=== PATIENT | male | born 1945 | race Caucasian/White ===

== ENCOUNTER 2018-07-23 20:31 | Inpatient (IN) | payer MEDICARE, MEDICAID ==
[~2018-07-23] VITALS: Ht 165.1 cm; Wt 54.4 kg
[2018-07-23 21:10] VITALS: BP 180/89
[2018-07-23 21:30] LABS: ANION GAP 4 mmol/L (5-15); BLOOD UREA NITROGEN 52 mg/dL (7-18); CARBON DIOXIDE 31 MMOL/L (21-32); CHLORIDE 106 MMOL/L (98-107); CREATININE 1.5 MG/DL (0.55-1.30); POTASSIUM 4.6 MMOL/L (3.5-5.1); SODIUM 141 MMOL/L (136-145)
[2018-07-23 21:31] LABS: BASOPHILS % (AUTO) 0.6 % (0.0-2.0); EOSINOPHILS % (AUTO) 1.9 % (0.0-3.0); HEMATOCRIT 41.5 % (42.0-52.0); HEMOGLOBIN 13.5 G/DL (14.2-18.0); LYMPHOCYTES % (AUTO) 9.9 % (20.0-45.0); MEAN CORPUSCULAR VOLUME 92 FL (80-99); MONOCYTES % (AUTO) 9.2 % (1.0-10.0); NEUTROPHILS % (AUTO) 78.4 % (45.0-75.0); PLATELET COUNT 227 K/UL (150-450); RED BLOOD COUNT 4.52 M/UL (4.70-6.10); RED CELL DISTRIBUTION WIDTH 13.1 % (11.6-14.8); WHITE BLOOD COUNT 7.1 K/UL (4.8-10.8)
[2018-07-23 21:45] LABS: ALANINE AMINOTRANSFERASE 25 U/L (12-78); ALBUMIN 3.6 G/DL (3.4-5.0); ALBUMIN/GLOBULIN RATIO 1.2 (1.0-2.7); ALKALINE PHOSPHATASE 91 U/L (46-116); ASPARTATE AMINO TRANSFERASE 34 U/L (15-37); BILIRUBIN,TOTAL 0.4 MG/DL (0.2-1.0); CKMB 3.5 NG/ML (0.0-3.6); CREATINE KINASE 116 U/L (26-308)
[2018-07-23] MEDS ORDERED: ABILIFY15 MG ORAL (22:08)
[2018-07-23] MEDS ORDERED: ASPIRIN81 M3 PO (22:09)
[2018-07-23] MEDS ORDERED: CHLORTHALIDONE25 MG ORAL (22:10)
[2018-07-23] MEDS ORDERED: LEVOFLOXACIN500 MG ORAL (22:11)
[2018-07-23] MEDS ORDERED: LISINOPRIL5 MG ORAL (22:11)
[2018-07-23] MEDS ORDERED: IPRATROPIU0.2 MG/1 M HHN (22:12)
[2018-07-23] MEDS ORDERED: MAPAP325 MG/10. PO (22:14)
[2018-07-23] MEDS ORDERED: ACETAMINOPHEN325 M1 ORAL (22:15)
[2018-07-23] MEDS ORDERED: Isovue-370 150ml vial INJ PRN ×2 (22:15)
--- NOTE | 2018-07-23 22:33 | Emergency Room Report ---
History of Present Illness General Chief Complaint: Generalized Weakness Source: Patient Present Illness HPI Patient presents emergency department today complaining acute onset altered mental status and left upper and lower extremity weakness. Patient stays at a snf. Apparently at approximately 3:00 was last time is known well. Between 3:00 and 7:00 patient was noted to be more confused uncertain exactly when he got worse and then he's was unable to speak. Patient apparently was not moving his left upper and left lower extremity. Patient was brought here further evaluation by the caregiver. No other complaints are noted. Symptoms noted to be highly severe. No other modifying factors. No other associated signs and symptoms. No other complaints were noted. Allergies: Coded Allergies: No Known Allergies (Unverified , 07/23/18) Patient History Past Medical History: HTN, CAD, COPD Past Surgical History: other - Left AV fistula Social History: Denies: smoking, alcohol use, drug use Reviewed Nursing Documentation: PMH: Agreed; PSxH: Agreed Nursing Documentation-PMH Hx Cardiac Problems: Yes Hx Hypertension: Yes Hx COPD: Yes Hx Dialysis: No Review of Systems All Other Systems: negative except mentioned in HPI Physical Exam Vital Signs Date Time Temp Pulse Resp B/P (MAP) Pulse Ox O2 Delivery O2 Flow Rate FiO2 07/23/18 20:44 98.6 92 17 179/91 98 Room Air 07/23/18 21:10 98 Sp02 EP Interpretation: reviewed, normal General Appearance: alert, moderate distress, lethargic Head: normocephalic, atraumatic Eyes: bilateral eye normal inspection ENT: normal ENT inspection, moist mucus membranes Neck: normal inspection, full range of motion, supple, no bony tend Respiratory: normal inspection, lungs clear, normal breath sounds, no respiratory distress, no retraction, no wheezing Cardiovascular #1: regular rate, rhythm, no edema Gastrointestinal: normal inspection, normal bowel sounds, non tender, soft, no guarding, no hernia Genitourinary: no CVA tenderness Musculoskeletal: other - Left upper extremity contractures, AV fistula in place Neurologic: alert, aphasia, other - Confused, left upper and lower extre weakness Psychiatric: other - Unable to fully assess Skin: normal inspection, normal color, no rash Medical Decision Making Diagnostic Impression: Primary Impression: CVA (cerebral vascular accident) Additional Impression: Altered mental state ER Course Patient presents emergency department today with acute altered mental status possible CVA. Differential considerations include CVA, electrolyte abnormality , seizure activity just name a few.Given the severity of the patient's presentation I felt this is a highly complex patient. This patient required extensive workup. TPA criteria: Patient's time of onset was outside TPA window. Therefore patient did not meet TPA criteria. Head CT was noted to be negative. Because of patient's presentation I discussed this case with [facility] stroke line. There is concern perhaps that she transfer patient higher-level care. However patient began to improve significantly starts talking move his extremities. Therefore I felt that it was unlikely the patient had large vessel occlusion. CTA of the head and neck was canceled because patient had significant renal disease in the past and given that there was no evidence of large vessel occlusion I felt that the study was not indicated this time. Case was discussed with [facility] stroke line. This felt the patient was stable for admission to telemetry here at [facility]. Case was discussed with Dr. Bill. Patient will be admitted to telemetry for further treatment. Labs Test 07/23/18 21:05 White Blood Count 7.1 K/UL (4.8-10.8) Red Blood Count 4.52 M/UL (4.70-6.10) Hemoglobin 13.5 G/DL (14.2-18.0) Hematocrit 41.5 % (42.0-52.0) Mean Corpuscular Volume 92 FL (80-99) Mean Corpuscular Hemoglobin 29.9 PG (27.0-31.0) Mean Corpuscular Hemoglobin Concent 32.5 G/DL (32.0-36.0) Red Cell Distribution Width 13.1 % (11.6-14.8) Platelet Count 227 K/UL (150-450) Mean Platelet Volume 6.7 FL (6.5-10.1) Neutrophils (%) (Auto) 78.4 % (45.0-75.0) Lymphocytes (%) (Auto) 9.9 % (20.0-45.0) Monocytes (%) (Auto) 9.2 % (1.0-10.0) Eosinophils (%) (Auto) 1.9 % (0.0-3.0) Basophils (%) (Auto) 0.6 % (0.0-2.0) Prothrombin Time 10.5 SEC (9.30-11.50) Prothromb Time International Ratio 1.0 (0.9-1.1) Activated Partial Thromboplast Time 25 SEC (23-33) Sodium Level 141 MMOL/L (136-145) Potassium Level 4.6 MMOL/L (3.5-5.1) Chloride Level 106 MMOL/L (98-107) Carbon Dioxide Level 31 MMOL/L (21-32) Anion Gap 4 mmol/L (5-15) Blood Urea Nitrogen 52 mg/dL (7-18) Creatinine 1.5 MG/DL (0.55-1.30) Estimat Glomerular Filtration Rate mL/min (>60) Glucose Level 87 MG/DL (74-106) Calcium Level 9.0 MG/DL (8.5-10.1) Total Bilirubin 0.4 MG/DL (0.2-1.0) Aspartate Amino Transf (AST/SGOT) 34 U/L (15-37) Alanine Aminotransferase (ALT/SGPT) 25 U/L (12-78) Alkaline Phosphatase 91 U/L (46-116) Total Creatine Kinase 116 U/L (26-308) Creatine Kinase MB 3.5 NG/ML (0.0-3.6) Creatine Kinase MB Relative Index 3.0 Troponin I 0.278 ng/mL (0.000-0.056) Pro-B-Type Natriuretic Peptide 1695 pg/mL (0-125) Total Protein 6.5 G/DL (6.4-8.2) Albumin 3.6 G/DL (3.4-5.0) Globulin 2.9 g/dL Albumin/Globulin Ratio 1.2 (1.0-2.7) Lipase 141 U/L (73-393) EKG Diagnostic Results Rate: normal Rhythm: NSR ST Segments: no acute changes Rhythm Strip Diag. Results EP Interpretation: yes Rate: 77 Rhythm: NSR, no PVC's, no ectopy Chest X-Ray Diagnostic Results Chest X-Ray Diagnostic Results : Chest X-Ray Ordered: Yes # of Views/Limited/Complete: 1 View Indication: Chest Pain EP Interpretation: Yes Interpretation: no consolidation, no pneumothorax - ,, other - Interstitial markings Impression: Other - Pulmonary congestion Electronically Signed by: Electronically signed by Cuba Toure MD CT/MRI/US Diagnostic Results CT/MRI/US Diagnostic Results : Imaging Test Ordered: Head CT: Negative Last Vital Signs Date Time Temp Pulse Resp B/P (MAP) Pulse Ox O2 Delivery O2 Flow Rate FiO2 07/23/18 21:10 98.6 85 17 180/89 98 Room Air 07/23/18 21:10 98 Status: improved Disposition: ADMITTED INPATIENT Condition: Serious Referrals: NON PHYSICIAN (PCP) Cuba Toure MD Jul 23, 2018 22:33
[2018-07-24] VITALS: BP 164/107
[2018-07-24] MEDS: Ipratropium 0.02% Inh Soln 2.5ml UD HHN SCH ×4 (01:24→20:35)
[2018-07-24 04:00] VITALS: BP 147/81
[2018-07-24 07:18] LABS: BASOPHILS % (AUTO) 0.3 % (0.0-2.0); EOSINOPHILS % (AUTO) 1.2 % (0.0-3.0); HEMATOCRIT 40.3 % (42.0-52.0); LYMPHOCYTES % (AUTO) 13.9 % (20.0-45.0); MEAN CORPUSCULAR VOLUME 92 FL (80-99); MONOCYTES % (AUTO) 12.3 % (1.0-10.0); NEUTROPHILS % (AUTO) 72.3 % (45.0-75.0); PLATELET COUNT 231 K/UL (150-450); RED BLOOD COUNT 4.39 M/UL (4.70-6.10); RED CELL DISTRIBUTION WIDTH 13.1 % (11.6-14.8); WHITE BLOOD COUNT 7.7 K/UL (4.8-10.8)
[2018-07-24 07:21] LABS: ANION GAP 8 mmol/L (5-15); BLOOD UREA NITROGEN 45 mg/dL (7-18); CARBON DIOXIDE 29 MMOL/L (21-32); CHLORIDE 106 MMOL/L (98-107); CREATININE 1.4 MG/DL (0.55-1.30); SODIUM 143 MMOL/L (136-145)
[2018-07-24 08:00] VITALS: BP 140/75
[2018-07-24] MEDS ORDERED: Levofloxacin 500mg tab ORAL ONE (09:00)
[2018-07-24] MEDS ORDERED: Lisinopril 10mg tab ORAL SCH (09:00)
[2018-07-24] MEDS: Aspirin Baby 81mg ORAL SCH (09:02)
[2018-07-24] MEDS: Heparin 5000 units/ml inj SUBQ SCH ×2 (09:04→21:44)
--- NOTE | 2018-07-24 11:00 | History and Physical Report ---
DATE OF ADMISSION: 07/23/2018 REASON FOR ADMISSION: Possible CVA. HISTORY OF PRESENT ILLNESS: The patient is a 73-year-old male with acute altered mental status and upper and lower extremity weakness. The patient has home care and the patient events fairly acute. The patient noted to be more confused overall, unable to speak and was brought in for further evaluation. The patient symptoms as mentioned were acute and persistent. The patient has no prior history of CVA. The patient does have underlying renal insufficiency. The patient also is fairly debilitated. Care discussed and reviewed. The ER notes were reviewed. PAST MEDICAL HISTORY: Hypertension, CAD, COPD, and left AV fistula. MEDICATIONS: Reviewed. ALLERGIES: Reviewed. SOCIAL HISTORY: Nonsmoker and nondrinker at present. REVIEW OF SYSTEMS: Difficult to obtain. PHYSICAL EXAMINATION: GENERAL: A well-developed male, in no significant distress. VITAL SIGNS: Blood pressure 147/81, pulse 66, respirations 20, saturations 96% on room air, and temperature is 98.1. HEENT: Negative. Extraocular movements are grossly intact. NECK: Supple. LUNGS: Fairly clear and symmetric. No rhonchi or wheezes. CARDIAC: Normal S1, S2. Regular rate and rhythm without murmurs, rubs, or gallops. ABDOMEN: Soft, nontender, nondistended. EXTREMITIES: No cyanosis or clubbing. Left upper extremity with contractures, AV fistula in place. NEUROLOGIC: The patient is fairly aphasic, confused, left-sided weakness noted. LABORATORY AND DIAGNOSTIC DATA: The patient's laboratory data. Electrolytes, BUN 45 and creatinine 1.4. Troponin 0.278, repeat 0.332. White count 7.7, hematocrit 40, platelets of 231. The head CT was noted to be negative. IMPRESSION: Transient focal weakness, acute encephalopathy, elevated troponin, possible non-STEMI PA, mild pulmonary congestion, COPD per history, evidence of anemia, evidence of acute on chronic renal failure. RECOMMENDATIONS: Supportive care. OT, PT, and speech. MRI of the brain. Resume medication. Monitor blood pressure. Obtain Cardiology evaluation. Obtain carotid ultrasound. Obtain echocardiogram. DVT prophylaxis. Aspirin daily. Monitor clinically for change and assess for home discharge versus short-term rehabilitation. Camilo Bill M.D. DR: FACUNDO JOB#: [id number] CC:
[2018-07-24 12:00] VITALS: BP 142/74
[2018-07-24 16:00] VITALS: BP 143/72
[2018-07-24 20:00] VITALS: BP 153/82
[2018-07-25] VITALS: BP 157/84
[2018-07-25] MEDS: Ipratropium 0.02% Inh Soln 2.5ml UD HHN SCH ×4 (01:26→19:19)
--- NOTE | 2018-07-25 04:30 | Consultation ---
DATE OF CONSULTATION: 07/24/2018 CARDIOLOGY CONSULT CONSULTING PHYSICIAN: Anselmo Porras M.D. REQUESTING PHYSICIAN: Camilo Bill M.D. REASON FOR CONSULTATION: Probable acute cerebrovascular accident in the setting of hypertensive cardiomyopathy. HISTORY OF PRESENT ILLNESS: This 73-year-old male, who resides in an assisted living facility and was noted last evening to become increasingly withdrawn, confused and altered in mentation with weakness in his left upper and lower extremities. He was brought to the emergency room and was unable to speak. He seemed, however, following presentation, there was notable improvement. The patient had a CAT scan of the brain with no acute process. Speech and movement of the extremities improved during his emergency room stay. PAST MEDICAL HISTORY: 1. Hypertension. 2. Coronary artery disease. 3. COPD. 4. Left upper extremity AV fistula. 5. History of renal failure. ALLERGIES: None known. MEDICATIONS: Prior to admission, reviewed and reconciled. SOCIAL HISTORY: No record of smoking, alcohol, or substance abuse. REVIEW OF SYSTEMS: Not presently obtainable. PHYSICAL EXAMINATION: GENERAL: Well developed and well nourished, in no distress. VITAL SIGNS: Blood pressure 147/81, pulse 66, respirations 20, room air oxygen saturation is 96%, and he is afebrile. HEENT: Conjunctivae are pink. Nonicteric. Oropharynx is clear. Mucous membranes are moist. NECK: Supple. No facial asymmetry. No drooling. Jugular venous pressure normal. No carotid bruits. Normal carotid upstrokes are noted. LUNGS: With clear breath sounds. CARDIAC: Regular rhythm and rate. Normal S1 and S2 with a fourth heart sound. ABDOMEN: Soft and nontender. EXTREMITIES: No edema. Left upper extremity with a palpable AV fistula site. The patient has some weakness in the left side and he is partially aphasic. LABORATORY AND IMAGING DATA: The white count 7.1 and hemoglobin 13.5. BUN 52, creatinine 1.5, and potassium 4.6. Troponin 0.278, repeated 0.332. Pro-natriuretic peptide 1695. EKG was reviewed notable for sinus rhythm at 77, nonspecific ST-T changes. Chest x-ray, mild pulmonary venous congestion and an echocardiogram revealed apical hypokinesis, ejection fraction 50%, mild aortic stenosis with aortic valve area of 1.5 cm2 and no pulmonary hypertension. IMPRESSION: 1. Possible acute cerebrovascular accident with aphasia and left-sided weakness. 2. Possible acute myocardial infarction. 3. Hypertensive heart disease with labile blood pressure/hypertensive urgency. 4. Chronic kidney disease with history of arteriovenous venous fistula. 5. Acute diastolic congestive heart failure. RECOMMENDATIONS: 1. Cardiac monitoring. 2. Neuro check. 3. Carotid duplex scan. 4. MRI of the brain. 5. Serial troponin levels. 6. Anti-platelet therapy. 7. Antianginal therapy. 8. Further recommendations to follow. Anselmo Porras M.D. DR: CONNIE JOB#: [id number] CC:
[2018-07-25 08:00] VITALS: BP 183/92
[2018-07-25 08:05] VITALS: BP 139/86
[2018-07-25] MEDS: Aspirin Baby 81mg ORAL SCH (08:19)
[2018-07-25] MEDS: Metoprolol 25mg tab ORAL SCH ×2 (08:19→20:55)
[2018-07-25] MEDS: Heparin 5000 units/ml inj SUBQ SCH ×2 (08:20→20:57)
[2018-07-25] MEDS ORDERED: Lisinopril 20mg tab ORAL SCH (09:00)
--- NOTE | 2018-07-25 10:03 | General Progress Note ---
Assessment/Plan Assessment/Plan IMPRESSION: possible CVA, acute encephalopathy, elevated troponin, possible non-STEMI MS, mild pulmonary congestion, COPD per history, evidence of anemia, evidence of acute on chronic renal failure. PLAN care as is await imaging card noted pt and ot speech fall risk message left for family impression, plan, and exam edited and reviewed in detail care discussed with RN Subjective Allergies: Coded Allergies: No Known Allergies (Unverified , 07/23/18) Subjective care noted no distress still appears confused Objective Last 24 Hour Vital Signs Date Time Temp Pulse Resp B/P (MAP) Pulse Ox O2 Delivery O2 Flow Rate FiO2 07/25/18 08:19 76 139/86 07/25/18 08:19 139/86 07/25/18 08:09 84 20 96 Room Air 21 07/25/18 07:59 86 20 93 Room Air 21 07/25/18 04:00 64 07/25/18 01:35 66 18 98 Room Air 21 07/25/18 01:26 64 18 94 Room Air 21 07/25/18 00:00 67 07/25/18 00:00 99.2 70 20 157/84 (108) 94 07/24/18 21:00 Room Air 07/24/18 20:45 79 18 98 Room Air 21 07/24/18 20:35 72 18 95 Room Air 21 07/24/18 20:00 99.1 71 18 153/82 (105) 94 07/24/18 20:00 73 07/24/18 16:00 63 07/24/18 16:00 97.8 63 20 143/72 (95) 95 07/24/18 13:57 65 20 96 Room Air 21 07/24/18 13:52 69 20 95 Room Air 21 07/24/18 12:00 98.1 85 20 142/74 (96) 95 07/24/18 12:00 65 Intake and Output 07/24/18 07/25/18 19:00 07:00 Intake Total 810 ml Output Total 400 ml Balance 810 ml -400 ml Intake Oral 810 ml Output Urine Total 400 ml # Voids 4 2 # Bowel Movements 1 Labs Test 07/23/18 21:05 07/24/18 05:58 White Blood Count 7.1 K/UL (4.8-10.8) 7.7 K/UL (4.8-10.8) Red Blood Count 4.52 M/UL (4.70-6.10) 4.39 M/UL (4.70-6.10) Hemoglobin 13.5 G/DL (14.2-18.0) 13.0 G/DL (14.2-18.0) Hematocrit 41.5 % (42.0-52.0) 40.3 % (42.0-52.0) Mean Corpuscular Volume 92 FL (80-99) 92 FL (80-99) Mean Corpuscular Hemoglobin 29.9 PG (27.0-31.0) 29.7 PG (27.0-31.0) Mean Corpuscular Hemoglobin Concent 32.5 G/DL (32.0-36.0) 32.3 G/DL (32.0-36.0) Red Cell Distribution Width 13.1 % (11.6-14.8) 13.1 % (11.6-14.8) Platelet Count 227 K/UL (150-450) 231 K/UL (150-450) Mean Platelet Volume 6.7 FL (6.5-10.1) 6.7 FL (6.5-10.1) Neutrophils (%) (Auto) 78.4 % (45.0-75.0) 72.3 % (45.0-75.0) Lymphocytes (%) (Auto) 9.9 % (20.0-45.0) 13.9 % (20.0-45.0) Monocytes (%) (Auto) 9.2 % (1.0-10.0) 12.3 % (1.0-10.0) Eosinophils (%) (Auto) 1.9 % (0.0-3.0) 1.2 % (0.0-3.0) Basophils (%) (Auto) 0.6 % (0.0-2.0) 0.3 % (0.0-2.0) Prothrombin Time 10.5 SEC (9.30-11.50) Prothromb Time International Ratio 1.0 (0.9-1.1) Activated Partial Thromboplast Time 25 SEC (23-33) Sodium Level 141 MMOL/L (136-145) 143 MMOL/L (136-145) Potassium Level 4.6 MMOL/L (3.5-5.1) 4.0 MMOL/L (3.5-5.1) Chloride Level 106 MMOL/L (98-107) 106 MMOL/L (98-107) Carbon Dioxide Level 31 MMOL/L (21-32) 29 MMOL/L (21-32) Anion Gap 4 mmol/L (5-15) 8 mmol/L (5-15) Blood Urea Nitrogen 52 mg/dL (7-18) 45 mg/dL (7-18) Creatinine 1.5 MG/DL (0.55-1.30) 1.4 MG/DL (0.55-1.30) Estimat Glomerular Filtration Rate mL/min (>60) mL/min (>60) Glucose Level 87 MG/DL (74-106) 75 MG/DL (74-106) Calcium Level 9.0 MG/DL (8.5-10.1) 9.0 MG/DL (8.5-10.1) Total Bilirubin 0.4 MG/DL (0.2-1.0) Aspartate Amino Transf (AST/SGOT) 34 U/L (15-37) Alanine Aminotransferase (ALT/SGPT) 25 U/L (12-78) Alkaline Phosphatase 91 U/L (46-116) Total Creatine Kinase 116 U/L (26-308) Creatine Kinase MB 3.5 NG/ML (0.0-3.6) Creatine Kinase MB Relative Index 3.0 Troponin I 0.278 ng/mL (0.000-0.056) 0.332 ng/mL (0.000-0.056) Pro-B-Type Natriuretic Peptide 1695 pg/mL (0-125) Total Protein 6.5 G/DL (6.4-8.2) Albumin 3.6 G/DL (3.4-5.0) Globulin 2.9 g/dL Albumin/Globulin Ratio 1.2 (1.0-2.7) Lipase 141 U/L (73-393) Height (Feet): 5 Height (Inches): 5.00 Weight (Pounds): 110 Objective GENERAL: A well-developed male, in no significant distress. HEENT: Negative. Extraocular movements are grossly intact. NECK: Supple. LUNGS: Fairly clear and symmetric. No rhonchi or wheezes. CARDIAC: Normal S1, S2. Regular rate and rhythm without murmurs, rubs, or gallops. ABDOMEN: Soft, nontender, nondistended. EXTREMITIES: No cyanosis or clubbing. Left upper extremity with contractures, AV fistula in place. NEUROLOGIC: The patient is fairly dysarthric, confused, left-sided weakness noted. bruising noted Camilo Bill MD Jul 25, 2018 10:03
[2018-07-25 12:00] VITALS: BP 135/75
[2018-07-25] MEDS ORDERED: LORazepam Inj 2mg/ml 1ml IV PRN (13:45)
[2018-07-25 16:00] VITALS: BP 173/113
--- NOTE | 2018-07-25 18:49 | Consultation ---
History of Present Illness General Chief Complaint: Generalized Weakness Present Illness HPI 73-year-old male with altered mental status and upper and lower extremity weakness. the pt has been agitated and pulling out the IV access the pt is unable to provide hx the pt has waxing and waning of consciousness Allergies: Coded Allergies: No Known Allergies (Unverified , 07/23/18) Medication History Scheduled Acetaminophen* (Acetaminophen 325MG Tablet*), 325 MG ORAL Q6H, (Reported) Aripiprazole* (Abilify*), 15 MG ORAL DAILY, (Reported) Chlorthalidone* (Chlorthalidone*), 25 MG ORAL DAILY, (Reported) Levofloxacin (Levofloxacin*), 500 MG ORAL DAILY, (Reported) Lisinopril (Lisinopril*), 10 MG ORAL DAILY, (Reported) Scheduled PRN Ipratropium [place] 0.5MG/2.5ML (Ipratropium [place] 0.5MG/2.5ML), 0.5 MG HHN Q6H PRN for Shortness of Breath, (Reported) Miscellaneous Medications Acetaminophen (Mapap), 325 MG PO, (Reported) Aspirin (Aspirin), 81 MG PO, (Reported) Patient History Limited by: medical condition History Provided By: Patient, Medical Record, PMD Healthcare decision maker Daniela Traylor Resuscitation status Full Code Advanced Directive on File Past Medical/Surgical History Past Medical/Surgical History: (1) Altered mental state (2) CVA (cerebral vascular accident) Review of Systems Psychiatric: Reports: anxiety, emotional problems, hallucinations Physical Exam General Appearance: alert, confused, severe distress, agitated Last 24 Hour Vital Signs Date Time Temp Pulse Resp B/P (MAP) Pulse Ox O2 Delivery O2 Flow Rate FiO2 07/25/18 16:02 177/113 07/25/18 16:00 97.8 77 20 173/113 (133) 93 07/25/18 13:35 73 23 96 Nasal Cannula 2.0 28 07/25/18 13:24 70 24 97 Nasal Cannula 2.0 28 07/25/18 12:00 97.2 62 20 135/75 (95) 94 07/25/18 12:00 56 07/25/18 09:00 Room Air 07/25/18 08:19 76 139/86 07/25/18 08:19 139/86 07/25/18 08:09 84 20 96 Room Air 21 07/25/18 08:05 76 20 139/86 (103) 93 07/25/18 08:00 97.6 70 20 183/92 (122) 93 07/25/18 07:59 86 20 93 Room Air 21 07/25/18 07:11 67 07/25/18 04:00 64 07/25/18 01:35 66 18 98 Room Air 21 07/25/18 01:26 64 18 94 Room Air 21 07/25/18 00:00 67 07/25/18 00:00 99.2 70 20 157/84 (108) 94 07/24/18 21:00 Room Air 07/24/18 20:45 79 18 98 Room Air 21 07/24/18 20:35 72 18 95 Room Air 21 07/24/18 20:00 99.1 71 18 153/82 (105) 94 07/24/18 20:00 73 Intake and Output 07/24/18 07/25/18 19:00 07:00 Intake Total 810 ml Output Total 400 ml Balance 810 ml -400 ml Intake Oral 810 ml Output Urine Total 400 ml # Voids 4 2 # Bowel Movements 1 Height (Feet): 5 Height (Inches): 5.00 Weight (Pounds): 110 Medications Current Medications Medications (Trade) Dose Ordered Sig/Clementine Route PRN Reason Start Time Stop Time Status Last Admin Dose Admin Acetaminophen (Tylenol) 650 mg Q4H PRN ORAL Mild Pain/Temp > 100.5 07/24/18 01:00 08/23/18 00:59 Aripiprazole (Abilify) 15 mg DAILY ORAL 07/24/18 09:00 08/23/18 08:59 07/25/18 08:18 Aspirin (ASA) 81 mg DAILY ORAL 07/24/18 09:00 08/23/18 08:59 07/25/18 08:19 Chlorthalidone (Chlorthalidone) 25 mg DAILY ORAL 07/24/18 09:00 08/23/18 08:59 07/25/18 08:19 Clonidine HCl (Catapres Tab) 0.1 mg Q4H PRN ORAL SBP >160 07/24/18 01:00 08/23/18 00:59 07/25/18 16:02 Heparin Sodium (Porcine) (Heparin 5000 units/ml) 5,000 units EVERY 12 HOURS SUBQ 07/24/18 09:00 08/23/18 08:59 07/25/18 08:20 Ipratropium [place] (Atrovent) 500 mcg Q6HRT HHN 07/24/18 01:00 07/29/18 00:59 07/25/18 13:24 Levofloxacin (Levaquin) 250 mg QOD ORAL 07/25/18 09:00 08/01/18 08:59 07/25/18 08:18 Lisinopril (Prinivil) 20 mg DAILY ORAL 07/25/18 09:00 08/24/18 08:59 07/25/18 08:19 Lorazepam (Ativan 2mg/ml 1ml) 1 mg Q3HR PRN IV For mild Anxiety 07/25/18 13:45 08/01/18 13:44 07/25/18 13:47 Metoprolol Tartrate (Lopressor) 25 mg Q12HR ORAL 07/25/18 09:00 08/24/18 08:59 07/25/18 08:19 Ondansetron HCl (Zofran) 4 mg Q6H PRN IVP Nausea & Vomiting 07/24/18 01:00 08/23/18 00:59 Sodium Chloride 1,000 ml @ 100 mls/hr Q10H IV 07/24/18 01:00 08/23/18 00:59 07/25/18 17:00 Assessment/Plan Problem List: (1) Acute metabolic encephalopathy ICD Codes: G93.41 - Metabolic encephalopathy SNOMED: 95095533, [id number] Assessment/Plan the pt lacks capacity to make decisions zyprexa standing dustyyprexa prn Anneliese Dc MD Jul 25, 2018 18:49
[2018-07-25] MEDS ORDERED: OLANZapine 2.5mg tab ORAL PRN (19:00)
[2018-07-25 20:00] VITALS: BP 150/99
[2018-07-25] MEDS: OLANZapine 2.5mg tab ORAL SCH (20:56)
[2018-07-26] VITALS: BP 171/96
--- NOTE | 2018-07-26 | Progress Note ---
DATE: 07/25/2018 CARDIOLOGY PROGRESS NOTE SUBJECTIVE: The patient remains confused in no acute distress. No apparent chest pain. OBJECTIVE: VITAL SIGNS: Blood pressure 139/86, pulse 76, respiratory rate 20, afebrile, T-max 99.2. Monitored rhythm is sinus. No significant ectopy seen. LUNGS: Exam coarse breath sounds. HEART: Regular rhythm and rate. Normal S1, S2. ABDOMEN: Soft. No edema. EXTREMITIES: Left weakness. Palpable bruit over the left upper extremity AV fistula. LABS: No new laboratories today. IMPRESSION: 1. Acute myocardial ischemia and possible [id number] myocardial infarction. 2. Degenerative aortic valve disease with mild stenosis. 3. Hypertensive heart disease. 4. Peripheral vascular disease with possible acute cerebrovascular accident. 5. Acute on chronic diastolic congestive heart failure. PLAN: 1. Continue anti-platelet therapy, beta-anurag, and current antihypertensive. Titrate based on clinical parameters. 2. Maintain anti-platelet therapy. 3. Await lipid panel and address statin drug. 4. Optimize anti-failure regimen. Anselmo Porras M.D. DR: MANOLO JOB#: [id number] CC:
[2018-07-26] MEDS: Ipratropium 0.02% Inh Soln 2.5ml UD HHN SCH ×5 (01:15→20:08)
[2018-07-26] MEDS: Haloperidol 5mg/ml Inj IM PRN (02:54)
[2018-07-26 04:00] VITALS: BP 130/85
[2018-07-26 08:00] VITALS: BP 163/93
[2018-07-26 08:01] LABS: ALANINE AMINOTRANSFERASE 28 U/L (12-78); ALBUMIN 3.1 G/DL (3.4-5.0); ALBUMIN/GLOBULIN RATIO 0.9 (1.0-2.7); ALKALINE PHOSPHATASE 86 U/L (46-116); ANION GAP 6 mmol/L (5-15); ASPARTATE AMINO TRANSFERASE 35 U/L (15-37); BILIRUBIN,TOTAL 0.6 MG/DL (0.2-1.0); BLOOD UREA NITROGEN 37 mg/dL (7-18); CALCIUM 8.5 MG/DL (8.5-10.1); CARBON DIOXIDE 30 MMOL/L (21-32); CHLORIDE 109 MMOL/L (98-107); CHOLESTEROL 156 MG/DL (< 200); CREATININE 1.4 MG/DL (0.55-1.30); HDL CHOLESTEROL 71 MG/DL (40-60); POTASSIUM 3.8 MMOL/L (3.5-5.1); SODIUM 145 MMOL/L (136-145); TRIGLYCERIDES 58 MG/DL (30-150)
--- NOTE | 2018-07-26 08:17 | General Progress Note ---
Assessment/Plan Assessment/Plan IMPRESSION: possible CVA, toxic metabolic encephalopathy, elevated troponin, possible non-STEMI [place], mild pulmonary congestion, COPD per history, evidence of anemia, evidence of acute on chronic renal failure. PLAN care as is MRI psych follow up card noted pt and ot speech fall risk message left for family - will call again for disposition impression, plan, and exam edited and reviewed in detail care discussed with RN Subjective Allergies: Coded Allergies: No Known Allergies (Unverified , 07/23/18) Subjective care noted no distress psych appreciated MRI pending Objective Last 24 Hour Vital Signs Date Time Temp Pulse Resp B/P (MAP) Pulse Ox O2 Delivery O2 Flow Rate FiO2 07/26/18 08:00 97.0 64 20 163/93 (116) 98 07/26/18 07:17 Nasal Cannula 2.0 28 07/26/18 07:17 Nasal Cannula 2.0 28 07/26/18 04:00 97.3 62 18 130/85 (100) 98 07/26/18 04:00 64 07/26/18 01:26 78 18 98 Nasal Cannula 2.0 28 07/26/18 01:15 75 18 96 Nasal Cannula 2.0 28 07/26/18 00:00 65 07/26/18 00:00 97.8 68 18 171/96 (121) 98 07/25/18 21:00 Room Air 07/25/18 20:55 76 150/99 07/25/18 20:00 99.2 76 18 150/99 (116) 95 07/25/18 20:00 75 07/25/18 19:29 76 22 97 Nasal Cannula 2.0 28 07/25/18 19:19 71 18 95 Nasal Cannula 2.0 28 07/25/18 16:02 177/113 07/25/18 16:00 97.8 77 20 173/113 (133) 93 07/25/18 13:35 73 23 96 Nasal Cannula 2.0 28 07/25/18 13:24 70 24 97 Nasal Cannula 2.0 28 07/25/18 12:00 97.2 62 20 135/75 (95) 94 07/25/18 12:00 56 07/25/18 09:00 Room Air 07/25/18 08:19 76 139/86 07/25/18 08:19 139/86 Intake and Output 07/25/18 07/26/18 19:00 07:00 Intake Total 480 ml 1298.3 ml Output Total 300 ml Balance 180 ml 1298.3 ml Intake Oral 480 ml IV Total 1298.3 ml Output Urine Total 300 ml # Voids 4 2 # Bowel Movements 2 Laboratory Tests 07/26/18 06:20: Sodium Level 145, Potassium Level 3.8, Chloride Level 109H, Carbon Dioxide Level 30, Anion Gap 6, Blood Urea Nitrogen 37H, Creatinine 1.4H, Estimat Glomerular Filtration Rate , Glucose Level 71L, Calcium Level 8.5, Magnesium Level 2.0, Total Bilirubin 0.6, Aspartate Amino Transf (AST/SGOT) 35, Alanine Aminotransferase (ALT/SGPT) 28, Alkaline Phosphatase 86, Troponin I [Pending], Pro-B-Type Natriuretic Peptide 6104H, Total Protein 6.4, Albumin 3.1L, Globulin 3.3, Albumin/Globulin Ratio 0.9L, Triglycerides Level 58, Cholesterol Level 156 , LDL Cholesterol 76, HDL Cholesterol 71H, Cholesterol/HDL Ratio 2.2L, Thyroid Stimulating Hormone (TSH) 1.101 Height (Feet): 5 Height (Inches): 5.00 Weight (Pounds): 110 Objective GENERAL: A well-developed male, in no significant distress. HEENT: Negative. Extraocular movements are grossly intact. NECK: Supple. LUNGS: Fairly clear and symmetric. No rhonchi or wheezes. CARDIAC: Normal S1, S2. Regular rate and rhythm without murmurs, rubs, or gallops. ABDOMEN: Soft, nontender, nondistended. EXTREMITIES: No cyanosis or clubbing. Left upper extremity with contractures, AV fistula in place. NEUROLOGIC: The patient is fairly dysarthric, confused, left-sided weakness noted. bruising noted Camilo Bill MD Jul 26, 2018 08:17
[2018-07-26] MEDS: Metoprolol 25mg tab ORAL SCH ×2 (09:20→21:28)
[2018-07-26] MEDS: OLANZapine 2.5mg tab ORAL SCH ×2 (09:20→18:59)
[2018-07-26] MEDS: Lisinopril 20mg tab ORAL SCH (09:20)
[2018-07-26] MEDS: Aspirin Baby 81mg ORAL SCH (09:21)
[2018-07-26] MEDS: Heparin 5000 units/ml inj SUBQ SCH ×2 (09:22→21:29)
[2018-07-26 12:00] VITALS: BP 159/84
[2018-07-26] MEDS ORDERED: LORazepam 1mg tab ORAL SCH (12:45)
[2018-07-26 16:00] VITALS: BP 152/94
[2018-07-26 20:00] VITALS: BP 158/89
--- NOTE | 2018-07-26 23:07 | General Progress Note ---
Assessment/Plan Problem List: (1) Acute metabolic encephalopathy ICD Codes: G93.41 - Metabolic encephalopathy SNOMED: 45836140, [id number] Assessment/Plan the pt lacks capacity to make decisions zyprexa standing zyprexa prn ativan 2mg x 1time prior to the procedure Subjective Neurologic/Psychiatric: Reports: anxiety, depressed, emotional problems Allergies: Coded Allergies: No Known Allergies (Unverified , 07/23/18) Objective Last 24 Hour Vital Signs Date Time Temp Pulse Resp B/P (MAP) Pulse Ox O2 Delivery O2 Flow Rate FiO2 07/26/18 21:28 76 160/89 07/26/18 20:13 72 20 99 Nasal Cannula 2.0 28 07/26/18 20:05 99 Nasal Cannula 2.0 28 07/26/18 20:04 Nasal Cannula 2.0 28 07/26/18 20:02 74 20 99 Nasal Cannula 2.0 28 07/26/18 16:00 83 07/26/18 16:00 98.4 66 20 152/94 (113) 96 07/26/18 13:31 88 16 99 Nasal Cannula 2.0 28 07/26/18 13:25 78 20 94 Nasal Cannula 2.0 28 07/26/18 12:00 62 07/26/18 12:00 97.2 62 18 159/84 (109) 97 07/26/18 09:20 163/93 07/26/18 09:20 64 163/93 07/26/18 09:00 Room Air 07/26/18 08:00 67 07/26/18 08:00 97.0 64 20 163/93 (116) 98 07/26/18 07:17 Nasal Cannula 2.0 28 07/26/18 07:17 Nasal Cannula 2.0 28 07/26/18 04:00 97.3 62 18 130/85 (100) 98 07/26/18 04:00 64 07/26/18 01:26 78 18 98 Nasal Cannula 2.0 28 07/26/18 01:15 75 18 96 Nasal Cannula 2.0 28 07/26/18 00:00 65 07/26/18 00:00 97.8 68 18 171/96 (121) 98 Intake and Output 07/25/18 07/26/18 19:00 07:00 Intake Total 480 ml 1298.3 ml Output Total 300 ml Balance 180 ml 1298.3 ml Intake Oral 480 ml IV Total 1298.3 ml Output Urine Total 300 ml # Voids 4 2 # Bowel Movements 2 Laboratory Tests 07/26/18 06:20: Sodium Level 145, Potassium Level 3.8, Chloride Level 109H, Carbon Dioxide Level 30, Anion Gap 6, Blood Urea Nitrogen 37H, Creatinine 1.4H, Estimat Glomerular Filtration Rate , Glucose Level 71L, Calcium Level 8.5, Magnesium Level 2.0, Total Bilirubin 0.6, Aspartate Amino Transf (AST/SGOT) 35, Alanine Aminotransferase (ALT/SGPT) 28, Alkaline Phosphatase 86, Troponin I 0.099H, Pro- B-Type Natriuretic Peptide 6104H, Total Protein 6.4, Albumin 3.1L, Globulin 3.3 , Albumin/Globulin Ratio 0.9L, Triglycerides Level 58, Cholesterol Level 156, LDL Cholesterol 76, HDL Cholesterol 71H, Cholesterol/HDL Ratio 2.2L, Thyroid Stimulating Hormone (TSH) 1.101 Height (Feet): 5 Height (Inches): 5.00 Weight (Pounds): 110 General Appearance: alert, confused, agitated Anneliese Dc MD Jul 26, 2018 23:07
[2018-07-27] VITALS: BP 143/74
[2018-07-27] MEDS: Ipratropium 0.02% Inh Soln 2.5ml UD HHN SCH ×4 (01:06→20:08)
[2018-07-27 04:00] VITALS: BP 159/77
[2018-07-27 08:00] VITALS: BP 129/92
--- NOTE | 2018-07-27 08:55 | General Progress Note ---
Assessment/Plan Assessment/Plan IMPRESSION: possible CVA, toxic metabolic encephalopathy, elevated troponin, possible non-STEMI [place], mild pulmonary congestion, COPD per history, evidence of anemia, evidence of acute on chronic renal failure. carotid stenosis PLAN care as is MRI pending psych follow up card noted pt and ot speech fall risk d/w family; would like snf impression, plan, and exam edited and reviewed in detail care discussed with RN Subjective ROS Limited/Unobtainable: Yes Allergies: Coded Allergies: No Known Allergies (Unverified , 07/23/18) Subjective care noted no distress psych appreciated MRI pending confused Objective Last 24 Hour Vital Signs Date Time Temp Pulse Resp B/P (MAP) Pulse Ox O2 Delivery O2 Flow Rate FiO2 07/27/18 07:25 Nasal Cannula 2.0 28 07/27/18 07:24 Nasal Cannula 2.0 28 07/27/18 07:24 Nasal Cannula 2.0 28 07/27/18 04:00 67 07/27/18 04:00 98.5 66 20 159/77 (104) 97 07/27/18 01:14 69 20 99 Nasal Cannula 2.0 28 07/27/18 01:04 64 20 99 Nasal Cannula 2.0 28 07/27/18 00:00 97.9 64 20 143/74 (97) 99 07/26/18 21:28 76 160/89 07/26/18 21:00 Room Air 07/26/18 20:13 72 20 99 Nasal Cannula 2.0 28 07/26/18 20:05 99 Nasal Cannula 2.0 28 07/26/18 20:04 Nasal Cannula 2.0 28 07/26/18 20:02 74 20 99 Nasal Cannula 2.0 28 07/26/18 20:00 98.5 76 19 158/89 (112) 100 07/26/18 20:00 74 07/26/18 16:00 83 07/26/18 16:00 98.4 66 20 152/94 (113) 96 07/26/18 13:31 88 16 99 Nasal Cannula 2.0 28 07/26/18 13:25 78 20 94 Nasal Cannula 2.0 28 07/26/18 12:00 62 07/26/18 12:00 97.2 62 18 159/84 (109) 97 07/26/18 09:20 163/93 3/18/19 09:20 64 163/93 07/26/18 09:00 Room Air Intake and Output 07/26/18 07/27/18 18:59 06:59 Intake Total 240 ml Balance 240 ml Intake Oral 240 ml # Voids 3 Height (Feet): 5 Height (Inches): 5.00 Weight (Pounds): 110 Objective GENERAL: A well-developed male, in no significant distress. HEENT: Negative. Extraocular movements are grossly intact. NECK: Supple. LUNGS: Fairly clear and symmetric. No rhonchi or wheezes. CARDIAC: Normal S1, S2. Regular rate and rhythm without murmurs, rubs, or gallops. ABDOMEN: Soft, nontender, nondistended. EXTREMITIES: No cyanosis or clubbing. Left upper extremity with contractures, AV fistula in place. NEUROLOGIC: The patient is fairly dysarthric, confused, left-sided weakness noted. bruising noted Camilo Bill MD Jul 27, 2018 08:55
[2018-07-27] MEDS: OLANZapine 2.5mg tab ORAL SCH ×2 (10:58→17:59)
[2018-07-27] MEDS: Metoprolol 25mg tab ORAL SCH ×2 (10:59→20:55)
[2018-07-27] MEDS: Aspirin Baby 81mg ORAL SCH (11:00)
[2018-07-27] MEDS: Lisinopril 20mg tab ORAL SCH (11:00)
[2018-07-27] MEDS: Heparin 5000 units/ml inj SUBQ SCH ×2 (11:07→20:57)
[2018-07-27 12:00] VITALS: BP 111/63
--- NOTE | 2018-07-27 14:03 | Cardiology Report ---
APPROVED REPORT EXAM: Two-dimensional and M-mode echocardiogram with Doppler and color Doppler. INDICATION ABNORMAL CARD [facility] M-Mode DIMENSIONS IVSd1.2 (0.7-1.1cm)Left Atrium (MM)2.7 (1.6-4.0cm) LVDd4.8 (3.5-5.6cm)Aortic Root2.7 (2.0-3.7cm) PWd1.1 (0.7-1.1cm)Aortic Cusp Exc.1.2 (1.5-2.0cm) IVSs1.5 cm LVDs3.1 (2.5-4.0cm) PWs1.5 cm Technically difficult study due to patient's heart position . Normal left ventricular chamber size,and normal wall motion to the extetn visualized . Left ventricular ejection fraction estimated to be 50%. Boderline mild left ventricular hypertrophy. Anterior Echo-free space, may be due to pericardial fat or effusion. All other cardiac chamber sizes are within normal limits. Aortic valve calcification with decreased cusp excursion c/w aortic stenosis. Mildly thickened mitral valve leaflets with normal excursion. Mild mitral annulus and aortic root calcification. Pulmonic valve not well visualized. IVC at normal size with physiologic collapse . A color flow and spectral Doppler study was performed and revealed: No aortic insufficiency . Peak aortic valve gradient of 16 mm Hg and a mean of 8 mmHg. Aortic valve area 1.5 cm2 calculated by continuity equation. HOWEVER THESE MEASUREMENTS ARE UNDER ESTIMATING THE DEGREE OF AORTIC STENOSIS SEVERITY BEING MEASURED OFF AXIS Trace mitral regurgitation. Left ventricular diastolic function can not determined due to arrhythmia . Mild tricuspid regurgitation. Tricuspid systolic velocities suggests peak right ventricular systolic pressure of 31 mmHg.
--- NOTE | 2018-07-27 15:50 | General Progress Note ---
Assessment/Plan Problem List: (1) Acute metabolic encephalopathy ICD Codes: G93.41 - Metabolic encephalopathy SNOMED: 44317491, [id number] Assessment/Plan the pt lacks capacity to make decisions zyprexa standing zyprexa prn ativan 2mg x 1time prior to the procedure cont restraints Subjective Neurologic/Psychiatric: Reports: anxiety, depressed, emotional problems Allergies: Coded Allergies: No Known Allergies (Unverified , 07/23/18) Objective Last 24 Hour Vital Signs Date Time Temp Pulse Resp B/P (MAP) Pulse Ox O2 Delivery O2 Flow Rate FiO2 07/27/18 12:20 88 20 100 Nasal Cannula 2.0 28 07/27/18 12:15 77 16 98 Nasal Cannula 2.0 28 07/27/18 12:00 56 07/27/18 12:00 97.9 57 18 111/63 (79) 07/27/18 11:00 129/92 07/27/18 10:59 85 129/92 07/27/18 09:39 Room Air 07/27/18 08:00 98.2 85 20 129/92 (104) 95 07/27/18 07:40 79 07/27/18 07:25 Nasal Cannula 2.0 28 07/27/18 07:24 Nasal Cannula 2.0 28 07/27/18 07:24 Nasal Cannula 2.0 28 07/27/18 04:00 67 07/27/18 04:00 98.5 66 20 159/77 (104) 97 07/27/18 01:14 69 20 99 Nasal Cannula 2.0 28 07/27/18 01:04 64 20 99 Nasal Cannula 2.0 28 07/27/18 00:00 97.9 64 20 143/74 (97) 99 07/26/18 21:28 76 160/89 07/26/18 21:00 Room Air 07/26/18 20:13 72 20 99 Nasal Cannula 2.0 28 07/26/18 20:05 99 Nasal Cannula 2.0 28 07/26/18 20:04 Nasal Cannula 2.0 28 07/26/18 20:02 74 20 99 Nasal Cannula 2.0 28 07/26/18 20:00 98.5 76 19 158/89 (112) 100 07/26/18 20:00 74 07/26/18 16:00 83 07/26/18 16:00 98.4 66 20 152/94 (113) 96 Intake and Output 07/26/18 07/27/18 19:00 07:00 Intake Total 240 ml Balance 240 ml Intake Oral 240 ml # Voids 3 Height (Feet): 5 Height (Inches): 5.00 Weight (Pounds): 110 General Appearance: WD/WN, no apparent distress, alert, confused Anneliese Dc MD Jul 27, 2018 15:50
[2018-07-27 16:00] VITALS: BP 136/69
[2018-07-27 20:00] VITALS: BP 148/72
[2018-07-28] VITALS: BP 139/91
--- NOTE | 2018-07-28 00:45 | Progress Note ---
DATE: 07/27/2018 CARDIOLOGY PROGRESS NOTE SUBJECTIVE: Troponin levels decreased over the past few days. The patient is NPO due to dysphagia. Blood pressure parameters have improved. There is no evidence of respiratory distress. PHYSICAL EXAMINATION: VITAL SIGNS: Blood pressure 159/77, pulse rate 66, and respiratory rate 20. LUNGS: Clear. CARDIAC: Regular. ABDOMEN: Soft. EXTREMITIES: No edema. IMPRESSION: 1. CVA. 2. Non ST-elevation myocardial infarction. 3. Acute diastolic congestive heart failure. 4. Carotid stenosis. PLAN: 1. Antiplatelet therapy. 2. Low-dose statin. 3. Consider MRI and MRA of the neck. 4. Avoid tightening blood pressure control until MR results are available. 5. Aspiration precautions. Anselmo Porras M.D. DR: CINTIA JOB#: [id number] CC:
[2018-07-28] MEDS: Ipratropium 0.02% Inh Soln 2.5ml UD HHN SCH ×4 (01:04→19:19)
[2018-07-28 04:00] VITALS: BP 152/80
--- NOTE | 2018-07-28 05:45 | Progress Note ---
DATE: 07/26/2018 CARDIOLOGY PROGRESS NOTE This is a late entry. SUBJECTIVE: The patient is in no distress. Blood pressure parameters remain labile. Monitored rhythm sinus. OBJECTIVE: VITAL SIGNS: Blood pressure 130/85 to 163/93, heart rate in the 60 to 80 range, respiratory rate 18, he is afebrile. LUNGS: Clear. CARDIAC: Regular. Normal S1, S2 with a fourth heart sound. ABDOMEN: Soft. EXTREMITIES: Trace edema. Palpable over AV fistula. LABORATORY DATA: BUN 37, creatinine 1.4. Natriuretic peptide 6100. LDL cholesterol is 76, HDL 71. TSH 1.1. IMPRESSION: 1. Cerebrovascular accident. 2. History of renal failure. 3. Hypertensive heart disease with malignant range blood pressure and labile blood pressure. 4. Favorable lipid panel. 5. Elevated troponin level suggesting non-ST elevation myocardial infarction versus acute coronary insufficiency. 6. History of chronic obstructive pulmonary disease. PLAN: 1. Continue antiplatelet therapy. 2. Titrate antihypertensive regimen. 3. Avoid orthostasis and hypotension in this clinical setting. 4. Speech therapy evaluation. 5. DVT prophylaxis. 6. Respiratory hygiene. Anselmo Porras M.D. DR: SACHA JOB#: [id number] CC:
[2018-07-28 08:00] VITALS: BP 163/81
[2018-07-28] MEDS: Heparin 5000 units/ml inj SUBQ SCH ×2 (08:49→21:09)
[2018-07-28] MEDS: Lisinopril 20mg tab ORAL SCH (08:50)
[2018-07-28] MEDS: Aspirin Baby 81mg ORAL SCH (08:50)
[2018-07-28] MEDS: OLANZapine 2.5mg tab ORAL SCH ×2 (08:51→18:49)
[2018-07-28] MEDS: Metoprolol 25mg tab ORAL SCH ×2 (08:51→21:07)
--- NOTE | 2018-07-28 09:14 | Diagnostic Imaging Report ---
Indication: Shortness of breath Technique: One view of the chest Comparison: 07/23/2018 Findings: Right hemidiaphragm is elevated. There is questionable mild interstitial congestive change again demonstrated. There is atelectasis at the right lung base. There is some atelectasis at the left lung base as well. There may be small pleural effusions developing bilaterally. The heart is upper limits normal in size. The aorta is elongated tortuous and calcified Impression: Mild interstitial edema, unchanged from 07/23/2018 Suspect developing small bilateral pleural effusions Bilateral basilar atelectatic changes
--- NOTE | 2018-07-28 09:18 | Diagnostic Imaging Report ---
Indication: Encephalopathy, confusion Technique: sagittal T1 fast spin echo, axial T1 FLAIR, axial T2 FLAIR, axial T2 FS PROPELLER, axial T2* GRE, axial diffusion weighted images. ADC and exponential ADC maps generated Comparison: Reference made to head CT 07/23/2018 Findings: No abnormal areas of restricted diffusion to suggest acute infarction. No acute hemorrhage or edema. No mass effect nor midline shift. There is age-related enlargement of the ventricles and extra-axial spaces. This is pronounced. Focal sulcal dilatation in the posterior left parietal lobe may reflect either old cortical infarct or a small arachnoid cyst; the latter is suggested by remodeling of the calvarial intertable described on recent CT scan. There is extensive periventricular deep white matter high T2 signal. Old lacunar infarcts are seen in the bilateral adrian radiata and in the bilateral basal ganglia. The visualized vascular flow voids are preserved. There is right maxillary sinus mucosal disease. Impression: Chronic and age-related changes, including multiple old bilateral lacunar infarcts Negative for acute intercranial bleed, mass effect, or infarct Questionable left posterior parietal arachnoid cyst
--- NOTE | 2018-07-28 11:31 | Pulmonology Progress Note ---
Assessment/Plan Assessment/Plan Pulmonary Progress Note Assessment/Plan IMPRESSION: possible CVA, toxic metabolic encephalopathy, elevated troponin, possible non-STEMI [place], mild pulmonary congestion, COPD per history, evidence of anemia, evidence of acute on chronic renal failure. carotid stenosis PLAN care as is psych follow up card noted pt and ot speech fall risk d/w family; would like snf impression, plan, and exam edited and reviewed in detail care discussed with RN Subjective ROS Limited/Unobtainable: Yes Allergies: Coded Allergies: No Known Allergies (Unverified , 07/23/18) Subjective care noted no distress psych appreciated MRI lacunar infarcts confused Objective Vital Signs Noted Height (Feet): 5 Height (Inches): 5.00 Weight (Pounds): 110 Objective GENERAL: A well-developed male, in no significant distress. HEENT: Negative. Extraocular movements are grossly intact. NECK: Supple. LUNGS: Fairly clear and symmetric. No rhonchi or wheezes. CARDIAC: Normal S1, S2. Regular rate and rhythm without murmurs, rubs, or gallops. ABDOMEN: Soft, nontender, nondistended. EXTREMITIES: No cyanosis or clubbing. Left upper extremity with contractures, AV fistula in place. NEUROLOGIC: The patient is fairly dysarthric, confused, left-sided weakness noted. bruising noted Subjective ROS Limited/Unobtainable: No Allergies: Coded Allergies: No Known Allergies (Unverified , 07/23/18) Objective Last 24 Hour Vital Signs Date Time Temp Pulse Resp B/P (MAP) Pulse Ox O2 Delivery O2 Flow Rate FiO2 07/28/18 09:00 Room Air 07/28/18 08:51 63 163/81 07/28/18 08:50 163/81 07/28/18 08:07 77 20 97 Nasal Cannula 2.0 28 07/28/18 08:02 Nasal Cannula 2.0 28 07/28/18 08:01 97 Nasal Cannula 2.0 28 07/28/18 08:00 97.2 63 21 163/81 (108) 98 07/28/18 07:57 72 20 96 Nasal Cannula 2.0 28 07/28/18 07:54 59 07/28/18 04:00 97.0 60 20 152/80 (104) 94 07/28/18 03:38 59 07/28/18 01:15 74 18 99 Nasal Cannula 2.0 28 07/28/18 01:05 69 18 97 Nasal Cannula 2.0 28 07/28/18 00:00 98.0 75 20 139/91 (107) 94 07/27/18 23:29 62 07/27/18 21:00 Room Air 07/27/18 20:55 60 148/72 07/27/18 20:15 69 20 100 Nasal Cannula 2.0 28 07/27/18 20:09 Nasal Cannula 2.0 28 07/27/18 20:08 61 18 98 Nasal Cannula 2.0 28 07/27/18 20:00 99.0 60 20 148/72 (97) 99 07/27/18 20:00 58 07/27/18 17:59 160/72 07/27/18 16:00 97.9 59 20 136/69 (91) 97 07/27/18 15:07 56 07/27/18 12:20 88 20 100 Nasal Cannula 2.0 28 07/27/18 12:15 77 16 98 Nasal Cannula 2.0 28 07/27/18 12:00 56 07/27/18 12:00 97.9 57 18 111/63 (79) Intake and Output 07/27/18 07/28/18 18:59 06:59 Intake Total 1060 ml Output Total 200 ml 1000 ml Balance -200 ml 60 ml Intake Oral 120 ml IV Total 940 ml Output Urine Total 200 ml 1000 ml # Voids 5 1 # Bowel Movements 1 Current Medications Medications (Trade) Dose Ordered Sig/Clementine Route PRN Reason Start Time Stop Time Status Last Admin Dose Admin Acetaminophen (Tylenol) 650 mg Q4H PRN ORAL Mild Pain/Temp > 100.5 07/24/18 01:00 08/23/18 00:59 Aripiprazole (Abilify) 15 mg DAILY ORAL 07/24/18 09:00 08/23/18 08:59 07/28/18 08:50 Aspirin (ASA) 81 mg DAILY ORAL 07/24/18 09:00 08/23/18 08:59 07/28/18 08:50 Chlorthalidone (Chlorthalidone) 25 mg DAILY ORAL 07/24/18 09:00 08/23/18 08:59 07/28/18 08:50 Clonidine HCl (Catapres Tab) 0.1 mg Q4H PRN ORAL SBP >160 07/24/18 01:00 08/23/18 00:59 07/27/18 17:59 Haloperidol Lactate (Haldol) 5 mg Q6H PRN IM Agitation 07/25/18 19:45 08/24/18 19:44 07/26/18 02:54 Heparin Sodium (Porcine) (Heparin 5000 units/ml) 5,000 units EVERY 12 HOURS SUBQ 07/24/18 09:00 08/23/18 08:59 07/28/18 08:49 Ipratropium [place] (Atrovent) 500 mcg Q6HRT HHN 07/24/18 01:00 07/29/18 00:59 07/28/18 07:57 Levofloxacin (Levaquin) 250 mg QOD ORAL 07/25/18 09:00 08/01/18 08:59 07/27/18 11:00 Lisinopril (Prinivil) 40 mg DAILY ORAL 07/26/18 09:00 08/25/18 08:59 07/28/18 08:50 Metoprolol Tartrate (Lopressor) 25 mg Q12HR ORAL 07/25/18 09:00 08/24/18 08:59 07/28/18 08:51 Olanzapine (ZyPREXA) 2.5 mg BID ORAL 07/25/18 19:00 08/24/18 18:59 07/28/18 08:51 Olanzapine (ZyPREXA) 2.5 mg Q6H PRN ORAL agitation 07/25/18 19:00 08/24/18 18:59 Ondansetron HCl (Zofran) 4 mg Q6H PRN IVP Nausea & Vomiting 07/24/18 01:00 08/23/18 00:59 Pravastatin Sodium (Pravachol) 20 mg BEDTIME ORAL 07/27/18 23:30 08/26/18 23:29 07/28/18 00:26 Sodium Chloride 1,000 ml @ 100 mls/hr Q10H IV 07/24/18 01:00 08/23/18 00:59 07/28/18 05:36 Anselmo Pacheco MD Jul 28, 2018 11:31
[2018-07-28 12:00] VITALS: BP 160/80
[2018-07-28 16:00] VITALS: BP 186/96
[2018-07-28 20:00] VITALS: BP 200/98
--- NOTE | 2018-07-28 23:44 | General Progress Note ---
Assessment/Plan Problem List: (1) Acute metabolic encephalopathy ICD Codes: G93.41 - Metabolic encephalopathy SNOMED: [id number], [id number] Status: stable Assessment/Plan the pt lacks capacity to make decisions zyprexa standing zyprexa prn ativan 2mg x 1time prior to the procedure cont restraints Subjective Neurologic/Psychiatric: Reports: anxiety, depressed, emotional problems Allergies: Coded Allergies: No Known Allergies (Unverified , 07/23/18) Objective Last 24 Hour Vital Signs Date Time Temp Pulse Resp B/P (MAP) Pulse Ox O2 Delivery O2 Flow Rate FiO2 07/28/18 21:08 200/98 07/28/18 21:07 65 200/98 07/28/18 21:00 Room Air 07/28/18 20:00 97.2 65 22 200/98 (132) 95 07/28/18 19:43 74 18 95 Room Air 21 07/28/18 19:24 Room Air 21 07/28/18 19:23 92 Room Air 21 07/28/18 19:23 71 18 92 Room Air 21 07/28/18 17:36 186/96 07/28/18 16:00 61 07/28/18 16:00 98.0 65 21 186/96 (126) 89 07/28/18 13:08 66 18 98 Nasal Cannula 2.0 28 07/28/18 12:58 66 18 95 Nasal Cannula 2.0 28 07/28/18 12:00 97.2 61 20 160/80 (106) 94 07/28/18 11:32 57 07/28/18 09:00 Room Air 07/28/18 08:51 63 163/81 07/28/18 08:50 163/81 07/28/18 08:07 77 20 97 Nasal Cannula 2.0 28 07/28/18 08:02 Nasal Cannula 2.0 28 07/28/18 08:01 97 Nasal Cannula 2.0 28 07/28/18 08:00 97.2 63 21 163/81 (108) 98 07/28/18 07:57 72 20 96 Nasal Cannula 2.0 28 07/28/18 07:54 59 07/28/18 04:00 97.0 60 20 152/80 (104) 94 07/28/18 03:38 59 07/28/18 01:15 74 18 99 Nasal Cannula 2.0 28 07/28/18 01:05 69 18 97 Nasal Cannula 2.0 28 07/28/18 00:00 98.0 75 20 139/91 (107) 94 Intake and Output 07/27/18 07/28/18 19:00 07:00 Intake Total 1160 ml Output Total 200 ml 1000 ml Balance -200 ml 160 ml Intake Oral 120 ml IV Total 1040 ml Output Urine Total 200 ml 1000 ml # Voids 5 1 # Bowel Movements 1 Height (Feet): 5 Height (Inches): 5.00 Weight (Pounds): 130 General Appearance: alert, confused, agitated Anneliese Dc MD Jul 28, 2018 23:44
[2018-07-29] VITALS: BP 175/96
[2018-07-29] MEDS ORDERED: 1/2NS w/KCl 20mEq 1000ml 1,000 ML IV SCH
[2018-07-29] MEDS: Haloperidol 5mg/ml Inj IM PRN (03:51)
[2018-07-29 04:00] VITALS: BP 160/72
--- NOTE | 2018-07-29 04:45 | Progress Note ---
DATE: 07/28/2018 CARDIOLOGY PROGRESS NOTE SUBJECTIVE: The patient is confused, agitated, and has very labile blood pressure readings. He is requiring restraint safety. He has severe dysphagia and aspiration risk and remains NPO, requiring IV fluids. PHYSICAL EXAMINATION: VITAL SIGNS: Blood pressure 175/96 and 200/98, heart rate 61, respiratory rate 18, and afebrile. Monitored rhythm, sinus. LUNGS: Coarse breath sounds. Few rhonchi. HEART: Regular rhythm and rate. Normal S1 and S2. ABDOMEN: Soft. EXTREMITIES: Trace edema. DIAGNOSTIC DATA: Chest x-ray today reveals interstitial edema and small bilateral pleural effusions. IMPRESSION: 1. Encephalopathy. 2. Dementia. 3. Cerebrovascular disease. 4. Mild protein-calorie malnutrition. 5. Acute myocardial ischemia and possible non-ST elevation infarction. 6. Acute on chronic renal failure. 7. Acute on chronic diastolic congestive heart failure. PLAN: 1. Diuresis. 2. Maintenance hydration while NPO. 3. Respiratory hygiene. 4. Aspiration precautions. 5. May need G-tube. 6. Maintain anti-platelet therapy. 7. Advance antihypertensive. Anselmo Porras M.D. DR: ILENE JOB#: [id number] CC:
[2018-07-29 08:00] VITALS: BP 168/96
--- NOTE | 2018-07-29 08:13 | General Progress Note ---
Assessment/Plan Assessment/Plan IMPRESSION: possible CVA, toxic metabolic encephalopathy, elevated troponin, possible non-STEMI [place], mild pulmonary congestion, COPD per history, evidence of anemia, evidence of acute on chronic renal failure. carotid stenosis PLAN care as is per daughter, does not want GT aware of aspiration concern pt and ot speech fall risk d/w family; would like snf- dc today impression, plan, and exam edited and reviewed in detail care discussed with RN Subjective Allergies: Coded Allergies: No Known Allergies (Unverified , 07/23/18) Subjective care noted no distress psych appreciated MRI reviewed and d/w family Objective Last 24 Hour Vital Signs Date Time Temp Pulse Resp B/P (MAP) Pulse Ox O2 Delivery O2 Flow Rate FiO2 07/29/18 04:00 97.5 60 18 160/72 (101) 97 07/29/18 04:00 60 07/29/18 00:21 65 200/98 07/29/18 00:00 61 07/29/18 00:00 97.2 61 20 175/96 (122) 93 07/28/18 21:08 200/98 07/28/18 21:07 65 200/98 07/28/18 21:00 Room Air 07/28/18 20:00 97.2 65 22 200/98 (132) 95 07/28/18 20:00 66 07/28/18 19:43 74 18 95 Room Air 21 07/28/18 19:24 Room Air 21 07/28/18 19:23 92 Room Air 21 07/28/18 19:23 71 18 92 Room Air 21 07/28/18 17:36 186/96 07/28/18 16:00 61 07/28/18 16:00 98.0 65 21 186/96 (126) 89 07/28/18 13:08 66 18 98 Nasal Cannula 2.0 28 07/28/18 12:58 66 18 95 Nasal Cannula 2.0 28 07/28/18 12:00 97.2 61 20 160/80 (106) 94 07/28/18 11:32 57 07/28/18 09:00 Room Air 07/28/18 08:51 63 163/81 07/28/18 08:50 163/81 Intake and Output 07/28/18 07/29/18 19:00 07:00 # Voids 2 Height (Feet): 5 Height (Inches): 5.00 Weight (Pounds): 130 Objective GENERAL: A well-developed male, in no significant distress. HEENT: Negative. Extraocular movements are grossly intact. NECK: Supple. LUNGS: Fairly clear and symmetric. No rhonchi or wheezes. CARDIAC: Normal S1, S2. Regular rate and rhythm without murmurs, rubs, or gallops. ABDOMEN: Soft, nontender, nondistended. EXTREMITIES: No cyanosis or clubbing. Left upper extremity with contractures, AV fistula in place. some edema noted NEUROLOGIC: The patient is fairly dysarthric, confused, left-sided weakness noted. bruising noted Camilo Bill MD Jul 29, 2018 08:13
[2018-07-29] MEDS: Metoprolol 25mg tab ORAL SCH ×2 (09:00→20:50)
[2018-07-29] MEDS: Aspirin Baby 81mg ORAL SCH (09:11)
[2018-07-29] MEDS: Lisinopril 20mg tab ORAL SCH (09:11)
[2018-07-29] MEDS: OLANZapine 2.5mg tab ORAL SCH ×2 (09:13→17:21)
[2018-07-29] MEDS: Heparin 5000 units/ml inj SUBQ SCH ×2 (09:14→20:51)
[2018-07-29 12:00] VITALS: BP 166/91
--- NOTE | 2018-07-29 15:45 | Diagnostic Imaging Report ---
Indication: Dysphasia Procedure and findings: Real-time fluoroscopic imaging performed in a lateral projection in conjunction with the speech pathologist evaluation. Variable consistencies of barium given per mouth. Findings: Significant abnormalities of both oral and pharyngeal phases of swallowing are demonstrated. Fluoroscopic time 302 seconds. Laryngeal penetration demonstrated. No definite aspiration identified. Abnormal video swallow. Please refer to speech pathology evaluation for more information.
[2018-07-29 16:00] VITALS: BP 165/91
[2018-07-29 20:00] VITALS: BP 159/93
[2018-07-30] VITALS: BP 177/86
[2018-07-30 04:00] VITALS: BP 160/80
[2018-07-30 08:00] VITALS: BP 150/74
[2018-07-30] MEDS: Metoprolol 25mg tab ORAL SCH ×2 (09:00→21:13)
[2018-07-30] MEDS: Lisinopril 20mg tab ORAL SCH (10:04)
[2018-07-30] MEDS: OLANZapine 2.5mg tab ORAL SCH ×2 (10:04→17:46)
[2018-07-30] MEDS: Aspirin Baby 81mg ORAL SCH (10:05)
[2018-07-30] MEDS: Heparin 5000 units/ml inj SUBQ SCH ×2 (10:08→21:17)
[2018-07-30 12:00] VITALS: BP 152/90
--- NOTE | 2018-07-30 15:46 | General Progress Note ---
Assessment/Plan Problem List: (1) Acute metabolic encephalopathy ICD Codes: G93.41 - Metabolic encephalopathy SNOMED: 68642699, [id number] Status: stable Assessment/Plan the pt lacks capacity to make decisions zyprexa standing zyprexa prn ativan 2mg x 1time prior to the procedure cont restraints Subjective Date patient seen: Jul 29, 2018 Neurologic/Psychiatric: Reports: anxiety Allergies: Coded Allergies: No Known Allergies (Unverified , 07/23/18) Subjective [employer] was down last night/late entry the pt cont to be agitated.and needs to have restrains. Objective Last 24 Hour Vital Signs Date Time Temp Pulse Resp B/P (MAP) Pulse Ox O2 Delivery O2 Flow Rate FiO2 07/30/18 12:00 97.9 77 18 152/90 (110) 95 07/30/18 10:05 59 150/74 07/30/18 10:04 150/74 07/30/18 09:00 59 150/74 07/30/18 09:00 Room Air 07/30/18 08:00 97.4 59 19 150/74 (99) 93 07/30/18 08:00 62 07/30/18 06:52 165/77 07/30/18 04:00 97.8 57 24 160/80 (106) 96 07/30/18 04:00 60 07/30/18 00:00 59 07/30/18 00:00 97.7 146 24 177/86 (116) 98 07/29/18 21:00 Room Air 07/29/18 20:50 73 159/93 07/29/18 20:00 97.7 73 24 159/93 (115) 92 07/29/18 16:00 97.2 73 18 165/91 (115) 96 07/29/18 16:00 80 Intake and Output 07/29/18 07/30/18 18:59 06:59 Intake Total 510 ml 100 ml Output Total 600 ml 400 ml Balance -90 ml -300 ml Intake Oral 360 ml 100 ml IV Total 150 ml Output Urine Total 600 ml 400 ml # Voids 1 Height (Feet): 5 Height (Inches): 5.00 Weight (Pounds): 130 General Appearance: alert, confused, agitated Anneliese Dc MD Jul 30, 2018 15:46
--- NOTE | 2018-07-30 15:47 | General Progress Note ---
Assessment/Plan Problem List: (1) Acute metabolic encephalopathy ICD Codes: G93.41 - Metabolic encephalopathy SNOMED: 30293378, 751840677 Status: stable Assessment/Plan the pt lacks capacity to make decisions zyprexa standing zyprexa prn ativan 2mg x 1time prior to the procedure cont restraints Subjective Date patient seen: Jul 30, 2018 Neurologic/Psychiatric: Reports: anxiety Allergies: Coded Allergies: No Known Allergies (Unverified , 07/23/18) Subjective more and alert the pt cont to be agitated.and needs to have restrains. Objective Last 24 Hour Vital Signs Date Time Temp Pulse Resp B/P (MAP) Pulse Ox O2 Delivery O2 Flow Rate FiO2 07/30/18 12:00 97.9 77 18 152/90 (110) 95 07/30/18 10:05 59 150/74 07/30/18 10:04 150/74 07/30/18 09:00 59 150/74 07/30/18 09:00 Room Air 07/30/18 08:00 97.4 59 19 150/74 (99) 93 07/30/18 08:00 62 07/30/18 06:52 165/77 07/30/18 04:00 97.8 57 24 160/80 (106) 96 07/30/18 04:00 60 07/30/18 00:00 59 07/30/18 00:00 97.7 146 24 177/86 (116) 98 07/29/18 21:00 Room Air 07/29/18 20:50 73 159/93 07/29/18 20:00 97.7 73 24 159/93 (115) 92 07/29/18 16:00 97.2 73 18 165/91 (115) 96 07/29/18 16:00 80 Intake and Output 07/29/18 07/30/18 18:59 06:59 Intake Total 510 ml 100 ml Output Total 600 ml 400 ml Balance -90 ml -300 ml Intake Oral 360 ml 100 ml IV Total 150 ml Output Urine Total 600 ml 400 ml # Voids 1 Height (Feet): 5 Height (Inches): 5.00 Weight (Pounds): 130 General Appearance: alert, confused, agitated Anneliese Dc MD Jul 30, 2018 15:47
[2018-07-30 16:00] VITALS: BP 145/85
[2018-07-30 20:00] VITALS: BP 177/101
--- NOTE | 2018-07-30 21:35 | Pulmonology Progress Note ---
Assessment/Plan Assessment/Plan Pulmonary Progress Note Assessment/Plan IMPRESSION: possible CVA, toxic metabolic encephalopathy, elevated troponin, possible non-STEMI [place], mild pulmonary congestion, COPD per history, evidence of anemia, evidence of acute on chronic renal failure. carotid stenosis PLAN care as is psych follow up card noted pt and ot speech fall risk d/w family; would like snf impression, plan, and exam edited and reviewed in detail care discussed with RN Subjective ROS Limited/Unobtainable: Yes Allergies: Coded Allergies: No Known Allergies (Unverified , 07/23/18) Subjective care noted no distress psych appreciated MRI lacunar infarcts confused Objective Vital Signs Noted Height (Feet): 5 Height (Inches): 5.00 Weight (Pounds): 110 Objective GENERAL: A well-developed male, in no significant distress. HEENT: Negative. Extraocular movements are grossly intact. NECK: Supple. LUNGS: Fairly clear and symmetric. No rhonchi or wheezes. CARDIAC: Normal S1, S2. Regular rate and rhythm without murmurs, rubs, or gallops. ABDOMEN: Soft, nontender, nondistended. EXTREMITIES: No cyanosis or clubbing. Left upper extremity with contractures, AV fistula in place. NEUROLOGIC: The patient is fairly dysarthric, confused, left-sided weakness noted. bruising noted Subjective ROS Limited/Unobtainable: No Allergies: Coded Allergies: No Known Allergies (Unverified , 07/23/18) Objective Last 24 Hour Vital Signs Date Time Temp Pulse Resp B/P (MAP) Pulse Ox O2 Delivery O2 Flow Rate FiO2 07/30/18 21:13 81 177/101 07/30/18 16:00 86 07/30/18 16:00 97.5 70 18 145/85 (105) 96 07/30/18 12:00 63 07/30/18 12:00 97.9 77 18 152/90 (110) 95 07/30/18 10:05 59 150/74 07/30/18 10:04 150/74 07/30/18 09:00 59 150/74 07/30/18 09:00 Room Air 07/30/18 08:00 97.4 59 19 150/74 (99) 93 07/30/18 08:00 62 07/30/18 06:52 165/77 07/30/18 04:00 97.8 57 24 160/80 (106) 96 07/30/18 04:00 60 07/30/18 00:00 59 07/30/18 00:00 97.7 146 24 177/86 (116) 98 Intake and Output 07/29/18 07/30/18 19:00 07:00 Intake Total 435 ml 100 ml Output Total 600 ml 400 ml Balance -165 ml -300 ml Intake Oral 360 ml 100 ml IV Total 75 ml Output Urine Total 600 ml 400 ml # Voids 1 Current Medications Medications (Trade) Dose Ordered Sig/Clementine Route PRN Reason Start Time Stop Time Status Last Admin Dose Admin Acetaminophen (Tylenol) 650 mg Q4H PRN ORAL Mild Pain/Temp > 100.5 07/24/18 01:00 08/23/18 00:59 Amlodipine Besylate (Norvasc) 5 mg DAILY ORAL 07/29/18 00:15 08/28/18 00:14 07/30/18 10:05 Aripiprazole (Abilify) 15 mg DAILY ORAL 07/24/18 09:00 08/23/18 08:59 07/30/18 10:04 Aspirin (ASA) 81 mg DAILY ORAL 07/24/18 09:00 08/23/18 08:59 07/30/18 10:05 Chlorthalidone (Chlorthalidone) 25 mg DAILY ORAL 07/24/18 09:00 08/23/18 08:59 07/30/18 10:04 Clonidine HCl (Catapres Tab) 0.1 mg Q4H PRN ORAL SBP >160 07/24/18 01:00 08/23/18 00:59 07/28/18 21:08 Haloperidol Lactate (Haldol) 5 mg Q6H PRN IM Agitation 07/25/18 19:45 08/24/18 19:44 07/29/18 03:51 Heparin Sodium (Porcine) (Heparin 5000 units/ml) 5,000 units EVERY 12 HOURS SUBQ 07/24/18 09:00 08/23/18 08:59 07/30/18 21:17 Levofloxacin (Levaquin) 250 mg QOD ORAL 07/25/18 09:00 08/01/18 08:59 07/29/18 09:11 Lisinopril (Prinivil) 40 mg DAILY ORAL 07/26/18 09:00 08/25/18 08:59 07/30/18 10:04 Metoprolol Tartrate (Lopressor) 25 mg Q12HR ORAL 07/25/18 09:00 08/24/18 08:59 07/30/18 21:13 Olanzapine (ZyPREXA) 2.5 mg BID ORAL 07/25/18 19:00 08/24/18 18:59 07/30/18 17:46 Olanzapine (ZyPREXA) 2.5 mg Q6H PRN ORAL agitation 07/25/18 19:00 08/24/18 18:59 Ondansetron HCl (Zofran) 4 mg Q6H PRN IVP Nausea & Vomiting 07/24/18 01:00 08/23/18 00:59 Pravastatin Sodium (Pravachol) 20 mg BEDTIME ORAL 07/27/18 23:30 08/26/18 23:29 07/30/18 21:13 Anselmo Pacheco MD Jul 30, 2018 21:35
[2018-07-31] VITALS: BP 180/92
--- NOTE | 2018-07-31 00:45 | Progress Note ---
DATE: 07/30/2018 CARDIOLOGY PROGRESS NOTE SUBJECTIVE: The patient remains confused and agitated. Discharge planning in progress. No apparent pain. OBJECTIVE: VITAL SIGNS: Blood pressure 150/74, pulse 62, and respirations 18. NECK: Supple. LUNGS: Clear. CARDIAC: Regular. There is a fourth heart sound. ABDOMEN: Soft. EXTREMITIES: No edema. IMPRESSION: 1. Hypertensive heart disease. 2. Encephalopathy, resolved. 3. Acute myocardial ischemia and possible non-ST elevation infarction recovered with no sequelae. 4. Acute on chronic diastolic congestive heart failure compensated. PLAN: 1. Off intravenous fluids. 2. Stable on current medications. 3. Rehabilitation at alf facility. 4. Discharge medication regimen reviewed. Anselmo Porras M.D. DR: KIKA JOB#: [id number] CC:
--- NOTE | 2018-07-31 00:45 | Progress Note ---
DATE: 07/29/2018 CARDIOLOGY PROGRESS NOTE SUBJECTIVE: The patient remains confused and agitated at times with labile blood pressure readings. No shortness of breath. OBJECTIVE: VITAL SIGNS: Blood pressure up to 165/91, heart rate 73, respiratory rate 18, and afebrile. LUNGS: Clear. CARDIAC: Regular with a fourth heart sound. ABDOMEN: Soft. EXTREMITIES: No edema. IMPRESSION: 1. Dementia with agitation. 2. Status post myocardial ischemic event with possible non-ST elevation infarction. 3. Hypertensive urgency, now recovered with blood pressure control slowly improved. 4. Metabolic and toxic encephalopathy recovering slowly. PLAN: 1. Avoid precipitous blood pressure drop. 2. Titrate antihypertensive therapy cautiously. 3. Mood needs to be controlled before additional blood pressure therapy added. 4. Will need further titration of medications following discharge as neuropsych parameters stabilize. Anselmo Porras M.D. DR: KIKA JOB#: [id number] CC:
[2018-07-31 04:00] VITALS: BP 127/88
[2018-07-31] MEDS ORDERED: dilTIAZem HCl 25mg/5ml Inj IVP ONE (06:30)
[2018-07-31 08:00] VITALS: BP 115/75
--- NOTE | 2018-07-31 08:19 | General Progress Note ---
Assessment/Plan Assessment/Plan IMPRESSION: possible CVA, toxic metabolic encephalopathy, elevated troponin, possible non-STEMI [place], mild pulmonary congestion, COPD per history, evidence of anemia, evidence of acute on chronic renal failure. carotid stenosis, rapid afib PLAN care as is per daughter, does not want GT aware of aspiration concern pt and ot speech cardizem and defer to cardiology for further rate control fall risk hold discharge impression, plan, and exam edited and reviewed in detail care discussed with RN Subjective Allergies: Coded Allergies: No Known Allergies (Unverified , 07/23/18) Subjective care noted went into rapid AFIB now nsr psych appreciated tele noted Objective Last 24 Hour Vital Signs Date Time Temp Pulse Resp B/P (MAP) Pulse Ox O2 Delivery O2 Flow Rate FiO2 07/31/18 06:45 140 127/88 07/31/18 04:00 135 07/31/18 04:00 97.9 150 20 127/88 (101) 92 07/31/18 03:39 180/92 07/31/18 00:00 98.4 72 18 180/92 (121) 93 07/31/18 00:00 65 07/30/18 21:13 81 177/101 07/30/18 21:00 Room Air 07/30/18 20:00 98.5 81 17 177/101 (126) 96 07/30/18 16:00 86 07/30/18 16:00 97.5 70 18 145/85 (105) 96 07/30/18 12:00 63 07/30/18 12:00 97.9 77 18 152/90 (110) 95 07/30/18 10:05 59 150/74 07/30/18 10:04 150/74 07/30/18 09:00 59 150/74 07/30/18 09:00 Room Air Intake and Output 07/30/18 07/31/18 19:00 07:00 Intake Total 150 ml Output Total 550 ml Balance -400 ml Intake Oral 150 ml Output Urine Total 550 ml # Voids 2 Height (Feet): 5 Height (Inches): 5.00 Weight (Pounds): 130 Objective GENERAL: A well-developed male, in no significant distress. HEENT: Negative. Extraocular movements are grossly intact. NECK: Supple. LUNGS: Fairly clear and symmetric. No rhonchi or wheezes. CARDIAC: Normal S1, S2. RRR without murmurs, rubs, or gallops. ABDOMEN: Soft, nontender, nondistended. EXTREMITIES: No cyanosis or clubbing. Left upper extremity with contractures, AV fistula in place. some edema noted NEUROLOGIC: The patient is fairly dysarthric, confused, left-sided weakness noted. bruising noted Camilo Bill MD Jul 31, 2018 08:19
[2018-07-31] MEDS: Lisinopril 20mg tab ORAL SCH (09:00)
[2018-07-31] MEDS: Metoprolol 25mg tab ORAL SCH ×2 (09:00→22:05)
[2018-07-31] MEDS: OLANZapine 2.5mg tab ORAL SCH ×2 (09:16→17:34)
[2018-07-31] MEDS: Aspirin Baby 81mg ORAL SCH (09:16)
[2018-07-31] MEDS: Heparin 5000 units/ml inj SUBQ SCH ×2 (09:23→22:06)
[2018-07-31 12:00] VITALS: BP 108/74
[2018-07-31 14:32] LABS: BASOPHILS % (AUTO) 0.4 % (0.0-2.0); EOSINOPHILS % (AUTO) 1.3 % (0.0-3.0); HEMATOCRIT 45.2 % (42.0-52.0); HEMOGLOBIN 14.3 G/DL (14.2-18.0); LYMPHOCYTES % (AUTO) 13.7 % (20.0-45.0); MEAN CORPUSCULAR VOLUME 93 FL (80-99); MONOCYTES % (AUTO) 12.9 % (1.0-10.0); NEUTROPHILS % (AUTO) 71.7 % (45.0-75.0); PLATELET COUNT 231 K/UL (150-450); RED BLOOD COUNT 4.87 M/UL (4.70-6.10); RED CELL DISTRIBUTION WIDTH 13.3 % (11.6-14.8); WHITE BLOOD COUNT 6.2 K/UL (4.8-10.8)
[2018-07-31 14:57] LABS: ALANINE AMINOTRANSFERASE 18 U/L (12-78); ALBUMIN 2.6 G/DL (3.4-5.0); ALBUMIN/GLOBULIN RATIO 0.8 (1.0-2.7); ALKALINE PHOSPHATASE 82 U/L (46-116); ANION GAP 9 mmol/L (5-15); ASPARTATE AMINO TRANSFERASE 31 U/L (15-37); BILIRUBIN,TOTAL 0.5 MG/DL (0.2-1.0); BLOOD UREA NITROGEN 34 mg/dL (7-18); CALCIUM 8.8 MG/DL (8.5-10.1); CARBON DIOXIDE 37 MMOL/L (21-32); CHLORIDE 131 MMOL/L (98-107); CREATININE 1.5 MG/DL (0.55-1.30)
[2018-07-31 14:58] LABS: POTASSIUM 2.5 MMOL/L (3.5-5.1); SODIUM 184 MMOL/L (136-145)
[2018-07-31 16:00] VITALS: BP 122/67
[2018-07-31 16:22] LABS: BASOPHILS % (AUTO) 0.8 % (0.0-2.0); EOSINOPHILS % (AUTO) 1.5 % (0.0-3.0); HEMATOCRIT 41.1 % (42.0-52.0); HEMOGLOBIN 13.5 G/DL (14.2-18.0); LYMPHOCYTES % (AUTO) 15.4 % (20.0-45.0); MEAN CORPUSCULAR VOLUME 92 FL (80-99); MONOCYTES % (AUTO) 17.6 % (1.0-10.0); NEUTROPHILS % (AUTO) 64.8 % (45.0-75.0); PLATELET COUNT 200 K/UL (150-450); RED BLOOD COUNT 4.48 M/UL (4.70-6.10); WHITE BLOOD COUNT 6.6 K/UL (4.8-10.8)
[2018-07-31 16:36] LABS: ALANINE AMINOTRANSFERASE 16 U/L (12-78); ALBUMIN 2.5 G/DL (3.4-5.0); ALBUMIN/GLOBULIN RATIO 0.8 (1.0-2.7); ALKALINE PHOSPHATASE 75 U/L (46-116); ANION GAP 5 mmol/L (5-15); ASPARTATE AMINO TRANSFERASE 29 U/L (15-37); BILIRUBIN,TOTAL 0.4 MG/DL (0.2-1.0); BLOOD UREA NITROGEN 33 mg/dL (7-18); CALCIUM 8.6 MG/DL (8.5-10.1); CARBON DIOXIDE 39 MMOL/L (21-32); CHLORIDE 101 MMOL/L (98-107); CREATININE 1.4 MG/DL (0.55-1.30); SODIUM 144 MMOL/L (136-145)
[2018-07-31 16:44] LABS: POTASSIUM 2.5 MMOL/L (3.5-5.1)
[2018-07-31 20:00] VITALS: BP 125/71
--- NOTE | 2018-07-31 23:15 | Progress Note ---
DATE: 07/31/2018 CARDIOLOGY PROGRESS NOTE SUBJECTIVE: The patient developed rapid atrial fibrillation. He was asymptomatic. He appears slightly short of breath according to staff. The patient received IV diltiazem per my order and converted back ultimately to sinus rhythm after rate control was achieved. Laboratory studies were obtained notable for potassium of 2.5. OBJECTIVE: VITAL SIGNS: Blood pressure 127/88, pulse 150, respiratory rate 20, and afebrile. LUNGS: Clear. CARDIAC: Regular rhythm and rate. Normal S1 and S2 with a 1/6 systolic murmur at apex. ABDOMEN: Soft. EXTREMITIES: Trace edema. LABORATORY DATA: Sodium 144, potassium 2.5, bicarbonate 39, BUN 33, and creatinine 1.4. Pro-natriuretic peptide is 5400. Albumin 2.5. IMPRESSION: 1. Paroxysmal atrial fibrillation with rapid ventricular response. 2. Hyperkalemia. 3. Hypomagnesemia. 4. Igmwvjxm-[id number] protein-calorie malnutrition. 5. Acute on chronic diastolic congestive heart failure. 6. Pmf-UQ-hkncxxbiz myocardial infarction. 7. Cerebrovascular accident. 8. Carotid stenosis. 9. Dementia with agitation. PLAN: Potassium replacement. Magnesium replacement. Continue beta-blockade with titration of dosing antiplatelet therapy. No plans for anticoagulation at present. Continue cardiac monitoring. Anselmo Porras M.D. ROSIE DE ANDA JOB#: [id number] CC:
[2018-08-01] VITALS: BP 121/64
--- NOTE | 2018-08-01 00:40 | General Progress Note ---
Assessment/Plan Problem List: (1) Acute metabolic encephalopathy ICD Codes: G93.41 - Metabolic encephalopathy SNOMED: [id number], [id number] Assessment/Plan the pt lacks capacity to make decisions zyprexa standing zyprexa prn ativan 2mg x 1time prior to the procedure cont restraints Subjective Date patient seen: Jul 31, 2018 Neurologic/Psychiatric: Reports: anxiety, emotional problems Allergies: Coded Allergies: No Known Allergies (Unverified , 07/23/18) Subjective more and alert the pt cont to be agitated.and needs to have restrains. Objective Last 24 Hour Vital Signs Date Time Temp Pulse Resp B/P (MAP) Pulse Ox O2 Delivery O2 Flow Rate FiO2 07/31/18 22:05 79 125/71 07/31/18 16:00 70 07/31/18 16:00 97.0 68 20 122/67 (85) 97 07/31/18 12:00 77 07/31/18 12:00 97.9 72 20 108/74 (85) 97 07/31/18 09:20 60 115/70 07/31/18 09:00 115/70 07/31/18 09:00 60 115/70 07/31/18 09:00 Room Air 07/31/18 08:00 98.3 76 20 115/75 (88) 96 07/31/18 08:00 87 07/31/18 06:45 140 127/88 07/31/18 04:00 135 07/31/18 04:00 97.9 150 20 127/88 (101) 92 07/31/18 03:39 180/92 Intake and Output 07/31/18 08/01/18 18:59 06:59 Intake Total 480 ml Output Total 500 ml Balance -20 ml Intake Oral 480 ml Output Urine Total 500 ml Laboratory Tests 07/31/18 14:03: White Blood Count 6.2, Red Blood Count 4.87, Hemoglobin 14.3, Hematocrit 45.2, Mean Corpuscular Volume 93, Mean Corpuscular Hemoglobin 29.2, Mean Corpuscular Hemoglobin Concent 31.5L, Red Cell Distribution Width 13.3, Platelet Count 231, Mean Platelet Volume 7.3, Neutrophils (%) (Auto) 71.7, Lymphocytes (%) (Auto) 13.7L, Monocytes (%) (Auto) 12.9H, Eosinophils (%) (Auto) 1.3, Basophils (%) ( Auto) 0.4, Sodium Level 184*H, Potassium Level 2.5*L, Chloride Level 131H, Carbon Dioxide Level 37H, Anion Gap 9, Blood Urea Nitrogen 34H, Creatinine 1.5H , Estimat Glomerular Filtration Rate , Glucose Level 194H, Calcium Level 8.8, Magnesium Level 1.7L, Total Bilirubin 0.5, Aspartate Amino Transf (AST/SGOT) 31 , Alanine Aminotransferase (ALT/SGPT) 18, Alkaline Phosphatase 82, Pro-B-Type Natriuretic Peptide 5778H, Total Protein 5.9L, Albumin 2.6L, Globulin 3.3, Albumin/Globulin Ratio 0.8L 07/31/18 15:30: White Blood Count 6.6, Red Blood Count 4.48L, Hemoglobin 13.5L, Hematocrit 41.1L , Mean Corpuscular Volume 92, Mean Corpuscular Hemoglobin 30.1, Mean Corpuscular Hemoglobin Concent 32.7, Red Cell Distribution Width 13.0, Platelet Count 200, Mean Platelet Volume 6.1L, Neutrophils (%) (Auto) 64.8, Lymphocytes ( %) (Auto) 15.4L, Monocytes (%) (Auto) 17.6H, Eosinophils (%) (Auto) 1.5, Basophils (%) (Auto) 0.8, Sodium Level 144#, Potassium Level 2.5*L, Chloride Level 101, Carbon Dioxide Level 39H, Anion Gap 5, Blood Urea Nitrogen 33H, Creatinine 1.4H, Estimat Glomerular Filtration Rate , Glucose Level 93#, Calcium Level 8.6, Magnesium Level 1.7L, Total Bilirubin 0.4, Aspartate Amino Transf (AST/SGOT) 29, Alanine Aminotransferase (ALT/SGPT) 16, Alkaline Phosphatase 75, Pro-B-Type Natriuretic Peptide 5439H, Total Protein 5.5L, Albumin 2.5L, Globulin 3.0, Albumin/Globulin Ratio 0.8L Height (Feet): 5 Height (Inches): 5.00 Weight (Pounds): 130 Anneliese cD MD Aug 01, 2018 00:40
[2018-08-01 04:00] VITALS: BP 151/77
[2018-08-01 08:00] VITALS: BP 139/80
[2018-08-01] MEDS: Lisinopril 20mg tab ORAL SCH (08:44)
[2018-08-01] MEDS: OLANZapine 2.5mg tab ORAL SCH ×2 (08:44→18:09)
[2018-08-01] MEDS: Aspirin Baby 81mg ORAL SCH (08:44)
[2018-08-01] MEDS: Metoprolol 25mg tab ORAL SCH ×2 (08:45→20:56)
[2018-08-01] MEDS: Heparin 5000 units/ml inj SUBQ SCH ×2 (08:46→20:57)
[2018-08-01 09:21] LABS: ANION GAP 4 mmol/L (5-15); BLOOD UREA NITROGEN 30 mg/dL (7-18); CALCIUM 8.8 MG/DL (8.5-10.1); CARBON DIOXIDE 40 MMOL/L (21-32); CHLORIDE 101 MMOL/L (98-107); CREATININE 1.3 MG/DL (0.55-1.30); POTASSIUM 3.2 MMOL/L (3.5-5.1); SODIUM 145 MMOL/L (136-145)
[2018-08-01 12:00] VITALS: BP 122/64
[2018-08-01 16:00] VITALS: BP 136/88
--- NOTE | 2018-08-01 19:24 | General Progress Note ---
Assessment/Plan Assessment/Plan IMPRESSION: possible CVA, toxic metabolic encephalopathy, elevated troponin, possible non-STEMI [place], mild pulmonary congestion, COPD per history, evidence of anemia, evidence of acute on chronic renal failure. carotid stenosis, rapid afib PLAN care as is per daughter, does not want GT aware of aspiration concern pt and ot speech cardizem and defer to cardiology for further rate control fall risk hold discharge will update family in am impression, plan, and exam edited and reviewed in detail care discussed with RN Subjective Allergies: Coded Allergies: No Known Allergies (Unverified , 07/23/18) Subjective care noted NSR off oxygen psych appreciated tele noted Objective Last 24 Hour Vital Signs Date Time Temp Pulse Resp B/P (MAP) Pulse Ox O2 Delivery O2 Flow Rate FiO2 08/01/18 12:00 53 08/01/18 09:00 Room Air 08/01/18 08:45 70 139/80 08/01/18 08:44 70 139/80 08/01/18 08:44 139/80 08/01/18 08:00 58 08/01/18 08:00 97.7 70 16 139/80 (99) 99 08/01/18 04:00 66 08/01/18 04:00 98.0 60 19 151/77 (101) 95 08/01/18 00:00 97.1 54 19 121/64 (83) 99 08/01/18 00:00 57 07/31/18 22:05 79 125/71 07/31/18 21:00 Room Air 07/31/18 20:00 97.8 67 20 125/71 (89) 98 07/31/18 20:00 69 Intake and Output 07/31/18 08/01/18 19:00 07:00 Intake Total 480 ml Output Total 500 ml Balance -20 ml Intake Oral 480 ml Output Urine Total 500 ml # Voids 1 # Bowel Movements 1 Laboratory Tests 08/01/18 08:00: Sodium Level 145, Potassium Level 3.2L, Chloride Level 101, Carbon Dioxide Level 40H, Anion Gap 4L, Blood Urea Nitrogen 30H, Creatinine 1.3, Estimat Glomerular Filtration Rate , Glucose Level 84, Calcium Level 8.8 Height (Feet): 5 Height (Inches): 5.00 Weight (Pounds): 130 Objective GENERAL: A well-developed male, in no significant distress. HEENT: Negative. NECK: Supple. LUNGS: Fairly clear and symmetric. No rhonchi or wheezes. CARDIAC: Normal S1, S2. RRR without murmurs, rubs, or gallops. ABDOMEN: Soft, nontender, nondistended. EXTREMITIES: No cyanosis or clubbing. Left upper extremity with contractures, AV fistula in place. some edema noted NEUROLOGIC: The patient is fairly dysarthric, confused, left-sided weakness noted. bruising noted Camilo Bill MD Aug 01, 2018 19:24
[2018-08-01 20:00] VITALS: BP 136/79
--- NOTE | 2018-08-01 23:15 | Progress Note ---
DATE: 08/01/2018 CARDIOLOGY PROGRESS NOTE SUBJECTIVE: The patient has not had any recurring atrial fibrillation since yesterday. His potassium was replaced, he still has a low potassium however of 3.2. He also received IV magnesium. Monitored rhythm now sinus with arrhythmia and occasional PACs. PHYSICAL EXAMINATION: LUNGS: Good breath sounds. No wheezes. HEART: Regular rhythm and rate. Normal S1, S2. ABDOMEN: Soft. EXTREMITIES: No edema. LABORATORY AND DIAGNOSTIC DATA: Sodium 145, potassium 3.2, bicarb 40, BUN 30, and creatinine 1.3. White count 6.6, hemoglobin 13.5. IMPRESSION: 1. Paroxysmal atrial fibrillation, acute on chronic diastolic congestive heart failure. 2. Dementia with agitation. 3. Premature atrial contractions. 4. Nicotine dependence. 5. Hypokalemia. 6. Hypomagnesemia. 7. Cerebrovascular disease. PLAN: 1. Continue beta-anurag. 2. Add current antihypertensives and anti-platelet therapy. 3. Replace potassium to therapeutic level above 4. 4. Replace magnesium as needed to therapeutic level above 2. 5. Maintenance diuretic dosing to follow. 6. Taper psych therapy as able. Anselmo Porras M.D. DR: Reyna JOB#: [id number] CC:
[2018-08-02] VITALS: BP 137/72
[2018-08-02 04:00] VITALS: BP 138/58
[2018-08-02 08:00] VITALS: BP 157/90
--- NOTE | 2018-08-02 08:48 | General Progress Note ---
Assessment/Plan Assessment/Plan IMPRESSION: possible CVA, toxic metabolic encephalopathy, elevated troponin, possible non-STEMI [place], mild pulmonary congestion, COPD per history, evidence of anemia, evidence of acute on chronic renal failure. carotid stenosis, rapid afib, paroxysmal PLAN care as is per daughter, does not want GT aware of aspiration concern pt and ot speech cardizem fall risk proceed with discharge will update family impression, plan, and exam edited and reviewed in detail care discussed with RN Subjective Allergies: Coded Allergies: No Known Allergies (Unverified , 07/23/18) Subjective care noted NSR off oxygen psych appreciated tele noted more alert Objective Last 24 Hour Vital Signs Date Time Temp Pulse Resp B/P (MAP) Pulse Ox O2 Delivery O2 Flow Rate FiO2 08/02/18 04:00 64 08/02/18 04:00 96.8 64 18 138/58 (84) 95 08/02/18 00:00 64 08/02/18 00:00 96.2 61 18 137/72 (93) 97 08/01/18 21:00 Room Air 08/01/18 20:56 70 136/79 08/01/18 20:00 97.5 64 20 136/79 (98) 95 08/01/18 20:00 80 08/01/18 16:00 97.4 63 19 136/88 (104) 99 08/01/18 16:00 68 08/01/18 12:00 97.8 58 19 122/64 (83) 99 08/01/18 12:00 53 08/01/18 09:00 Room Air Intake and Output 08/01/18 08/02/18 19:00 07:00 Intake Total 460 ml 200 ml Balance 460 ml 200 ml Intake Oral 460 ml IV Total 200 ml # Voids 2 # Bowel Movements 2 Height (Feet): 5 Height (Inches): 5.00 Weight (Pounds): 130 Objective GENERAL: A well-developed male, in no significant distress. HEENT: Negative. NECK: Supple. LUNGS: Fairly clear and symmetric. No rhonchi or wheezes. CARDIAC: Normal S1, S2. RRR without murmurs, rubs, or gallops. ABDOMEN: Soft, nontender, nondistended. EXTREMITIES: No cyanosis or clubbing. Left upper extremity with contractures, AV fistula in place. some edema noted NEUROLOGIC: The patient is fairly dysarthric, confused, left-sided weakness noted. bruising noted Camilo Bill MD Aug 02, 2018 08:48
[2018-08-02] MEDS: Metoprolol 25mg tab ORAL SCH ×2 (09:00→21:35)
[2018-08-02] MEDS: OLANZapine 2.5mg tab ORAL SCH ×2 (09:16→18:32)
[2018-08-02] MEDS: Aspirin Baby 81mg ORAL SCH (09:16)
[2018-08-02] MEDS: Lisinopril 20mg tab ORAL SCH (09:17)
[2018-08-02] MEDS: Heparin 5000 units/ml inj SUBQ SCH ×2 (09:19→21:40)
[2018-08-02 12:00] VITALS: BP 120/72
--- NOTE | 2018-08-02 15:08 | General Progress Note ---
Assessment/Plan Problem List: (1) Acute metabolic encephalopathy ICD Codes: G93.41 - Metabolic encephalopathy SNOMED: 41599683, [id number] Assessment/Plan the pt lacks capacity to make decisions zyprexa standing zyprexa prn ativan 2mg x 1time prior to the procedure cont restraints Subjective Neurologic/Psychiatric: Reports: anxiety, depressed, emotional problems Allergies: Coded Allergies: No Known Allergies (Unverified , 07/23/18) Subjective alert the pt cont to be agitated Objective Last 24 Hour Vital Signs Date Time Temp Pulse Resp B/P (MAP) Pulse Ox O2 Delivery O2 Flow Rate FiO2 08/02/18 12:00 77 08/02/18 12:00 97.2 82 20 120/72 (88) 95 08/02/18 09:48 72 20 Nasal Cannula 2.0 28 08/02/18 09:47 97 Nasal Cannula 2.0 28 08/02/18 09:47 Nasal Cannula 2.0 28 08/02/18 09:17 157/90 08/02/18 09:15 64 157/90 08/02/18 09:00 Room Air 08/02/18 09:00 55 157/90 08/02/18 08:00 98.1 64 20 157/90 (112) 95 08/02/18 08:00 64 08/02/18 04:00 64 08/02/18 04:00 96.8 64 18 138/58 (84) 95 08/02/18 00:00 64 08/02/18 00:00 96.2 61 18 137/72 (93) 97 08/01/18 21:00 Room Air 08/01/18 20:56 70 136/79 08/01/18 20:00 97.5 64 20 136/79 (98) 95 08/01/18 20:00 80 08/01/18 16:00 97.4 63 19 136/88 (104) 99 08/01/18 16:00 68 Intake and Output 08/01/18 08/02/18 19:00 07:00 Intake Total 460 ml 200 ml Balance 460 ml 200 ml Intake Oral 460 ml IV Total 200 ml # Voids 2 # Bowel Movements 2 Height (Feet): 5 Height (Inches): 5.00 Weight (Pounds): 130 General Appearance: alert, confused, agitated Anneliese Dc MD Aug 02, 2018 15:08
[2018-08-02 16:00] VITALS: BP 143/80
[2018-08-02] MEDS ORDERED: Tubing IV Secondary IV ONE (16:35)
[2018-08-02 20:00] VITALS: BP 134/66
[2018-08-03] VITALS: BP 157/88
[2018-08-03 04:00] VITALS: BP 163/86
[2018-08-03 08:00] VITALS: BP 155/77
[2018-08-03 08:39] LABS: BASOPHILS % (AUTO) 0.4 % (0.0-2.0); EOSINOPHILS % (AUTO) 2.4 % (0.0-3.0); HEMATOCRIT 42.8 % (42.0-52.0); HEMOGLOBIN 13.8 G/DL (14.2-18.0); LYMPHOCYTES % (AUTO) 20.4 % (20.0-45.0); MEAN CORPUSCULAR VOLUME 93 FL (80-99); MONOCYTES % (AUTO) 13.6 % (1.0-10.0); NEUTROPHILS % (AUTO) 63.2 % (45.0-75.0); PLATELET COUNT 230 K/UL (150-450); RED BLOOD COUNT 4.59 M/UL (4.70-6.10); RED CELL DISTRIBUTION WIDTH 13.6 % (11.6-14.8); WHITE BLOOD COUNT 5.9 K/UL (4.8-10.8)
[2018-08-03 09:32] LABS: ALANINE AMINOTRANSFERASE 18 U/L (12-78); ALBUMIN 2.7 G/DL (3.4-5.0); ALBUMIN/GLOBULIN RATIO 0.9 (1.0-2.7); ALKALINE PHOSPHATASE 80 U/L (46-116); ANION GAP 3 mmol/L (5-15); ASPARTATE AMINO TRANSFERASE 28 U/L (15-37); BILIRUBIN,TOTAL 0.4 MG/DL (0.2-1.0); BLOOD UREA NITROGEN 37 mg/dL (7-18); CALCIUM 9.3 MG/DL (8.5-10.1); CARBON DIOXIDE 38 MMOL/L (21-32); CHLORIDE 101 MMOL/L (98-107); CREATININE 1.2 MG/DL (0.55-1.30); POTASSIUM 3.5 MMOL/L (3.5-5.1); SODIUM 142 MMOL/L (136-145)
[2018-08-03] MEDS: Metoprolol 25mg tab ORAL SCH ×2 (10:43→21:01)
[2018-08-03] MEDS: Lisinopril 20mg tab ORAL SCH (10:44)
[2018-08-03] MEDS: Aspirin Baby 81mg ORAL SCH (10:44)
[2018-08-03] MEDS: Spironolactone 25mg tab ORAL SCH (10:44)
[2018-08-03] MEDS: OLANZapine 2.5mg tab ORAL SCH ×2 (10:44→17:10)
[2018-08-03] MEDS: Heparin 5000 units/ml inj SUBQ SCH ×2 (10:45→21:04)
[2018-08-03 12:00] VITALS: BP 130/74
--- NOTE | 2018-08-03 13:51 | Progress Note ---
DATE: 08/02/2018 CARDIOLOGY PROGRESS NOTE SUBJECTIVE: The patient is more alert. PHYSICAL EXAMINATION: VITAL SIGNS: Blood pressure 138/58, pulse 64, respiratory rate 18. LUNGS: Clear. CARDIAC: Regular. ABDOMEN: Soft. EXTREMITIES: No edema. Palpable bruit over fistula site. LABORATORY DATA: No new laboratories today. Monitored rhythm, sinus with atrial ectopy. IMPRESSION: 1. Hypokalemia. 2. Hypomagnesemia. 3. Paroxysmal atrial fibrillation. 4. Hypertensive heart disease. 5. Dementia with agitation. 6. Nicotine dependence. 7. History of renal failure with AV fistula in place. PLAN: 1. Recheck laboratory studies. 2. Continue beta-anurag. 3. Titrate antihypertensives. 4. Maintain anti-platelet therapy. 5. Maintenance diuretic dose to be added. Anselmo Porras M.D. DR: Reyna JOB#: [id number] CC:
[2018-08-03 16:00] VITALS: BP 139/73
--- NOTE | 2018-08-03 19:16 | Diagnostic Imaging Report ---
APPROVED REPORT CPT Code: 45334 Vascular Symptoms Comments: AMS Technically limited and difficult study due to patients altered mental status Doppler Spectral Velocity Analysis RightLeft arteries. The Doppler spectral flow analysis indicates the degree of stenosis is mild (30%) in the common carotid artery, moderate (50-60%) in the internal carotid artery, and moderate (50% - 60%) in the external carotid artery. VERTEBRAL/SUBCLAVIAN- The vertebral artery was not well visualized. The subclavian artery is within normal limits. arteries. The Doppler spectral flow analysis indicates the degree of stenosis is mild (30%) in the common carotid artery, moderate (50-60%) in the internal carotid artery, and moderate (70%) in the external carotid artery. VERTEBRAL/SUBCLAVIAN- The vertebral and subclavian arteries are within normal limits.
[2018-08-03 20:00] VITALS: BP 133/76
--- NOTE | 2018-08-03 20:44 | General Progress Note ---
Assessment/Plan Assessment/Plan IMPRESSION: possible CVA, toxic metabolic encephalopathy, elevated troponin, possible non-STEMI [place], mild pulmonary congestion, COPD per history, evidence of anemia, evidence of acute on chronic renal failure. carotid stenosis, rapid afib, paroxysmal PLAN awaiting snf approval per daughter, does not want GT aware of aspiration concern pt and ot speech cardizem fall risk proceed with discharge will update family impression, plan, and exam edited and reviewed in detail care discussed with RN Subjective Allergies: Coded Allergies: No Known Allergies (Unverified , 07/23/18) Subjective care noted NSR off oxygen awaiting approval for dc to snf Objective Last 24 Hour Vital Signs Date Time Temp Pulse Resp B/P (MAP) Pulse Ox O2 Delivery O2 Flow Rate FiO2 08/03/18 16:00 97.5 65 21 139/73 (95) 92 08/03/18 15:07 66 08/03/18 12:00 98.4 72 23 130/74 (92) 93 08/03/18 11:10 79 08/03/18 10:44 74 155/77 08/03/18 10:44 155/77 08/03/18 10:43 74 155/77 08/03/18 09:00 Room Air 08/03/18 08:00 98.1 74 22 155/77 (103) 92 08/03/18 07:28 69 08/03/18 05:10 163/86 08/03/18 04:00 98.7 73 20 163/86 (111) 94 08/03/18 04:00 75 08/03/18 00:00 71 08/03/18 00:00 98.0 71 20 157/88 (111) 94 08/02/18 21:35 76 134/66 08/02/18 21:00 Room Air Intake and Output 08/02/18 08/03/18 19:00 07:00 Intake Total 150 ml Output Total 300 ml Balance -150 ml Intake Oral 150 ml Output Urine Total 300 ml # Voids 1 Laboratory Tests 08/03/18 07:39: White Blood Count 5.9, Red Blood Count 4.59L, Hemoglobin 13.8L, Hematocrit 42.8 , Mean Corpuscular Volume 93, Mean Corpuscular Hemoglobin 30.0, Mean Corpuscular Hemoglobin Concent 32.1, Red Cell Distribution Width 13.6, Platelet Count 230, Mean Platelet Volume 7.8, Neutrophils (%) (Auto) 63.2, Lymphocytes (% ) (Auto) 20.4, Monocytes (%) (Auto) 13.6H, Eosinophils (%) (Auto) 2.4, Basophils (%) (Auto) 0.4, Sodium Level 142, Potassium Level 3.5, Chloride Level 101, Carbon Dioxide Level 38H, Anion Gap 3L, Blood Urea Nitrogen 37H, Creatinine 1.2, Estimat Glomerular Filtration Rate , Glucose Level 80, Calcium Level 9.3, Magnesium Level 2.0, Total Bilirubin 0.4, Aspartate Amino Transf (AST /SGOT) 28, Alanine Aminotransferase (ALT/SGPT) 18, Alkaline Phosphatase 80, Pro- B-Type Natriuretic Peptide 1490H, Total Protein 5.8L, Albumin 2.7L, Globulin 3.1 , Albumin/Globulin Ratio 0.9L Height (Feet): 5 Height (Inches): 5.00 Weight (Pounds): 130 Objective GENERAL: A well-developed male, in no significant distress. HEENT: Negative. NECK: Supple. LUNGS: Fairly clear and symmetric. No rhonchi or wheezes. CARDIAC: Normal S1, S2. RRR without murmurs, rubs, or gallops. ABDOMEN: Soft, nontender, nondistended. EXTREMITIES: No cyanosis or clubbing. Left upper extremity with contractures, AV fistula in place. some edema noted NEUROLOGIC: dysarthric, confused, left-sided weakness Camilo Bill MD Aug 03, 2018 20:44
--- NOTE | 2018-08-03 22:52 | General Progress Note ---
Assessment/Plan Problem List: (1) Acute metabolic encephalopathy ICD Codes: G93.41 - Metabolic encephalopathy SNOMED: 07537752, [id number] Assessment/Plan the pt lacks capacity to make decisions zyprexa standing zyprexa prn ativan 2mg x 1time prior to the procedure cont restraints Subjective Neurologic/Psychiatric: Reports: anxiety, depressed Allergies: Coded Allergies: No Known Allergies (Unverified , 07/23/18) Subjective alert the pt cont to be agitated Objective Last 24 Hour Vital Signs Date Time Temp Pulse Resp B/P (MAP) Pulse Ox O2 Delivery O2 Flow Rate FiO2 08/03/18 21:01 68 133/76 08/03/18 20:00 96.2 68 18 133/76 (95) 94 08/03/18 16:00 97.5 65 21 139/73 (95) 92 08/03/18 15:07 66 08/03/18 12:00 98.4 72 23 130/74 (92) 93 08/03/18 11:10 79 08/03/18 10:44 74 155/77 08/03/18 10:44 155/77 08/03/18 10:43 74 155/77 08/03/18 09:00 Room Air 08/03/18 08:00 98.1 74 22 155/77 (103) 92 08/03/18 07:28 69 08/03/18 05:10 163/86 08/03/18 04:00 98.7 73 20 163/86 (111) 94 08/03/18 04:00 75 08/03/18 00:00 71 08/03/18 00:00 98.0 71 20 157/88 (111) 94 Intake and Output 08/02/18 08/03/18 19:00 07:00 Intake Total 150 ml Output Total 300 ml Balance -150 ml Intake Oral 150 ml Output Urine Total 300 ml # Voids 1 Laboratory Tests 08/03/18 07:39: White Blood Count 5.9, Red Blood Count 4.59L, Hemoglobin 13.8L, Hematocrit 42.8 , Mean Corpuscular Volume 93, Mean Corpuscular Hemoglobin 30.0, Mean Corpuscular Hemoglobin Concent 32.1, Red Cell Distribution Width 13.6, Platelet Count 230, Mean Platelet Volume 7.8, Neutrophils (%) (Auto) 63.2, Lymphocytes (% ) (Auto) 20.4, Monocytes (%) (Auto) 13.6H, Eosinophils (%) (Auto) 2.4, Basophils (%) (Auto) 0.4, Sodium Level 142, Potassium Level 3.5, Chloride Level 101, Carbon Dioxide Level 38H, Anion Gap 3L, Blood Urea Nitrogen 37H, Creatinine 1.2, Estimat Glomerular Filtration Rate , Glucose Level 80, Calcium Level 9.3, Magnesium Level 2.0, Total Bilirubin 0.4, Aspartate Amino Transf (AST /SGOT) 28, Alanine Aminotransferase (ALT/SGPT) 18, Alkaline Phosphatase 80, Pro- B-Type Natriuretic Peptide 1490H, Total Protein 5.8L, Albumin 2.7L, Globulin 3.1 , Albumin/Globulin Ratio 0.9L Height (Feet): 5 Height (Inches): 5.00 Weight (Pounds): 130 Anneliese Dc MD Aug 03, 2018 22:52
--- NOTE | 2018-08-03 23:45 | Progress Note ---
DATE: 08/03/2018 CARDIOLOGY PROGRESS NOTE SUBJECTIVE: The patient and family members do not want to have a G-tube for nutrition despite of aspiration risk. The patient has no chest pain or shortness of breath noted. Monitored rhythm remains sinus with atrial ectopy and no recurring atrial fibrillation. PHYSICAL EXAMINATION: VITAL SIGNS: Blood pressure 139/73, pulse 65, respirations 21, and afebrile. LUNGS: Clear. CARDIAC: Regular. Normal S1, S2. ABDOMEN: Soft. EXTREMITIES: No edema. LABORATORY DATA: White count 5.9 and hemoglobin 13.8. Potassium 3.5, BUN 37, and creatinine 1.2. Pro-natriuretic peptide has decreased from 5400 to 1490. Albumin 2.7. IMPRESSION: 1. Cerebrovascular disease with dementia. 2. Dysphagia. 3. Hypertensive heart disease. 4. Acute on chronic diastolic congestive heart failure, improved. 5. Paroxysmal atrial fibrillation. 6. Hypokalemia. 7. Hypomagnesemia. 8. Hyperlipidemia. PLAN: 1. Maintenance dose diuretic in place. 2. Monitor electrolytes and cardiorenal parameters. 3. We will check chemistry panel and magnesium levels again. 4. Maintain current regimen otherwise without change. Anselmo Porras M.D. DR: KIKA JOB#: [id number] CC:
[2018-08-04] VITALS: BP 138/79
[2018-08-04] MEDS: Haloperidol 5mg/ml Inj IM PRN (00:06)
[2018-08-04] MEDS: OLANZapine 2.5mg tab ORAL SCH ×2 (00:06→18:49)
[2018-08-04 04:00] VITALS: BP 132/77
[2018-08-04 07:05] LABS: BASOPHILS % (AUTO) 0.4 % (0.0-2.0); EOSINOPHILS % (AUTO) 2.6 % (0.0-3.0); HEMATOCRIT 46.4 % (42.0-52.0); HEMOGLOBIN 14.6 G/DL (14.2-18.0); LYMPHOCYTES % (AUTO) 28.7 % (20.0-45.0); MEAN CORPUSCULAR VOLUME 94 FL (80-99); MONOCYTES % (AUTO) 15.4 % (1.0-10.0); NEUTROPHILS % (AUTO) 52.9 % (45.0-75.0); PLATELET COUNT 246 K/UL (150-450); RED BLOOD COUNT 4.95 M/UL (4.70-6.10); RED CELL DISTRIBUTION WIDTH 13.8 % (11.6-14.8); WHITE BLOOD COUNT 6.3 K/UL (4.8-10.8)
[2018-08-04 07:16] LABS: ANION GAP 3 mmol/L (5-15); BLOOD UREA NITROGEN 44 mg/dL (7-18); CALCIUM 9.8 MG/DL (8.5-10.1); CHLORIDE 103 MMOL/L (98-107); CREATININE 1.4 MG/DL (0.55-1.30); POTASSIUM 4.8 MMOL/L (3.5-5.1); SODIUM 147 MMOL/L (136-145)
[2018-08-04 07:20] LABS: CARBON DIOXIDE 41 MMOL/L (21-32)
[2018-08-04 08:00] VITALS: BP 165/116
[2018-08-04] MEDS: Metoprolol 25mg tab ORAL SCH (09:11)
[2018-08-04] MEDS: Spironolactone 25mg tab ORAL SCH (09:11)
[2018-08-04] MEDS: Aspirin Baby 81mg ORAL SCH (09:11)
[2018-08-04] MEDS: Lisinopril 20mg tab ORAL SCH (09:12)
[2018-08-04] MEDS: Heparin 5000 units/ml inj SUBQ SCH (09:17)
[2018-08-04 12:00] VITALS: BP 115/64
[2018-08-04 16:00] VITALS: BP 119/67
--- NOTE | 2018-08-04 19:18 | Pulmonology Progress Note ---
Assessment/Plan Assessment/Plan Pulmonary Progress Note Assessment/Plan IMPRESSION: possible CVA, toxic metabolic encephalopathy, elevated troponin, possible non-STEMI [place], mild pulmonary congestion, COPD per history, evidence of anemia, evidence of acute on chronic renal failure. carotid stenosis PLAN care as is psych follow up card noted pt and ot speech fall risk d/w family; would like snf impression, plan, and exam edited and reviewed in detail care discussed with RN Subjective ROS Limited/Unobtainable: Yes Allergies: Coded Allergies: No Known Allergies (Unverified , 07/23/18) Subjective care noted no distress psych appreciated MRI lacunar infarcts confused Objective Vital Signs Noted Height (Feet): 5 Height (Inches): 5.00 Weight (Pounds): 110 Objective GENERAL: A well-developed male, in no significant distress. HEENT: Negative. Extraocular movements are grossly intact. NECK: Supple. LUNGS: Fairly clear and symmetric. No rhonchi or wheezes. CARDIAC: Normal S1, S2. Regular rate and rhythm without murmurs, rubs, or gallops. ABDOMEN: Soft, nontender, nondistended. EXTREMITIES: No cyanosis or clubbing. Left upper extremity with contractures, AV fistula in place. NEUROLOGIC: The patient is fairly dysarthric, confused, left-sided weakness noted. bruising noted Subjective ROS Limited/Unobtainable: No Allergies: Coded Allergies: No Known Allergies (Unverified , 07/23/18) Objective Last 24 Hour Vital Signs Date Time Temp Pulse Resp B/P (MAP) Pulse Ox O2 Delivery O2 Flow Rate FiO2 08/04/18 16:00 97.2 60 20 119/67 (84) 99 08/04/18 16:00 62 08/04/18 12:00 56 08/04/18 12:00 96.4 57 21 115/64 (81) 97 08/04/18 09:13 62 165/116 08/04/18 09:12 165/116 08/04/18 09:11 62 165/116 08/04/18 09:00 Room Air 08/04/18 08:10 75 16 Nasal Cannula 2.0 28 08/04/18 08:10 Nasal Cannula 2.0 28 08/04/18 08:10 96 Nasal Cannula 2.0 28 08/04/18 08:00 60 08/04/18 08:00 97.5 62 18 165/116 (132) 96 08/04/18 04:00 96.6 59 18 132/77 (95) 96 08/04/18 04:00 59 08/04/18 00:00 98.0 63 18 138/79 (98) 99 08/04/18 00:00 67 08/03/18 21:01 68 133/76 08/03/18 21:00 Room Air 08/03/18 20:00 76 08/03/18 20:00 96.2 68 18 133/76 (95) 94 Intake and Output 08/03/18 08/04/18 19:00 07:00 # Voids 2 2 Laboratory Tests 08/04/18 05:35: White Blood Count 6.3, Red Blood Count 4.95, Hemoglobin 14.6, Hematocrit 46.4, Mean Corpuscular Volume 94, Mean Corpuscular Hemoglobin 29.6, Mean Corpuscular Hemoglobin Concent 31.6L, Red Cell Distribution Width 13.8, Platelet Count 246, Mean Platelet Volume 7.0, Neutrophils (%) (Auto) 52.9, Lymphocytes (%) (Auto) 28.7, Monocytes (%) (Auto) 15.4H, Eosinophils (%) (Auto) 2.6, Basophils (%) ( Auto) 0.4, Sodium Level 147H, Potassium Level 4.8, Chloride Level 103, Carbon Dioxide Level 41*H, Anion Gap 3L, Blood Urea Nitrogen 44H, Creatinine 1.4H, Estimat Glomerular Filtration Rate , Glucose Level 82, Calcium Level 9.8, Magnesium Level 2.0 Current Medications Medications (Trade) Dose Ordered Sig/Clementine Route PRN Reason Start Time Stop Time Status Last Admin Dose Admin Acetaminophen (Tylenol) 650 mg Q4H PRN ORAL Mild Pain/Temp > 100.5 07/24/18 01:00 08/23/18 00:59 Amlodipine Besylate (Norvasc) 5 mg DAILY ORAL 07/29/18 00:15 08/28/18 00:14 08/04/18 09:13 Aripiprazole (Abilify) 15 mg DAILY ORAL 07/24/18 09:00 08/23/18 08:59 08/04/18 09:15 Aspirin (ASA) 81 mg DAILY ORAL 07/24/18 09:00 08/23/18 08:59 08/04/18 09:11 Clonidine HCl (Catapres Tab) 0.1 mg Q4H PRN ORAL SBP >160 07/24/18 01:00 08/23/18 00:59 08/03/18 05:10 Furosemide (Lasix) 20 mg DAILY ORAL 08/03/18 09:00 09/02/18 08:59 08/04/18 09:11 Haloperidol Lactate (Haldol) 5 mg Q6H PRN IM Agitation 07/25/18 19:45 08/24/18 19:44 08/04/18 00:06 Heparin Sodium (Porcine) (Heparin 5000 units/ml) 5,000 units EVERY 12 HOURS SUBQ 07/24/18 09:00 08/23/18 08:59 08/04/18 09:17 Lisinopril (Prinivil) 40 mg DAILY ORAL 07/26/18 09:00 08/25/18 08:59 08/04/18 09:12 Metoprolol Tartrate (Lopressor) 25 mg Q12HR ORAL 07/25/18 09:00 08/24/18 08:59 08/04/18 09:11 Nicotine (Nicoderm) 1 patch Q24H TDERMAL 08/01/18 09:00 08/31/18 08:59 08/04/18 09:15 Olanzapine (ZyPREXA) 2.5 mg BID ORAL 07/25/18 19:00 08/24/18 18:59 08/04/18 18:49 Olanzapine (ZyPREXA) 2.5 mg Q6H PRN ORAL agitation 07/25/18 19:00 08/24/18 18:59 Ondansetron HCl (Zofran) 4 mg Q6H PRN IVP Nausea & Vomiting 07/24/18 01:00 08/23/18 00:59 Pravastatin Sodium (Pravachol) 20 mg BEDTIME ORAL 07/27/18 23:30 08/26/18 23:29 08/03/18 21:01 Spironolactone (Aldactone) 25 mg DAILY ORAL 08/03/18 09:00 09/02/18 08:59 08/04/18 09:11 Anselmo Pacheco MD Aug 04, 2018 19:18
--- NOTE | 2018-08-04 23:05 | General Progress Note ---
Assessment/Plan Problem List: (1) Acute metabolic encephalopathy ICD Codes: G93.41 - Metabolic encephalopathy SNOMED: 99761423, [id number] Assessment/Plan the pt lacks capacity to make decisions zyprexa standing zyprexa prn ativan 2mg x 1time prior to the procedure cont restraints Subjective Neurologic/Psychiatric: Reports: anxiety, depressed, emotional problems Allergies: Coded Allergies: No Known Allergies (Unverified , 07/23/18) Subjective alert the pt cont to be agitated Objective Last 24 Hour Vital Signs Date Time Temp Pulse Resp B/P (MAP) Pulse Ox O2 Delivery O2 Flow Rate FiO2 08/04/18 16:00 97.2 60 20 119/67 (84) 99 08/04/18 16:00 62 08/04/18 12:00 56 08/04/18 12:00 96.4 57 21 115/64 (81) 97 08/04/18 09:13 62 165/116 08/04/18 09:12 165/116 08/04/18 09:11 62 165/116 08/04/18 09:00 Room Air 08/04/18 08:10 75 16 Nasal Cannula 2.0 28 08/04/18 08:10 Nasal Cannula 2.0 28 08/04/18 08:10 96 Nasal Cannula 2.0 28 08/04/18 08:00 60 08/04/18 08:00 97.5 62 18 165/116 (132) 96 08/04/18 04:00 96.6 59 18 132/77 (95) 96 08/04/18 04:00 59 08/04/18 00:00 98.0 63 18 138/79 (98) 99 08/04/18 00:00 67 Intake and Output 08/03/18 08/04/18 19:00 07:00 # Voids 2 2 Laboratory Tests 08/04/18 05:35: White Blood Count 6.3, Red Blood Count 4.95, Hemoglobin 14.6, Hematocrit 46.4, Mean Corpuscular Volume 94, Mean Corpuscular Hemoglobin 29.6, Mean Corpuscular Hemoglobin Concent 31.6L, Red Cell Distribution Width 13.8, Platelet Count 246, Mean Platelet Volume 7.0, Neutrophils (%) (Auto) 52.9, Lymphocytes (%) (Auto) 28.7, Monocytes (%) (Auto) 15.4H, Eosinophils (%) (Auto) 2.6, Basophils (%) ( Auto) 0.4, Sodium Level 147H, Potassium Level 4.8, Chloride Level 103, Carbon Dioxide Level 41*H, Anion Gap 3L, Blood Urea Nitrogen 44H, Creatinine 1.4H, Estimat Glomerular Filtration Rate , Glucose Level 82, Calcium Level 9.8, Magnesium Level 2.0 Height (Feet): 5 Height (Inches): 5.00 Weight (Pounds): 120 General Appearance: alert, confused, agitated Anneliese Dc MD Aug 04, 2018 23:05
--- NOTE | 2018-08-05 01:30 | Progress Note ---
DATE: 08/04/2018 CARDIOLOGY PROGRESS NOTE SUBJECTIVE: The patient remains confused at baseline. No new distress. Discharge planning noted. OBJECTIVE: VITAL SIGNS: Blood pressure 119/67, pulse 60, and respirations 20. Afebrile. LUNGS: Clear. CARDIAC: Regular. Normal S1, S2. ABDOMEN: Soft. EXTREMITIES: No edema. LABORATORY DATA: White count 6 and hemoglobin 14.6. Sodium 147, potassium 4.8, bicarb 41, BUN 44, and creatinine 1.4. Magnesium 2. IMPRESSION: 1. Dehydration. 2. Hypernatremia. 3. Contraction alkalosis. 4. Acute on chronic kidney injury. 5. Cerebrovascular disease with dementia. 6. Paroxysmal atrial fibrillation. 7. Hypertensive heart disease. 8. History of renal failure with old AV fistula. PLAN: 1. Antiplatelet therapy. 2. Discontinue diuretic. 3. Continue beta-anurag. 4. Stable for outpatient followup. 5. Monitor electrolytes at the intermediate facility. Anselmo Porras M.D. DR: KIKA JOB#: [id number] CC:
--- NOTE | 2018-08-05 16:27 | Discharge Summary ---
Discharge Summary Discharge Summary _ DATE OF ADMISSION: 07/23/2018 DATE OF DISCHARGE: 08/04/2018 DISCHARGED BY: Dr. Li Bill CONSULTANTS: Dr. Anselmo Dc BRIEF HOSPITAL COURSE: Patient is a 73-year-old male, presented to ED due to acute altered mental status with upper and lower extremity weakness. The patient has home care and patient's events were noted to be fairly acute. He was noted to be more confused overall, and was unable to speak. He was brought in for further evaluation. Patient's symptoms were acute and persistent. There was no prior history of CVA. He has medical history significant for hypertension, coronary artery disease, and COPD and an old left AV fistula. On evaluation at ED, blood pressure was elevated to 179/91. Patient symptoms and time of onset was outside TPA window. Patient did not meet criteria for TPA. Head CT was noted to be negative. Blood work did not show any leukocytosis, hemoglobin and hematocrit were stable. Creatinine was elevated to 1.5, BUN 52. Troponin was elevated to 0.278. EKG was in normal sinus rhythm with no acute changes. At the ED, case was discussed with a [facility] stroke line, possible need for transfer to higher level of care. However, patient began to improve significantly and started to talk and move his extremities. It was felt that it was unlikely a large vessel occlusion. CTA of the head and neck was canceled because of significant renal disease. Chest x-ray showed prominent interstitial markings. He was then admitted for evaluation of transient focal weakness, acute encephalopathy, elevated troponin, possible non- ST elevated PA, mild pulmonary congestion, COPD and evidence of acute on chronic renal failure. Laundry Tub Maker was consulted. Cardiac enzymes were monitored. Echocardiogram revealed apical hypokinesis, ejection fraction of 50%, mild aortic stenosis with aortic valve area of 1.5 cm, no pulmonary hypertension. He was given antiplatelet therapy and antianginal therapy. He was placed on fall risk. He was given PT and speech therapy. Patient was agitated and was pulling out IV access. He had waxing and waning of consciousness. Psychiatrist was consulted. Patient was diagnosed to lack the capacity to make decisions. He was given Zyprexa. He was eventually placed on restraints for safety. Lipid panel was checked. Total cholesterol 156, LDL was 76, HDL 71. TSH was normal. He was started on low-dose statin. He was given beta blockers. Carotid duplex scan showed moderate stenosis in bilateral internal carotid and external carotid arteries. MRI of the brain showed chronic age-related changes including multiple old bilateral lacunar infarcts, negative for acute intracranial bleed, mass-effect or infarct. He was high risk for aspiration and had severe dysphasia. He was placed on n.p.o. He was given IV hydration. Swallow evaluation was done. Video swallow showed patient with very high risk for chronic aspiration due to overall pharyngeal weakness and reduced pharyngeal sensation. He was recommended long- term nonoral feeding. Family did not want G-tube. They were made aware of concerns for aspiration. For quality of life, he was given liquefied pured, like nectar thick soup consistency with nectar thick liquids. Strict aspiration precaution with one-to -one feed. On 07/29/2018, he was cleared for discharge to snf. However, patient went into rapid A. fib. He was asymptomatic, but appeared slightly short of breath. He was given IV Cardizem for rate control. He eventually converted to sinus rhythm. He was noted to have low potassium. He was given potassium and magnesium replacement. He was continued on beta-anurag. He was given spot diureses. Patient remained in sinus rhythm with atrial ectopy, with no recurrence of atrial fibrillation. He was eventually discharged to snf. FINAL DIAGNOSES: Possible CVA Acute toxic metabolic encephalopathy Elevated troponin, possible non-ST elevated PA Mild pulmonary congestion COPD per history Anemia Acute on chronic renal failure Carotid stenosis Paroxysmal rapid A. fib, with RVR High aspiration risk, dysphagia Dehydration Hyponatremia Hypertensive heart disease Hypokalemia Hypomagnesemia Hyperlipidemia Acute on chronic diastolic congestive heart failure, improved History of end-stage renal failure with old AV fistula Dementia with agitation Moderate to severe protein calorie malnutrition Hypertensive urgency DISPOSITION: DC to [facility]. I have been assigned to complete a discharge summary on this account, I was not involved with the patient's management. Sandra Gonzales NP Aug 05, 2018 16:27
== END 2018-08-04 20:00 | disposition home or self-care (01) | DRG 45 ==
LOC: EMR 21:15 → 2E 21:55 → EDBEDREQ 22:17 → 2E 07-25 12:13
DX: I63.9 Cerebral infarction, unspecified (principal); I21.4 Non-ST elevation (NSTEMI) myocardial infarction; E43 Unspecified severe protein-calorie malnutrition; G92 Toxic encephalopathy; I50.33 Acute on chronic diastolic (congestive) heart failure; N17.9 Acute kidney failure, unspecified; R13.10 Dysphagia, unspecified; I48.0 Paroxysmal atrial fibrillation; F03.91 Unspecified dementia, unspecified severity, with behavioral disturbance; E86.0 Dehydration; E87.1 Hypo-osmolality and hyponatremia; E83.42 Hypomagnesemia; D64.9 Anemia, unspecified; J44.9 Chronic obstructive pulmonary disease, unspecified; I13.0 Hypertensive heart and chronic kidney disease with heart failure and stage 1 through stage 4 chronic kidney disease, or unspecified chronic kidney disease; N18.9 Chronic kidney disease, unspecified; I25.10 Atherosclerotic heart disease of native coronary artery without angina pectoris; I65.23 Occlusion and stenosis of bilateral carotid arteries; E87.6 Hypokalemia; E78.5 Hyperlipidemia, unspecified; I16.0 Hypertensive urgency; I35.0 Nonrheumatic aortic (valve) stenosis
CPT/HCPCS: 36415; 70450; 70551; 71045; 74230; 80048; 80053; 80061; 82550; 82553; 82962; 83690; 83735; 83880; 84443; 84484; 85025; 85610; 85730; 86850; 86900; 86901; 93005; 93306; 93880; 94640; 94664; 94760; 99285; J8499

== ENCOUNTER 2019-10-08 21:39 | Inpatient (IN) | payer MEDICAID, MEDICARE ==
[~2019-10-08] VITALS: Ht 180.3 cm; Wt 68.0 kg
[~2019-10-08 21:39] MED LIST: ABILIFY15 MG ORAL; ACETAMINOPHEN325 M1 ORAL; ASPIRIN81 M3 PO; CHLORTHALIDONE25 MG ORAL; IPRATROPIU0.2 MG/1 M HHN; LEVOFLOXACIN500 MG ORAL; LISINOPRIL5 MG ORAL; MAPAP325 MG/10. PO
[2019-10-08 22:00] VITALS: BP 89/62
--- NOTE | 2019-10-08 22:00 | NUR ---
ED Nurse Note: Recieved pt from [facility], BIBA with c/o SOB and hypotension, pt is awake and alert, able to speak and oriented to name and place, pt denies pain, noted with mild SOB and tachypnea, pt also desatint to 89% on RA, immediately placed on o2 at 2l n/c with sat of 95%, pt rectal temp taken, imediately gowned and placed on cardiac monitoring, pt also noted with buttocks pressure sore, has patent AV shunt to left upper arm, positive bruit and thrill noted, pt does elicit with low B?P at bedside and aware, will resume care as ordered and closely monitor.
[2019-10-08] MEDS ORDERED: FUROSEMIDE20 M1 ORAL (22:16)
[2019-10-08] MEDS ORDERED: PRAVACHOL20 MG ORAL (22:16)
[2019-10-08] MEDS ORDERED: METOPROLOL TART25 MG ORAL (22:16)
[2019-10-08] MEDS ORDERED: CATAPRES0.1 MG ORAL (22:16)
[2019-10-08] MEDS ORDERED: AMLODIPINE BESYL5 MG ORAL (22:16)
[2019-10-08] MEDS ORDERED: SPIRONOLACTONE100 MG ORAL (22:16)
[2019-10-08] MEDS ORDERED: ASPIR 8181 MG ORAL (22:16)
[2019-10-08] MEDS ORDERED: LISINOPRIL20 MG ORAL (22:16)
[2019-10-08] MEDS ORDERED: ACETAMINOPHEN325 M1 ORAL (22:16)
[2019-10-08] MEDS ORDERED: MULTIVITAMINS1 EA13 ORAL (22:16)
[2019-10-08 22:39] LABS: HEMATOCRIT 46.2 % (42.0-52.0); HEMOGLOBIN 14.5 G/DL (14.2-18.0); MEAN CORPUSCULAR VOLUME 88 FL (80-99); PLATELET COUNT 353 K/UL (150-450); RED BLOOD COUNT 5.28 M/UL (4.70-6.10); RED CELL DISTRIBUTION WIDTH 13.7 % (11.6-14.8); WHITE BLOOD COUNT 10.1 K/UL (4.8-10.8)
--- NOTE | 2019-10-08 22:47 | Diagnostic Imaging Report ---
EXAM: XR Chest, 1 View CLINICAL HISTORY: SOB TECHNIQUE: Frontal view of the chest. COMPARISON: 07/28/2018 FINDINGS: Lungs: Patchy left mid and lower lung airspace densities and right basilar airspace disease as well as mild interstitial edema. Pleural space: Obscuration of the right costophrenic angle may represent pleural effusion and/or atelectasis. No pneumothorax. Heart: Unremarkable. No cardiomegaly. Mediastinum: Unremarkable. Bones/joints: Unremarkable. Vasculature: Atherosclerotic vascular disease is seen within a tortuous aorta. Upper abdomen: Chronic and stable elevation of the right hemidiaphragm. IMPRESSION: 1. Bibasilar airspace opacities may represent pneumonia in the appropriate clinical setting. Differential also includes pulmonary edema and aspiration. 2. Small right pleural effusion and/or atelectasis. 3. Atherosclerotic vascular disease.
[2019-10-08 22:49] LABS: ANION GAP 11 mmol/L (5-15); BLOOD UREA NITROGEN 95 mg/dL (7-18); CALCIUM 8.6 MG/DL (8.5-10.1); CARBON DIOXIDE 26 MMOL/L (21-32); CHLORIDE 104 MMOL/L (98-107); CREATININE 3.1 MG/DL (0.55-1.30); POTASSIUM 3.8 MMOL/L (3.5-5.1); SODIUM 141 MMOL/L (136-145)
[2019-10-08 22:59] LABS: ALANINE AMINOTRANSFERASE 26 U/L (12-78); ALBUMIN/GLOBULIN RATIO 0.4 (1.0-2.7); ALKALINE PHOSPHATASE 78 U/L (46-116); ASPARTATE AMINO TRANSFERASE 37 U/L (15-37); BILIRUBIN,TOTAL 0.4 MG/DL (0.2-1.0); CREATINE KINASE 59 U/L (26-308)
[2019-10-08 23:00] VITALS: BP 94/60
[2019-10-08] MEDS ORDERED: Clindamycin 900mg 50 ML IV ONE (23:00)
[2019-10-08] MEDS ORDERED: Cefepime HCl 2 GM in D5W 55 ML IVPB ONE (23:00)
--- NOTE | 2019-10-08 23:22 | Emergency Room Report ---
History of Present Illness General Chief Complaint: Dyspnea/Respdistress Source: Patient, Medical Record, EMS Present Illness HPI Patient is a 74-year-old male history of dementia who presents to the ER for low blood pressure. Patient was brought in from his alf by EMS. Unable to obtain further history. Allergies: Coded Allergies: No Known Allergies (Unverified , 07/23/18) COVID-19 Screening Contact w/high risk pt: No Recent Travel to affected area: No Experienced COVID-19 symptoms?: Yes COVID-19 symptoms experienced: Shortness of Breath COVID-19 Testing performed SUPERVISOR SPEECH: No Patient History Reviewed Nursing Documentation: PMH: Agreed; PSxH: Agreed Nursing Documentation-PMH Past Medical History: No History, Except For Hx Cardiac Problems: Yes - dysphagia, cognitive communication deficit, hyperlipidemia Hx Hypertension: Yes Hx COPD: Yes Hx Diabetes: Yes Hx Dialysis: Yes - shunt left upper arm Review of Systems All Other Systems: limited - dementia Physical Exam Vital Signs Date Time Temp Pulse Resp B/P (MAP) Pulse Ox O2 Delivery O2 Flow Rate FiO2 10/08/19 21:41 98.4 107 28 82/48 (59) 94 Non-Rebreather 10.0 Sp02 EP Interpretation: reviewed, abnormal General Appearance: mild distress, Chronically Ill Head: normocephalic, atraumatic ENT: dry mucus membranes, other Neck: full range of motion, supple/symm/no masses Respiratory: rhonchi, other - Tachypneic Cardiovascular #1: tachycardia, irregularly irregular Gastrointestinal: non tender, soft Rectal: deferred Musculoskeletal: other - Left upper extremity AV fistula with no palpable thrill Psychiatric: depressed affect Skin: no rash Lymphatic: no adenopathy Procedures Critical Care Time Critical Care Time Total critical care time: Approximately 35 minutes. Due to a high probability of clinically significant, life threatening deterioration, the patient required my highest level of preparedness to intervene emergently and I personally spent this critical care time directly and personally managing the patient. This critical care time included obtaining a history; examining the patient; pulse oximetry; ordering and review of studies; arranging urgent treatment with development of a management plan; evaluation of patient's response to treatment ; frequent reassessment; and, discussions with other providers.This critical care time was performed to assess and manage the high probability of imminent, life-threatening deterioration that could result in multi-organ failure. It was exclusive of separately billable procedures and treating other patients and teaching time. Please see MDM section and the rest of the note for further information on patient assessment and treatment. Medical Decision Making Diagnostic Impression: Primary Impression: Suspected COVID-19 virus infection Additional Impressions: Pneumonia Acute renal failure Dehydration ER Course Patient is poor historian. Patient has been pancultured. Patient's x-ray demonstrates pneumonia. Possible COVID 19. Patient started on broad-spectrum antibiotics. Patient to be admitted for further treatment and evaluation. Laboratory Tests Test 10/08/19 21:25 10/08/19 21:50 10/08/19 22:06 Urine Color Pending Urine Appearance Pending Urine pH Pending Urine Specific [place] Pending Urine Protein Pending Urine Glucose (UA) Pending Urine Ketones Pending Urine Blood Pending Urine Nitrite Pending Urine Bilirubin Pending Urine Urobilinogen Pending Urine Leukocyte Esterase Pending White Blood Count 10.1 K/UL (4.8-10.8) Red Blood Count 5.28 M/UL (4.70-6.10) Hemoglobin 14.5 G/DL (14.2-18.0) Hematocrit 46.2 % (42.0-52.0) Mean Corpuscular Volume 88 FL (80-99) Mean Corpuscular Hemoglobin 27.5 PG (27.0-31.0) Mean Corpuscular Hemoglobin Concent 31.4 G/DL (32.0-36.0) L Red Cell Distribution Width 13.7 % (11.6-14.8) Platelet Count 353 K/UL (150-450) Mean Platelet Volume 7.0 FL (6.5-10.1) Neutrophils (%) (Auto) % (45.0-75.0) Lymphocytes (%) (Auto) % (20.0-45.0) Monocytes (%) (Auto) % (1.0-10.0) Eosinophils (%) (Auto) % (0.0-3.0) Basophils (%) (Auto) % (0.0-2.0) Neutrophils % (Manual) Pending Lymphocytes % (Manual) Pending Platelet Estimate Pending Platelet Morphology Pending Prothrombin Time 11.4 SEC (9.30-11.50) Prothrombin Time INR 1.0 (0.9-1.1) Activated Partial Thromboplast Time 29 SEC (23-33) Sodium Level 141 MMOL/L (136-145) Potassium Level 3.8 MMOL/L (3.5-5.1) Chloride Level 104 MMOL/L (98-107) Carbon Dioxide Level 26 MMOL/L (21-32) Anion Gap 11 mmol/L (5-15) Blood Urea Nitrogen 95 mg/dL (7-18) H Creatinine 3.1 MG/DL (0.55-1.30) H Estimated Glomerular Filtration Rate 19.9 mL/min (>60) Glucose Level 138 MG/DL (74-106) H Lactic Acid Level 1.70 mmol/L (0.4-2.0) Calcium Level 8.6 MG/DL (8.5-10.1) Magnesium Level 2.5 MG/DL (1.8-2.4) H Total Bilirubin 0.4 MG/DL (0.2-1.0) Aspartate Amino Transferase (AST) 37 U/L (15-37) Alanine Aminotransferase (ALT) 26 U/L (12-78) Alkaline Phosphatase 78 U/L (46-116) Total Creatine Kinase 59 U/L (26-308) Troponin I 0.003 ng/mL (0.000-0.056) Pro-B-Type Natriuretic Peptide 4428 pg/mL (0-125) H Total Protein 6.5 G/DL (6.4-8.2) Albumin 2.0 G/DL (3.4-5.0) L Globulin 4.5 g/dL Albumin/Globulin Ratio 0.4 (1.0-2.7) L Lipase 223 U/L (73-393) Arterial Blood pH 7.370 (7.350-7.450) Arterial Blood Partial Pressure CO2 38.2 mmHg (35.0-45.0) Arterial Blood Partial Pressure O2 99.5 mmHg (75.0-100.0) Arterial Blood HCO3 21.6 mmol/L (22.0-26.0) L Arterial Blood Oxygen Saturation 96.8 % (95-100) Arterial Blood Base Excess -3.3 (-2-2) L Hal Test Positive EKG Diagnostic Results EKG Time: 22:02 EP Interpretation: MD Tricia Rate: tachycardiac Rhythm: other - afib rvr ST Segments: no acute changes ASA given to the pt in ED: No Rhythm Strip Diag. Results Rhythm Strip Time: 23:21 EP Interpretation: yes - Elise Clarke MD Rate: 95 Rhythm: no PVC's, no ectopy, other - afib Chest X-Ray Diagnostic Results Chest X-Ray Diagnostic Results : Chest X-Ray Ordered: Yes # of Views/Limited/Complete: 1 View Indication: Shortness of Breath EP Interpretation: Yes Interpretation: no effusion, no pneumothorax, other - Bibasilar airspace opacities Impression: Other - Pneumonia Electronically Signed by: Elise Clarke MD Last Vital Signs Date Time Temp Pulse Resp B/P (MAP) Pulse Ox O2 Delivery O2 Flow Rate FiO2 10/08/19 22:00 90 28 Non-Rebreather 10.0 10/08/19 22:00 99.9 89/62 94 Disposition: ADMITTED INPATIENT - Step Down Unit Condition: Serious Physician Consult: Fly GOMEZ at 1115pm Referrals: Camilo Bill MD (PCP) Elise Clarke M.D. October 08, 2019 23:22
[2019-10-09] VITALS (22 sets, daily range): BP systolic 90–120; BP diastolic 47–77
--- NOTE | 2019-10-09 00:15 | NUR ---
ED Nurse Note: PT CONTINUES TO REST QUIETLY IN BED, AWAKE AND ALERT, ALL LABS COMPLETED, IV FLUIDS ALSO, PT GIVEN IV ANTIBIOTICS, TOLERTING WELL, B/P REMAINS LOW AND DECREASED AFTER ANTIBIOTICS, MD INFORMED, MORE FLUIDS TO BE GIVEN, WILL GIVE AND CONTINUE TO CLOSELY MONITOR AND PREPARE FOR HOSPITAL ADMISSION.
--- NOTE | 2019-10-09 01:45 | NUR ---
ED Nurse Note: No changes in pt condition, B/P increased slightlky fter fluids, will monitor for more time and send to floor bed for admission, pt in bed resting quietly, awake and alert, follows commands, pt incontinent of stool and given complete bath and partial linen change, photos taken of pressure areas on buttocks per protocol, swabs collected for admit, will continue to monitor and send to floor bed when b/p is stable.
--- NOTE | 2019-10-09 02:45 | NUR ---
ED Nurse Note: Pt b/p remains low in 90's, pt is awake and alert, asymptomatic, no sob or labored breathing, o2 sat=96% on o2 3l n/c, mild bilat rhonchi heard on breath sounds, IV site patent, fluids completed, MD aware and states ok to send to floor bed, report called to floor nurse MIRANDA Mario, pt being taken to unit via gurney with ACLS and Covid precautions with monitoring and PPE.
--- NOTE | 2019-10-09 03:05 | NUR ---
NURSE NOTES: Received report from Taty JEAN. Patient came from ER via rney accompanied by RN and wood technologist. Under the care of Dr. Bill with admitting diagnosis of Sepsis. patient awake, alert able to verbalize needs to staff. denies nay pain or discomfort. On 3L oxygen via N/C satting 95%. BP 95/56 Temp 96.5 axillary lauro hugger placed on bed. Body assessment done noted with multiple PS initial treatment done. Left AV shunt with + bruit and thrill. Called [facility] spoke with Manager Configuration regarding the Last dialysis per nurse Patient is non-compliant refusing PNA,FLU and HD, last HD is unknown. Right AC IV line intact. Instructed patient to use call light for assistance. patient PUI swab in ER on contact and droplet precaution. bed in low position.Call light within easy reach. Will call Dr Bill for admission orders.
--- NOTE | 2019-10-09 03:49 | NUR ---
NURSE NOTES: Left message to Dr. Bill for admission orders.
--- NOTE | 2019-10-09 05:42 | NUR ---
NURSE NOTES: Dr. Pacheco called back and gave admission orders noted and carried out.
--- NOTE | 2019-10-09 07:12 | NUR ---
HAND-OFF: Report given to Allie JEAN.
[2019-10-09 07:17] LABS: BASOPHILS % (AUTO) 0.1 % (0.0-2.0); EOSINOPHILS % (AUTO) 0.1 % (0.0-3.0); HEMOGLOBIN 12.1 G/DL (14.2-18.0); LYMPHOCYTES % (AUTO) 9.3 % (20.0-45.0); MEAN CORPUSCULAR VOLUME 82 FL (80-99); MONOCYTES % (AUTO) 6.6 % (1.0-10.0); NEUTROPHILS % (AUTO) 83.9 % (45.0-75.0); PLATELET COUNT 287 K/UL (150-450); RED BLOOD COUNT 4.38 M/UL (4.70-6.10); RED CELL DISTRIBUTION WIDTH 12.2 % (11.6-14.8); WHITE BLOOD COUNT 7.5 K/UL (4.8-10.8)
--- NOTE | 2019-10-09 07:20 | NUR ---
NURSE NOTES: Received report from MIRANDA Mario. The patient is resting on the bed but being agitated and pulling out the nasal cannula. The patient is confused but verbal and able to make needs known via verbal and non-verbal communication. The patient is on 4L NC per order and oxygen saturation fluctuates from 80-90%. The patient has R AC 18G and running NS @250mL/hr for hypotension. The patient has LUCITA AV shunt that is intact. Afib with HR of 90s on the monitor. Skin issue noted and dressing intact. The patient's bed in the lowest position, call light in reach, and fall and aspiration precaution reinforced. IV site intact and patent. Will check vital signs. Will follow up the lab. Will continue plan of care.
--- NOTE | 2019-10-09 07:40 | NUR ---
NURSE NOTES: Vital signs taken. Systolic blood pressure fluctuates from 70-90s. Notified to Dr. Pacheco. Will closely monitor the patient. Will continue plan of care.
[2019-10-09 07:57] LABS: ANION GAP 10 mmol/L (5-15); BLOOD UREA NITROGEN 79 mg/dL (7-18); CALCIUM 7.1 MG/DL (8.5-10.1); CARBON DIOXIDE 21 MMOL/L (21-32); CHLORIDE 115 MMOL/L (98-107); CREATININE 2.2 MG/DL (0.55-1.30); SODIUM 146 MMOL/L (136-145)
[2019-10-09] MEDS ORDERED: Heparin1,000 units/500ml Premix(Conc:2 units/ml) IV ONE (08:15)
[2019-10-09] MEDS ORDERED: Lidocaine 1% Plain 30 ml INJ ONE (08:15)
--- NOTE | 2019-10-09 08:15 | NUR ---
NURSE NOTES: Dr. Pacheco ordered Albumin bolus and NS of 500mL bolus. Will administer as ordered. Will closely monitor the patient. Will continue plan of care.
[2019-10-09] MEDS: Aspirin Baby 81mg ORAL SCH (08:34)
[2019-10-09] MEDS: Azithromycin 500 MG in D5W 275 ML IV SCH (08:34)
[2019-10-09] MEDS: Heparin 5000 units/ml inj SUBQ SCH ×2 (08:36→20:56)
--- NOTE | 2019-10-09 09:30 | NUR ---
NURSE NOTES: Morning medications administered per order. The patient's systolic blood pressure improved with bolus. Blood pressure of 90-100s systolic noted. Will closely monitor the patient. Will continue plan of care.
[2019-10-09] MEDS ORDERED: D5NS 1,000 ML IV SCH (10:01)
[2019-10-09] MEDS: Cefepime HCl 1 GM in D5W 55 ML IVPB SCH ×2 (10:24→22:51)
--- NOTE | 2019-10-09 11:00 | NUR ---
NURSE NOTES: The patient is confused and agitated. Reorientation given to the patient. Bed bath given to the patient. Will closely monitor the patient. Will continue plan of care.
--- NOTE | 2019-10-09 11:35 | NUR ---
NURSE NOTES: The patient desaturated with 4L NC. Notified to Dr. Pacheco immediately. Dr. Pacheco ordered the patient to be on non-rebreather. Will closely monitor the patient. Will continue plan of care.
--- NOTE | 2019-10-09 11:56 | NUR ---
NURSE NOTES: The patient is confused and agitated and pulling out non-rebreather and desaturated. Notified to Dr. Pacheco. Dr. Pacheco ordered bilateral soft wrist restraints for safety and pulling out the device. Will closely monitor the patient. Will continue plan of care.
[2019-10-09] MEDS ORDERED: NS 250 ML IVLG ONE (12:00)
--- NOTE | 2019-10-09 12:00 | NUR ---
NURSE NOTES: Notified Dr. Pacheco regarding systolic blood pressure drop to 70-80s again. Dr. Pacheco ordered Albumin and 250mL NS bolus again. Will administer per order. Will recheck the vital signs. Will continue plan of care.
[2019-10-09] MEDS ORDERED: Albuterol 90mcg Inhaler 8gm INH PRN (12:45)
[2019-10-09] MEDS: Norepinephrine 4mg/NS Premix 250 ML IV SCH (12:45)
--- NOTE | 2019-10-09 12:45 | NUR ---
NURSE NOTES: Dr. Pacheco ordered the patient to be transferred to ICU stat and start on Levophed drip to keep MAP>65. Notified to charge nurse and natural gas plant supervisor. Will closely monitor the patient. Will continue plan of care until transfer.
--- NOTE | 2019-10-09 12:56 | History & Physical ---
History and Physical History & Physicial History and Physical HPI Patient is a 74-year-old male history of Dementia, Dysphagia, Congestive Heart Failure, Hypertension, Diabetes, Chronic Kidney Disease, COPD, admitted with Pneumonia, noted to have low blood pressure. Patient from a long term with Covid Patients Unable to obtain further history. Allergies: No Known Allergies Reviewed Nursing Documentation: PMH: Agreed; PSxH: Agreed Past Medical History: Dementia, Congestive Heart Failure, Chronic Kidney Disease, has shunt left upper arm, Diabetes, Hypertension, Dysphagia, Hyperlipidemia, COPD Review of Systems All Other Systems: limited - dementia Physical Exam Vital Signs Noted Date Time Temp Pulse Resp B/P (MAP) Pulse Ox O2 Delivery O2 Flow Rate FiO2 10/08/19 21:41 98.4 107 28 82/48 (59) 94 Non-Rebreather 10.0 General Appearance: mild distress, Chronically Ill appearing Head: normocephalic, atraumatic ENT: dry mucus membranes, no LN Neck: full range of motion, supple/symm/no masses Respiratory: rhonchi, other - Tachypneic Cardiovascular: HS1, HS2, irregularly irregular Gastrointestinal: non tender, soft Musculoskeletal: other - Left upper extremity AV fistula with no palpable thrill Skin: no rash, no edema CATALYST OPERATOR CHIEF: No focal signs, no seizures Impression: Suspected COVID-19 virus infection Pneumonia Chronic Kidney Disease, has shunt left upper arm Dehydration Hypotension Dementia Congestive Heart Failure Atrial Fibrillation Diabetes Hypertension Dysphagia Hyperlipidemia COPD Plan IV Antibiotics IVF PRN Pressors PRN PICC line Renal and Cardiology Consultation Await Covid 19 status 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 Medications - DC HTN meds PPX Monitor labs Laboratory Tests Noted Test 10/08/19 21:25 10/08/19 21:50 10/08/19 22:06 Urine Color Pending Urine Appearance Pending Urine pH Pending Urine Specific [place] Pending Urine Protein Pending Urine Glucose (UA) Pending Urine Ketones Pending Urine Blood Pending Urine Nitrite Pending Urine Bilirubin Pending Urine Urobilinogen Pending Urine Leukocyte Esterase Pending White Blood Count 10.1 K/UL (4.8-10.8) Red Blood Count 5.28 M/UL (4.70-6.10) Hemoglobin 14.5 G/DL (14.2-18.0) Hematocrit 46.2 % (42.0-52.0) Mean Corpuscular Volume 88 FL (80-99) Mean Corpuscular Hemoglobin 27.5 PG (27.0-31.0) Mean Corpuscular Hemoglobin Concent 31.4 G/DL (32.0-36.0) L Red Cell Distribution Width 13.7 % (11.6-14.8) Platelet Count 353 K/UL (150-450) Mean Platelet Volume 7.0 FL (6.5-10.1) Neutrophils (%) (Auto) % (45.0-75.0) Lymphocytes (%) (Auto) % (20.0-45.0) Monocytes (%) (Auto) % (1.0-10.0) Eosinophils (%) (Auto) % (0.0-3.0) Basophils (%) (Auto) % (0.0-2.0) Neutrophils % (Manual) Pending Lymphocytes % (Manual) Pending Platelet Estimate Pending Platelet Morphology Pending Prothrombin Time 11.4 SEC (9.30-11.50) Prothrombin Time INR 1.0 (0.9-1.1) Activated Partial Thromboplast Time 29 SEC (23-33) Sodium Level 141 MMOL/L (136-145) Potassium Level 3.8 MMOL/L (3.5-5.1) Chloride Level 104 MMOL/L (98-107) Carbon Dioxide Level 26 MMOL/L (21-32) Anion Gap 11 mmol/L (5-15) Blood Urea Nitrogen 95 mg/dL (7-18) H Creatinine 3.1 MG/DL (0.55-1.30) H Estimated Glomerular Filtration Rate 19.9 mL/min (>60) Glucose Level 138 MG/DL (74-106) H Lactic Acid Level 1.70 mmol/L (0.4-2.0) Calcium Level 8.6 MG/DL (8.5-10.1) Magnesium Level 2.5 MG/DL (1.8-2.4) H Total Bilirubin 0.4 MG/DL (0.2-1.0) Aspartate Amino Transferase (AST) 37 U/L (15-37) Alanine Aminotransferase (ALT) 26 U/L (12-78) Alkaline Phosphatase 78 U/L (46-116) Total Creatine Kinase 59 U/L (26-308) Troponin I 0.003 ng/mL (0.000-0.056) Pro-B-Type Natriuretic Peptide 4428 pg/mL (0-125) H Total Protein 6.5 G/DL (6.4-8.2) Albumin 2.0 G/DL (3.4-5.0) L Globulin 4.5 g/dL Albumin/Globulin Ratio 0.4 (1.0-2.7) L Lipase 223 U/L (73-393) Arterial Blood pH 7.370 (7.350-7.450) Arterial Blood Partial Pressure CO2 38.2 mmHg (35.0-45.0) Arterial Blood Partial Pressure O2 99.5 mmHg (75.0-100.0) Arterial Blood HCO3 21.6 mmol/L (22.0-26.0) L Arterial Blood Oxygen Saturation 96.8 % (95-100) Arterial Blood Base Excess -3.3 (-2-2) L Hal Test Positive EKG: Rate: tachycardiac Rhythm: other - afib rvr ST Segments: no acute changes Chest X-Ray: no effusion, no pneumothorax, other - Bibasilar airspace opacities Anselmo Pacheco MD October 09, 2019 12:56
--- NOTE | 2019-10-09 13:00 | NUR ---
NURSE NOTES: The patient got safely transferred to ICU bed D with the primary nurse. Dr. Pacheco ordered the patient to place central line for Levophed drip and ordered Mathis. Dr. Kingston at the bedside for central line placement. Will closely monitor the patient. Will continue plan of care.
--- NOTE | 2019-10-09 13:15 | Operative Note - PDOC ---
Operative Note Operative Note Date of Operation/Procedure: October 09, 2019 Pre-op Diagnosis: sepsis hypotension Procedure: left femoral central venous catheter insertion Post-op Diagnosis: same as pre-op Surgeon: michael kingston md Anesthesia: local Specimen: none Complications: none Condition: unstable Estimated Blood Loss: minimal Drains: none Implant(s) used?: No Indications for Procedure 74 M admitted for hypotension. worsening sepsis bp in the 70's. requiring pressors. needs central access. HD patient left arm fistula . procedure in ICU emergently Description of Procedure patient made comfortable in supine position. he is alert and responsive. understands surrounds and states help me. left groin prepped and draped in standard surgical fashion. finder needle used and left femoral vein cannulated without complication. good venous flow noted. guidewire passed and needle removed. small skin incision made and dilator used. triple lumen catheter placed over wire and wire removed and discarded. line sutured ni place. all three ports flushed and aspirated without complication. like okay to use Michael Kingston October 09, 2019 13:15
--- NOTE | 2019-10-09 13:17 | Consultation ---
History of Present Illness General Date patient seen: October 09, 2019 Reason for Hospitalization: Dyspnea/Respdistress Present Illness HPI 74-year-old male multi-medical comorbidities presented with hypotension worsening systolic in the 70s transferred to the intensive care unit surgery called to evaluate and assist with care management. Patient seen, patient evaluated, chart reviewed. Allergies: Coded Allergies: No Known Allergies (Unverified , 07/23/18) COVID-19 Screening Contact w/high risk pt: Yes Recent Travel to affected area: No Experienced COVID-19 symptoms?: Yes COVID-19 symptoms experienced: Shortness of Breath Medication History Scheduled Acetaminophen* (Acetaminophen 325MG Tablet*), 325 MG ORAL Q6H, (Reported) Amlodipine Besylate* (Amlodipine Besylate*), 5 MG ORAL DAILY, (Reported) Aripiprazole* (Abilify*), 15 MG ORAL DAILY, (Reported) Aspirin* (Aspir 81*), 81 MG ORAL DAILY, (Reported) Chlorthalidone* (Chlorthalidone*), 25 MG ORAL DAILY, (Reported) Clonidine Hcl* (Catapres*), 0.1 MG ORAL EVERY 4 HOURS, (Reported) Furosemide* (Lasix*), 20 MG ORAL DAILY, (Reported) Levofloxacin (Levofloxacin*), 500 MG ORAL DAILY, (Reported) Lisinopril (Lisinopril*), 10 MG ORAL DAILY, (Reported) Lisinopril (Lisinopril*), 40 MG ORAL DAILY, (Reported) Metoprolol Tartrate* (Metoprolol Tartrate*), 25 MG ORAL EVERY 12 HOURS, ( Reported) Multivitamin with Minerals (Multivitamins with Minerals), 1 TAB ORAL DAILY, ( Reported) Pravastatin Sod* (Pravachol*), 20 MG ORAL BEDTIME, (Reported) Spironolactone* (Spironolactone*), 25 MG ORAL DAILY, (Reported) Scheduled PRN Acetaminophen* (Acetaminophen 325MG Tablet*), 325 MG ORAL Q4H PRN for For Pain, (Reported) Ipratropium [place] 0.5MG/2.5ML (Ipratropium [place] 0.5MG/2.5ML), 0.5 MG HHN Q6H PRN for Shortness of Breath, (Reported) Miscellaneous Medications Acetaminophen (Mapap), 325 MG PO, (Reported) Aspirin (Aspirin), 81 MG PO, (Reported) Patient History Limited by: medical condition History Provided By: Medical Record, PMD Healthcare decision maker Resuscitation status Advanced Directive on File Past Medical/Surgical History Past Medical/Surgical History: (1) Acute metabolic encephalopathy (2) Dehydration (3) Acute renal failure (4) Pneumonia (5) Suspected COVID-19 virus infection Review of Systems Review of Symptoms General ROS: no weight loss or fever Psychological ROS: no depression or mood changes, no memory loss Ophthalmic ROS: no visual changes or eye irritation ENT ROS: no nasal congestion, hearing loss, dizziness Allergy and Immunology ROS: no allergic symptoms or urticaria Hematological and Lymphatic ROS: no swollen glands, unusual bleeding or bruising Endocrine ROS: no polyuria, polydipsia, weight changes, temperature intolerance Respiratory ROS: no cough, shortness of breath, or wheezing Cardiovascular ROS: no chest pain or dyspnea on exertion Gastrointestinal ROS: denies abdominal pain, bright red blood in stool. Musculoskeletal ROS: no myalgias or arthralgias Neurological ROS: no TIA or stroke symptoms Dermatological ROS: no new or changing skin lesions, rashes or pruritis Physical Exam Physical Exam General appearance: alert, cooperative, no distress, appears stated age Head: Normocephalic, without obvious abnormality, atraumatic Eyes: conjunctivae/corneas clear. PERRL, EOM's intact. Fundi benign Throat: Lips, mucosa, and tongue normal. Teeth and gums normal Neck: supple, symmetrical, trachea midline, no adenopathy, thyroid: not enlarged, symmetric, no tenderness/mass/nodules, no carotid bruit and no JVD Lungs: clear to auscultation bilaterally Heart: regular rate and rhythm, S1, S2 normal, no murmur, click, rub or gallop Abdomen: soft, non-tender. Bowel sounds normal. No masses, no organomegaly Extremities: Left upper extremity fistula hemodialysis Pulses: 2+ and symmetric Skin: Skin color, texture, turgor normal. No rashes or lesions Neurologic: Grossly normal Last 24 Hour Vital Signs Date Time Temp Pulse Resp B/P (MAP) Pulse Ox O2 Delivery O2 Flow Rate FiO2 10/09/19 11:15 97.0 75 20 97/47 (64) 95 10/09/19 07:40 96.6 51 20 105/52 (69) 97 10/09/19 07:40 96.6 51 20 91/49 (63) 97 10/09/19 04:00 3.0 10/09/19 04:00 Nasal Cannula 3.0 10/09/19 03:50 Nasal Cannula 4.0 10/09/19 03:34 95 10/09/19 03:30 96.4 75 20 95/56 (69) 95 10/09/19 02:45 98.9 90 20 93/61 90 Nasal Cannula 3.0 10/09/19 02:15 98.9 90 20 93/61 90 Nasal Cannula 3.0 10/09/19 01:30 98.9 90 20 93/59 90 Nasal Cannula 3.0 10/09/19 01:00 98.9 90 20 90/52 96 Nasal Cannula 3.0 10/09/19 00:00 99.9 94 20 93/58 96 Nasal Cannula 3.0 10/08/19 23:00 99.9 94 20 94/60 96 Nasal Cannula 3.0 10/08/19 22:00 90 28 Non-Rebreather 10.0 10/08/19 22:00 99.9 90 28 89/62 94 Non-Rebreather 10.0 10/08/19 21:41 98.4 107 28 82/48 (59) 94 Non-Rebreather 10.0 Intake and Output 10/08/19 10/09/19 19:00 07:00 Output Total 0 ml Balance 0 ml Output Urine Total 0 ml # Voids 1 Laboratory Tests Test 10/08/19 21:25 10/08/19 21:50 10/08/19 22:06 10/09/19 06:45 Urine Color Pending Urine Appearance Pending Urine pH Pending Urine Specific [place] Pending Urine Protein Pending Urine Glucose (UA) Pending Urine Ketones Pending Urine Blood Pending Urine Nitrite Pending Urine Bilirubin Pending Urine Urobilinogen Pending Urine Leukocyte Esterase Pending White Blood Count 10.1 K/UL (4.8-10.8) 7.5 K/UL (4.8-10.8) Red Blood Count 5.28 M/UL (4.70-6.10) 4.38 M/UL (4.70-6.10) L Hemoglobin 14.5 G/DL (14.2-18.0) 12.1 G/DL (14.2-18.0) L Hematocrit 46.2 % (42.0-52.0) 36.0 % (42.0-52.0) L Mean Corpuscular Volume 88 FL (80-99) 82 FL (80-99) Mean Corpuscular Hemoglobin 27.5 PG (27.0-31.0) 27.6 PG (27.0-31.0) Mean Corpuscular Hemoglobin Concent 31.4 G/DL (32.0-36.0) L 33.5 G/DL (32.0-36.0) Red Cell Distribution Width 13.7 % (11.6-14.8) 12.2 % (11.6-14.8) Platelet Count 353 K/UL (150-450) 287 K/UL (150-450) Mean Platelet Volume 7.0 FL (6.5-10.1) 5.8 FL (6.5-10.1) L Neutrophils (%) (Auto) % (45.0-75.0) 83.9 % (45.0-75.0) H Lymphocytes (%) (Auto) % (20.0-45.0) 9.3 % (20.0-45.0) L Monocytes (%) (Auto) % (1.0-10.0) 6.6 % (1.0-10.0) Eosinophils (%) (Auto) % (0.0-3.0) 0.1 % (0.0-3.0) Basophils (%) (Auto) % (0.0-2.0) 0.1 % (0.0-2.0) Differential Total Cells Counted 100 Neutrophils % (Manual) 85 % (45-75) H Lymphocytes % (Manual) 10 % (20-45) L Monocytes % (Manual) 3 % (1-10) Eosinophils % (Manual) 2 % (0-3) Basophils % (Manual) 0 % (0-2) Band Neutrophils 0 % (0-8) Platelet Estimate Adequate Platelet Morphology Normal Red Blood Cell Morphology Normal Prothrombin Time 11.4 SEC (9.30-11.50) Prothromb Time International Ratio 1.0 (0.9-1.1) Activated Partial Thromboplast Time 29 SEC (23-33) Sodium Level 141 MMOL/L (136-145) 146 MMOL/L (136-145) H Potassium Level 3.8 MMOL/L (3.5-5.1) 4.0 MMOL/L (3.5-5.1) Chloride Level 104 MMOL/L (98-107) 115 MMOL/L (98-107) H Carbon Dioxide Level 26 MMOL/L (21-32) 21 MMOL/L (21-32) Anion Gap 11 mmol/L (5-15) 10 mmol/L (5-15) Blood Urea Nitrogen 95 mg/dL (7-18) H 79 mg/dL (7-18) H Creatinine 3.1 MG/DL (0.55-1.30) H 2.2 MG/DL (0.55-1.30) H Estimat Glomerular Filtration Rate 19.9 mL/min (>60) 29.6 mL/min (>60) Glucose Level 138 MG/DL (74-106) H 92 MG/DL (74-106) Lactic Acid Level 1.70 mmol/L (0.4-2.0) Calcium Level 8.6 MG/DL (8.5-10.1) 7.1 MG/DL (8.5-10.1) L Magnesium Level 2.5 MG/DL (1.8-2.4) H Total Bilirubin 0.4 MG/DL (0.2-1.0) Aspartate Amino Transf (AST/SGOT) 37 U/L (15-37) Alanine Aminotransferase (ALT/SGPT) 26 U/L (12-78) Alkaline Phosphatase 78 U/L (46-116) Total Creatine Kinase 59 U/L (26-308) Troponin I 0.003 ng/mL (0.000-0.056) Pro-B-Type Natriuretic Peptide 4428 pg/mL (0-125) H 3229 pg/mL (0-125) H Total Protein 6.5 G/DL (6.4-8.2) Albumin 2.0 G/DL (3.4-5.0) L Globulin 4.5 g/dL Albumin/Globulin Ratio 0.4 (1.0-2.7) L Lipase 223 U/L (73-393) Arterial Blood pH 7.370 (7.350-7.450) Arterial Blood Partial Pressure CO2 38.2 mmHg (35.0-45.0) Arterial Blood Partial Pressure O2 99.5 mmHg (75.0-100.0) Arterial Blood HCO3 21.6 mmol/L (22.0-26.0) L Arterial Blood Oxygen Saturation 96.8 % (95-100) Arterial Blood Base Excess -3.3 (-2-2) L Hal Test Positive Thyroid Stimulating Hormone (TSH) 0.265 uiU/mL (0.358-3.740) Microbiology Date/Time Source Procedure Growth Status 10/08/19 23:15 Rectum Received Height (Feet): 5 Height (Inches): 11.00 Weight (Pounds): 126 Medications Current Medications Medications (Trade) Dose Ordered Sig/Clementine Route PRN Reason Start Time Stop Time Status Last Admin Dose Admin Acetaminophen (Tylenol) 650 mg Q4H PRN ORAL Mild Pain (Pain Scale 1-3) 10/09/19 05:45 11/08/19 05:44 Acetaminophen (Tylenol) 650 mg Q4H PRN ORAL fever 10/09/19 05:45 11/08/19 05:44 Albuterol Sulfate (Proventil MDI) 2 puff Q4H PRN INH Shortness of Breath 10/09/19 12:45 01/07/20 12:44 UNV Aspirin (ASA) 81 mg DAILY ORAL 10/09/19 09:00 11/23/19 08:59 10/09/19 08:34 Azithromycin 500 mg/Dextrose 275 ml @ 275 mls/hr Q24HRS IV 10/09/19 09:00 10/15/19 09:59 10/09/19 08:34 Cefepime HCl 1 gm/ Dextrose 55 ml @ 110 mls/hr Q12HR@1100,2300 IVPB 10/09/19 11:00 10/16/19 10:59 10/09/19 10:24 Chlorhexidine Gluconate (Flaca-Hex 2%) 1 applic DAILY@2000 TOPIC 10/09/19 20:00 01/07/20 19:59 Dextrose (Dextrose 50%) 25 ml Q30M PRN IV Hypoglycemia 10/09/19 05:45 01/07/20 05:44 Dextrose (Dextrose 50%) 50 ml Q30M PRN IV Hypoglycemia 10/09/19 05:45 01/07/20 05:44 Dextrose/Sodium Chloride 1,000 ml @ 75 mls/hr [id number] IV 10/09/19 10:01 10/10/19 10:01 10/09/19 08:36 Heparin Sodium (Porcine) (Heparin 5000 units/ml) 5,000 units EVERY 12 HOURS SUBQ 10/09/19 09:00 11/23/19 08:59 10/09/19 08:36 Metronidazole 100 ml @ 100 mls/hr Q8H IVPB 10/09/19 08:00 10/16/19 07:59 10/09/19 08:33 Norepinephrine Bitartrate 250 ml @ 0 mls/hr Q24H IV 10/09/19 12:45 01/07/20 12:44 UNV Pravastatin Sodium (Pravachol) 20 mg BEDTIME ORAL 10/09/19 21:00 11/08/19 20:59 Assessment/Plan Problem List: (1) Hypotension Assessment & Plan: 74-year-old male hypotensive unknown etiology's potentially septic COVID eval Needs pressors urgently transfer to the intensive care unit Need central venous access for pressors meds fluids Emergency procedure performed at the bedside Left femoral central venous catheter inserted without complication see note Okay for pressors okay to use We will follow with recommendations and monitor. Thank you for allowing participate in patient care ICD Codes: I95.9 - Hypotension, unspecified SNOMED: 24461329 (2) Dehydration ICD Codes: E86.0 - Dehydration SNOMED: 65308616 (3) Acute renal failure ICD Codes: N17.9 - Acute kidney failure, unspecified SNOMED: 95725153 (4) Pneumonia ICD Codes: J18.9 - Pneumonia, unspecified organism SNOMED: 605666268 (5) Acute metabolic encephalopathy ICD Codes: G93.41 - Metabolic encephalopathy SNOMED: 10695981, 922188977 (6) Suspected COVID-19 virus infection ICD Codes: Z20.828 - Contact with and (suspected) exposure to other viral communicable diseases SNOMED: 849640420 Gallo Kingston October 09, 2019 13:17
--- NOTE | 2019-10-09 13:30 | NUR ---
NURSE NOTES: No need to start Levophed drip at this time as the patient's blood pressure kept in MAP>65 and SBP>90. Will start Levophed drip as needed. Will closely monitor the patient. Will continue plan of care.
--- NOTE | 2019-10-09 14:30 | NUR ---
NURSE NOTES: The patient is stable at this time. Tolerating non-rebreather well. Levophed not started as the patient's blood pressure kept in MAP>65 and SBP>90. Will closely monitor the patient. Will continue plan of care.
--- NOTE | 2019-10-09 15:30 | NUR ---
NURSE NOTES: Dr. Fontanez at the bedside assessed the patient. Notified Dr. Fontanez that the patient has LUCITA AV shunt for HD access. Per [facility] personnel, cannot find last HD date as the patient has refused to be dialyzed at [facility]. Notified to Dr. Fontanez. Will closely monitor the patient. Will continue plan of care.
--- NOTE | 2019-10-09 15:40 | Consultation ---
Consult Note Assessment/Plan [id number] Quang Fontanez MD October 09, 2019 15:40
[2019-10-09] MEDS: Bumetanide 2.5mg/10ml Inj IVP SCH ×2 (15:51→21:40)
--- NOTE | 2019-10-09 17:00 | NUR ---
NURSE NOTES: The patient is stable at this time. Tolerating non-rebreather well. Bilateral soft wrist restraints on per order and skin and circulation intact. Right femoral central line intact and patent and dressing intact. Mathis intact and draining by gravity. Vital signs noted and no need to start Levophed at this time. Will closely monitor the patient Will continue plan of care.
--- NOTE | 2019-10-09 18:00 | NUR ---
NURSE NOTES: The patient is stable at this time. Levophed not started as the patient's blood pressure is SBP>90 and MAP>65. The patient is on non-rebreather but has thick mucus. Will closely monitor the patient. Will continue plan of care.
--- NOTE | 2019-10-09 19:20 | NUR ---
HAND-OFF: Report given to MIRANDA Cartwright. The patient is stable at this time. Endorsed plan of care.
--- NOTE | 2019-10-09 19:30 | NUR ---
NURSE NOTES: Received report from MIRANDA Kelley. Pt is resting on the bed and awake and confused, agitated and non-compliance. On 15L O2 via non-rebreather mask and SaO2 97-99% noted. On cardia monitor with A-fib and HR: 100's. On Mathis cath and patent and yellowish urine urinate. Pt has Lt. upper arm AV shunt and present bruit and thrills. Pt has Lt. femoral TLC and dressing is clean and dry. Dressing is Clean and dry on wound area, Apply P-200 mattress for wound management. BP is stable. Pt has bilateral soft wrist restraint. Checked comfort and circulation. Trying to release restraint when during care but Pt trying to remove non-rebreather mask and central line. Placed fall precaution. Proper isolation for PUI COVID-19. Will continue to care plan.
[2019-10-09] MEDS: Dyna-Hex 2% Top Sol 2oz TOPIC SCH (20:03)
--- NOTE | 2019-10-09 20:45 | Consultation ---
DATE OF CONSULTATION: 10/09/2019 NEPHROLOGY CONSULTATION CONSULTING PHYSICIAN: Quang Fontanez MD. REFERRING PHYSICIAN: Camilo Bill M.D. REASON FOR CONSULTATION: The patient has underlying chronic kidney disease presented with some increasing shortness of breath. HISTORY OF PRESENT ILLNESS: This is a 74-year-old white male with history of dementia, dysphagia, hypertension, and type 2 diabetes mellitus, has been brought to the emergency room of [facility] after he was found to have low blood pressure. He is a resident of assisted. He is not able to give any fruitful history. COVID test has been obtained, which is still pending at the time of this dictation. He was given some IV fluids. Serum creatinine from 3.1 come down to about 2.2. Chest x-ray is showing evidence of apical redistribution of the vessels. I have been asked to see him and assess him for underlying chronic kidney disease and management of volume status. Urinalysis is still not done on him. PAST MEDICAL HISTORY: Per assisted chart includes previous episodes of CHF, type 2 diabetes mellitus, hypertension, dysphagia, COPD, previous pneumonia, chronic kidney disease stage 4 apparently, hyperlipidemia, previous atrial fibrillation. PAST SURGICAL HISTORY: He has a AV fistula in the left upper extremity. SOCIAL HISTORY: He is a resident of a assisted. Does not seem to have any capacity to speak for himself. MEDICATIONS: Prior to admission has been amlodipine 5 mg p.o. daily, Abilify 15 mg p.o. daily, aspirin 81 mg p.o. daily, clonidine 0.1 mg every 4 hours p.r.n., furosemide 20 mg p.o. daily, Levaquin 500 mg p.o. daily, lisinopril 40 mg p.o. daily, metoprolol 25 mg p.o. b.i.d., Pravachol 20 mg p.o. daily, spironolactone 100 mg p.o. daily. REVIEW OF SYSTEMS: Impossible since he is not able to give me a very fruitful history. PHYSICAL EXAMINATION: GENERAL: He does not seem to be in much acute distress, lying down in the bed of the intensive care unit. He has high-flow 100% non-rebreather mask on. VITAL SIGNS: Blood pressure is 93/55, pulse 95, respirations 21, and temperature 97 degrees Fahrenheit. HEENT: Head is atraumatic. Eyes, pupils are reactive to light. No evidence of papilledema. Ears, canals are clear. Tympanic membranes are intact. Nose, nares are patent without any nasal discharge. Throat without inflammation or exudate. NECK: Supple. Jugular venous distention is somewhat increased. HEART: Distant sounds, regular rhythm. LUNGS: Few decreased air excursion bilaterally with few crackles in both bases. ABDOMEN: Supple. Bowel sounds positive. No hepatosplenomegaly. EXTREMITIES: Lower extremity shows 1+ pedal edema. NEUROLOGICAL: He is disoriented x3. Deep tendon reflexes are symmetrically decreased in both lower extremities. LABORATORY AND DIAGNOSTIC DATA: Chest x-ray is showing apical redistribution of the vessels with some cardiomegaly. IMPRESSION: 1. He most likely seems to be in congestive heart failure. This is probably acute exacerbation of CHF. I am not sure of his the ejection fraction at this point. 2. Type 2 diabetes mellitus. 3. He is getting ruled out for COVID-19. 4. Chronic kidney disease stage 4. Kidney function has improved since he came; however, due to fact that he needs to stop his lisinopril. PLAN: I would like to discontinue IV fluids on him at this point. I would give him Bumex 2 mg IV every 8 hours x2. A 2D echo needs to be obtained. At the end, I would like to thank you again for letting me be involved in the care of this very nice gentleman. Please do not hesitate to contact me if you have any questions. Quang Fontanez M.D. DR: Michael JOB#: [id number] CC:
--- NOTE | 2019-10-09 21:30 | NUR ---
NURSE NOTES: Pt is resting on the bed and very agitated. Notified Dr. Pacheco and new order received with Haldol 5mg IVPB Q6hr PRN. Carried out. Will continue to monitor any change of condition.
[2019-10-09] MEDS: Haloperidol Lactate 5 MG in D5W 55 ML IVPB PRN (21:40)
--- NOTE | 2019-10-09 22:30 | NUR ---
NURSE NOTES: Pt is resting on the bed and calm. On manager cardiac with A-fib and HR 100-115's. SaO2 99% noted with on O2 15L via non-rebreathing mask. Changed position. Given suction. Will continue to monitor any change of condition.
[2019-10-10] VITALS (25 sets, daily range): BP systolic 89–140; BP diastolic 43–97
--- NOTE | 2019-10-10 | NUR ---
NURSE NOTES: Pt is sleeping on the bed and confused. SaO2 99-100% noted with O2 15L via non-rebreather mask. Suction was done and noted moderated amount thick secretion. Changed position. No fever. BP is stable. Placed fall precaution. Will continue to care plan.
--- NOTE | 2019-10-10 02:00 | NUR ---
NURSE NOTES: Pt is sleeping on the bed and no sign of acute distress noted. SaO2 100% with current O2 setting and BP is stable. Turn and reposition. Collected urine sample. Will continue to monitor any change of condition.
[2019-10-10 02:27] LABS: BILIRUBIN, URINE NEGATIVE (NEGATIVE); COLOR,URINE PALE YELLOW; GLUCOSE, URINE (UA) NEGATIVE (NEGATIVE); KETONES,URINE NEGATIVE (NEGATIVE); LEUKOCYTE ESTERASE ,URINE 1+ (NEGATIVE); NITRITE,URINE NEGATIVE (NEGATIVE); PH,URINE 5 (4.5-8.0); PROTEIN,URINE NEGATIVE (NEGATIVE); UROBILINOGEN,URINE NORMAL MG/DL (0.0-1.0)
[2019-10-10 02:33] LABS: APPEARANCE,URINE CLEAR
--- NOTE | 2019-10-10 04:00 | NUR ---
NURSE NOTES: Morning care was done. Cleaned Pt and applied lotion and cream. Changed sacral wound dressing. Suction was done. Turn and reposition. SaO2 100% with current O2 setting. no fever and BP is stable. Will continue to monitor any change of condition.
[2019-10-10 04:59] LABS: BASOPHILS % (AUTO) 0.3 % (0.0-2.0); EOSINOPHILS % (AUTO) 0.1 % (0.0-3.0); HEMATOCRIT 34.8 % (42.0-52.0); HEMOGLOBIN 11.9 G/DL (14.2-18.0); LYMPHOCYTES % (AUTO) 8.5 % (20.0-45.0); MEAN CORPUSCULAR VOLUME 83 FL (80-99); MONOCYTES % (AUTO) 12.5 % (1.0-10.0); NEUTROPHILS % (AUTO) 78.6 % (45.0-75.0); PLATELET COUNT 283 K/UL (150-450); RED BLOOD COUNT 4.17 M/UL (4.70-6.10); RED CELL DISTRIBUTION WIDTH 12.8 % (11.6-14.8); WHITE BLOOD COUNT 7.6 K/UL (4.8-10.8)
[2019-10-10 05:18] LABS: ANION GAP 12 mmol/L (5-15); BLOOD UREA NITROGEN 62 mg/dL (7-18); CALCIUM 7.5 MG/DL (8.5-10.1); CARBON DIOXIDE 23 MMOL/L (21-32); CHLORIDE 115 MMOL/L (98-107); CREATININE 2.1 MG/DL (0.55-1.30); POTASSIUM 4.2 MMOL/L (3.5-5.1); SODIUM 150 MMOL/L (136-145)
--- NOTE | 2019-10-10 06:00 | NUR ---
NURSE NOTES: Pt is sleeping on the bed and no sign of acute distress noted. Turn and reposition. Will continue to care plan.
--- NOTE | 2019-10-10 07:20 | NUR ---
HAND-OFF: Report given to MIRANDA Moseley. Pt is sleeping on the bed and no sign of acute distress noted.
--- NOTE | 2019-10-10 08:15 | Consultation ---
DATE OF CONSULTATION: 10/09/2019 CARDIOLOGY CONSULTATION CONSULTING PHYSICIAN: Anselmo Porras MD. REQUESTING PHYSICIAN: Camilo Bill MD. REASON FOR CONSULTATION: Shortness of breath and hypotension. HISTORY OF PRESENT ILLNESS: This is a 74-year-old white male, who resides at a senior living facility. He was brought into the emergency room last evening with low blood pressure. Limited data is obtained from the patient. A 25 minutes time spent reviewing prior hospitalization records and current halfway chart. In the emergency room, the patient was noted to have a chest x-ray revealing bilateral pneumonia, concern was also raised over COVID-19. Broad-spectrum antimicrobials were initiated following cultures. Hydration was initiated due to low blood pressure. Intensive care unit admission was arranged as well. PAST MEDICAL HISTORY: Includes CVA with dementia, dysphagia, hypertensive heart disease, type 2 diabetes mellitus, chronic kidney disease, history of AV fistula in the left upper extremity, hyperlipidemia, COPD, paroxysmal atrial fibrillation, history of congestive heart failure. MEDICATIONS: Reviewed and reconciled. ALLERGIES: None known. FAMILY HISTORY: Not obtainable. REVIEW OF SYSTEMS: Otherwise not obtainable. PHYSICAL EXAMINATION: VITAL SIGNS: In the emergency room, blood pressure was 82/48, heart rate 107, respiratory rate was 28, afebrile this morning. Blood pressure is 97/47, heart rate 75, respiratory rate 20, and temperature 97.0. GENERAL: The patient is ill-appearing. HEENT: Temporal wasting. Dry mucous membranes. NECK: Supple. LUNGS: Bilateral rales and rhonchi. Some accessory muscle use noted. CARDIAC: Irregularly irregular. Normal S1, S2. No appreciable murmur but respiratory sounds obscure exam. ABDOMEN: Soft, nontender. EXTREMITIES: Without edema. There is a fistula palpable in the left upper extremity with no palpable thrill. NEUROLOGIC: Reveals cognitive impairment and lethargy. LABORATORY AND DIAGNOSTIC DATA: Labs done, hemoglobin 14.5. Sodium 141, potassium 3.8, bicarb 26, BUN 95, creatinine 3.1. Pro-natriuretic peptide 4400. Troponin negative. Albumin 2.0. IMPRESSION: 1. Healthcare-associated pneumonia. 2. Possible COVID-19. 3. Sepsis. 4. Shock. 5. Acute on chronic renal failure. 6. Hypovolemia. 7. Dehydration. 8. Chronic diastolic congestive heart failure. 9. Severe protein-calorie malnutrition. 10. Cerebrovascular disease with dementia. 11. History of AV fistula and renal failure in the past. 12. Poor peripheral access. PLAN: 1. ICU care. 2. Volume resuscitation. 3. May need pressor support. 4. Cautious hydration and monitoring of cardiorenal function, may need dialysis, nutrition by feeding tube. 5. Antimicrobials. 6. Await COVID-19 results. 7. Isolation for now. 8. DVT and stress ulcer prophylaxis. Anselmo Porras M.D. DR: Reyna JOB#: [id number] CC:
--- NOTE | 2019-10-10 08:38 | Critical Care Progress Note ---
Assessment/Plan Assessment/Plan Impression: Suspected COVID-19 virus infection Pneumonia Chronic Kidney Disease, has shunt left upper arm with ARF Dehydration Hypotension Dementia Congestive Heart Failure Atrial Fibrillation Diabetes Hypertension Dysphagia Hyperlipidemia COPD hypernatremia Plan IV Antibiotics IVF as per renal Pressors PRN PICC line Renal and Cardiology Consultation ID to see Await Covid 19 status Monitor labs close follow up medications/laboratory data/nursing notes/ICU care reviewed in detail note reviewed and edited care discussed with RN and RT ICU time spent >40 minutes Critical Care - Subjective Interval Events: care noted remains in ICU consultants noted ROS Limited/Unobtainable: Yes Condition: critical I&O: Intake and Output 10/09/19 10/10/19 19:00 07:00 Intake Total 530 ml 211 ml Output Total 140 ml 1235 ml Balance 390 ml -1024 ml Intake IV Total 530 ml 211 ml Output Urine Total 140 ml 1235 ml Critical Care - Objective Last 24 Hour Vital Signs Date Time Temp Pulse Resp B/P (MAP) Pulse Ox O2 Delivery O2 Flow Rate FiO2 10/10/19 07:00 76 20 99/54 (69) 100 10/10/19 06:00 80 18 92/43 (59) 100 10/10/19 05:00 87 20 101/50 (67) 100 10/10/19 04:00 82 10/10/19 04:00 Non-Rebreather 15.0 10/10/19 04:00 97.4 86 18 108/46 (66) 100 10/10/19 03:00 80 24 139/54 (82) 100 10/10/19 02:00 77 19 103/44 (63) 100 10/10/19 01:30 81 23 94/45 (61) 100 10/10/19 01:00 124 19 89/44 (59) 100 10/10/19 00:00 118 10/10/19 00:00 Non-Rebreather 15.0 10/10/19 00:00 97.4 127 22 107/66 (80) 100 10/09/19 23:00 108 27 94/63 (73) 100 10/09/19 22:00 107 27 110/61 (77) 99 10/09/19 21:00 112 31 115/61 (79) 94 10/09/19 20:00 Non-Rebreather 15.0 10/09/19 20:00 100 Non-Rebreather 15.0 100 10/09/19 20:00 111 10/09/19 20:00 97.5 109 24 120/60 (80) 97 10/09/19 19:00 113 18 103/63 (76) 100 10/09/19 18:00 108 21 102/67 (79) 98 10/09/19 17:00 104 25 107/77 (87) 95 10/09/19 16:00 Non-Rebreather 15.0 10/09/19 16:00 97.0 93 24 102/64 (77) 98 10/09/19 16:00 101 10/09/19 15:00 96 21 97/64 (75) 100 10/09/19 14:00 86 20 96/59 (71) 96 10/09/19 13:40 95 21 93/50 (64) 95 10/09/19 13:30 96 22 94/54 (67) 96 10/09/19 13:15 109 28 100/64 (76) 95 10/09/19 13:00 Non-Rebreather 15.0 10/09/19 13:00 105 25 98/73 (81) 96 10/09/19 12:45 107/77 10/09/19 12:00 Non-Rebreather 15.0 10/09/19 12:00 100 10/09/19 12:00 97.0 75 20 97/47 (64) 95 10/09/19 11:15 97.0 75 20 97/47 (64) 95 Labs: Labs Test 10/08/19 21:50 10/08/19 22:06 10/09/19 06:45 10/10/19 01:50 White Blood Count 10.1 K/UL (4.8-10.8) 7.5 K/UL (4.8-10.8) Red Blood Count 5.28 M/UL (4.70-6.10) 4.38 M/UL (4.70-6.10) Hemoglobin 14.5 G/DL (14.2-18.0) 12.1 G/DL (14.2-18.0) Hematocrit 46.2 % (42.0-52.0) 36.0 % (42.0-52.0) Mean Corpuscular Volume 88 FL (80-99) 82 FL (80-99) Mean Corpuscular Hemoglobin 27.5 PG (27.0-31.0) 27.6 PG (27.0-31.0) Mean Corpuscular Hemoglobin Concent 31.4 G/DL (32.0-36.0) 33.5 G/DL (32.0-36.0) Red Cell Distribution Width 13.7 % (11.6-14.8) 12.2 % (11.6-14.8) Platelet Count 353 K/UL (150-450) 287 K/UL (150-450) Mean Platelet Volume 7.0 FL (6.5-10.1) 5.8 FL (6.5-10.1) Neutrophils (%) (Auto) % (45.0-75.0) 83.9 % (45.0-75.0) Lymphocytes (%) (Auto) % (20.0-45.0) 9.3 % (20.0-45.0) Monocytes (%) (Auto) % (1.0-10.0) 6.6 % (1.0-10.0) Eosinophils (%) (Auto) % (0.0-3.0) 0.1 % (0.0-3.0) Basophils (%) (Auto) % (0.0-2.0) 0.1 % (0.0-2.0) Differential Total Cells Counted 100 Neutrophils % (Manual) 85 % (45-75) Lymphocytes % (Manual) 10 % (20-45) Monocytes % (Manual) 3 % (1-10) Eosinophils % (Manual) 2 % (0-3) Basophils % (Manual) 0 % (0-2) Band Neutrophils 0 % (0-8) Platelet Estimate Adequate Platelet Morphology Normal Red Blood Cell Morphology Normal Prothrombin Time 11.4 SEC (9.30-11.50) Prothromb Time International Ratio 1.0 (0.9-1.1) Activated Partial Thromboplast Time 29 SEC (23-33) Sodium Level 141 MMOL/L (136-145) 146 MMOL/L (136-145) Potassium Level 3.8 MMOL/L (3.5-5.1) 4.0 MMOL/L (3.5-5.1) Chloride Level 104 MMOL/L (98-107) 115 MMOL/L (98-107) Carbon Dioxide Level 26 MMOL/L (21-32) 21 MMOL/L (21-32) Anion Gap 11 mmol/L (5-15) 10 mmol/L (5-15) Blood Urea Nitrogen 95 mg/dL (7-18) 79 mg/dL (7-18) Creatinine 3.1 MG/DL (0.55-1.30) 2.2 MG/DL (0.55-1.30) Estimat Glomerular Filtration Rate 19.9 mL/min (>60) 29.6 mL/min (>60) Glucose Level 138 MG/DL (74-106) 92 MG/DL (74-106) Lactic Acid Level 1.70 mmol/L (0.4-2.0) Calcium Level 8.6 MG/DL (8.5-10.1) 7.1 MG/DL (8.5-10.1) Magnesium Level 2.5 MG/DL (1.8-2.4) Total Bilirubin 0.4 MG/DL (0.2-1.0) Aspartate Amino Transf (AST/SGOT) 37 U/L (15-37) Alanine Aminotransferase (ALT/SGPT) 26 U/L (12-78) Alkaline Phosphatase 78 U/L (46-116) Total Creatine Kinase 59 U/L (26-308) Troponin I 0.003 ng/mL (0.000-0.056) Pro-B-Type Natriuretic Peptide 4428 pg/mL (0-125) 3229 pg/mL (0-125) Total Protein 6.5 G/DL (6.4-8.2) Albumin 2.0 G/DL (3.4-5.0) Globulin 4.5 g/dL Albumin/Globulin Ratio 0.4 (1.0-2.7) Lipase 223 U/L (73-393) Arterial Blood pH 7.370 (7.350-7.450) Arterial Blood Partial Pressure CO2 38.2 mmHg (35.0-45.0) Arterial Blood Partial Pressure O2 99.5 mmHg (75.0-100.0) Arterial Blood HCO3 21.6 mmol/L (22.0-26.0) Arterial Blood Oxygen Saturation 96.8 % (95-100) Arterial Blood Base Excess -3.3 (-2-2) Hal Test Positive Thyroid Stimulating Hormone (TSH) 0.265 uiU/mL (0.358-3.740) Urine Color Pale yellow Urine Appearance Clear Urine pH 5 (4.5-8.0) Urine Specific Victor 1.010 (1.005-1.035) Urine Protein Negative (NEGATIVE) Urine Glucose (UA) Negative (NEGATIVE) Urine Ketones Negative (NEGATIVE) Urine Blood 3+ (NEGATIVE) Urine Nitrite Negative (NEGATIVE) Urine Bilirubin Negative (NEGATIVE) Urine Urobilinogen Normal MG/DL (0.0-1.0) Urine Leukocyte Esterase 1+ (NEGATIVE) Urine RBC 5-10 /HPF (0 - 0) Urine WBC 2-4 /HPF (0 - 0) Urine Squamous Epithelial Cells None /LPF (NONE/OCC) Urine Bacteria Few /HPF (NONE) Test 10/10/19 04:00 White Blood Count 7.6 K/UL (4.8-10.8) Red Blood Count 4.17 M/UL (4.70-6.10) Hemoglobin 11.9 G/DL (14.2-18.0) Hematocrit 34.8 % (42.0-52.0) Mean Corpuscular Volume 83 FL (80-99) Mean Corpuscular Hemoglobin 28.5 PG (27.0-31.0) Mean Corpuscular Hemoglobin Concent 34.1 G/DL (32.0-36.0) Red Cell Distribution Width 12.8 % (11.6-14.8) Platelet Count 283 K/UL (150-450) Mean Platelet Volume 5.7 FL (6.5-10.1) Neutrophils (%) (Auto) 78.6 % (45.0-75.0) Lymphocytes (%) (Auto) 8.5 % (20.0-45.0) Monocytes (%) (Auto) 12.5 % (1.0-10.0) Eosinophils (%) (Auto) 0.1 % (0.0-3.0) Basophils (%) (Auto) 0.3 % (0.0-2.0) Sodium Level 150 MMOL/L (136-145) Potassium Level 4.2 MMOL/L (3.5-5.1) Chloride Level 115 MMOL/L (98-107) Carbon Dioxide Level 23 MMOL/L (21-32) Anion Gap 12 mmol/L (5-15) Blood Urea Nitrogen 62 mg/dL (7-18) Creatinine 2.1 MG/DL (0.55-1.30) Estimat Glomerular Filtration Rate 31.2 mL/min (>60) Glucose Level 98 MG/DL (74-106) Calcium Level 7.5 MG/DL (8.5-10.1) Objective: deferred due to COVID+ Micro: Microbiology Date/Time Source Procedure Growth Status 10/08/19 22:15 Blood Blood Culture - Preliminary NO GROWTH AFTER 24 HOURS Resulted 10/08/19 22:05 Blood Blood Culture - Preliminary NO GROWTH AFTER 24 HOURS Resulted 10/08/19 23:15 Rectum Received Camilo Bill MD Oct 10, 2019 08:38
[2019-10-10] MEDS: Aspirin Baby 81mg ORAL SCH (09:00)
[2019-10-10] MEDS: Azithromycin 500 MG in D5W 275 ML IV SCH (09:32)
[2019-10-10] MEDS: Heparin 5000 units/ml inj SUBQ SCH ×2 (09:33→21:33)
--- NOTE | 2019-10-10 09:33 | NUR ---
RD ASSESSMENT & RECOMMENDATIONS SEE CARE ACTIVITY FOR COMPLETE ASSESSMENT DAILY ESTIMATED NEEDS: Needs based on Respiratory, underweight 57.3 30-35 kcals/kg 2930-7204 total kcals 1-1.5 g protein/kg 57-86 g total protein 25-30 mL/kg 2425-8143 total fluid mLs NUTRITION DIAGNOSIS: Altered nutrition related lab values r/t clinical status, renal failure as evidenced by elev BUN (62 trending down), elev Creat (2.1 trending down), elev Na (150). CURRENT DIET:SIDRA ms w/ NTL PO DIET RECOMMENDATIONS: LOW NA + NEPRO TID / Texture per DAIRY SCIENCE TEACHER ENTERAL NUTRITION RECOMMENDATIONS: -Consult RD if part of POC w/ continued poor po intake. ADDITIONAL RECOMMENDATIONS: 1) Obtain a CALIBRATED WEIGHT as able Pt w/ underweight BMI 2) Poor po intake-> consider non oral feeds for ICU status and poor po 3) DAIRY SCIENCE TEACHER eval for H/o CVA-> diet texture per DAIRY SCIENCE TEACHER 4) rec WC eval for sacral wound, add MURIEL BID for skin integrity .
[2019-10-10] MEDS ORDERED: Tubing IV Secondary IV ONE (09:40)
[2019-10-10] MEDS ORDERED: NS 275ml ONE (09:40)
--- NOTE | 2019-10-10 09:45 | NUR ---
NURSE NOTES: Dr. Bill updated at the bedside regarding patient placed on non rebreather. updated patient was given haldol last shift, patient seems sedated from medication administration. made aware upon report patient was noted to be unable to swallow medications. ordered to hold aspirin until swallow evaluation.
--- NOTE | 2019-10-10 10:50 | NUR ---
NURSE NOTES: Dr. Bill called to order for titration of oxygen to venturi mask, order placed and made Rt aware,
--- NOTE | 2019-10-10 10:58 | NUR ---
6NURSE NOTES: Dr. Sorensen updated on patient isolation and pending sawb results. no verbal order given at this time.
[2019-10-10] MEDS ORDERED: Hydroxychloroquine Fact Sheet MISC ONE (11:15)
[2019-10-10] MEDS: Cefepime HCl 1 GM in D5W 55 ML IVPB SCH ×2 (12:40→23:04)
[2019-10-10] MEDS: Norepinephrine 4mg/NS Premix 250 ML IV SCH (12:45)
--- NOTE | 2019-10-10 13:16 | Surgery Progress Note ---
Surgery Progress Note Subjective Procedure Performed left femoral central venous catheter insertion Additional Comments ill appearing labs noted exam stable line okay Objective Last 24 Hour Vital Signs Date Time Temp Pulse Resp B/P (MAP) Pulse Ox O2 Delivery O2 Flow Rate FiO2 10/10/19 12:00 97.5 77 23 110/62 (78) 96 10/10/19 11:00 77 22 90/45 (60) 96 10/10/19 10:00 72 25 95/47 (63) 96 10/10/19 09:00 84 19 101/54 (70) 100 10/10/19 08:00 77 10/10/19 08:00 Non-Rebreather 15.0 10/10/19 08:00 98.1 81 17 110/46 (67) 100 10/10/19 07:10 100 Non-Rebreather 15.0 100 10/10/19 07:00 76 20 99/54 (69) 100 10/10/19 06:00 80 18 92/43 (59) 100 10/10/19 05:00 87 20 101/50 (67) 100 10/10/19 04:00 82 10/10/19 04:00 Non-Rebreather 15.0 10/10/19 04:00 97.4 86 18 108/46 (66) 100 10/10/19 03:00 80 24 139/54 (82) 100 10/10/19 02:00 77 19 103/44 (63) 100 10/10/19 01:30 81 23 94/45 (61) 100 10/10/19 01:00 124 19 89/44 (59) 100 10/10/19 00:00 118 10/10/19 00:00 Non-Rebreather 15.0 10/10/19 00:00 97.4 127 22 107/66 (80) 100 10/09/19 23:00 108 27 94/63 (73) 100 10/09/19 22:00 107 27 110/61 (77) 99 10/09/19 21:00 112 31 115/61 (79) 94 10/09/19 20:00 Non-Rebreather 15.0 10/09/19 20:00 100 Non-Rebreather 15.0 100 10/09/19 20:00 111 10/09/19 20:00 97.5 109 24 120/60 (80) 97 10/09/19 19:00 113 18 103/63 (76) 100 10/09/19 18:00 108 21 102/67 (79) 98 10/09/19 17:00 104 25 107/77 (87) 95 10/09/19 16:00 Non-Rebreather 15.0 10/09/19 16:00 97.0 93 24 102/64 (77) 98 10/09/19 16:00 101 10/09/19 15:00 96 21 97/64 (75) 100 10/09/19 14:00 86 20 96/59 (71) 96 10/09/19 13:40 95 21 93/50 (64) 95 10/09/19 13:30 96 22 94/54 (67) 96 I&O Intake and Output 10/09/19 10/10/19 19:00 07:00 Intake Total 530 ml 211 ml Output Total 140 ml 1235 ml Balance 390 ml -1024 ml Intake IV Total 530 ml 211 ml Output Urine Total 140 ml 1235 ml Dressing: other Wound: other Drains: other Cardiovascular: RSR Respiratory: decreased breath sounds Abdomen: soft, non-tender, present bowel sounds Extremities: no cyanosis Laboratory Tests Test 10/10/19 01:50 10/10/19 04:00 Urine Color Pale yellow Urine Appearance Clear Urine pH 5 (4.5-8.0) Urine Specific Benedict 1.010 (1.005-1.035) Urine Protein Negative (NEGATIVE) Urine Glucose (UA) Negative (NEGATIVE) Urine Ketones Negative (NEGATIVE) Urine Blood 3+ (NEGATIVE) H Urine Nitrite Negative (NEGATIVE) Urine Bilirubin Negative (NEGATIVE) Urine Urobilinogen Normal MG/DL (0.0-1.0) Urine Leukocyte Esterase 1+ (NEGATIVE) H Urine RBC 5-10 /HPF (0 - 0) H Urine WBC 2-4 /HPF (0 - 0) Urine Squamous Epithelial Cells None /LPF (NONE/OCC) Urine Bacteria Few /HPF (NONE) White Blood Count 7.6 K/UL (4.8-10.8) Red Blood Count 4.17 M/UL (4.70-6.10) L Hemoglobin 11.9 G/DL (14.2-18.0) L Hematocrit 34.8 % (42.0-52.0) L Mean Corpuscular Volume 83 FL (80-99) Mean Corpuscular Hemoglobin 28.5 PG (27.0-31.0) Mean Corpuscular Hemoglobin Concent 34.1 G/DL (32.0-36.0) Red Cell Distribution Width 12.8 % (11.6-14.8) Platelet Count 283 K/UL (150-450) Mean Platelet Volume 5.7 FL (6.5-10.1) L Neutrophils (%) (Auto) 78.6 % (45.0-75.0) H Lymphocytes (%) (Auto) 8.5 % (20.0-45.0) L Monocytes (%) (Auto) 12.5 % (1.0-10.0) H Eosinophils (%) (Auto) 0.1 % (0.0-3.0) Basophils (%) (Auto) 0.3 % (0.0-2.0) Sodium Level 150 MMOL/L (136-145) H Potassium Level 4.2 MMOL/L (3.5-5.1) Chloride Level 115 MMOL/L (98-107) H Carbon Dioxide Level 23 MMOL/L (21-32) Anion Gap 12 mmol/L (5-15) Blood Urea Nitrogen 62 mg/dL (7-18) H Creatinine 2.1 MG/DL (0.55-1.30) H Estimat Glomerular Filtration Rate 31.2 mL/min (>60) Glucose Level 98 MG/DL (74-106) Calcium Level 7.5 MG/DL (8.5-10.1) L Plan Problems: (1) Hypotension Assessment & Plan: 74-year-old male hypotensive unknown etiology's potentially septic COVID eval Needs pressors urgently transfer to the intensive care unit Need central venous access for pressors meds fluids Emergency procedure performed at the bedside Left femoral central venous catheter inserted without complication see note Okay for pressors okay to use We will follow with recommendations and monitor. Thank you for allowing participate in patient care (2) Dehydration Assessment & Plan: DAILY ESTIMATED NEEDS: Needs based on Respiratory, underweight 57.3 30-35 kcals/kg 1977-4202 total kcals 1-1.5 g protein/kg 57-86 g total protein 25-30 mL/kg 9468-1883 total fluid mLs NUTRITION DIAGNOSIS: Altered nutrition related lab values r/t clinical status, renal failure as evidenced by elev BUN (62 trending down), elev Creat (2.1 trending down), elev Na (150). CURRENT DIET:SIDRA ms w/ NTL PO DIET RECOMMENDATIONS: LOW NA + NEPRO TID / Texture per CAD DESIGNER ENTERAL NUTRITION RECOMMENDATIONS: -Consult RD if part of POC w/ continued poor po intake. ADDITIONAL RECOMMENDATIONS: 1) Obtain a CALIBRATED WEIGHT as able Pt w/ underweight BMI 2) Poor po intake-> consider non oral feeds for ICU status and poor po 3) CAD DESIGNER eval for H/o CVA-> diet texture per CAD DESIGNER 4) rec WC eval for sacral wound, add MURIEL BID for skin integrity . (3) Acute renal failure (4) Pneumonia (5) Acute metabolic encephalopathy (6) Suspected COVID-19 virus infection Gallo Kingston Oct 10, 2019 13:16
--- NOTE | 2019-10-10 13:30 | NUR ---
NURSE NOTES: Dr. Kingston updated on status of patient central line placement. no vebral orders given at this time.
--- NOTE | 2019-10-10 13:42 | NUR ---
NURSE NOTES: Dr. Gant notified regarding patient chemistry level from this morning, updated patient was changed to non rebreather maskl at 15L/min and FIO2 of 100%. no orders for hemodialysis orders. no verbal orders given at this time.
--- NOTE | 2019-10-10 14:15 | NUR ---
NURSE NOTES: patient is more awake with moments of agitation or resistance to care, patient was able to swallow medications with no distress noted, he remains with a weak cough and is able to make single word answers, but repeats the word.
--- NOTE | 2019-10-10 14:30 | NUR ---
NURSE NOTES: Wound care nurse assessed patient wounds. will await for recommendation
--- NOTE | 2019-10-10 14:33 | NUR ---
NURSE NOTES:WOUND CARE NOTES:Pt presented on admission with multiple Pressure Injuries. . Hyperkeratosis lesion noted to L scapula. Sacral DTPI that is partially opened at angel cleft. Base of Pressure injury is maroon in colour. Non-blanching erythema with shearing noted to R and L clefts of buttocks. Non-blanching erythema with partial thickness shearing R and L ischial tuberosities. Dry, necrotic wound noted to lateral L tibia. No erythema fluctuance or induration noted periwound. Non-blanching erythema without induration/fluctuance L Hallux. L heel is boggy with non-blanchable erythema. Non-Blanchable erythema without induration/fluctuance Lateral R Malleolus. Non-blanching erythema without induration/fluctuance lateral R foot. R heel is boggy with non-blanchable erythema. Non-Blanchable erythema without fluctuance/induration R Hallux. Tx.Apply Betadine to necrotic lesion lateral L Tibia Daily. Leave open to air Apply Moisture Barrier Paste to Buttocks. Cover Sacrum and Both ischium with Optifoam drsgs. Change every 3 days and prn. Apply Moisture Barrier Paste to Scrotum with each Incontinence Care. Apply Cavilon Skin Barrier to L hallux,L Heel. Cover each site with Optifoam drsgs. Change every 7 days and prn. Apply Cavilon Skin Barrier to R Hallux, R Heel , and lateral R foot. Cover with Optifoam drsgs. Change every 7 days and PRN. Reposition at least every 2hours or as tolerated. Off-load heels with Pillow. APM/CAROLYNN Mattress overlay.
[2019-10-10] MEDS: Haloperidol Lactate 5 MG in D5W 55 ML IVPB PRN (15:44)
--- NOTE | 2019-10-10 16:29 | NUR ---
CASE MANAGEMENT: REVIEW 74 YEAR OLD MALE BIBA FROM [facility] [place] CC: SOB . HYPOTENSION . SI: SEPSIS . CHRONIC KIDNEY DISEASE . A-FIB . COVID-19 R/O LEFT FEMORAL CENTRAL VENOUS CATHETER INSERTION 10/08 T 99.9 HR 107 RR 28 BP 82/48 SAT 94% NON-REBREATHER FLOW RATE 10.0 BUN 95 CR 3.1 MAG 2.5 BNP 4428 IS: NS IVF BOLUS X1 CEFEPIME IV X1 HEPARIN IV X1 ALBUMIN HUMAN IV X1 CLINDAMYCIN IV X1 PATIENT ADMITTED TO ICU 10/08/2019 DCP: PATIENT IS FROM [facility]
--- NOTE | 2019-10-10 16:45 | NUR ---
NURSE NOTES: Patient cherise care provided and repositioned, wound assessed and redressed with provided recommendations. oral care provided
--- NOTE | 2019-10-10 19:30 | NUR ---
NURSE NOTES: Received report from MIRANDA Briones. Pt is resting on the bed and awake and confused, agitated and non-compliance. On 15L O2 via non-rebreather mask and SaO2 99% noted. On cardia monitor with SR. On Mathis cath and patent and yellowish urine urinate. Pt has Lt. upper arm AV shunt and present bruit and thrills. Pt has Lt. femoral TLC and dressing is clean and dry. Dressing is Clean and dry on wound area, On P-200 mattress for wound management. BP is stable. Pt has bilateral soft wrist restraint. Checked comfort and circulation. Placed fall precaution. Proper isolation for PUI COVID-19. Will continue to care plan.
--- NOTE | 2019-10-10 19:38 | NUR ---
HAND-OFF: Report given to MIRANDA Cartwright.
[2019-10-10] MEDS: Dyna-Hex 2% Top Sol 2oz TOPIC SCH (20:03)
--- NOTE | 2019-10-10 20:50 | NUR ---
NURSE NOTES: Collected COVID-19 sample. Given suction. Will continue to monitor any change of condition. Addendum: 10/10/19 at 2350 by MAUREEN BIRCH RN RN charting error. Wrong Pt's charting.
--- NOTE | 2019-10-10 21:28 | Nephrology Progress Note ---
Assessment/Plan Problem List: (1) Hypernatremia (2) CHF (congestive heart failure) (3) Dehydration (4) Acute renal failure (5) Pneumonia (6) Suspected COVID-19 virus infection (7) Hypotension Plan hypotonic fluids, pulm care, empiric atb ordered Subjective ROS Limited/Unobtainable: Yes Objective Objective Last 24 Hour Vital Signs Date Time Temp Pulse Resp B/P (MAP) Pulse Ox O2 Delivery O2 Flow Rate FiO2 10/10/19 19:38 99 Non-Rebreather 15.0 100 10/10/19 19:00 82 21 116/63 (80) 94 10/10/19 18:00 82 24 117/68 (84) 95 10/10/19 17:00 93 31 102/60 (74) 90 10/10/19 16:00 97.3 104 30 93/52 (66) 85 10/10/19 16:00 86 10/10/19 16:00 Non-Rebreather 15.0 10/10/19 15:00 89 31 96/48 (64) 97 10/10/19 14:00 80 22 93/52 (66) 98 10/10/19 13:00 81 19 111/53 (72) 100 10/10/19 12:45 111/53 10/10/19 12:00 Non-Rebreather 15.0 10/10/19 12:00 97.5 77 23 110/62 (78) 96 10/10/19 12:00 80 10/10/19 11:00 77 22 90/45 (60) 96 10/10/19 10:00 72 25 95/47 (63) 96 10/10/19 09:00 84 19 101/54 (70) 100 10/10/19 08:00 77 10/10/19 08:00 Non-Rebreather 15.0 10/10/19 08:00 98.1 81 17 110/46 (67) 100 10/10/19 07:10 100 Non-Rebreather 15.0 100 10/10/19 07:00 76 20 99/54 (69) 100 10/10/19 06:00 80 18 92/43 (59) 100 10/10/19 05:00 87 20 101/50 (67) 100 10/10/19 04:00 82 10/10/19 04:00 Non-Rebreather 15.0 10/10/19 04:00 97.4 86 18 108/46 (66) 100 10/10/19 03:00 80 24 139/54 (82) 100 10/10/19 02:00 77 19 103/44 (63) 100 10/10/19 01:30 81 23 94/45 (61) 100 10/10/19 01:00 124 19 89/44 (59) 100 10/10/19 00:00 118 10/10/19 00:00 Non-Rebreather 15.0 10/10/19 00:00 97.4 127 22 107/66 (80) 100 10/09/19 23:00 108 27 94/63 (73) 100 10/09/19 22:00 107 27 110/61 (77) 99 Intake and Output 10/09/19 10/10/19 19:00 07:00 Intake Total 530 ml 211 ml Output Total 140 ml 1235 ml Balance 390 ml -1024 ml Intake IV Total 530 ml 211 ml Output Urine Total 140 ml 1235 ml Laboratory Tests 10/10/19 01:50: Urine Color Pale yellow, Urine Appearance Clear, Urine pH 5, Urine Specific Aqu[place] 1.010, Urine Protein Negative, Urine Glucose (UA) Negative, Urine Ketones Negative, Urine Blood 3+H, Urine Nitrite Negative, Urine Bilirubin Negative, Urine Urobilinogen Normal, Urine Leukocyte Esterase 1+H, Urine RBC 5- 10H, Urine WBC 2-4, Urine Squamous Epithelial Cells None, Urine Bacteria Few 10/10/19 04:00: White Blood Count 7.6, Red Blood Count 4.17L, Hemoglobin 11.9L, Hematocrit 34.8L , Mean Corpuscular Volume 83, Mean Corpuscular Hemoglobin 28.5, Mean Corpuscular Hemoglobin Concent 34.1, Red Cell Distribution Width 12.8, Platelet Count 283, Mean Platelet Volume 5.7L, Neutrophils (%) (Auto) 78.6H, Lymphocytes (%) (Auto) 8.5L, Monocytes (%) (Auto) 12.5H, Eosinophils (%) (Auto) 0.1, Basophils (%) (Auto) 0.3, Sodium Level 150H, Potassium Level 4.2, Chloride Level 115H, Carbon Dioxide Level 23, Anion Gap 12, Blood Urea Nitrogen 62H, Creatinine 2.1H, Estimat Glomerular Filtration Rate 31.2, Glucose Level 98, Calcium Level 7.5L Height (Feet): 5 Height (Inches): 11.00 Weight (Pounds): 126 General Appearance: lethargic EENT: normal ENT inspection Cardiovascular: regular rhythm Respiratory/Chest: rhonchi - bilaterally Abdomen: soft Extremities: trace edema Neurologic: motor weakness Jose Gant MD Oct 10, 2019 21:28
[2019-10-10] MEDS: Potassium Chloride 10 MEQ in D5W 1000ml 1,000 ML IV SCH (21:54)
--- NOTE | 2019-10-10 22:00 | NUR ---
NURSE NOTES: PT is resting on the bed and on ekg monitor tech with ST and HR: 102's. BP checked 123/73mmHg. SaO2 96% with O2 15L via non-rebreather mask. Changed position. Will continue to monitor any change of condition.
[2019-10-11] VITALS (30 sets, daily range): BP systolic 78–138; BP diastolic 46–89
--- NOTE | 2019-10-11 | NUR ---
NURSE NOTES: PT is resting on the bed and awake and confused and agitated. Noted congestion, Given suction and oral care. Turn and reposition. No fever and BP is stable. Placed fall precaution. Will continue to care plan.
--- NOTE | 2019-10-11 | Progress Note ---
DATE: 10/10/2019 CARDIOLOGY PROGRESS NOTE SUBJECTIVE: Patient remains in the intensive care unit. Condition remains critical. Prognosis guarded. He is on a non-rebreather mask. His blood pressure parameters are tenuous and he has required volume resuscitation. Pressor support has been avoided so far. OBJECTIVE: LUNGS: Bilateral breath sounds with rhonchi. CARDIAC: Regular rhythm and rate. Normal S1, S2. ABDOMEN: Soft. EXTREMITIES: Trace edema. LABORATORY DATA: White count 7.6, hemoglobin 11.9. Sodium 150, potassium 4.2, bicarb 23, BUN 62, creatinine 2.1. Urinalysis 5 to 10 red cells, 2 to 4 white cells. IMPRESSION: 1. Healthcare-associated pneumonia. 2. Probable COVID-19 infection. 3. Sepsis. 4. Shock. 5. Dehydration. 6. Hypernatremia. 7. Acute on chronic renal failure. 8. Chronic diastolic congestive heart failure. 9. History of prior renal failure and dialysis. PLAN: 1. Hypotonic IV fluids. 2. Respiratory hygiene. 3. Antimicrobials. 4. DVT and stress ulcer prophylaxis. 5. Fluid challenge for low range blood pressure. 6. Continue efforts to avoid pressors. Anselmo Porras M.D. DR: SACHA JOB#: [id number] CC:
--- NOTE | 2019-10-11 02:50 | NUR ---
NURSE NOTES: Pt was sleeping on the bed. 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 and highest HR was 170's. BP checked 138/79mmHg. SaO2 99% with O2 15L via nasal cannula and noted tachypnea 36/min. BT: 97..5F. Left message to Dr. Porras and awaiting call back. Will continue to monitor any change of condition.
--- NOTE | 2019-10-11 04:00 | NUR ---
NURSE NOTES: Pt is restlessness. Still noted HR: 130-150's with A-Fib. Didn't callback from Dr. Porras. Left message again and awaiting call back.
[2019-10-11] MEDS: Haloperidol Lactate 5 MG in D5W 55 ML IVPB PRN (04:35)
[2019-10-11 04:49] LABS: BASOPHILS % (AUTO) 0.3 % (0.0-2.0); EOSINOPHILS % (AUTO) 0.3 % (0.0-3.0); HEMATOCRIT 34.8 % (42.0-52.0); HEMOGLOBIN 11.6 G/DL (14.2-18.0); LYMPHOCYTES % (AUTO) 6.8 % (20.0-45.0); MEAN CORPUSCULAR VOLUME 84 FL (80-99); NEUTROPHILS % (AUTO) 81.6 % (45.0-75.0); PLATELET COUNT 300 K/UL (150-450); RED BLOOD COUNT 4.16 M/UL (4.70-6.10); RED CELL DISTRIBUTION WIDTH 12.8 % (11.6-14.8); WHITE BLOOD COUNT 9.3 K/UL (4.8-10.8)
--- NOTE | 2019-10-11 04:50 | NUR ---
NURSE NOTES: Morning care was done. Applied lotion and cream. Collected blood sample. Suction and oral care was done. Changed position. Changed position. Will continue to care plan.
[2019-10-11 05:38] LABS: ALANINE AMINOTRANSFERASE 9 U/L (12-78); ALBUMIN 2.2 G/DL (3.4-5.0); ALBUMIN/GLOBULIN RATIO 0.7 (1.0-2.7); ALKALINE PHOSPHATASE 53 U/L (46-116); ANION GAP 10 mmol/L (5-15); ASPARTATE AMINO TRANSFERASE 24 U/L (15-37); BILIRUBIN,TOTAL 0.5 MG/DL (0.2-1.0); BLOOD UREA NITROGEN 55 mg/dL (7-18); CALCIUM 7.9 MG/DL (8.5-10.1); CARBON DIOXIDE 23 MMOL/L (21-32); CHLORIDE 118 MMOL/L (98-107); CREATININE 2.3 MG/DL (0.55-1.30); POTASSIUM 3.9 MMOL/L (3.5-5.1); SODIUM 151 MMOL/L (136-145)
--- NOTE | 2019-10-11 06:00 | NUR ---
NURSE NOTES: Pt is resting on the bed and confused. On rating specialist with A-fib and HR: 100-130's. SaO2 99-100% with O2 15L non-rebreather mask. Changed position. Provided calm environment. Will continue to monitor any change of condition.
--- NOTE | 2019-10-11 07:16 | NUR ---
NURSE NOTES: Received report from Chay Cooper RN. Pt in bed asleep. No c/o pain noted on facial pain scale. IV site in left TLC running with D5 w/KCL 10mEq @75ml/hr patent and asymptomatic. Side railsx3 up for safety. On bilateral soft wrist restraint patent and intact. oN 15LPM via non rebreather mask and sating 98%. Call light within easy reach. HOB elevated with 30 degree. Bed in lowest position and locked. Will continue plan of care.
--- NOTE | 2019-10-11 07:17 | NUR ---
HAND-OFF: Report given to MIRANDA Royal. Pt is resting on the bed and slight agitated. Still noted. A-fib and HR 100-130's. BP is stable.
[2019-10-11] MEDS: Azithromycin 500 MG in D5W 275 ML IV SCH (08:19)
[2019-10-11] MEDS: Aspirin Baby 81mg ORAL SCH (08:19)
[2019-10-11] MEDS: Heparin 5000 units/ml inj SUBQ SCH ×2 (08:23→21:07)
--- NOTE | 2019-10-11 08:29 | Critical Care Progress Note ---
Assessment/Plan Assessment/Plan Impression: Suspected COVID-19 virus infection -initial swab negative Pneumonia Chronic Kidney Disease, has shunt left upper arm with ARF Dehydration Hypotension Dementia Congestive Heart Failure Atrial Fibrillation Diabetes Hypertension Dysphagia Hyperlipidemia COPD hypernatremia sinus tachycardia Plan IV Antibiotics IVF as per renal Pressors as needed PICC line Renal and Cardiology Consultation ID to see repeat COVID swab Monitor labs close follow up medications/laboratory data/nursing notes/ICU care reviewed in detail note reviewed and edited care discussed with RN and RT ICU time spent >40 minutes Critical Care - Subjective Interval Events: care noted COVID swab negative tachy withdrawn ROS Limited/Unobtainable: Yes Condition: critical EKG Rhythm: Sinus Tachycardia I&O: Intake and Output 10/10/19 10/11/19 19:00 07:00 Intake Total 626 ml 998.5 ml Output Total 645 ml 790 ml Balance -19 ml 208.5 ml Intake Oral 30 ml IV Total 586 ml 968.5 ml Other 40 ml Output Urine Total 645 ml 790 ml Critical Care - Objective Last 24 Hour Vital Signs Date Time Temp Pulse Resp B/P (MAP) Pulse Ox O2 Delivery O2 Flow Rate FiO2 10/11/19 07:00 132 23 106/58 (74) 99 10/11/19 06:00 121 23 110/46 (67) 100 10/11/19 05:30 126 27 100/57 (71) 100 10/11/19 05:00 128 27 119/60 (79) 99 10/11/19 04:30 123 27 102/71 (81) 100 10/11/19 04:00 135 10/11/19 04:00 Non-Rebreather 15.0 10/11/19 04:00 97.5 134 41 130/78 (95) 97 10/11/19 03:30 128 36 120/77 (91) 97 10/11/19 03:00 134 38 138/79 (98) 98 10/11/19 02:00 96 23 116/55 (75) 100 10/11/19 01:00 92 25 129/65 (86) 97 10/11/19 00:00 Non-Rebreather 15.0 10/11/19 00:00 111 36 125/77 (93) 96 10/11/19 00:00 104 10/10/19 23:00 93 28 108/58 (75) 100 10/10/19 22:00 102 23 123/79 (94) 96 10/10/19 21:00 95 35 136/69 (91) 98 10/10/19 20:00 86 10/10/19 20:00 Non-Rebreather 15.0 10/10/19 20:00 97.4 95 22 140/97 (111) 97 10/10/19 19:38 99 Non-Rebreather 15.0 100 10/10/19 19:00 82 21 116/63 (80) 94 10/10/19 18:00 82 24 117/68 (84) 95 10/10/19 17:00 93 31 102/60 (74) 90 10/10/19 16:00 97.3 104 30 93/52 (66) 85 10/10/19 16:00 86 10/10/19 16:00 Non-Rebreather 15.0 10/10/19 15:00 89 31 96/48 (64) 97 10/10/19 14:00 80 22 93/52 (66) 98 10/10/19 13:00 81 19 111/53 (72) 100 10/10/19 12:45 111/53 10/10/19 12:00 Non-Rebreather 15.0 10/10/19 12:00 97.5 77 23 110/62 (78) 96 10/10/19 12:00 80 10/10/19 11:00 77 22 90/45 (60) 96 10/10/19 10:00 72 25 95/47 (63) 96 10/10/19 09:00 84 19 101/54 (70) 100 Labs: Laboratory Tests Test 10/11/19 04:00 White Blood Count 9.3 K/UL (4.8-10.8) Red Blood Count 4.16 M/UL (4.70-6.10) L Hemoglobin 11.6 G/DL (14.2-18.0) L Hematocrit 34.8 % (42.0-52.0) L Mean Corpuscular Volume 84 FL (80-99) Mean Corpuscular Hemoglobin 27.9 PG (27.0-31.0) Mean Corpuscular Hemoglobin Concent 33.3 G/DL (32.0-36.0) Red Cell Distribution Width 12.8 % (11.6-14.8) Platelet Count 300 K/UL (150-450) Mean Platelet Volume 5.6 FL (6.5-10.1) L Neutrophils (%) (Auto) 81.6 % (45.0-75.0) H Lymphocytes (%) (Auto) 6.8 % (20.0-45.0) L Monocytes (%) (Auto) 11.0 % (1.0-10.0) H Eosinophils (%) (Auto) 0.3 % (0.0-3.0) Basophils (%) (Auto) 0.3 % (0.0-2.0) Sodium Level 151 MMOL/L (136-145) H Potassium Level 3.9 MMOL/L (3.5-5.1) Chloride Level 118 MMOL/L (98-107) H Carbon Dioxide Level 23 MMOL/L (21-32) Anion Gap 10 mmol/L (5-15) Blood Urea Nitrogen 55 mg/dL (7-18) H Creatinine 2.3 MG/DL (0.55-1.30) H Estimat Glomerular Filtration Rate 28.1 mL/min (>60) Glucose Level 126 MG/DL (74-106) H Calcium Level 7.9 MG/DL (8.5-10.1) L Total Bilirubin 0.5 MG/DL (0.2-1.0) Aspartate Amino Transf (AST/SGOT) 24 U/L (15-37) Alanine Aminotransferase (ALT/SGPT) 9 U/L (12-78) L Alkaline Phosphatase 53 U/L (46-116) Total Protein 5.4 G/DL (6.4-8.2) L Albumin 2.2 G/DL (3.4-5.0) L Globulin 3.2 g/dL Albumin/Globulin Ratio 0.7 (1.0-2.7) L Objective: deferred due to COVID+ Micro: Microbiology Date/Time Source Procedure Growth Status 10/08/19 22:15 Blood Blood Culture - Preliminary NO GROWTH AFTER 48 HOURS Resulted 10/08/19 22:05 Blood Blood Culture - Preliminary NO GROWTH AFTER 48 HOURS Resulted 10/08/19 22:45 Nasopharynx Coronavirus COVID-19 PCR ([facility]) - Final Complete 10/09/19 23:00 Rectum VRE Culture - Final NO VANCOMYCIN RESISTANT ENTEROCOCCUS ... Complete 10/08/19 23:15 Rectum - Final NO CARBAPENEM-RESISTANT ENTEROBACTERI... Complete Camilo Bill MD Oct 11, 2019 08:29
--- NOTE | 2019-10-11 09:32 | NUR ---
RIB KNITTER NOTE Per chart review, pt is confused, agitated and is currently on non-rebreathe mask. PT is from [address] [address] SW spoke w/ pt's niece, Daniela Traylor [phone], that she is POA and primary decision maker for pt. Per Daniela, pt has hx of mental illness, AH and Dementia. Pt does not have AD but pt expressed full code to Daniela in the past. The copy of POLST is placed in the chart. It states full code, signed by Jeanne Traylor in November 2018. SW to F/U as needed.
--- NOTE | 2019-10-11 10:20 | Infectious Diseases Prog Note ---
Assessment/Plan Assessment/Plan antibiotics : cefepime, flagyl, azithromycin hydroxychloroquine day 2 A 1. pneumonia COVID 19 negative x 1 2. respiratory failure 3. renal failure 4. diabetes mellitus 5. hypertension 6. CHF 7. COPD 8. dementia P 1. continue cefepime, flagyl 2. d/c azithromycin 3. continue hydroxychloroquine 4. continue isolation Subjective ROS Limited/Unobtainable: Yes Allergies: Coded Allergies: No Known Allergies (Unverified , 07/23/18) Objective Vital Signs Last 24 Hour Vital Signs Date Time Temp Pulse Resp B/P (MAP) Pulse Ox O2 Delivery O2 Flow Rate FiO2 10/11/19 08:00 128 10/11/19 07:00 132 23 106/58 (74) 99 10/11/19 06:00 121 23 110/46 (67) 100 10/11/19 05:30 126 27 100/57 (71) 100 10/11/19 05:00 128 27 119/60 (79) 99 10/11/19 04:30 123 27 102/71 (81) 100 10/11/19 04:00 135 10/11/19 04:00 Non-Rebreather 15.0 10/11/19 04:00 97.5 134 41 130/78 (95) 97 10/11/19 03:30 128 36 120/77 (91) 97 10/11/19 03:00 134 38 138/79 (98) 98 10/11/19 02:00 96 23 116/55 (75) 100 10/11/19 01:00 92 25 129/65 (86) 97 10/11/19 00:00 Non-Rebreather 15.0 10/11/19 00:00 111 36 125/77 (93) 96 10/11/19 00:00 104 10/10/19 23:00 93 28 108/58 (75) 100 10/10/19 22:00 102 23 123/79 (94) 96 10/10/19 21:00 95 35 136/69 (91) 98 10/10/19 20:00 86 10/10/19 20:00 Non-Rebreather 15.0 10/10/19 20:00 97.4 95 22 140/97 (111) 97 10/10/19 19:38 99 Non-Rebreather 15.0 100 10/10/19 19:00 82 21 116/63 (80) 94 10/10/19 18:00 82 24 117/68 (84) 95 10/10/19 17:00 93 31 102/60 (74) 90 10/10/19 16:00 97.3 104 30 93/52 (66) 85 10/10/19 16:00 86 10/10/19 16:00 Non-Rebreather 15.0 10/10/19 15:00 89 31 96/48 (64) 97 10/10/19 14:00 80 22 93/52 (66) 98 10/10/19 13:00 81 19 111/53 (72) 100 10/10/19 12:45 111/53 10/10/19 12:00 Non-Rebreather 15.0 10/10/19 12:00 97.5 77 23 110/62 (78) 96 10/10/19 12:00 80 10/10/19 11:00 77 22 90/45 (60) 96 Height (Feet): 5 Height (Inches): 11.00 Weight (Pounds): 126 HEENT: other - on face mask Microbiology Date/Time Source Procedure Growth Status 10/08/19 22:15 Blood Blood Culture - Preliminary NO GROWTH AFTER 48 HOURS Resulted 10/08/19 22:05 Blood Blood Culture - Preliminary NO GROWTH AFTER 48 HOURS Resulted 10/08/19 23:00 Nasal Nares MRSA Culture - Final NO METHICILLIN RESISTANT STAPH AUREUS... Complete 10/08/19 22:45 Nasopharynx Coronavirus COVID-19 PCR ([facility]) - Final Complete 10/09/19 23:00 Rectum VRE Culture - Final NO VANCOMYCIN RESISTANT ENTEROCOCCUS ... Complete 10/08/19 23:15 Rectum - Final NO CARBAPENEM-RESISTANT ENTEROBACTERI... Complete Laboratory Tests Test 10/11/19 04:00 White Blood Count 9.3 K/UL (4.8-10.8) Red Blood Count 4.16 M/UL (4.70-6.10) L Hemoglobin 11.6 G/DL (14.2-18.0) L Hematocrit 34.8 % (42.0-52.0) L Mean Corpuscular Volume 84 FL (80-99) Mean Corpuscular Hemoglobin 27.9 PG (27.0-31.0) Mean Corpuscular Hemoglobin Concent 33.3 G/DL (32.0-36.0) Red Cell Distribution Width 12.8 % (11.6-14.8) Platelet Count 300 K/UL (150-450) Mean Platelet Volume 5.6 FL (6.5-10.1) L Neutrophils (%) (Auto) 81.6 % (45.0-75.0) H Lymphocytes (%) (Auto) 6.8 % (20.0-45.0) L Monocytes (%) (Auto) 11.0 % (1.0-10.0) H Eosinophils (%) (Auto) 0.3 % (0.0-3.0) Basophils (%) (Auto) 0.3 % (0.0-2.0) Sodium Level 151 MMOL/L (136-145) H Potassium Level 3.9 MMOL/L (3.5-5.1) Chloride Level 118 MMOL/L (98-107) H Carbon Dioxide Level 23 MMOL/L (21-32) Anion Gap 10 mmol/L (5-15) Blood Urea Nitrogen 55 mg/dL (7-18) H Creatinine 2.3 MG/DL (0.55-1.30) H Estimat Glomerular Filtration Rate 28.1 mL/min (>60) Glucose Level 126 MG/DL (74-106) H Calcium Level 7.9 MG/DL (8.5-10.1) L Total Bilirubin 0.5 MG/DL (0.2-1.0) Aspartate Amino Transf (AST/SGOT) 24 U/L (15-37) Alanine Aminotransferase (ALT/SGPT) 9 U/L (12-78) L Alkaline Phosphatase 53 U/L (46-116) Total Protein 5.4 G/DL (6.4-8.2) L Albumin 2.2 G/DL (3.4-5.0) L Globulin 3.2 g/dL Albumin/Globulin Ratio 0.7 (1.0-2.7) L Current Medications Medications (Trade) Dose Ordered Sig/Clementine Route PRN Reason Start Time Stop Time Status Last Admin Dose Admin Acetaminophen (Tylenol) 650 mg Q4H PRN ORAL Mild Pain (Pain Scale 1-3) 10/09/19 05:45 11/08/19 05:44 Acetaminophen (Tylenol) 650 mg Q4H PRN ORAL fever 10/09/19 05:45 11/08/19 05:44 Albuterol Sulfate (Proventil MDI) 2 puff Q4H PRN INH Shortness of Breath 10/09/19 12:45 01/07/20 12:44 Aspirin (ASA) 81 mg DAILY ORAL 10/09/19 09:00 11/23/19 08:59 10/11/19 08:19 Azithromycin 500 mg/Dextrose 275 ml @ 275 mls/hr Q24HRS IV 10/09/19 09:00 10/15/19 09:59 10/11/19 08:19 Cefepime HCl 1 gm/ Dextrose 55 ml @ 110 mls/hr Q12HR@1100,2300 IVPB 10/09/19 11:00 10/16/19 10:59 10/10/19 23:04 Chlorhexidine Gluconate (Flaca-Hex 2%) 1 applic DAILY@2000 TOPIC 10/09/19 20:00 01/07/20 19:59 10/10/19 20:03 Dextrose (Dextrose 50%) 25 ml Q30M PRN IV Hypoglycemia 10/09/19 05:45 01/07/20 05:44 Dextrose (Dextrose 50%) 50 ml Q30M PRN IV Hypoglycemia 10/09/19 05:45 01/07/20 05:44 Haloperidol Lactate 5 mg/ Dextrose 56 ml @ 224 mls/hr Q6HR PRN IVPB Agitation 10/09/19 21:30 11/23/19 21:29 10/11/19 04:35 Heparin Sodium (Porcine) (Heparin 5000 units/ml) 5,000 units EVERY 12 HOURS SUBQ 10/09/19 09:00 11/23/19 08:59 10/11/19 08:23 Hydroxychloroquine Sulfate (Plaquenil) 200 mg Q12HR ORAL 10/11/19 09:00 10/14/19 21:01 10/11/19 08:19 Metronidazole 100 ml @ 100 mls/hr Q8H IVPB 10/09/19 08:00 10/16/19 07:59 10/11/19 08:19 Norepinephrine Bitartrate 250 ml @ 0 mls/hr Q24H IV 10/09/19 12:45 01/07/20 12:44 Potassium Chloride 10 meq/ Dextrose 1,005 ml @ 75 mls/hr [id number] IV 10/10/19 22:00 11/09/19 21:59 10/10/19 21:54 Pravastatin Sodium (Pravachol) 20 mg BEDTIME ORAL 10/09/19 21:00 11/08/19 20:59 10/10/19 21:32 Sodium Chloride 500 ml @ 999 mls/hr Q31M ONCE IV 10/11/19 10:00 10/11/19 10:30 Sodium Chloride 1,000 ml @ 999 mls/hr Q1H1M ONCE IV 10/11/19 10:00 10/11/19 11:00 Arlin Sorensen MD Oct 11, 2019 10:20
--- NOTE | 2019-10-11 10:45 | Consultation ---
DATE OF CONSULTATION: 10/10/2019 CONSULTING PHYSICIAN: Arlin Sorensen MD. REFERRING PHYSICIAN: Camilo Bill MD. HISTORY OF PRESENT ILLNESS: heart failure, diabetes, hypertension, chronic kidney disease, COPD, who came in with low blood pressure and was found to have pneumonia. There was a concern for COVID-19 pneumonia because the senior living had COVID patients and Infectious Diseases consultation has been obtained for antibiotics. PAST MEDICAL HISTORY: 1. History of diabetes. 2. Hypertension. 3. Chronic kidney disease. 4. COPD. 5. CHF. 6. Dementia. SOCIAL HISTORY: Unknown. FAMILY HISTORY: Unknown. REVIEW OF SYSTEMS: Unable to obtain currently. MEDICATIONS: As an inpatient, he is on haloperidol, pravastatin, chlorhexidine, norepinephrine, albuterol, cefepime, aspirin, azithromycin, Flagyl, and Tylenol. ALLERGIES: No known drug allergies. PHYSICAL EXAMINATION: VITAL SIGNS: Temperature of 98.1, T-max of 99.9, pulse of 84, respiratory rate of 19, blood pressure 101/54, O2 saturation of 100%. He is on facemask 15 L oxygen. GENERAL: Examination deferred due to possibility of COVID-19. LABORATORY AND DIAGNOSTIC DATA: White count 7.6, hemoglobin 11.9, hematocrit 34.8, MCV 83, platelet count of 283,000 with neutrophils of 78%. Sodium 150, potassium 4.2, chloride 115, bicarb 23, BUN 62, creatinine 2.1, glucose 98, calcium 7.5. Beta-natriuretic peptide 3229. Total protein 6.5, albumin 2, total bilirubin 0.4, AST 37, ALT 26, alkaline phosphatase 78. CK of 59, troponin 0.003. Lipase of 223. Blood cultures are negative so far. Chest x-ray is showing bibasilar airspace opacities, may represent pneumonia and small right-sided pleural effusion. ASSESSMENT: This is a 74-year-old gentleman with history of diabetes, hypertension, renal failure, CHF, and dementia, who comes in with: 1. Pneumonia. I would like to rule out COVID-19 pneumonia as a possibility. 2. Diabetes. 3. Hypertension. 4. Congestive heart failure. 5. Renal failure is improving. PLAN: 1. Continue cefepime. 2. Discontinue azithromycin. 3. Continue Flagyl. 4. We will start the patient on hydroxychloroquine. 5. Awaiting COVID-19 result. 6. Continue isolation. I would like to thank, Dr. Bill, for this consultation. Jimkuntpastora Sorensen M.D. DR: Laureen JOB#: [id number] CC: Camilo Bill M.D.; Fax#: [phone]
[2019-10-11] MEDS: Cefepime HCl 1 GM in D5W 55 ML IVPB SCH (11:09)
[2019-10-11] MEDS: Potassium Chloride 10 MEQ in D5W 1000ml 1,000 ML IV SCH (11:22)
--- NOTE | 2019-10-11 11:56 | NUR ---
NURSE NOTES: NG tube inserted in right nare and advanced at 67cm. Will order KUB to confirm the placement.
[2019-10-11] MEDS: Norepinephrine 4mg/NS Premix 250 ML IV SCH (12:45)
--- NOTE | 2019-10-11 13:00 | NUR ---
NURSE NOTES: O2 decreased to 6LPM via N/C. Noted sating 96-97% on 6LPM via N/C. Tolerating well with current O2 Tx. Will continue weaning the oxygen as ordered.
--- NOTE | 2019-10-11 13:43 | Diagnostic Imaging Report ---
Indication: Post nasogastric tube placement Technique: Supine view of the upper abdomen Comparison: Reference made to recent chest radiograph of 10/08/2019 Findings: There is a nasogastric tube in place. Tip projects at the level of the distal esophagus. There is complete opacification of the right hemithorax. This is a new finding. There appears to be abrupt cut off of the right mainstem bronchus. The bowel gas pattern is unremarkable Impression: High position of nasogastric tube. Advancement recommended. Complete opacification of the right hemithorax. Probably due to complete atelectasis of the right lung, could also indicate a component of pleural fluid. Critical value findings discussed by phone with charge nurse Shira in the ICU
--- NOTE | 2019-10-11 13:45 | NUR ---
RADIOLOGY DEPT., ABDOMEN X-RAY FOR NGT PLCCA COMPLETED.-P.DYE
--- NOTE | 2019-10-11 14:00 | NUR ---
NURSE NOTES: Made Dr. Bashir aware of hemithorax on x-ray. Awaiting for reply
--- NOTE | 2019-10-11 14:11 | General Progress Note ---
Assessment/Plan Assessment/Plan: 1. History of diabetes. 2. Hypertension. 3. Chronic kidney disease. 4. COPD. 5. CHF. 6. Dementia. 7. AMS 8. Dysphagia 9. Righ sided pna npo ngt NGTF fu pulm abx per ID swallow eval when more stable Subjective ROS Limited/Unobtainable: No Allergies: Coded Allergies: No Known Allergies (Unverified , 07/23/18) Objective Last 24 Hour Vital Signs Date Time Temp Pulse Resp B/P (MAP) Pulse Ox O2 Delivery O2 Flow Rate FiO2 10/11/19 13:00 142 33 109/75 (86) 90 10/11/19 12:45 94/75 10/11/19 12:00 Nasal Cannula 6.0 10/11/19 12:00 117 10/11/19 12:00 124 35 94/75 (81) 100 10/11/19 11:00 98.1 128 35 115/70 (85) 99 10/11/19 10:00 130 35 94/75 (81) 100 10/11/19 09:52 121 26 81/61 (68) 100 10/11/19 09:45 122 25 100 10/11/19 09:30 123 31 78/50 (59) 100 10/11/19 09:15 129 33 99 10/11/19 09:00 126 27 98/71 (80) 100 10/11/19 08:45 133 31 97 10/11/19 08:30 131 29 122/69 (86) 98 10/11/19 08:15 123 24 100 10/11/19 08:00 Non-Rebreather 15.0 10/11/19 08:00 128 10/11/19 08:00 124 28 105/78 (87) 100 10/11/19 07:00 132 23 106/58 (74) 99 10/11/19 06:00 121 23 110/46 (67) 100 10/11/19 05:30 126 27 100/57 (71) 100 10/11/19 05:00 128 27 119/60 (79) 99 10/11/19 04:30 123 27 102/71 (81) 100 10/11/19 04:00 135 10/11/19 04:00 Non-Rebreather 15.0 10/11/19 04:00 97.5 134 41 130/78 (95) 97 6/2/20 03:30 128 36 120/77 (91) 97 10/11/19 03:00 134 38 138/79 (98) 98 10/11/19 02:00 96 23 116/55 (75) 100 10/11/19 01:00 92 25 129/65 (86) 97 10/11/19 00:00 Non-Rebreather 15.0 10/11/19 00:00 111 36 125/77 (93) 96 10/11/19 00:00 104 10/10/19 23:00 93 28 108/58 (75) 100 10/10/19 22:00 102 23 123/79 (94) 96 10/10/19 21:00 95 35 136/69 (91) 98 10/10/19 20:00 86 10/10/19 20:00 Non-Rebreather 15.0 10/10/19 20:00 97.4 95 22 140/97 (111) 97 10/10/19 19:38 99 Non-Rebreather 15.0 100 10/10/19 19:00 82 21 116/63 (80) 94 10/10/19 18:00 82 24 117/68 (84) 95 10/10/19 17:00 93 31 102/60 (74) 90 10/10/19 16:00 97.3 104 30 93/52 (66) 85 10/10/19 16:00 86 10/10/19 16:00 Non-Rebreather 15.0 10/10/19 15:00 89 31 96/48 (64) 97 Intake and Output 10/10/19 10/11/19 18:59 06:59 Intake Total 626 ml 923.5 ml Output Total 695 ml 780 ml Balance -69 ml 143.5 ml Intake Oral 30 ml IV Total 586 ml 893.5 ml Other 40 ml Output Urine Total 695 ml 780 ml Laboratory Tests 10/11/19 04:00: White Blood Count 9.3, Red Blood Count 4.16L, Hemoglobin 11.6L, Hematocrit 34.8L , Mean Corpuscular Volume 84, Mean Corpuscular Hemoglobin 27.9, Mean Corpuscular Hemoglobin Concent 33.3, Red Cell Distribution Width 12.8, Platelet Count 300, Mean Platelet Volume 5.6L, Neutrophils (%) (Auto) 81.6H, Lymphocytes (%) (Auto) 6.8L, Monocytes (%) (Auto) 11.0H, Eosinophils (%) (Auto) 0.3, Basophils (%) (Auto) 0.3, Sodium Level 151H, Potassium Level 3.9, Chloride Level 118H, Carbon Dioxide Level 23, Anion Gap 10, Blood Urea Nitrogen 55H, Creatinine 2.3H, Estimat Glomerular Filtration Rate 28.1, Glucose Level 126H, Calcium Level 7.9L, Total Bilirubin 0.5, Aspartate Amino Transf (AST/SGOT) 24, Alanine Aminotransferase (ALT/SGPT) 9L, Alkaline Phosphatase 53, Total Protein 5.4L, Albumin 2.2L, Globulin 3.2, Albumin/Globulin Ratio 0.7L Height (Feet): 5 Height (Inches): 11.00 Weight (Pounds): 126 General Appearance: lethargic EENT: normal ENT inspection Neck: supple Cardiovascular: tachycardia Respiratory/Chest: decreased breath sounds Abdomen: normal bowel sounds, non tender, soft Extremities: non-tender Chaitanya Beverly MD Oct 11, 2019 14:11
--- NOTE | 2019-10-11 14:16 | NUR ---
NURSE NOTES: Stat US of chest, CPT QID, and STAT ABG ordered. Made Janelle RT aware of STAT orders.
--- NOTE | 2019-10-11 14:25 | NUR ---
NURSE NOTES: NG tube advanced by 10cm at 77cm as Dr. Beverly ordered. KUB ordered to confirm the placement.
[2019-10-11] MEDS ORDERED: Sodium Bicarbonate 50ml Carp IV SCH (15:15)
--- NOTE | 2019-10-11 15:33 | Surgery Progress Note ---
Surgery Progress Note Subjective Procedure Performed left femoral central venous catheter insertion Additional Comments no acute events labs noted exam stable kub noted Objective Last 24 Hour Vital Signs Date Time Temp Pulse Resp B/P (MAP) Pulse Ox O2 Delivery O2 Flow Rate FiO2 10/11/19 14:00 142 32 99/69 (79) 92 10/11/19 13:00 142 33 109/75 (86) 90 10/11/19 12:45 94/75 10/11/19 12:00 Nasal Cannula 6.0 10/11/19 12:00 117 10/11/19 12:00 124 35 94/75 (81) 100 10/11/19 11:00 98.1 128 35 115/70 (85) 99 10/11/19 10:00 130 35 94/75 (81) 100 10/11/19 09:52 121 26 81/61 (68) 100 10/11/19 09:45 122 25 100 10/11/19 09:30 123 31 78/50 (59) 100 10/11/19 09:15 129 33 99 10/11/19 09:00 126 27 98/71 (80) 100 10/11/19 08:45 133 31 97 10/11/19 08:30 131 29 122/69 (86) 98 10/11/19 08:15 123 24 100 10/11/19 08:00 Non-Rebreather 15.0 10/11/19 08:00 128 10/11/19 08:00 124 28 105/78 (87) 100 10/11/19 07:00 132 23 106/58 (74) 99 10/11/19 06:00 121 23 110/46 (67) 100 10/11/19 05:30 126 27 100/57 (71) 100 10/11/19 05:00 128 27 119/60 (79) 99 10/11/19 04:30 123 27 102/71 (81) 100 10/11/19 04:00 135 10/11/19 04:00 Non-Rebreather 15.0 10/11/19 04:00 97.5 134 41 130/78 (95) 97 10/11/19 03:30 128 36 120/77 (91) 97 10/11/19 03:00 134 38 138/79 (98) 98 10/11/19 02:00 96 23 116/55 (75) 100 10/11/19 01:00 92 25 129/65 (86) 97 10/11/19 00:00 Non-Rebreather 15.0 10/11/19 00:00 111 36 125/77 (93) 96 10/11/19 00:00 104 10/10/19 23:00 93 28 108/58 (75) 100 10/10/19 22:00 102 23 123/79 (94) 96 10/10/19 21:00 95 35 136/69 (91) 98 10/10/19 20:00 86 10/10/19 20:00 Non-Rebreather 15.0 10/10/19 20:00 97.4 95 22 140/97 (111) 97 10/10/19 19:38 99 Non-Rebreather 15.0 100 10/10/19 19:00 82 21 116/63 (80) 94 10/10/19 18:00 82 24 117/68 (84) 95 10/10/19 17:00 93 31 102/60 (74) 90 10/10/19 16:00 97.3 104 30 93/52 (66) 85 10/10/19 16:00 86 10/10/19 16:00 Non-Rebreather 15.0 I&O Intake and Output 10/10/19 10/11/19 19:00 07:00 Intake Total 626 ml 998.5 ml Output Total 645 ml 790 ml Balance -19 ml 208.5 ml Intake Oral 30 ml IV Total 586 ml 968.5 ml Other 40 ml Output Urine Total 645 ml 790 ml Dressing: other Wound: other Drains: other Cardiovascular: RSR Respiratory: decreased breath sounds Abdomen: soft, non-tender, present bowel sounds Extremities: no cyanosis Laboratory Tests Test 10/11/19 04:00 10/11/19 14:37 White Blood Count 9.3 K/UL (4.8-10.8) Red Blood Count 4.16 M/UL (4.70-6.10) L Hemoglobin 11.6 G/DL (14.2-18.0) L Hematocrit 34.8 % (42.0-52.0) L Mean Corpuscular Volume 84 FL (80-99) Mean Corpuscular Hemoglobin 27.9 PG (27.0-31.0) Mean Corpuscular Hemoglobin Concent 33.3 G/DL (32.0-36.0) Red Cell Distribution Width 12.8 % (11.6-14.8) Platelet Count 300 K/UL (150-450) Mean Platelet Volume 5.6 FL (6.5-10.1) L Neutrophils (%) (Auto) 81.6 % (45.0-75.0) H Lymphocytes (%) (Auto) 6.8 % (20.0-45.0) L Monocytes (%) (Auto) 11.0 % (1.0-10.0) H Eosinophils (%) (Auto) 0.3 % (0.0-3.0) Basophils (%) (Auto) 0.3 % (0.0-2.0) Sodium Level 151 MMOL/L (136-145) H Potassium Level 3.9 MMOL/L (3.5-5.1) Chloride Level 118 MMOL/L (98-107) H Carbon Dioxide Level 23 MMOL/L (21-32) Anion Gap 10 mmol/L (5-15) Blood Urea Nitrogen 55 mg/dL (7-18) H Creatinine 2.3 MG/DL (0.55-1.30) H Estimat Glomerular Filtration Rate 28.1 mL/min (>60) Glucose Level 126 MG/DL (74-106) H Calcium Level 7.9 MG/DL (8.5-10.1) L Total Bilirubin 0.5 MG/DL (0.2-1.0) Aspartate Amino Transf (AST/SGOT) 24 U/L (15-37) Alanine Aminotransferase (ALT/SGPT) 9 U/L (12-78) L Alkaline Phosphatase 53 U/L (46-116) Total Protein 5.4 G/DL (6.4-8.2) L Albumin 2.2 G/DL (3.4-5.0) L Globulin 3.2 g/dL Albumin/Globulin Ratio 0.7 (1.0-2.7) L Arterial Blood pH 7.246 (7.350-7.450) Arterial Blood Partial Pressure CO2 44.5 mmHg (35.0-45.0) Arterial Blood Partial Pressure O2 65.1 mmHg (75.0-100.0) L Arterial Blood HCO3 18.9 mmol/L (22.0-26.0) L Arterial Blood Oxygen Saturation 91.8 % (95-100) L Arterial Blood Base Excess -8.1 (-2-2) L Hal Test Positive Plan Problems: (1) Hypotension Assessment & Plan: 74-year-old male hypotensive unknown etiology's potentially septic COVID eval Needs pressors urgently transfer to the intensive care unit Need central venous access for pressors meds fluids Emergency procedure performed at the bedside Left femoral central venous catheter inserted without complication see note Okay for pressors okay to use We will follow with recommendations and monitor. Thank you for allowing participate in patient care There is a nasogastric tube in place. Tip projects at the level of the distal esophagus. There is complete opacification of the right hemithorax. This is a new finding. There appears to be abrupt cut off of the right mainstem bronchus. The bowel gas pattern is unremarkable High position of nasogastric tube. Advancement recommended. Complete opacification of the right hemithorax. Probably due to complete atelectasis of the right lung, could also indicate a component of pleural fluid. (2) Dehydration Assessment & Plan: DAILY ESTIMATED NEEDS: Needs based on Respiratory, underweight 57.3 30-35 kcals/kg 3728-7568 total kcals 1-1.5 g protein/kg 57-86 g total protein 25-30 mL/kg 3798-8420 total fluid mLs NUTRITION DIAGNOSIS: Altered nutrition related lab values r/t clinical status, renal failure as evidenced by elev BUN (62 trending down), elev Creat (2.1 trending down), elev Na (150). CURRENT DIET:SIDRA ms w/ NTL PO DIET RECOMMENDATIONS: LOW NA + NEPRO TID / Texture per ASBESTOS SHINGLE ROOFER ENTERAL NUTRITION RECOMMENDATIONS: -Consult RD if part of POC w/ continued poor po intake. ADDITIONAL RECOMMENDATIONS: 1) Obtain a CALIBRATED WEIGHT as able Pt w/ underweight BMI 2) Poor po intake-> consider non oral feeds for ICU status and poor po 3) ASBESTOS SHINGLE ROOFER eval for H/o CVA-> diet texture per ASBESTOS SHINGLE ROOFER 4) rec WC eval for sacral wound, add MURIEL BID for skin integrity . (3) Acute renal failure (4) Pneumonia (5) Acute metabolic encephalopathy (6) Suspected COVID-19 virus infection Gallo Kingston Oct 11, 2019 15:33
--- NOTE | 2019-10-11 16:00 | NUR ---
NURSE NOTES: Bipap is still pending due to hepa filter not been available in the room. Will continue follow up with the engineering dept.
--- NOTE | 2019-10-11 16:21 | Diagnostic Imaging Report ---
EXAM: US Chest CLINICAL HISTORY: Shortness of breath. COMPARISON: Chest x-ray 10/08/2019 FINDINGS: Targeted ultrasound examination of the chest performed to localize pleural effusion. Only a trace amount of pleural effusion noted in the right chest. Adjacent atelectatic lung demonstrated. IMPRESSION: ONLY TRACE EFFUSION NOTED IN THE RIGHT CHEST.
--- NOTE | 2019-10-11 16:24 | Diagnostic Imaging Report ---
EXAM: XRAY Abdomen 1v HISTORY: NG tube placement. COMPARISON: 10/11/2019 at 1256 hours. Present study at 1459 hours. TECHNIQUE: Frontal view of the upper abdomen obtained. FINDINGS: NG tube is identified in the distal esophagus. Recommend advancement. There is dense consolidation/effusion of the right hemithorax. There is relative paucity of bowel gas noted in the abdomen. There is a calcific density at the left lower abdomen perhaps a calcified mesenteric lymph node. There is no sign of free air. Degenerative changes and scoliosis of the spine noted. IMPRESSION: NG TUBE IN DISTAL ESOPHAGUS. RECOMMEND ADVANCEMENT. OTHERWISE NO SIGNIFICANT CHANGE.
--- NOTE | 2019-10-11 16:30 | NUR ---
NURSE NOTES: NG tube advanced by 10cm more as Dr. Beverly recommended at 86cm but it came out of pt's mouth. Will try OG tube.
--- NOTE | 2019-10-11 16:35 | NUR ---
CASE MANAGEMENT: REVIEW 10/11/19 SI: SEPSIS . CHRONIC KIDNEY DISEASE . A-FIB . COVID-19 NEGATIVE LEFT FEMORAL CENTRAL VENOUS CATHETER INSERTION 10/08 98.1 142 35 115/70 99% NC 6L NA+ 151 CL-118 BUN/CREAT 55/2.3 BG 126 CA+ 7.9 IS: NS IVF BOLUS X1 IV CEFEPIME BID IV FLAGYL TID PLAQUENIL PO BID KCL @75ML/HR PRAVACHOL PO QHS MARTIR-HEX 2% TP QD IV HALDOL Q6HR/PRN XRAY Abdomen 1v-High position of nasogastric tube. Advancement recommended. US Chest-ONLY TRACE EFFUSION NOTED IN THE RIGHT CHEST. XRAY Abdomen 1v-NG TUBE IN DISTAL ESOPHAGUS. RECOMMEND ADVANCEMENT. \: INTENSIVE CARE UNIT DCP: PATIENT IS FROM [facility] PLAN: SWALLOW EVAL
--- NOTE | 2019-10-11 17:00 | NUR ---
NURSE NOTES: Dr. Tan is present at the bedside and inserted OG tube. x-RAY will be ordered to confirm the placement. Made Dr. Bashir aware follow up x-ray results.
--- NOTE | 2019-10-11 18:49 | Diagnostic Imaging Report ---
EXAM: XR Abdomen, 1 View CLINICAL HISTORY: TUBE PLCMT TECHNIQUE: Frontal supine view of the abdomen/pelvis. COMPARISON: No relevant prior studies available. FINDINGS/IMPRESSION: NG tube in proximal stomach, sidehole in distal esophagus.
--- NOTE | 2019-10-11 18:56 | NUR ---
NURSE NOTES: Left a message to Dr. Khan for x-ray results. Awaiting for reply
--- NOTE | 2019-10-11 19:03 | NUR ---
NURSE NOTES: Dr. Khan called back. Advance 5-10cm of OG tube and f/u KUB then call Dr. Khan ordered and orders will be endorsed to next shift nurse
--- NOTE | 2019-10-11 19:30 | NUR ---
NURSE NOTES: Received report from MIRANDA Camara. Pt in bed resting. Patient with accessory muscle breathing, and heart rate in the 150's. MD aware no new orders at this time. IV site in left TLC running with D5 w/KCL 10mEq @75ml/hr patent and asymptomatic. Side railsx3 up for safety. On bilateral soft wrist restraint patent and intact. Noted on Venturi mask at 14L. sating @ 97%. Call light within reach. HOB elevated with 30 degree. Bed in lowest position and locked. Will continue plan of care.
--- NOTE | 2019-10-11 19:33 | NUR ---
HAND-OFF: Report given to MIRANDA Hernández. Pt remains stable. New orders of OG placement endorsed to Betty
--- NOTE | 2019-10-11 20:50 | Nephrology Progress Note ---
Assessment/Plan Problem List: (1) Hypernatremia (2) CHF (congestive heart failure) (3) Dehydration (4) Acute renal failure (5) Pneumonia (6) Suspected COVID-19 virus infection (7) Hypotension (8) HCAP (healthcare-associated pneumonia) Plan hypotonic fluids, pulm care, empiric atb ordered Subjective ROS Limited/Unobtainable: Yes Objective Objective Last 24 Hour Vital Signs Date Time Temp Pulse Resp B/P (MAP) Pulse Ox O2 Delivery O2 Flow Rate FiO2 10/11/19 19:00 147 27 103/80 (88) 97 10/11/19 18:00 144 24 109/75 (86) 94 10/11/19 17:00 144 29 134/89 (104) 93 10/11/19 16:00 Nasal Cannula 6.0 10/11/19 16:00 98.4 140 20 100/75 (83) 100 10/11/19 16:00 143 10/11/19 15:00 143 29 101/71 (81) 94 10/11/19 14:00 142 32 99/69 (79) 92 10/11/19 13:00 142 33 109/75 (86) 90 10/11/19 12:45 94/75 10/11/19 12:00 Nasal Cannula 6.0 10/11/19 12:00 117 10/11/19 12:00 124 35 94/75 (81) 100 10/11/19 11:00 98.1 128 35 115/70 (85) 99 10/11/19 10:00 130 35 94/75 (81) 100 10/11/19 09:52 121 26 81/61 (68) 100 10/11/19 09:45 122 25 100 10/11/19 09:30 123 31 78/50 (59) 100 10/11/19 09:15 129 33 99 10/11/19 09:00 126 27 98/71 (80) 100 10/11/19 08:45 133 31 97 10/11/19 08:30 131 29 122/69 (86) 98 10/11/19 08:15 123 24 100 10/11/19 08:00 Non-Rebreather 15.0 10/11/19 08:00 128 10/11/19 08:00 124 28 105/78 (87) 100 10/11/19 07:02 96 Nasal Cannula 4.0 36 10/11/19 07:00 132 23 106/58 (74) 99 10/11/19 06:00 121 23 110/46 (67) 100 10/11/19 05:30 126 27 100/57 (71) 100 10/11/19 05:00 128 27 119/60 (79) 99 10/11/19 04:30 123 27 102/71 (81) 100 10/11/19 04:00 135 10/11/19 04:00 Non-Rebreather 15.0 10/11/19 04:00 97.5 134 41 130/78 (95) 97 10/11/19 03:30 128 36 120/77 (91) 97 10/11/19 03:00 134 38 138/79 (98) 98 10/11/19 02:00 96 23 116/55 (75) 100 10/11/19 01:00 92 25 129/65 (86) 97 10/11/19 00:00 Non-Rebreather 15.0 10/11/19 00:00 111 36 125/77 (93) 96 10/11/19 00:00 104 10/10/19 23:00 93 28 108/58 (75) 100 10/10/19 22:00 102 23 123/79 (94) 96 10/10/19 21:00 95 35 136/69 (91) 98 Intake and Output 10/10/19 10/11/19 18:59 06:59 Intake Total 626 ml 923.5 ml Output Total 695 ml 780 ml Balance -69 ml 143.5 ml Intake Oral 30 ml IV Total 586 ml 893.5 ml Other 40 ml Output Urine Total 695 ml 780 ml Laboratory Tests 10/11/19 04:00: White Blood Count 9.3, Red Blood Count 4.16L, Hemoglobin 11.6L, Hematocrit 34.8L , Mean Corpuscular Volume 84, Mean Corpuscular Hemoglobin 27.9, Mean Corpuscular Hemoglobin Concent 33.3, Red Cell Distribution Width 12.8, Platelet Count 300, Mean Platelet Volume 5.6L, Neutrophils (%) (Auto) 81.6H, Lymphocytes (%) (Auto) 6.8L, Monocytes (%) (Auto) 11.0H, Eosinophils (%) (Auto) 0.3, Basophils (%) (Auto) 0.3, Sodium Level 151H, Potassium Level 3.9, Chloride Level 118H, Carbon Dioxide Level 23, Anion Gap 10, Blood Urea Nitrogen 55H, Creatinine 2.3H, Estimat Glomerular Filtration Rate 28.1, Glucose Level 126H, Calcium Level 7.9L, Total Bilirubin 0.5, Aspartate Amino Transf (AST/SGOT) 24, Alanine Aminotransferase (ALT/SGPT) 9L, Alkaline Phosphatase 53, Total Protein 5.4L, Albumin 2.2L, Globulin 3.2, Albumin/Globulin Ratio 0.7L 10/11/19 14:37: Arterial Blood pH 7.246*L, Arterial Blood Partial Pressure CO2 44.5, Arterial Blood Partial Pressure O2 65.1L, Arterial Blood HCO3 18.9L, Arterial Blood Oxygen Saturation 91.8L, Arterial Blood Base Excess -8.1L, Hal Test Positive Height (Feet): 5 Height (Inches): 11.00 Weight (Pounds): 126 General Appearance: lethargic, confused, mild distress Cardiovascular: regular rhythm Respiratory/Chest: crackles/rales Abdomen: non tender Extremities: no edema Neurologic: motor weakness Jose Gant MD Oct 11, 2019 20:50
--- NOTE | 2019-10-11 21:00 | NUR ---
NURSE NOTE: Still awaiting call back from Dr. Porras regarding patient's Heart rate.
[2019-10-11] MEDS: Dyna-Hex 2% Top Sol 2oz TOPIC SCH (21:11)
[2019-10-11] MEDS ORDERED: dilTIAZem HCl 25mg/5ml Inj IVP SCH (21:26)
[2019-10-11] MEDS: dilTIAZem Premix 125mg/125ml 125 ML IVPB SCH (21:39)
--- NOTE | 2019-10-11 23:47 | NUR ---
NURSE NOTES: Dr. Porras called back with orders for patient's HR. Called Dr. Khan regarding patient's tube placement and the need to advance. RN was unable to advance as tube kept on coiling. Per Dr. Khan. Dr. Beverly will take over case, and we should inform him in the AM.
[2019-10-12] VITALS (44 sets, daily range): BP systolic 89–163; BP diastolic 63–94
[2019-10-12] MEDS: Potassium Chloride 10 MEQ in D5W 1000ml 1,000 ML IV SCH ×2 (00:12→14:27)
[2019-10-12] MEDS: Cefepime HCl 1 GM in D5W 55 ML IVPB SCH ×2 (00:12→11:39)
[2019-10-12 05:50] LABS: ANION GAP 7 mmol/L (5-15); BLOOD UREA NITROGEN 46 mg/dL (7-18); CALCIUM 7.9 MG/DL (8.5-10.1); CARBON DIOXIDE 27 MMOL/L (21-32); CHLORIDE 116 MMOL/L (98-107); CREATININE 2.1 MG/DL (0.55-1.30); SODIUM 150 MMOL/L (136-145)
--- NOTE | 2019-10-12 07:17 | NUR ---
HAND-OFF: Report given to MIRANDA Camara. RN updated about overnight events. Patient stable at Hand-off.
--- NOTE | 2019-10-12 07:17 | NUR ---
NURSE NOTES: Received report from MIRANDA Mckeon. Pt in bed awake and no c/o pain noted on facial pain scale. IV site in Left TLC patent and asymptomatic, running with D5 W/KCL 10mEq @75ml/hr. HOB elevated 30 degree. OG tube placed at the lower lip but it placed in esophagus. Will follow up with Dr. Beverly for placement. Call light within easy reach. Bed in lowest position and locked. Bilateral soft wrist restraint patent and asymptomatic. Will continue to plan of care.
--- NOTE | 2019-10-12 07:56 | NUR ---
RD ASSESSMENT & RECOMMENDATIONS SEE CARE ACTIVITY FOR COMPLETE ASSESSMENT DAILY ESTIMATED NEEDS: Needs based on Respiratory, underweight 57.3 30-35 kcals/kg 5528-2628 total kcals 1.25-1.5 g protein/kg 72-86 g total protein 25-30 mL/kg 1314-8090 total fluid mLs NUTRITION DIAGNOSIS: Altered nutrition related lab values r/t clinical status, renal failure as evidenced by elev BUN (62->46 trending down), elev Creat (2.1 trending down), elev Na (150). CURRENT TF: Vital 1.2 @60-> not running, pt on BIPAP ENTERAL NUTRITION RECOMMENDATIONS: As medically able, rec Glucerna 1.2 goal of 60ml/hr x24 hrs to provide 1440ml, 1728 kcal, 86g pro, 1159ml free H2O -> S/p OGT placement, as medically able start Glucerna 1.2 @20ml/hr for 6 hrs. Advance as tolerated 10ml/hr q4-6 hrs to goal. - Flush per MD/ HOB over 30 degrees. - Pt currently on bipap-> feed if cleared by pulmonology. ADDITIONAL RECOMMENDATIONS: 1) Obtain a CALIBRATED WEIGHT as able Pt w/ underweight BMI 2) Poor po intake-> consider non oral feeds for ICU status and poor po 3) WELDING ESTIMATOR eval for H/o CVA-> now w/ OGT tube 4) With tube feeds add MURIEL BID for skin integrity 5) rec IVF if NPO for hydration
[2019-10-12] MEDS: Aspirin Baby 81mg ORAL SCH (08:05)
[2019-10-12] MEDS: Heparin 5000 units/ml inj SUBQ SCH ×2 (08:18→20:20)
--- NOTE | 2019-10-12 09:00 | NUR ---
NURSE NOTES: Pt in bed on Bipap. F/u ABG notified to Dr. Bill. Pt opening his eyes, comfortably. Trying to pull out of Bipap even though bilateral wrist restraint on. TV, and distraction offered.
--- NOTE | 2019-10-12 09:24 | Critical Care Progress Note ---
Assessment/Plan Assessment/Plan Impression: negative COVID-19 x2 Pneumonia Chronic Kidney Disease, has shunt left upper arm with ARF Dehydration Hypotension Dementia Congestive Heart Failure Atrial Fibrillation Diabetes Hypertension Dysphagia Hyperlipidemia COPD hypernatremia sinus tachycardia Plan IV Antibiotics IVF as per renal Pressors as needed PICC line Renal and Cardiology follow up dc isolation ? Monitor labs close follow up hope to transition to [facility] medications/laboratory data/nursing notes/ICU care reviewed in detail note reviewed and edited care discussed with RN and RT ICU time spent >40 minutes Critical Care - Subjective Interval Events: o2 needs better care reviewed vital improved Condition: critical EKG Rhythm: Sinus Rhythm I&O: Intake and Output 10/11/19 10/12/19 19:00 07:00 Intake Total 1885 ml 1124 ml Output Total 510 ml 445 ml Balance 1375 ml 679 ml IV Total 1885 ml 1124 ml Output Urine Total 510 ml 445 ml Critical Care - Objective Last 24 Hour Vital Signs Date Time Temp Pulse Resp B/P (MAP) Pulse Ox O2 Delivery O2 Flow Rate FiO2 10/12/19 08:00 98.7 90 31 118/77 (91) 94 10/12/19 07:42 97 Bi-Pap 50 10/12/19 07:30 91 26 97 50 10/12/19 07:00 72 20 121/76 (91) 100 10/12/19 06:00 74 21 120/76 (91) 100 10/12/19 05:00 72 20 113/74 (87) 100 10/12/19 04:00 Bi-pap 10/12/19 04:00 98.2 74 18 101/65 (77) 100 10/12/19 04:00 74 10/12/19 03:00 96 18 90/67 (75) 100 10/12/19 03:00 76 19 100 70 10/12/19 02:00 103 21 89/66 (74) 100 10/12/19 01:00 98 20 92/67 (75) 100 10/12/19 00:00 Bi-pap 10/12/19 00:00 101 10/12/19 00:00 97.6 103 22 95/70 (78) 98 10/11/19 23:47 Bi-Pap 100 10/11/19 23:47 100 10/11/19 23:00 101 22 96/67 (77) 100 10/11/19 22:30 114 12 100 100 10/11/19 22:00 151 40 115/75 (88) 85 10/11/19 21:40 150 117/81 10/11/19 21:00 150 37 120/83 (95) 97 10/11/19 20:00 97.5 147 37 127/87 (100) 95 10/11/19 20:00 124 10/11/19 20:00 Venturi Mask 14.0 10/11/19 19:00 97 Venturi Mask 14.0 55 10/11/19 19:00 147 27 103/80 (88) 97 10/11/19 18:00 144 24 109/75 (86) 94 10/11/19 17:00 144 29 134/89 (104) 93 10/11/19 16:00 Nasal Cannula 6.0 10/11/19 16:00 98.4 140 20 100/75 (83) 100 10/11/19 16:00 143 10/11/19 15:00 143 29 101/71 (81) 94 10/11/19 14:00 142 32 99/69 (79) 92 10/11/19 13:00 142 33 109/75 (86) 90 10/11/19 12:45 94/75 10/11/19 12:00 Nasal Cannula 6.0 10/11/19 12:00 117 10/11/19 12:00 124 35 94/75 (81) 100 10/11/19 11:00 98.1 128 35 115/70 (85) 99 10/11/19 10:00 130 35 94/75 (81) 100 10/11/19 09:52 121 26 81/61 (68) 100 10/11/19 09:45 122 25 100 10/11/19 09:30 123 31 78/50 (59) 100 Labs: Laboratory Tests Test 10/11/19 14:37 10/12/19 04:00 10/12/19 07:00 Arterial Blood pH 7.246 (7.350-7.450) 7.425 (7.350-7.450) Arterial Blood Partial Pressure CO2 44.5 mmHg (35.0-45.0) 35.5 mmHg (35.0-45.0) Arterial Blood Partial Pressure O2 65.1 mmHg (75.0-100.0) L 63.5 mmHg (75.0-100.0) L Arterial Blood HCO3 18.9 mmol/L (22.0-26.0) L 22.8 mmol/L (22.0-26.0) Arterial Blood Oxygen Saturation 91.8 % (95-100) L 93.3 % (95-100) L Arterial Blood Base Excess -8.1 (-2-2) L -1.2 (-2-2) Hal Test Positive Positive Sodium Level 150 MMOL/L (136-145) H Potassium Level 4.0 MMOL/L (3.5-5.1) Chloride Level 116 MMOL/L (98-107) H Carbon Dioxide Level 27 MMOL/L (21-32) Anion Gap 7 mmol/L (5-15) Blood Urea Nitrogen 46 mg/dL (7-18) H Creatinine 2.1 MG/DL (0.55-1.30) H Estimat Glomerular Filtration Rate 31.2 mL/min (>60) Glucose Level 171 MG/DL (74-106) H Calcium Level 7.9 MG/DL (8.5-10.1) L Objective: deferred due to COVID+ Micro: Microbiology Date/Time Source Procedure Growth Status 10/11/19 09:00 Nasopharynx Coronavirus COVID-19 PCR ([facility]) - Final Complete 10/09/19 23:00 Rectum VRE Culture - Final NO VANCOMYCIN RESISTANT ENTEROCOCCUS ... Complete Camilo Bill MD Oct 12, 2019 09:24
--- NOTE | 2019-10-12 09:30 | NUR ---
NURSE NOTES: Dr. Sorensen is present at the bedside. Made Dr. Sorensen aware of negative resultsx2 of covid19. Airbone and droplet isolation discontinued. 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
[2019-10-12] MEDS: Norepinephrine 4mg/NS Premix 250 ML IV SCH (09:38)
--- NOTE | 2019-10-12 10:46 | Infectious Diseases Prog Note ---
Assessment/Plan Assessment/Plan antibiotics : cefepime, flagyl hydroxychloroquine day 2 A 1. pneumonia COVID 19 negative x 2 2. respiratory failure 3. renal failure improving 4. diabetes mellitus 5. hypertension 6. CHF 7. COPD 8. dementia P 1. continue cefepime, flagyl 2. d/c hydroxychloroquine 3. sputum culture 4. d/c isolation Subjective ROS Limited/Unobtainable: Yes Allergies: Coded Allergies: No Known Allergies (Unverified , 07/23/18) Objective Vital Signs Last 24 Hour Vital Signs Date Time Temp Pulse Resp B/P (MAP) Pulse Ox O2 Delivery O2 Flow Rate FiO2 10/12/19 10:00 87 31 126/80 (95) 97 10/12/19 09:38 139/80 10/12/19 09:35 84 27 139/80 (99) 97 10/12/19 09:00 85 26 122/77 (92) 95 10/12/19 08:00 98.7 90 31 118/77 (91) 94 10/12/19 07:42 97 Bi-Pap 50 10/12/19 07:30 91 26 97 50 10/12/19 07:00 72 20 121/76 (91) 100 10/12/19 06:00 74 21 120/76 (91) 100 10/12/19 05:00 72 20 113/74 (87) 100 10/12/19 04:00 Bi-pap 10/12/19 04:00 98.2 74 18 101/65 (77) 100 10/12/19 04:00 74 10/12/19 03:00 96 18 90/67 (75) 100 10/12/19 03:00 76 19 100 70 10/12/19 02:00 103 21 89/66 (74) 100 10/12/19 01:00 98 20 92/67 (75) 100 10/12/19 00:00 Bi-pap 10/12/19 00:00 101 10/12/19 00:00 97.6 103 22 95/70 (78) 98 10/11/19 23:47 Bi-Pap 100 10/11/19 23:47 100 10/11/19 23:00 101 22 96/67 (77) 100 10/11/19 22:30 114 12 100 100 10/11/19 22:00 151 40 115/75 (88) 85 6/2/20 21:40 150 117/81 10/11/19 21:00 150 37 120/83 (95) 97 10/11/19 20:00 97.5 147 37 127/87 (100) 95 10/11/19 20:00 124 10/11/19 20:00 Venturi Mask 14.0 10/11/19 19:00 97 Venturi Mask 14.0 55 10/11/19 19:00 147 27 103/80 (88) 97 10/11/19 18:00 144 24 109/75 (86) 94 10/11/19 17:00 144 29 134/89 (104) 93 10/11/19 16:00 Nasal Cannula 6.0 10/11/19 16:00 98.4 140 20 100/75 (83) 100 10/11/19 16:00 143 10/11/19 15:00 143 29 101/71 (81) 94 10/11/19 14:00 142 32 99/69 (79) 92 10/11/19 13:00 142 33 109/75 (86) 90 10/11/19 12:45 94/75 10/11/19 12:00 Nasal Cannula 6.0 10/11/19 12:00 117 10/11/19 12:00 124 35 94/75 (81) 100 10/11/19 11:00 98.1 128 35 115/70 (85) 99 Height (Feet): 5 Height (Inches): 11.00 Weight (Pounds): 149 HEENT: other - on bipap Microbiology Date/Time Source Procedure Growth Status 10/11/19 09:00 Nasopharynx Coronavirus COVID-19 PCR (CRISTIAN) - Final Complete 10/09/19 23:00 Rectum VRE Culture - Final NO VANCOMYCIN RESISTANT ENTEROCOCCUS ... Complete Laboratory Tests Test 10/11/19 14:37 10/12/19 04:00 10/12/19 07:00 Arterial Blood pH 7.246 (7.350-7.450) 7.425 (7.350-7.450) Arterial Blood Partial Pressure CO2 44.5 mmHg (35.0-45.0) 35.5 mmHg (35.0-45.0) Arterial Blood Partial Pressure O2 65.1 mmHg (75.0-100.0) L 63.5 mmHg (75.0-100.0) L Arterial Blood HCO3 18.9 mmol/L (22.0-26.0) L 22.8 mmol/L (22.0-26.0) Arterial Blood Oxygen Saturation 91.8 % (95-100) L 93.3 % (95-100) L Arterial Blood Base Excess -8.1 (-2-2) L -1.2 (-2-2) Hal Test Positive Positive Sodium Level 150 MMOL/L (136-145) H Potassium Level 4.0 MMOL/L (3.5-5.1) Chloride Level 116 MMOL/L (98-107) H Carbon Dioxide Level 27 MMOL/L (21-32) Anion Gap 7 mmol/L (5-15) Blood Urea Nitrogen 46 mg/dL (7-18) H Creatinine 2.1 MG/DL (0.55-1.30) H Estimat Glomerular Filtration Rate 31.2 mL/min (>60) Glucose Level 171 MG/DL (74-106) H Calcium Level 7.9 MG/DL (8.5-10.1) L Current Medications Medications (Trade) Dose Ordered Sig/Clementine Route PRN Reason Start Time Stop Time Status Last Admin Dose Admin Acetaminophen (Tylenol) 650 mg Q4H PRN ORAL Mild Pain (Pain Scale 1-3) 10/09/19 05:45 11/08/19 05:44 Acetaminophen (Tylenol) 650 mg Q4H PRN ORAL fever 10/09/19 05:45 11/08/19 05:44 Albuterol Sulfate (Proventil MDI) 2 puff Q4H PRN INH Shortness of Breath 10/09/19 12:45 01/07/20 12:44 Aspirin (ASA) 81 mg DAILY ORAL 10/09/19 09:00 11/23/19 08:59 10/11/19 08:19 Cefepime HCl 1 gm/ Dextrose 55 ml @ 110 mls/hr Q12HR@1100,2300 IVPB 10/09/19 11:00 10/16/19 10:59 10/12/19 00:12 Chlorhexidine Gluconate (Flaca-Hex 2%) 1 applic DAILY@2000 TOPIC 10/09/19 20:00 01/07/20 19:59 10/11/19 21:11 Dextrose (Dextrose 50%) 25 ml Q30M PRN IV Hypoglycemia 10/09/19 05:45 01/07/20 05:44 Dextrose (Dextrose 50%) 50 ml Q30M PRN IV Hypoglycemia 10/09/19 05:45 01/07/20 05:44 Diltiazem HCl 125 ml @ 0 mls/hr Q24H IVPB 10/11/19 21:27 10/12/19 21:27 10/11/19 21:39 Haloperidol Lactate 5 mg/ Dextrose 56 ml @ 224 mls/hr Q6HR PRN IVPB Agitation 10/09/19 21:30 11/23/19 21:29 10/11/19 04:35 Heparin Sodium (Porcine) (Heparin 5000 units/ml) 5,000 units EVERY 12 HOURS SUBQ 10/09/19 09:00 11/23/19 08:59 10/12/19 08:18 Metronidazole 100 ml @ 100 mls/hr Q8H IVPB 10/09/19 08:00 10/16/19 07:59 10/12/19 08:15 Norepinephrine Bitartrate 250 ml @ 0 mls/hr Q24H IV 10/09/19 12:45 01/07/20 12:44 Potassium Chloride 10 meq/ Dextrose 1,005 ml @ 75 mls/hr [id number] IV 10/10/19 22:00 11/09/19 21:59 10/12/19 00:12 Pravastatin Sodium (Pravachol) 20 mg BEDTIME ORAL 10/09/19 21:00 11/08/19 20:59 10/10/19 21:32 Arlin Sorensen MD Oct 12, 2019 10:46
--- NOTE | 2019-10-12 11:00 | NUR ---
NURSE NOTES: Pt in bed, resting. Circulation of bilateral wrist checked. No skin breakdown noted. Will continue to plan of care.
--- NOTE | 2019-10-12 12:15 | Progress Note ---
DATE: 10/11/2019 SUBJECTIVE: The patient's condition remains critical. Prognosis guarded. He remains in the intensive care unit. Monitored rhythm, now rapid atrial fibrillation. Blood pressure is tenuous. Urine output is 30 to 40 mL/hour. PHYSICAL EXAMINATION: VITAL SIGNS: Blood pressure 115/75, heart rate 150, respiratory rate 12 to 40, the patient is afebrile. LUNGS: Diminished breath sounds. Rhonchi. CARDIAC: Irregularly irregular rhythm. Normal S1, S2. ABDOMEN: Soft. EXTREMITIES: No edema. LABORATORY DATA: White count 9.3, hemoglobin 11.6. ABG 7.25, 44, 65. Sodium 151, potassium 3.9, 118, 22, BUN 55, creatinine 2.3. Albumin 2.2. The patient is status post thoracentesis on the right without complications. IMPRESSION: 1. Paroxysmal atrial fibrillation now with rapid ventricular response. 2. Shock. 3. Sepsis. 4. Hypovolemia. 5. Dehydration. 6. Hypernatremia. 7. Acute on chronic renal failure. 8. Acute on chronic diastolic congestive heart failure. 9. Severe protein-calorie malnutrition. 10. Hypoxia. 11. Metabolic acidosis. 12. Pleural effusion, status post thoracentesis on the right. PLAN: IV diltiazem. Antimicrobials. Hypotonic IV fluid hydration. DVT and stress ulcer prophylaxis. Maintain adequate oxygenation. Anselmo Porras M.D. DR: JORGE JOB#: [id number] CC:
--- NOTE | 2019-10-12 12:32 | NUR ---
CASE MANAGEMENT: REVIEW 10/12/19 SI: SEPSIS . CHRONIC KIDNEY DISEASE . A-FIB . COVID-19 NEGATIVE X2 LEFT FEMORAL CENTRAL VENOUS CATHETER INSERTION 10/08 98.7 90 31 118/77 94% BIPAP FiO2 50 NA+ 150 CL-116 BUN/CREAT 46/2.1 BG 171 CA+ 7.9 ALBUMIN 2.2 ABG: pO2 63.5 O2 SAT 93.3 IS:IV CARDIZEM QD IV CEFEPIME BID IV FLAGYL TID PLAQUENIL PO BID KCL @75ML/HR PRAVACHOL PO QHS MARTIR-HEX 2% TP QD IV HALDOL Q6HR/PRN PROVENTIL MDI Q4HR/PRN NG TUBE \: INTENSIVE CARE UNIT DCP: PATIENT IS FROM [facility] PLAN: SWALLOW EVAL MONITOR BEHAVIOR - NON VIOLENT RESTRAINTS IN PLACE DC ISOLATION NEGATIVE FOR MRSA + VRE
[2019-10-12] MEDS: dilTIAZem Premix 125mg/125ml 125 ML IVPB SCH ×2 (12:47→22:40)
--- NOTE | 2019-10-12 13:00 | NUR ---
NURSE NOTES: BP 134/79, HR 73 noted. Cardizem drip decreased from 5.5mg/hr to 3mg/hr. Will continue to monitor vital signs for tolerance of the med.
--- NOTE | 2019-10-12 13:05 | NUR ---
NURSE NOTES: Pt in bed, resting. Tolerating well with current setting of Bipap with 15/8-50% and sating 96% on the monitor. Bilateral wrist restraint intact, patient and no skin break down noted. Will continue to plan of care.
--- NOTE | 2019-10-12 13:29 | General Progress Note ---
Assessment/Plan Assessment/Plan: 1. History of diabetes. 2. Hypertension. 3. Chronic kidney disease. 4. COPD. 5. CHF. 6. Dementia. 7. AMS 8. Dysphagia 9. Righ sided pna npo i placed An NGT today x -ray ordered to confirm NGTF if NGT in the right place fu pulm abx per ID swallow eval when more stable Subjective ROS Limited/Unobtainable: No Allergies: Coded Allergies: No Known Allergies (Unverified , 07/23/18) Objective Last 24 Hour Vital Signs Date Time Temp Pulse Resp B/P (MAP) Pulse Ox O2 Delivery O2 Flow Rate FiO2 10/12/19 12:00 98.4 76 21 125/76 (92) 98 10/12/19 11:35 100 10/12/19 11:35 79 22 97 50 10/12/19 11:35 Bi-Pap 100 10/12/19 11:00 89 31 131/72 (91) 97 10/12/19 10:45 78 21 115/78 (90) 98 10/12/19 10:30 78 20 124/73 (90) 98 10/12/19 10:15 81 22 132/78 (96) 97 10/12/19 10:00 87 31 126/80 (95) 97 10/12/19 09:45 79 27 130/74 (92) 97 10/12/19 09:38 139/80 10/12/19 09:35 84 27 139/80 (99) 97 10/12/19 09:00 85 26 122/77 (92) 95 10/12/19 08:00 Bi-pap 10/12/19 08:00 98.7 90 31 118/77 (91) 94 10/12/19 08:00 80 10/12/19 07:42 97 Bi-Pap 50 10/12/19 07:30 91 26 97 50 10/12/19 07:00 72 20 121/76 (91) 100 10/12/19 06:00 74 21 120/76 (91) 100 10/12/19 05:00 72 20 113/74 (87) 100 10/12/19 04:00 Bi-pap 10/12/19 04:00 98.2 74 18 101/65 (77) 100 10/12/19 04:00 74 10/12/19 03:00 96 18 90/67 (75) 100 10/12/19 03:00 76 19 100 70 10/12/19 02:00 103 21 89/66 (74) 100 10/12/19 01:00 98 20 92/67 (75) 100 10/12/19 00:00 Bi-pap 10/12/19 00:00 101 10/12/19 00:00 97.6 103 22 95/70 (78) 98 10/11/19 23:47 Bi-Pap 100 10/11/19 23:47 100 10/11/19 23:00 101 22 96/67 (77) 100 10/11/19 22:30 114 12 100 100 10/11/19 22:00 151 40 115/75 (88) 85 10/11/19 21:40 150 117/81 10/11/19 21:00 150 37 120/83 (95) 97 10/11/19 20:00 97.5 147 37 127/87 (100) 95 10/11/19 20:00 124 10/11/19 20:00 Venturi Mask 14.0 10/11/19 19:00 97 Venturi Mask 14.0 55 10/11/19 19:00 147 27 103/80 (88) 97 10/11/19 18:00 144 24 109/75 (86) 94 10/11/19 17:00 144 29 134/89 (104) 93 10/11/19 16:00 Nasal Cannula 6.0 10/11/19 16:00 98.4 140 20 100/75 (83) 100 10/11/19 16:00 143 10/11/19 15:00 143 29 101/71 (81) 94 10/11/19 14:00 142 32 99/69 (79) 92 Intake and Output 10/11/19 10/12/19 18:59 06:59 Intake Total 1885 ml 1124 ml Output Total 520 ml 445 ml Balance 1365 ml 679 ml IV Total 1885 ml 1124 ml Output Urine Total 520 ml 445 ml Laboratory Tests 10/11/19 14:37: Arterial Blood pH 7.246*L, Arterial Blood Partial Pressure CO2 44.5, Arterial Blood Partial Pressure O2 65.1L, Arterial Blood HCO3 18.9L, Arterial Blood Oxygen Saturation 91.8L, Arterial Blood Base Excess -8.1L, Hal Test Positive 10/12/19 04:00: Sodium Level 150H, Potassium Level 4.0, Chloride Level 116H, Carbon Dioxide Level 27, Anion Gap 7, Blood Urea Nitrogen 46H, Creatinine 2.1H, Estimat Glomerular Filtration Rate 31.2, Glucose Level 171H, Calcium Level 7.9L 10/12/19 07:00: Arterial Blood pH 7.425, Arterial Blood Partial Pressure CO2 35.5, Arterial Blood Partial Pressure O2 63.5L, Arterial Blood HCO3 22.8, Arterial Blood Oxygen Saturation 93.3L, Arterial Blood Base Excess -1.2, Hal Test Positive Height (Feet): 5 Height (Inches): 11.00 Weight (Pounds): 149 General Appearance: no apparent distress EENT: normal ENT inspection Neck: supple Cardiovascular: normal rate Respiratory/Chest: decreased breath sounds Abdomen: normal bowel sounds, non tender, soft Extremities: non-tender Chaitanya Beverly MD Oct 12, 2019 13:29
--- NOTE | 2019-10-12 13:30 | NUR ---
NURSE NOTES: Dr. Beverly came and inserted NG tube with stylet. NG tube advanced at 81cm at left nare. X-ray will be ordered to confirm the placement. Side railsx3 up for safety. Bed in lowest position and locked.
--- NOTE | 2019-10-12 16:00 | Diagnostic Imaging Report ---
Indication: Post weighted nasogastric feeding tube placement Technique: Supine view of the upper abdomen Comparison: 10/11/2019 Findings: Interim placement of previously demonstrated large for orogastric tube with a weighted nasogastric feeding tube. The tip of this projects at the level of the distal stomach or the proximal duodenum. The visualized bowel gas is unremarkable. A central venous catheter is seen in the left groin. Extensive opacification of the right lung base is noted, partially due to elevation of the right hemidiaphragm Impression: Satisfactory nasogastric tube placement, possibly even in the duodenum, suitable for use Other findings as noted
--- NOTE | 2019-10-12 16:33 | NUR ---
NURSE NOTES: Made Dr. Beverly aware of X-ray of KUB for NG tube placement. Awaiting for reply. Pt in bed awake and tolerating well with skin treatment and repositioning. No c/o pain on facial pain scale.
--- NOTE | 2019-10-12 17:00 | NUR ---
NURSE NOTES: Dr. Beverly called back and ordered to use NG tube for meds and feeding. Feeding will be held due to pt being on the Bipap. Orders carried out.
--- NOTE | 2019-10-12 17:12 | NUR ---
RETAIL SALES CONSULTANT Note RETAIL SALES CONSULTANT orders received and acknowledged from Dr. Pacheco for Speech, Language, and Cognitive Communicative Evaluation. Chart review completed, per notes, suspect order builder loader error and Patient may require a Bedside Swallow Evaluation versus a Speech, Language, and Cognitive Communicative Evaluation s/p NGT insertion. However, will hold off as per Dr. Beverly's progress note on 10/12/19, "swallow eval when more stable" RETAIL SALES CONSULTANT will continue to monitor Patients appropriateness and medical status for Bedside Swallow Evaluation. Thank you for this referral!
--- NOTE | 2019-10-12 19:29 | NUR ---
NURSE NOTES: Received patient from MIRANDA Mcneal. Will continue plan of care.
--- NOTE | 2019-10-12 19:29 | NUR ---
HAND-OFF: Report given to MIRANDA Marion. Pt remains stable.
--- NOTE | 2019-10-12 20:00 | NUR ---
NURSE NOTES: Patient is asleep but awakes to voice and touch; eyes opened and tracking. BiPAP 13/9 @ 55% O2 saturation:100%. Left NGT in place but NPO for now for BiPAP. Mathis in place and draining but patient is oliguric. Left femoral TLC running D5 w/10meq KCL @ 75ml/hr and Cardizem drip now titrated to 3.5ml/hr @ 1945. Will monitor. BUDDHIST MONK restraints in place for safety and prevent pulling. ROM and skin assessed. BP:128/74, HR:79, Temp:97.0F axillary. Bed low locked and alarm is on. Will continue plan of care.
[2019-10-12] MEDS: Dyna-Hex 2% Top Sol 2oz TOPIC SCH (20:19)
--- NOTE | 2019-10-12 20:56 | Nephrology Progress Note ---
Assessment/Plan Problem List: (1) Hypernatremia (2) CHF (congestive heart failure) (3) Dehydration (4) Acute renal failure (5) Pneumonia (6) Suspected COVID-19 virus infection (7) Hypotension (8) HCAP (healthcare-associated pneumonia) Plan hypotonic fluids, pulm care, empiric atb ordered Subjective ROS Limited/Unobtainable: Yes Objective Objective Last 24 Hour Vital Signs Date Time Temp Pulse Resp B/P (MAP) Pulse Ox O2 Delivery O2 Flow Rate FiO2 10/12/19 20:45 86 31 125/76 (92) 99 10/12/19 20:30 80 22 123/84 (97) 100 10/12/19 20:15 74 20 121/75 (90) 100 10/12/19 20:00 Bi-pap 10/12/19 20:00 97.0 81 17 128/74 (92) 100 10/12/19 19:45 79 19 119/73 (88) 100 10/12/19 19:30 81 20 115/71 (86) 99 10/12/19 19:30 83 20 100 55 10/12/19 19:15 84 19 121/71 (88) 99 10/12/19 19:00 81 19 122/67 (85) 99 10/12/19 18:00 79 19 121/70 (87) 99 10/12/19 17:28 79 26 100 50 10/12/19 17:00 91 33 141/78 (99) 94 10/12/19 16:08 Venturi Mask 8.0 40 10/12/19 16:08 92 10/12/19 16:00 Bi-pap 10/12/19 16:00 94 10/12/19 16:00 98.8 92 29 127/71 (89) 93 10/12/19 15:00 91 33 158/94 (115) 93 10/12/19 14:00 95 35 163/92 (115) 93 10/12/19 13:00 73 20 134/79 (97) 99 10/12/19 12:00 Bi-pap 10/12/19 12:00 98.4 76 21 125/76 (92) 98 10/12/19 12:00 78 10/12/19 11:35 100 10/12/19 11:35 79 22 97 50 10/12/19 11:35 Bi-Pap 100 10/12/19 11:00 89 31 131/72 (91) 97 10/12/19 10:45 78 21 115/78 (90) 98 10/12/19 10:30 78 20 124/73 (90) 98 10/12/19 10:15 81 22 132/78 (96) 97 10/12/19 10:00 87 31 126/80 (95) 97 10/12/19 09:45 79 27 130/74 (92) 97 10/12/19 09:38 139/80 10/12/19 09:35 84 27 139/80 (99) 97 10/12/19 09:00 85 26 122/77 (92) 95 10/12/19 08:00 Bi-pap 10/12/19 08:00 98.7 90 31 118/77 (91) 94 10/12/19 08:00 80 10/12/19 07:42 97 Bi-Pap 50 10/12/19 07:30 91 26 97 50 10/12/19 07:00 72 20 121/76 (91) 100 10/12/19 06:00 74 21 120/76 (91) 100 10/12/19 05:00 72 20 113/74 (87) 100 10/12/19 04:00 Bi-pap 10/12/19 04:00 98.2 74 18 101/65 (77) 100 10/12/19 04:00 74 10/12/19 03:00 96 18 90/67 (75) 100 10/12/19 03:00 76 19 100 70 10/12/19 02:00 103 21 89/66 (74) 100 10/12/19 01:00 98 20 92/67 (75) 100 10/12/19 00:00 Bi-pap 10/12/19 00:00 101 10/12/19 00:00 97.6 103 22 95/70 (78) 98 10/11/19 23:47 Bi-Pap 100 10/11/19 23:47 100 10/11/19 23:00 101 22 96/67 (77) 100 10/11/19 22:30 114 12 100 100 10/11/19 22:00 151 40 115/75 (88) 85 10/11/19 21:40 150 117/81 10/11/19 21:00 150 37 120/83 (95) 97 Intake and Output 10/11/19 10/12/19 19:00 07:00 Intake Total 1885 ml 1124 ml Output Total 510 ml 445 ml Balance 1375 ml 679 ml IV Total 1885 ml 1124 ml Output Urine Total 510 ml 445 ml Laboratory Tests 10/12/19 04:00: Sodium Level 150H, Potassium Level 4.0, Chloride Level 116H, Carbon Dioxide Level 27, Anion Gap 7, Blood Urea Nitrogen 46H, Creatinine 2.1H, Estimat Glomerular Filtration Rate 31.2, Glucose Level 171H, Calcium Level 7.9L 10/12/19 07:00: Arterial Blood pH 7.425, Arterial Blood Partial Pressure CO2 35.5, Arterial Blood Partial Pressure O2 63.5L, Arterial Blood HCO3 22.8, Arterial Blood Oxygen Saturation 93.3L, Arterial Blood Base Excess -1.2, Hal Test Positive Height (Feet): 5 Height (Inches): 11.00 Weight (Pounds): 149 General Appearance: lethargic Cardiovascular: regular rhythm Respiratory/Chest: rhonchi - bilaterally Extremities: no edema Neurologic: disoriented Jose Gant MD Oct 12, 2019 20:56
--- NOTE | 2019-10-12 21:22 | Surgery Progress Note ---
Surgery Progress Note Subjective Procedure Performed left femoral central venous catheter insertion Additional Comments on bipap labs noted exam stable Objective Last 24 Hour Vital Signs Date Time Temp Pulse Resp B/P (MAP) Pulse Ox O2 Delivery O2 Flow Rate FiO2 10/12/19 20:45 86 31 125/76 (92) 99 10/12/19 20:30 80 22 123/84 (97) 100 10/12/19 20:15 74 20 121/75 (90) 100 10/12/19 20:00 Bi-pap 10/12/19 20:00 97.0 81 17 128/74 (92) 100 10/12/19 19:45 79 19 119/73 (88) 100 10/12/19 19:30 81 20 115/71 (86) 99 10/12/19 19:30 83 20 100 55 10/12/19 19:15 84 19 121/71 (88) 99 10/12/19 19:00 81 19 122/67 (85) 99 10/12/19 18:00 79 19 121/70 (87) 99 10/12/19 17:28 79 26 100 50 10/12/19 17:00 91 33 141/78 (99) 94 10/12/19 16:08 Venturi Mask 8.0 40 10/12/19 16:08 92 10/12/19 16:00 Bi-pap 10/12/19 16:00 94 10/12/19 16:00 98.8 92 29 127/71 (89) 93 10/12/19 15:00 91 33 158/94 (115) 93 10/12/19 14:00 95 35 163/92 (115) 93 10/12/19 13:00 73 20 134/79 (97) 99 10/12/19 12:00 Bi-pap 10/12/19 12:00 98.4 76 21 125/76 (92) 98 10/12/19 12:00 78 10/12/19 11:35 100 10/12/19 11:35 79 22 97 50 10/12/19 11:35 Bi-Pap 100 10/12/19 11:00 89 31 131/72 (91) 97 10/12/19 10:45 78 21 115/78 (90) 98 10/12/19 10:30 78 20 124/73 (90) 98 10/12/19 10:15 81 22 132/78 (96) 97 10/12/19 10:00 87 31 126/80 (95) 97 10/12/19 09:45 79 27 130/74 (92) 97 10/12/19 09:38 139/80 10/12/19 09:35 84 27 139/80 (99) 97 10/12/19 09:00 85 26 122/77 (92) 95 10/12/19 08:00 Bi-pap 10/12/19 08:00 98.7 90 31 118/77 (91) 94 10/12/19 08:00 80 10/12/19 07:42 97 Bi-Pap 50 10/12/19 07:30 91 26 97 50 10/12/19 07:00 72 20 121/76 (91) 100 10/12/19 06:00 74 21 120/76 (91) 100 10/12/19 05:00 72 20 113/74 (87) 100 10/12/19 04:00 Bi-pap 10/12/19 04:00 98.2 74 18 101/65 (77) 100 10/12/19 04:00 74 10/12/19 03:00 96 18 90/67 (75) 100 10/12/19 03:00 76 19 100 70 10/12/19 02:00 103 21 89/66 (74) 100 10/12/19 01:00 98 20 92/67 (75) 100 10/12/19 00:00 Bi-pap 10/12/19 00:00 101 10/12/19 00:00 97.6 103 22 95/70 (78) 98 10/11/19 23:47 Bi-Pap 100 10/11/19 23:47 100 10/11/19 23:00 101 22 96/67 (77) 100 10/11/19 22:30 114 12 100 100 10/11/19 22:00 151 40 115/75 (88) 85 10/11/19 21:40 150 117/81 I&O Intake and Output 10/11/19 10/12/19 19:00 07:00 Intake Total 1885 ml 1124 ml Output Total 510 ml 445 ml Balance 1375 ml 679 ml IV Total 1885 ml 1124 ml Output Urine Total 510 ml 445 ml Dressing: other Wound: other Drains: other Cardiovascular: RSR Respiratory: decreased breath sounds Abdomen: soft, present bowel sounds Extremities: no cyanosis Laboratory Tests Test 10/12/19 04:00 10/12/19 07:00 Sodium Level 150 MMOL/L (136-145) H Potassium Level 4.0 MMOL/L (3.5-5.1) Chloride Level 116 MMOL/L (98-107) H Carbon Dioxide Level 27 MMOL/L (21-32) Anion Gap 7 mmol/L (5-15) Blood Urea Nitrogen 46 mg/dL (7-18) H Creatinine 2.1 MG/DL (0.55-1.30) H Estimat Glomerular Filtration Rate 31.2 mL/min (>60) Glucose Level 171 MG/DL (74-106) H Calcium Level 7.9 MG/DL (8.5-10.1) L Arterial Blood pH 7.425 (7.350-7.450) Arterial Blood Partial Pressure CO2 35.5 mmHg (35.0-45.0) Arterial Blood Partial Pressure O2 63.5 mmHg (75.0-100.0) L Arterial Blood HCO3 22.8 mmol/L (22.0-26.0) Arterial Blood Oxygen Saturation 93.3 % (95-100) L Arterial Blood Base Excess -1.2 (-2-2) Hal Test Positive Plan Problems: (1) Hypotension Assessment & Plan: 74-year-old male hypotensive unknown etiology's potentially septic COVID eval Needs pressors urgently transfer to the intensive care unit Need central venous access for pressors meds fluids Emergency procedure performed at the bedside Left femoral central venous catheter inserted without complication see note Okay for pressors okay to use We will follow with recommendations and monitor. Thank you for allowing participate in patient care There is a nasogastric tube in place. Tip projects at the level of the distal esophagus. There is complete opacification of the right hemithorax. This is a new finding. There appears to be abrupt cut off of the right mainstem bronchus. The bowel gas pattern is unremarkable High position of nasogastric tube. Advancement recommended. Complete opacification of the right hemithorax. Probably due to complete atelectasis of the right lung, could also indicate a component of pleural fluid. (2) Dehydration Assessment & Plan: DAILY ESTIMATED NEEDS: Needs based on Respiratory, underweight 57.3 30-35 kcals/kg 4976-2522 total kcals 1-1.5 g protein/kg 57-86 g total protein 25-30 mL/kg 3675-0406 total fluid mLs NUTRITION DIAGNOSIS: Altered nutrition related lab values r/t clinical status, renal failure as evidenced by elev BUN (62 trending down), elev Creat (2.1 trending down), elev Na (150). CURRENT DIET:SIDRA ms w/ NTL PO DIET RECOMMENDATIONS: LOW NA + NEPRO TID / Texture per [employer] ENTERAL NUTRITION RECOMMENDATIONS: -Consult RD if part of POC w/ continued poor po intake. ADDITIONAL RECOMMENDATIONS: 1) Obtain a CALIBRATED WEIGHT as able Pt w/ underweight BMI 2) Poor po intake-> consider non oral feeds for ICU status and poor po 3) [facility] eval for H/o CVA-> diet texture per [employer] 4) rec WC eval for sacral wound, add MURIEL BID for skin integrity . (3) Acute renal failure (4) Pneumonia (5) Acute metabolic encephalopathy (6) Suspected COVID-19 virus infection Gallo Kingston Oct 12, 2019 21:22
--- NOTE | 2019-10-12 22:00 | NUR ---
NURSE NOTES: Cardizem drip now at 3.5ml/hr. BP:126/86 HR:88 remains in A-Fib. Will monitor and titrate accordingly.
--- NOTE | 2019-10-12 22:18 | NUR ---
NURSE NOTES: Cardizem drip has been discontinued, call Dr. Porras urgent line to inform him of the order d/c and if he would like to continue. Also informed him that rate is running 3.5ml/hr and patient is still in A-Fib. Awaiting call back.
--- NOTE | 2019-10-12 22:33 | NUR ---
NURSE NOTES: Dr. Porras ordered to resume cardizem drip for now until able to have oral intake and to keep heart rate closer to the 70s. Informed him that he is on BiPAP at the moment and to inform him when patient is able to resume PO.
--- NOTE | 2019-10-12 22:45 | NUR ---
NURSE NOTES: Increased cardizem to 5.5ml/hr to keep heart rate closer to 70s per Dr. Porras's orders
[2019-10-13] VITALS (75 sets, daily range): BP systolic 105–150; BP diastolic 58–94
--- NOTE | 2019-10-13 | NUR ---
NURSE NOTES: Patient remains in A-Fib, heart rate fluctuates from 70s-90s. Will monitor and titrate cardizem accordingly.
--- NOTE | 2019-10-13 02:00 | NUR ---
NURSE NOTES: Heart rate increased to 102 on the monitor. Increased cardizem to 7.5ml/hr @ 0145. Current HR:82. Will continue to monitor.
[2019-10-13] MEDS: Potassium Chloride 10 MEQ in D5W 1000ml 1,000 ML IV SCH ×2 (03:28→17:04)
--- NOTE | 2019-10-13 04:00 | NUR ---
NURSE NOTES: Bed bath given, linens changed, turned and repositioned. NGT has alot of resistance when flushing; will endorse to have Dr. Beverly assess.
--- NOTE | 2019-10-13 04:02 | NUR ---
NURSE NOTES: Cardizem increased to 10ml/hr. Patient heart rate stabilizing in the 70-80s now.
[2019-10-13 05:03] LABS: ANION GAP 9 mmol/L (5-15); BLOOD UREA NITROGEN 34 mg/dL (7-18); CALCIUM 8.4 MG/DL (8.5-10.1); CARBON DIOXIDE 25 MMOL/L (21-32); CHLORIDE 114 MMOL/L (98-107); CREATININE 1.9 MG/DL (0.55-1.30); POTASSIUM 3.8 MMOL/L (3.5-5.1); SODIUM 148 MMOL/L (136-145)
--- NOTE | 2019-10-13 06:00 | NUR ---
NURSE NOTES: Heart rate 73. Cardizem continues to run at 10ml/hr. Nasal suctioning provided by RT; large amounts of very thick secretions.
[2019-10-13] MEDS: dilTIAZem Premix 125mg/125ml 125 ML IVPB SCH ×4 (07:00→21:30)
--- NOTE | 2019-10-13 07:21 | NUR ---
HAND-OFF: Report given to MIRANDA COLES.
--- NOTE | 2019-10-13 07:22 | NUR ---
NURSE NOTES: Received patient from Sanam JEAN. Patient is awake, alert and oriented x1. Atrial Fibrillation on the heart monitor, HR 72. Receiving oxygen via BiPAP settings 15/8 FiO2 at 45%. G-tube is intact and clogged. Mathis catheter is intact and draining. IV site is Left Femoral TLC receiving Cardizem at 10mls/hr and D5W with 10 mEq KCl at 75cc/hr. Bed is locked, placed in lowest position, side rails up x3, bed alarm on, head of bed elevated.
[2019-10-13] MEDS: Heparin 5000 units/ml inj SUBQ SCH ×2 (08:03→20:08)
--- NOTE | 2019-10-13 08:06 | Critical Care Progress Note ---
Assessment/Plan Assessment/Plan Impression: negative COVID-19 x2 Pneumonia Chronic Kidney Disease, has shunt left upper arm with ARF Dehydration Hypotension Dementia Congestive Heart Failure Atrial Fibrillation Diabetes Hypertension Dysphagia Hyperlipidemia COPD hypernatremia sinus tachycardia Plan IV Antibiotics IVF as per renal Pressors as needed PICC line Renal and Cardiology follow up dc isolation ? Monitor labs close follow up monitor vitals; attempt off BIPAP on diltiazem drip medications/laboratory data/nursing notes/ICU care reviewed in detail note reviewed and edited care discussed with RN and RT ICU time spent >40 minutes Critical Care - Subjective Interval Events: on BIPAP o2 needs better ROS Limited/Unobtainable: Yes Condition: critical EKG Rhythm: Sinus Rhythm I&O: Intake and Output 10/12/19 10/13/19 19:00 07:00 Intake Total 1103.625 ml 1033.9583 ml Output Total 705 ml 630 ml Balance 398.625 ml 403.9583 ml IV Total 1103.625 ml 1033.9583 ml Output Urine Total 705 ml 630 ml Critical Care - Objective Last 24 Hour Vital Signs Date Time Temp Pulse Resp B/P (MAP) Pulse Ox O2 Delivery O2 Flow Rate FiO2 10/13/19 07:00 73 19 129/76 (93) 100 10/13/19 06:45 72 18 128/79 (95) 100 10/13/19 06:30 74 19 123/75 (91) 100 10/13/19 06:15 76 20 124/77 (93) 100 10/13/19 06:00 74 19 127/77 (94) 100 10/13/19 05:45 77 21 124/77 (93) 100 10/13/19 05:30 71 20 119/72 (88) 100 10/13/19 05:15 72 19 123/77 (92) 100 10/13/19 05:00 72 18 122/74 (90) 100 10/13/19 04:45 71 20 119/71 (87) 100 10/13/19 04:30 74 20 122/76 (91) 100 10/13/19 04:15 78 19 129/69 (89) 100 10/13/19 04:00 45 10/13/19 04:00 Bi-pap 10/13/19 04:00 97.7 93 19 148/94 (112) 97 10/13/19 03:45 81 21 127/82 (97) 100 10/13/19 03:33 81 10/13/19 03:30 86 19 127/80 (96) 98 10/13/19 03:30 89 28 99 45 10/13/19 03:15 93 36 131/80 (97) 95 10/13/19 03:00 94 33 123/69 (87) 98 10/13/19 02:45 93 29 129/81 (97) 98 10/13/19 02:30 93 35 126/81 (96) 98 10/13/19 02:15 83 23 132/80 (97) 100 10/13/19 02:00 83 20 136/85 (102) 100 10/13/19 01:45 106 39 144/80 (101) 96 10/13/19 01:30 95 37 129/82 (98) 97 10/13/19 01:15 85 36 120/80 (93) 99 10/13/19 01:00 87 33 129/78 (95) 99 10/13/19 00:45 93 36 128/73 (91) 97 10/13/19 00:30 92 38 121/71 (88) 97 10/13/19 00:15 79 21 130/76 (94) 99 10/13/19 00:11 89 28 98 55 10/13/19 00:00 Bi-pap 10/13/19 00:00 97.3 82 19 124/70 (88) 100 10/13/19 00:00 55 10/12/19 23:45 94 35 131/77 (95) 98 10/12/19 23:30 80 22 116/70 (85) 100 10/12/19 23:15 82 19 119/71 (87) 100 10/12/19 23:13 98 10/12/19 23:00 82 18 122/76 (91) 100 10/12/19 22:45 86 19 125/74 (91) 100 10/12/19 22:30 82 18 123/71 (88) 100 10/12/19 22:15 95 31 157/78 (104) 91 10/12/19 22:00 93 34 127/63 (84) 98 10/12/19 21:45 95 36 126/86 (99) 98 10/12/19 21:30 89 35 125/74 (91) 99 10/12/19 21:15 90 36 132/80 (97) 98 10/12/19 21:00 77 20 120/67 (84) 100 10/12/19 20:45 86 31 125/76 (92) 99 10/12/19 20:30 80 22 123/84 (97) 100 10/12/19 20:15 74 20 121/75 (90) 100 10/12/19 20:00 97 Bi-Pap 55 10/12/19 20:00 Bi-pap 10/12/19 20:00 55 10/12/19 20:00 97.0 81 17 128/74 (92) 100 10/12/19 19:45 79 19 119/73 (88) 100 10/12/19 19:33 76 10/12/19 19:30 81 20 115/71 (86) 99 10/12/19 19:30 83 20 100 55 10/12/19 19:15 84 19 121/71 (88) 99 10/12/19 19:00 81 19 122/67 (85) 99 10/12/19 18:00 79 19 121/70 (87) 99 10/12/19 17:28 79 26 100 50 10/12/19 17:00 91 33 141/78 (99) 94 10/12/19 16:08 Venturi Mask 8.0 40 10/12/19 16:08 92 10/12/19 16:00 Bi-pap 10/12/19 16:00 94 10/12/19 16:00 98.8 92 29 127/71 (89) 93 10/12/19 15:00 91 33 158/94 (115) 93 10/12/19 14:00 95 35 163/92 (115) 93 10/12/19 13:00 73 20 134/79 (97) 99 10/12/19 12:00 Bi-pap 10/12/19 12:00 98.4 76 21 125/76 (92) 98 10/12/19 12:00 78 10/12/19 11:35 100 10/12/19 11:35 79 22 97 50 10/12/19 11:35 Bi-Pap 100 10/12/19 11:00 89 31 131/72 (91) 97 10/12/19 10:45 78 21 115/78 (90) 98 6/3/20 10:30 78 20 124/73 (90) 98 10/12/19 10:15 81 22 132/78 (96) 97 10/12/19 10:00 87 31 126/80 (95) 97 10/12/19 09:45 79 27 130/74 (92) 97 10/12/19 09:38 139/80 10/12/19 09:35 84 27 139/80 (99) 97 10/12/19 09:00 85 26 122/77 (92) 95 Labs: Laboratory Tests Test 10/13/19 04:20 Sodium Level 148 MMOL/L (136-145) H Potassium Level 3.8 MMOL/L (3.5-5.1) Chloride Level 114 MMOL/L (98-107) H Carbon Dioxide Level 25 MMOL/L (21-32) Anion Gap 9 mmol/L (5-15) Blood Urea Nitrogen 34 mg/dL (7-18) H Creatinine 1.9 MG/DL (0.55-1.30) H Estimat Glomerular Filtration Rate 35.0 mL/min (>60) Glucose Level 121 MG/DL (74-106) H Calcium Level 8.4 MG/DL (8.5-10.1) L Objective: deferred due to COVID+ Micro: Microbiology Date/Time Source Procedure Growth Status 10/11/19 09:00 Nasopharynx Coronavirus COVID-19 PCR ([facility]) - Final Complete Camilo Bill MD Oct 13, 2019 08:06
--- NOTE | 2019-10-13 08:11 | NUR ---
RESPIRATORY NOTE: removed bipap and placed on VM 50%. optifoam on left cheek already in place. RN Hakeem aware. will attempt to titrate fio2 method throughout the day and cont to monitor
[2019-10-13] MEDS: Aspirin Baby 81mg ORAL SCH (08:13)
--- NOTE | 2019-10-13 08:15 | Progress Note ---
DATE: 10/12/2019 CARDIOLOGY PROGRESS NOTE SUBJECTIVE: The patient's condition remains critical. Prognosis guarded. He remains in the intensive care unit. He continues to have atrial fibrillation, now rate controlled on IV diltiazem drip. Blood pressure parameters have stabilized. He is off pressors. PHYSICAL EXAMINATION: VITAL SIGNS: Blood pressure 125/76, heart rate 86, respirations 31, afebrile. He is on a BiPAP mask. He remains NPO as a result. GENERAL: Withdrawn, lethargic. LUNGS: Accessary muscle use noted. Bilateral breath sounds. Rhonchi. CARDIAC: Irregularly irregular rhythm. Normal S1, S2. No new murmur appreciated. ABDOMEN: Soft. EXTREMITIES: There is trace edema. LABORATORY DATA: Sodium 150, potassium 4, bicarb 27, BUN 46, creatinine 2.1. X-ray of the abdomen NG tube in place. Suitable for use. IMPRESSION: 1. Respiratory failure. 2. Paroxysmal atrial fibrillation with rapid ventricular response. 3. Sepsis with recovering shock. 4. Dehydration. 5. Hypernatremia. 6. Hypovolemia. 7. Acute on chronic renal failure. 8. Acute on chronic diastolic congestive heart failure. 9. Metabolic acidosis. 10. Acute myocardial ischemia. 11. Pleural effusion, status post thoracentesis. PLAN: 1. Continue hypotonic IV fluids. 2. Maintain IV diltiazem until able to transition to oral regimen. 3. Antimicrobials. 4. Respiratory hygiene. 5. DVT prophylaxis. 6. BiPAP support as needed. 7. We will continue to follow. Anselmo Porras M.D. DR: SACHA JOB#: [id number] CC:
[2019-10-13] MEDS: Cefepime HCl 1 GM in NS 55 ML IVPB SCH (09:22)
--- NOTE | 2019-10-13 09:31 | NUR ---
NURSE NOTES: Patient seen and assessed by Dr. Bill. Patient showing no signs of acute distress, turned and repositioned patient. Medications given as prescribed, no adverse reactions noted.
--- NOTE | 2019-10-13 10:17 | Infectious Diseases Prog Note ---
Assessment/Plan Assessment/Plan A 1. pneumonia COVID19 negative x 2 2. Hypoxic respiratory failure 3. renal failure improving 4. diabetes mellitus 5. hypertension 6. CHF 7. COPD 8. dementia P 1. continue cefepime, Flagyl 2. Will f/u sputum culture Subjective ROS Limited/Unobtainable: Yes Constitutional: Denies: fever Neurologic: Reports: confusion, other - on restraint Allergies: Coded Allergies: No Known Allergies (Unverified , 07/23/18) Objective Vital Signs Last 24 Hour Vital Signs Date Time Temp Pulse Resp B/P (MAP) Pulse Ox O2 Delivery O2 Flow Rate FiO2 10/13/19 09:00 93 32 140/75 (96) 92 10/13/19 08:30 79 25 114/70 (85) 99 10/13/19 08:11 5.0 50 10/13/19 08:10 100 Venturi Mask 12.0 50 10/13/19 08:09 82 10/13/19 08:00 Bi-pap 10/13/19 08:00 97.5 69 18 126/73 (90) 100 10/13/19 08:00 45 10/13/19 07:30 74 17 125/76 (92) 100 10/13/19 07:00 73 19 129/76 (93) 100 10/13/19 06:45 72 18 128/79 (95) 100 10/13/19 06:30 74 19 123/75 (91) 100 10/13/19 06:15 76 20 124/77 (93) 100 10/13/19 06:00 74 19 127/77 (94) 100 10/13/19 05:45 77 21 124/77 (93) 100 10/13/19 05:30 71 20 119/72 (88) 100 10/13/19 05:15 72 19 123/77 (92) 100 10/13/19 05:00 72 18 122/74 (90) 100 10/13/19 04:45 71 20 119/71 (87) 100 10/13/19 04:30 74 20 122/76 (91) 100 10/13/19 04:15 78 19 129/69 (89) 100 10/13/19 04:00 45 10/13/19 04:00 Bi-pap 10/13/19 04:00 97.7 93 19 148/94 (112) 97 10/13/19 03:45 81 21 127/82 (97) 100 10/13/19 03:33 81 10/13/19 03:30 86 19 127/80 (96) 98 10/13/19 03:30 89 28 99 45 10/13/19 03:15 93 36 131/80 (97) 95 10/13/19 03:00 94 33 123/69 (87) 98 10/13/19 02:45 93 29 129/81 (97) 98 10/13/19 02:30 93 35 126/81 (96) 98 10/13/19 02:15 83 23 132/80 (97) 100 10/13/19 02:00 83 20 136/85 (102) 100 10/13/19 01:45 106 39 144/80 (101) 96 10/13/19 01:30 95 37 129/82 (98) 97 10/13/19 01:15 85 36 120/80 (93) 99 10/13/19 01:00 87 33 129/78 (95) 99 10/13/19 00:45 93 36 128/73 (91) 97 10/13/19 00:30 92 38 121/71 (88) 97 10/13/19 00:15 79 21 130/76 (94) 99 10/13/19 00:11 89 28 98 55 10/13/19 00:00 Bi-pap 10/13/19 00:00 97.3 82 19 124/70 (88) 100 10/13/19 00:00 55 10/12/19 23:45 94 35 131/77 (95) 98 10/12/19 23:30 80 22 116/70 (85) 100 10/12/19 23:15 82 19 119/71 (87) 100 10/12/19 23:13 98 10/12/19 23:00 82 18 122/76 (91) 100 10/12/19 22:45 86 19 125/74 (91) 100 10/12/19 22:30 82 18 123/71 (88) 100 10/12/19 22:15 95 31 157/78 (104) 91 10/12/19 22:00 93 34 127/63 (84) 98 10/12/19 21:45 95 36 126/86 (99) 98 6/3/20 21:30 89 35 125/74 (91) 99 10/12/19 21:15 90 36 132/80 (97) 98 10/12/19 21:00 77 20 120/67 (84) 100 10/12/19 20:45 86 31 125/76 (92) 99 10/12/19 20:30 80 22 123/84 (97) 100 10/12/19 20:15 74 20 121/75 (90) 100 10/12/19 20:00 97 Bi-Pap 55 10/12/19 20:00 Bi-pap 10/12/19 20:00 55 10/12/19 20:00 97.0 81 17 128/74 (92) 100 10/12/19 19:45 79 19 119/73 (88) 100 10/12/19 19:33 76 10/12/19 19:30 81 20 115/71 (86) 99 10/12/19 19:30 83 20 100 55 10/12/19 19:15 84 19 121/71 (88) 99 10/12/19 19:00 81 19 122/67 (85) 99 10/12/19 18:00 79 19 121/70 (87) 99 10/12/19 17:28 79 26 100 50 10/12/19 17:00 91 33 141/78 (99) 94 10/12/19 16:08 Venturi Mask 8.0 40 10/12/19 16:08 92 10/12/19 16:00 Bi-pap 10/12/19 16:00 94 10/12/19 16:00 98.8 92 29 127/71 (89) 93 10/12/19 15:00 91 33 158/94 (115) 93 10/12/19 14:00 95 35 163/92 (115) 93 10/12/19 13:00 73 20 134/79 (97) 99 10/12/19 12:00 Bi-pap 10/12/19 12:00 98.4 76 21 125/76 (92) 98 10/12/19 12:00 78 10/12/19 11:35 100 10/12/19 11:35 79 22 97 50 10/12/19 11:35 Bi-Pap 100 10/12/19 11:00 89 31 131/72 (91) 97 10/12/19 10:45 78 21 115/78 (90) 98 6/3/20 10:30 78 20 124/73 (90) 98 10/12/19 10:15 81 22 132/78 (96) 97 Height (Feet): 5 Height (Inches): 11.00 Weight (Pounds): 145 HEENT: mucous membranes moist Respiratory/Chest: other - oxygen by venturi mask, tachypneic Cardiovascular: normal rate, other - left femoral line Abdomen: soft, non tender, other - NG tube feeding Extremities: other - edema of arms Neurologic/Psychiatric: disoriented, other - barely opens eyes Microbiology Date/Time Source Procedure Growth Status 10/11/19 09:00 Nasopharynx Coronavirus COVID-19 PCR ([facility]) - Final Complete Laboratory Tests Test 10/13/19 04:20 10/13/19 09:35 Sodium Level 148 MMOL/L (136-145) H Potassium Level 3.8 MMOL/L (3.5-5.1) Chloride Level 114 MMOL/L (98-107) H Carbon Dioxide Level 25 MMOL/L (21-32) Anion Gap 9 mmol/L (5-15) Blood Urea Nitrogen 34 mg/dL (7-18) H Creatinine 1.9 MG/DL (0.55-1.30) H Estimat Glomerular Filtration Rate 35.0 mL/min (>60) Glucose Level 121 MG/DL (74-106) H Calcium Level 8.4 MG/DL (8.5-10.1) L Arterial Blood pH 7.373 (7.350-7.450) Arterial Blood Partial Pressure CO2 40.7 mmHg (35.0-45.0) Arterial Blood Partial Pressure O2 62.7 mmHg (75.0-100.0) L Arterial Blood HCO3 23.2 mmol/L (22.0-26.0) Arterial Blood Oxygen Saturation 91.5 % (95-100) L Arterial Blood Base Excess -1.9 (-2-2) Hal Test Positive Current Medications Medications (Trade) Dose Ordered Sig/Clementine Route PRN Reason Start Time Stop Time Status Last Admin Dose Admin Acetaminophen (Tylenol) 650 mg Q4H PRN ORAL Mild Pain (Pain Scale 1-3) 10/09/19 05:45 11/08/19 05:44 Acetaminophen (Tylenol) 650 mg Q4H PRN ORAL fever 10/09/19 05:45 11/08/19 05:44 Albuterol Sulfate (Proventil MDI) 2 puff Q4H PRN INH Shortness of Breath 10/09/19 12:45 01/07/20 12:44 Aspirin (ASA) 81 mg DAILY ORAL 10/09/19 09:00 11/23/19 08:59 10/11/19 08:19 Cefepime HCl 1 gm/ Sodium Chloride 55 ml @ 110 mls/hr DAILY IVPB 10/13/19 09:00 10/16/19 23:59 10/13/19 09:22 Chlorhexidine Gluconate (Flaca-Hex 2%) 1 applic DAILY@2000 TOPIC 10/09/19 20:00 01/07/20 19:59 10/12/19 20:19 Dextrose (Dextrose 50%) 25 ml Q30M PRN IV Hypoglycemia 10/09/19 05:45 01/07/20 05:44 Dextrose (Dextrose 50%) 50 ml Q30M PRN IV Hypoglycemia 10/09/19 05:45 01/07/20 05:44 Diltiazem HCl 125 ml @ 0 mls/hr Q24H IVPB 10/12/19 22:30 10/13/19 22:29 10/13/19 07:00 Haloperidol Lactate 5 mg/ Dextrose 56 ml @ 224 mls/hr Q6HR PRN IVPB Agitation 10/09/19 21:30 11/23/19 21:29 10/11/19 04:35 Heparin Sodium (Porcine) (Heparin 5000 units/ml) 5,000 units EVERY 12 HOURS SUBQ 10/09/19 09:00 11/23/19 08:59 10/13/19 08:03 Metronidazole 100 ml @ 100 mls/hr Q8H IVPB 10/09/19 08:00 10/16/19 07:59 10/13/19 08:03 Norepinephrine Bitartrate 250 ml @ 0 mls/hr Q24H IV 10/09/19 12:45 01/07/20 12:44 Potassium Chloride 10 meq/ Dextrose 1,005 ml @ 75 mls/hr [id number] IV 10/10/19 22:00 11/09/19 21:59 10/13/19 03:28 Pravastatin Sodium (Pravachol) 20 mg BEDTIME ORAL 10/09/19 21:00 11/08/19 20:59 10/12/19 20:19 Migel Adams MD Oct 13, 2019 10:17
--- NOTE | 2019-10-13 10:29 | General Progress Note ---
Assessment/Plan Assessment/Plan: 1. History of diabetes. 2. Hypertension. 3. Chronic kidney disease. 4. COPD. 5. CHF. 6. Dementia. 7. AMS 8. Dysphagia 9. Righ sided pna npo i placed An NGT yesterday and now is clogged! trilal of flushing with cranberry juice fu pulm abx per ID swallow eval when more stable Subjective ROS Limited/Unobtainable: No Allergies: Coded Allergies: No Known Allergies (Unverified , 07/23/18) Objective Last 24 Hour Vital Signs Date Time Temp Pulse Resp B/P (MAP) Pulse Ox O2 Delivery O2 Flow Rate FiO2 10/13/19 09:00 93 32 140/75 (96) 92 10/13/19 08:30 79 25 114/70 (85) 99 10/13/19 08:11 5.0 50 10/13/19 08:10 100 Venturi Mask 12.0 50 10/13/19 08:09 82 10/13/19 08:00 Bi-pap 10/13/19 08:00 97.5 69 18 126/73 (90) 100 10/13/19 08:00 45 10/13/19 07:30 74 17 125/76 (92) 100 10/13/19 07:00 73 19 129/76 (93) 100 10/13/19 06:45 72 18 128/79 (95) 100 10/13/19 06:30 74 19 123/75 (91) 100 10/13/19 06:15 76 20 124/77 (93) 100 10/13/19 06:00 74 19 127/77 (94) 100 10/13/19 05:45 77 21 124/77 (93) 100 10/13/19 05:30 71 20 119/72 (88) 100 10/13/19 05:15 72 19 123/77 (92) 100 10/13/19 05:00 72 18 122/74 (90) 100 10/13/19 04:45 71 20 119/71 (87) 100 10/13/19 04:30 74 20 122/76 (91) 100 10/13/19 04:15 78 19 129/69 (89) 100 10/13/19 04:00 45 10/13/19 04:00 Bi-pap 10/13/19 04:00 97.7 93 19 148/94 (112) 97 10/13/19 03:45 81 21 127/82 (97) 100 10/13/19 03:33 81 10/13/19 03:30 86 19 127/80 (96) 98 10/13/19 03:30 89 28 99 45 10/13/19 03:15 93 36 131/80 (97) 95 10/13/19 03:00 94 33 123/69 (87) 98 10/13/19 02:45 93 29 129/81 (97) 98 10/13/19 02:30 93 35 126/81 (96) 98 10/13/19 02:15 83 23 132/80 (97) 100 10/13/19 02:00 83 20 136/85 (102) 100 10/13/19 01:45 106 39 144/80 (101) 96 10/13/19 01:30 95 37 129/82 (98) 97 10/13/19 01:15 85 36 120/80 (93) 99 10/13/19 01:00 87 33 129/78 (95) 99 10/13/19 00:45 93 36 128/73 (91) 97 10/13/19 00:30 92 38 121/71 (88) 97 10/13/19 00:15 79 21 130/76 (94) 99 10/13/19 00:11 89 28 98 55 10/13/19 00:00 Bi-pap 10/13/19 00:00 97.3 82 19 124/70 (88) 100 10/13/19 00:00 55 10/12/19 23:45 94 35 131/77 (95) 98 10/12/19 23:30 80 22 116/70 (85) 100 10/12/19 23:15 82 19 119/71 (87) 100 10/12/19 23:13 98 10/12/19 23:00 82 18 122/76 (91) 100 10/12/19 22:45 86 19 125/74 (91) 100 10/12/19 22:30 82 18 123/71 (88) 100 10/12/19 22:15 95 31 157/78 (104) 91 10/12/19 22:00 93 34 127/63 (84) 98 10/12/19 21:45 95 36 126/86 (99) 98 10/12/19 21:30 89 35 125/74 (91) 99 10/12/19 21:15 90 36 132/80 (97) 98 10/12/19 21:00 77 20 120/67 (84) 100 10/12/19 20:45 86 31 125/76 (92) 99 10/12/19 20:30 80 22 123/84 (97) 100 10/12/19 20:15 74 20 121/75 (90) 100 10/12/19 20:00 97 Bi-Pap 55 10/12/19 20:00 Bi-pap 10/12/19 20:00 55 10/12/19 20:00 97.0 81 17 128/74 (92) 100 10/12/19 19:45 79 19 119/73 (88) 100 10/12/19 19:33 76 10/12/19 19:30 81 20 115/71 (86) 99 10/12/19 19:30 83 20 100 55 10/12/19 19:15 84 19 121/71 (88) 99 10/12/19 19:00 81 19 122/67 (85) 99 10/12/19 18:00 79 19 121/70 (87) 99 10/12/19 17:28 79 26 100 50 10/12/19 17:00 91 33 141/78 (99) 94 10/12/19 16:08 Venturi Mask 8.0 40 10/12/19 16:08 92 10/12/19 16:00 Bi-pap 10/12/19 16:00 94 10/12/19 16:00 98.8 92 29 127/71 (89) 93 10/12/19 15:00 91 33 158/94 (115) 93 10/12/19 14:00 95 35 163/92 (115) 93 10/12/19 13:00 73 20 134/79 (97) 99 10/12/19 12:00 Bi-pap 10/12/19 12:00 98.4 76 21 125/76 (92) 98 10/12/19 12:00 78 10/12/19 11:35 100 10/12/19 11:35 79 22 97 50 10/12/19 11:35 Bi-Pap 100 10/12/19 11:00 89 31 131/72 (91) 97 10/12/19 10:45 78 21 115/78 (90) 98 10/12/19 10:30 78 20 124/73 (90) 98 Intake and Output 10/12/19 10/13/19 19:00 07:00 Intake Total 1103.625 ml 1033.9583 ml Output Total 705 ml 630 ml Balance 398.625 ml 403.9583 ml IV Total 1103.625 ml 1033.9583 ml Output Urine Total 705 ml 630 ml Laboratory Tests 10/13/19 04:20: Sodium Level 148H, Potassium Level 3.8, Chloride Level 114H, Carbon Dioxide Level 25, Anion Gap 9, Blood Urea Nitrogen 34H, Creatinine 1.9H, Estimat Glomerular Filtration Rate 35.0, Glucose Level 121H, Calcium Level 8.4L 10/13/19 09:35: Arterial Blood pH 7.373, Arterial Blood Partial Pressure CO2 40.7, Arterial Blood Partial Pressure O2 62.7L, Arterial Blood HCO3 23.2, Arterial Blood Oxygen Saturation 91.5L, Arterial Blood Base Excess -1.9, Hal Test Positive Height (Feet): 5 Height (Inches): 11.00 Weight (Pounds): 145 General Appearance: no apparent distress EENT: normal ENT inspection Neck: supple Cardiovascular: normal rate Respiratory/Chest: decreased breath sounds Abdomen: normal bowel sounds, non tender, soft Extremities: non-tender Chaitanya Beverly MD Oct 13, 2019 10:29
--- NOTE | 2019-10-13 10:58 | NUR ---
RADIOLOGY DEPT., CHEST X-RAY DONE.-P.DYE
--- NOTE | 2019-10-13 11:11 | Diagnostic Imaging Report ---
Indication: Dyspnea Technique: One view of the chest Comparison: 10/08/2019 Findings: There is near complete opacification of the right hemithorax. This is a new finding, since the previous chest radiograph, although similar findings were reported on more recent abdominal radiographs. There appears to be abrupt cut off of the right mainstem bronchus at the origin Satisfactory position of nasogastric feeding tube. There is some perihilar infiltrate on the left, as well as more generalized mild interstitial congestion. The heart size is difficult to assess. Impression: Persistent near complete opacification of the right hemithorax. Given negative findings on recent chest ultrasound, most likely on the basis of atelectasis, possibly due to endobronchial occlusion given lack of visualization of the right mainstem bronchus Left perihilar infiltrate versus edema, more generalized mild left lung interstitial congestion
--- NOTE | 2019-10-13 11:33 | NUR ---
NURSE NOTES: Cardizem drip was increased to 12.5mg/hr at 1100. Patient remains A. Fib on the heart monitor, HR 85-107. At 1130 patient remains in A. Fib, HR 80-105. Increased Cardizem drip to 15mg/hr. Patient is tachypneic, but denies any pain.
[2019-10-13] MEDS: Norepinephrine 4mg/NS Premix 250 ML IV SCH (12:45)
--- NOTE | 2019-10-13 13:14 | NUR ---
NURSE NOTES: Patient remains in A. Fib HR 90-102. Turned and repositioned patient. Patient is afebrile, no signs of acute distress.
--- NOTE | 2019-10-13 13:23 | NUR ---
NURSE NOTES: Patient seen and assessed by Dr. Gant.
--- NOTE | 2019-10-13 14:14 | NUR ---
CASE MANAGEMENT: REVIEW 10/13/19 SI: SEPSIS . CHRONIC KIDNEY DISEASE . A-FIB . COVID-19 NEGATIVE X2 LEFT FEMORAL CENTRAL VENOUS CATHETER INSERTION 10/08 97.3 110 32 126/71 93% VENTURI MASK 12 L NA+ 148 CL-114 BUN/CREAT 34/1.9 BG 121 CA+ 8.4 ABG: pO2 62.7 O2 SAT 91.5 IS:IV CARDIZEM QD IV CEFEPIME BID IV FLAGYL TID IV KCL/D5@75ML/HR PRAVACHOL PO QHS MARTIR-HEX 2% TP QD IV HALDOL Q6HR/PRN NG TUBE XRAY Chest 1v:Dyspnea:Persistent near complete opacification of the right hemithorax.Left perihilar infiltrate versus edema, more generalized mild left lung interstitial congestion \: INTENSIVE CARE UNIT DCP: PATIENT IS FROM [facility] PLAN: SWALLOW EVAL WHEN MORE STABLE
[2019-10-13] MEDS ORDERED: NS 275ml ONE (14:22)
[2019-10-13] MEDS ORDERED: NS 500ML ONE (14:23)
[2019-10-13] MEDS ORDERED: Tubing IV Secondary IV ONE (14:23)
--- NOTE | 2019-10-13 14:51 | NUR ---
BOG WORKER COGNITIVE COMMUNICATIVE, SPEECH, LANGUAGE EVAL (Please see care activity section for complete report) PATIENT REFERRED FOR COGNITIVE COMMUNICATIVE SPEECH AND LANGUAGE EVALUATION BY DR. BERNABE. ACUTE ISSUES: AFK, Chronic Diastolic Congestive Heart Failure, dehydration, PNA, DM 2 w/ diabetic chronic kidney disease, metabolic encephalopathy, hyperosmolality and hypernatremia, respiratory failure. H/O: Acute respiratory failure with hypoxia, Oropharyngeal dysphagia, cognitive communicative deficit, ataxic gait, hyperlipidemia, Unspecified Dementia with behavior disturbances, acute on chronic diastolic congestive heart failure, cerebral infarction due to unspecified occlusion or stenosis. VITAL SIGNS on Venturi Mask 5L FI02 50%: HR: 107; RR: 28; SP02: 95% INITIAL IMPRESSIONS: Mild to Moderate Cognitive Communicative Deficit compounded by h/o metabolic encephalopathy and Unspecified Dementia with behavior disturbances. Patients ability to communicate wants and needs is limited, however, Patient is able to respond to simple yes/no questions via head nods and 'mouthing' words if given tactile and verbal cues at 80% accuracy. Patient's ability to communicate impacted by poor respiratory phonation coordination and current respiratory status requiring venturi mask. Upon arrival, Patient appears lethargy and required verbal cues to maintain alertness. Patients verbal communication was limited, primarily Patient communicates via head nods and or mouthing words. Patient does follow very simple 1-step and 2-step directions, and benefits from verbal and visual cues when providing care to minimize agitation. Patient's oral motor ROM and coordination appearing as mild to moderate deficits. However, oral mucosa appears dry with dried thick oral secretions noted throughout oral cavity potentially impacting Patients oral motor sensation. Venturi Mask limiting comprehensive oral motor assessment. RN assisted BOG WORKER in providing some oral care to Patient with suction due to the amount of oral secretions noted. Per Patients Niece (Daniela) Patient has been requiring assistance with care for the past 7 years, Patient was receiving care from niece at home, approx. 1-1.5 years ago Patient was transitioned into a convalescent home. Patient has h/o memory difficulties, swallowing difficulties, and requires 1:1 assistance with most self-care tasks. While in house, BOG WORKER plans to target Patients ability to communicate wants and needs, methods of facilitating communication with caregivers, and safety awareness to maintain calm environment and minimize agitation behaviors. BOG WORKER plans to f/u for cognitive linguistic training, patient and caregiver education and training, and motor speech planning/training. BOG WORKER orders received for Bedside Swallow Evaluation. Patient noted to have variable respiratory rate (ranging from 24 to 36) given Patient has venturi mask, continues to be lethargic, and has h/o dysphagia; BOG WORKER plans to follow-up with Patient tomorrow, if appropriate, for Bedside Swallow Evaluation. BOG WORKER educated Patient on recommendations, POC, and goals for BOG WORKER intervention. BOG WORKER educated RN on BOG WORKER plan, results, and recommendations. Thank you for this referral, for questions for ST, call rehab department [phone]
--- NOTE | 2019-10-13 15:05 | NUR ---
NURSE NOTES: Left Nares NGT inserted by Dr. Beverly, removed Right Nares NGT due to it being clogged.
--- NOTE | 2019-10-13 17:09 | Diagnostic Imaging Report ---
Indication: Post nasogastric tube placement Technique: Supine view of the abdomen Comparison: 10/12/2019 Findings: Previously demonstrated small bore weighted feeding tube is been removed, replaced by a large bore nasogastric tube which has its tip at the expected level of the gastric antrum. Again demonstrated is near complete opacification of the right hemithorax nonvisualization of the right stem bronchus. Bowel gas pattern is unremarkable. There is lumbar scoliotic deformity again demonstrated Impression: Satisfactory nasogastric intubation Other findings as noted ICU nurse Anselmo notified at the time of interpretation
--- NOTE | 2019-10-13 17:11 | Surgery Progress Note ---
Surgery Progress Note Subjective Procedure Performed left femoral central venous catheter insertion Additional Comments ill appearing lab noted Objective Last 24 Hour Vital Signs Date Time Temp Pulse Resp B/P (MAP) Pulse Ox O2 Delivery O2 Flow Rate FiO2 10/13/19 16:30 112 33 114/86 (95) 95 10/13/19 16:00 107 32 109/70 (83) 95 10/13/19 16:00 102 10/13/19 15:45 125 29 94 Venturi Mask 12.0 50 10/13/19 15:45 Venturi Mask 12.0 50 10/13/19 15:30 111 34 117/74 (88) 95 10/13/19 15:00 105 34 126/67 (86) 86 10/13/19 14:30 110 35 115/72 (86) 93 10/13/19 14:00 107 28 125/91 (102) 95 10/13/19 13:30 102 24 112/78 (89) 94 10/13/19 13:00 110 32 126/71 (89) 93 10/13/19 12:30 97.3 96 28 109/58 (75) 94 10/13/19 12:15 95 36 128/73 (91) 94 10/13/19 12:00 91 26 114/71 (85) 95 10/13/19 12:00 Bi-pap 10/13/19 11:50 82 10/13/19 11:45 101 29 130/73 (92) 90 10/13/19 11:30 91 31 140/81 (100) 92 10/13/19 11:15 83 24 124/78 (93) 95 10/13/19 11:00 91 37 142/92 (109) 92 10/13/19 10:30 89 30 128/84 (99) 94 10/13/19 10:00 91 32 134/76 (95) 93 10/13/19 09:30 93 30 150/83 (105) 92 10/13/19 09:00 93 32 140/75 (96) 92 10/13/19 08:30 79 25 114/70 (85) 99 10/13/19 08:11 5.0 50 10/13/19 08:10 100 Venturi Mask 12.0 50 10/13/19 08:09 82 10/13/19 08:00 Bi-pap 10/13/19 08:00 97.5 69 18 126/73 (90) 100 10/13/19 08:00 45 10/13/19 07:30 74 17 125/76 (92) 100 10/13/19 07:00 73 19 129/76 (93) 100 10/13/19 06:45 72 18 128/79 (95) 100 10/13/19 06:30 74 19 123/75 (91) 100 10/13/19 06:15 76 20 124/77 (93) 100 10/13/19 06:00 74 19 127/77 (94) 100 10/13/19 05:45 77 21 124/77 (93) 100 10/13/19 05:30 71 20 119/72 (88) 100 10/13/19 05:15 72 19 123/77 (92) 100 10/13/19 05:00 72 18 122/74 (90) 100 10/13/19 04:45 71 20 119/71 (87) 100 10/13/19 04:30 74 20 122/76 (91) 100 10/13/19 04:15 78 19 129/69 (89) 100 10/13/19 04:00 45 10/13/19 04:00 Bi-pap 10/13/19 04:00 97.7 93 19 148/94 (112) 97 10/13/19 03:45 81 21 127/82 (97) 100 10/13/19 03:33 81 10/13/19 03:30 86 19 127/80 (96) 98 10/13/19 03:30 89 28 99 45 10/13/19 03:15 93 36 131/80 (97) 95 10/13/19 03:00 94 33 123/69 (87) 98 10/13/19 02:45 93 29 129/81 (97) 98 10/13/19 02:30 93 35 126/81 (96) 98 10/13/19 02:15 83 23 132/80 (97) 100 10/13/19 02:00 83 20 136/85 (102) 100 10/13/19 01:45 106 39 144/80 (101) 96 10/13/19 01:30 95 37 129/82 (98) 97 10/13/19 01:15 85 36 120/80 (93) 99 10/13/19 01:00 87 33 129/78 (95) 99 10/13/19 00:45 93 36 128/73 (91) 97 10/13/19 00:30 92 38 121/71 (88) 97 10/13/19 00:15 79 21 130/76 (94) 99 10/13/19 00:11 89 28 98 55 10/13/19 00:00 Bi-pap 10/13/19 00:00 97.3 82 19 124/70 (88) 100 10/13/19 00:00 55 10/12/19 23:45 94 35 131/77 (95) 98 10/12/19 23:30 80 22 116/70 (85) 100 10/12/19 23:15 82 19 119/71 (87) 100 10/12/19 23:13 98 10/12/19 23:00 82 18 122/76 (91) 100 10/12/19 22:45 86 19 125/74 (91) 100 10/12/19 22:30 82 18 123/71 (88) 100 10/12/19 22:15 95 31 157/78 (104) 91 10/12/19 22:00 93 34 127/63 (84) 98 10/12/19 21:45 95 36 126/86 (99) 98 10/12/19 21:30 89 35 125/74 (91) 99 10/12/19 21:15 90 36 132/80 (97) 98 10/12/19 21:00 77 20 120/67 (84) 100 10/12/19 20:45 86 31 125/76 (92) 99 10/12/19 20:30 80 22 123/84 (97) 100 10/12/19 20:15 74 20 121/75 (90) 100 10/12/19 20:00 97 Bi-Pap 55 10/12/19 20:00 Bi-pap 10/12/19 20:00 55 10/12/19 20:00 97.0 81 17 128/74 (92) 100 10/12/19 19:45 79 19 119/73 (88) 100 10/12/19 19:33 76 10/12/19 19:30 81 20 115/71 (86) 99 10/12/19 19:30 83 20 100 55 10/12/19 19:15 84 19 121/71 (88) 99 10/12/19 19:00 81 19 122/67 (85) 99 10/12/19 18:00 79 19 121/70 (87) 99 10/12/19 17:28 79 26 100 50 I&O Intake and Output 10/12/19 10/13/19 19:00 07:00 Intake Total 1103.625 ml 1033.9583 ml Output Total 705 ml 630 ml Balance 398.625 ml 403.9583 ml IV Total 1103.625 ml 1033.9583 ml Output Urine Total 705 ml 630 ml Dressing: other Wound: other Drains: other Cardiovascular: RSR Respiratory: decreased breath sounds Abdomen: soft, non-tender, present bowel sounds Extremities: no cyanosis Laboratory Tests Test 10/13/19 04:20 10/13/19 09:35 Sodium Level 148 MMOL/L (136-145) H Potassium Level 3.8 MMOL/L (3.5-5.1) Chloride Level 114 MMOL/L (98-107) H Carbon Dioxide Level 25 MMOL/L (21-32) Anion Gap 9 mmol/L (5-15) Blood Urea Nitrogen 34 mg/dL (7-18) H Creatinine 1.9 MG/DL (0.55-1.30) H Estimat Glomerular Filtration Rate 35.0 mL/min (>60) Glucose Level 121 MG/DL (74-106) H Calcium Level 8.4 MG/DL (8.5-10.1) L Arterial Blood pH 7.373 (7.350-7.450) Arterial Blood Partial Pressure CO2 40.7 mmHg (35.0-45.0) Arterial Blood Partial Pressure O2 62.7 mmHg (75.0-100.0) L Arterial Blood HCO3 23.2 mmol/L (22.0-26.0) Arterial Blood Oxygen Saturation 91.5 % (95-100) L Arterial Blood Base Excess -1.9 (-2-2) Hal Test Positive Plan Problems: (1) Hypotension Assessment & Plan: 74-year-old male hypotensive unknown etiology's potentially septic COVID eval Needs pressors urgently transfer to the intensive care unit Need central venous access for pressors meds fluids Emergency procedure performed at the bedside Left femoral central venous catheter inserted without complication see note Okay for pressors okay to use We will follow with recommendations and monitor. Thank you for allowing participate in patient care There is a nasogastric tube in place. Tip projects at the level of the distal esophagus. There is complete opacification of the right hemithorax. This is a new finding. There appears to be abrupt cut off of the right mainstem bronchus. The bowel gas pattern is unremarkable High position of nasogastric tube. Advancement recommended. Complete opacification of the right hemithorax. Probably due to complete atelectasis of the right lung, could also indicate a component of pleural fluid. (2) Dehydration Assessment & Plan: DAILY ESTIMATED NEEDS: Needs based on Respiratory, underweight 57.3 30-35 kcals/kg 9343-5402 total kcals 1-1.5 g protein/kg 57-86 g total protein 25-30 mL/kg 6249-7818 total fluid mLs NUTRITION DIAGNOSIS: Altered nutrition related lab values r/t clinical status, renal failure as evidenced by elev BUN (62 trending down), elev Creat (2.1 trending down), elev Na (150). CURRENT DIET:SIDRA ms w/ NTL PO DIET RECOMMENDATIONS: LOW NA + NEPRO TID / Texture per PRODUCT MGMT DEV MANAGER ENTERAL NUTRITION RECOMMENDATIONS: -Consult RD if part of POC w/ continued poor po intake. ADDITIONAL RECOMMENDATIONS: 1) Obtain a CALIBRATED WEIGHT as able Pt w/ underweight BMI 2) Poor po intake-> consider non oral feeds for ICU status and poor po 3) PRODUCT MGMT DEV MANAGER eval for H/o CVA-> diet texture per PRODUCT MGMT DEV MANAGER 4) rec WC eval for sacral wound, add MURIEL BID for skin integrity . (3) Acute renal failure (4) Pneumonia (5) Acute metabolic encephalopathy (6) Suspected COVID-19 virus infection Gallo Kingston Oct 13, 2019 17:11
--- NOTE | 2019-10-13 18:23 | NUR ---
NURSE NOTES: Gave patient bed bath, no signs of acute distress. Turned and repositioned patient. Tube feeding started via Left NGT, Vital AF at 10cc/hr.
--- NOTE | 2019-10-13 19:08 | NUR ---
HAND-OFF: Report given to Sanam JEAN.
--- NOTE | 2019-10-13 19:09 | NUR ---
NURSE NOTES: Received patient from MIRANDA COLES. Will continue plan of care.
--- NOTE | 2019-10-13 20:00 | NUR ---
NURSE NOTES: Patient is asleep but awakes to voice and touch; eyes opened and tracking. Venturi mask @ 50% O2 saturation:95%. New right nare NGT placed and is patent and flushing well. Feeding of Vital AF running at 10ml/hr will increase to goal of 60ml/hr as tolerated. Mathis in place and draining but patient is oliguric. Left femoral TLC running D5 w/10meq KCL @ 75ml/hr and Cardizem drip running 15ml/hr. Remains A-Fib, will monitor. BLADDER TRIMMER restraints in place for safety and prevent pulling. ROM and skin assessed. BP:117/71, HR:92, Temp:96.9F axillary. Bed low locked and alarm is on. Will continue plan of care.
--- NOTE | 2019-10-13 20:03 | Nephrology Progress Note ---
Assessment/Plan Problem List: (1) Hypernatremia (2) CHF (congestive heart failure) (3) Dehydration (4) Acute renal failure (5) Pneumonia (6) Suspected COVID-19 virus infection (7) Hypotension (8) HCAP (healthcare-associated pneumonia) Plan hypotonic fluids, pulm care, empiric atb ordered high risk Subjective ROS Limited/Unobtainable: Yes Objective Objective Last 24 Hour Vital Signs Date Time Temp Pulse Resp B/P (MAP) Pulse Ox O2 Delivery O2 Flow Rate FiO2 10/13/19 19:00 111 30 124/84 (97) 95 10/13/19 18:30 110 34 116/75 (89) 96 10/13/19 18:00 106 33 127/83 (98) 96 10/13/19 17:30 113 31 105/75 (85) 96 10/13/19 17:00 97.3 113 31 110/65 (80) 95 10/13/19 16:30 112 33 114/86 (95) 95 10/13/19 16:00 107 32 109/70 (83) 95 10/13/19 16:00 102 10/13/19 16:00 Bi-pap 10/13/19 16:00 50 10/13/19 15:45 125 29 94 Venturi Mask 12.0 50 10/13/19 15:45 Venturi Mask 12.0 50 10/13/19 15:30 111 34 117/74 (88) 95 10/13/19 15:00 105 34 126/67 (86) 86 10/13/19 14:30 110 35 115/72 (86) 93 10/13/19 14:00 107 28 125/91 (102) 95 10/13/19 13:30 102 24 112/78 (89) 94 10/13/19 13:00 110 32 126/71 (89) 93 10/13/19 12:30 97.3 96 28 109/58 (75) 94 10/13/19 12:15 95 36 128/73 (91) 94 10/13/19 12:00 91 26 114/71 (85) 95 10/13/19 12:00 Bi-pap 10/13/19 11:50 82 10/13/19 11:45 101 29 130/73 (92) 90 10/13/19 11:30 91 31 140/81 (100) 92 10/13/19 11:15 83 24 124/78 (93) 95 10/13/19 11:00 91 37 142/92 (109) 92 10/13/19 10:30 89 30 128/84 (99) 94 10/13/19 10:00 91 32 134/76 (95) 93 10/13/19 09:30 93 30 150/83 (105) 92 10/13/19 09:00 93 32 140/75 (96) 92 10/13/19 08:30 79 25 114/70 (85) 99 10/13/19 08:11 5.0 50 10/13/19 08:10 100 Venturi Mask 12.0 50 10/13/19 08:09 82 10/13/19 08:00 Bi-pap 10/13/19 08:00 97.5 69 18 126/73 (90) 100 10/13/19 08:00 45 10/13/19 07:30 74 17 125/76 (92) 100 10/13/19 07:00 73 19 129/76 (93) 100 10/13/19 06:45 72 18 128/79 (95) 100 10/13/19 06:30 74 19 123/75 (91) 100 10/13/19 06:15 76 20 124/77 (93) 100 10/13/19 06:00 74 19 127/77 (94) 100 10/13/19 05:45 77 21 124/77 (93) 100 10/13/19 05:30 71 20 119/72 (88) 100 10/13/19 05:15 72 19 123/77 (92) 100 10/13/19 05:00 72 18 122/74 (90) 100 10/13/19 04:45 71 20 119/71 (87) 100 10/13/19 04:30 74 20 122/76 (91) 100 10/13/19 04:15 78 19 129/69 (89) 100 10/13/19 04:00 45 10/13/19 04:00 Bi-pap 10/13/19 04:00 97.7 93 19 148/94 (112) 97 10/13/19 03:45 81 21 127/82 (97) 100 10/13/19 03:33 81 10/13/19 03:30 86 19 127/80 (96) 98 10/13/19 03:30 89 28 99 45 10/13/19 03:15 93 36 131/80 (97) 95 10/13/19 03:00 94 33 123/69 (87) 98 10/13/19 02:45 93 29 129/81 (97) 98 10/13/19 02:30 93 35 126/81 (96) 98 10/13/19 02:15 83 23 132/80 (97) 100 10/13/19 02:00 83 20 136/85 (102) 100 10/13/19 01:45 106 39 144/80 (101) 96 10/13/19 01:30 95 37 129/82 (98) 97 10/13/19 01:15 85 36 120/80 (93) 99 10/13/19 01:00 87 33 129/78 (95) 99 10/13/19 00:45 93 36 128/73 (91) 97 10/13/19 00:30 92 38 121/71 (88) 97 10/13/19 00:15 79 21 130/76 (94) 99 10/13/19 00:11 89 28 98 55 10/13/19 00:00 Bi-pap 10/13/19 00:00 97.3 82 19 124/70 (88) 100 10/13/19 00:00 55 10/12/19 23:45 94 35 131/77 (95) 98 10/12/19 23:30 80 22 116/70 (85) 100 10/12/19 23:15 82 19 119/71 (87) 100 10/12/19 23:13 98 10/12/19 23:00 82 18 122/76 (91) 100 10/12/19 22:45 86 19 125/74 (91) 100 10/12/19 22:30 82 18 123/71 (88) 100 10/12/19 22:15 95 31 157/78 (104) 91 10/12/19 22:00 93 34 127/63 (84) 98 10/12/19 21:45 95 36 126/86 (99) 98 10/12/19 21:30 89 35 125/74 (91) 99 10/12/19 21:15 90 36 132/80 (97) 98 10/12/19 21:00 77 20 120/67 (84) 100 10/12/19 20:45 86 31 125/76 (92) 99 10/12/19 20:30 80 22 123/84 (97) 100 10/12/19 20:15 74 20 121/75 (90) 100 Intake and Output 10/12/19 10/13/19 18:59 06:59 Intake Total 1098.125 ml 1039.4583 ml Output Total 680 ml 665 ml Balance 418.125 ml 374.4583 ml IV Total 1098.125 ml 1039.4583 ml Output Urine Total 680 ml 665 ml Laboratory Tests 10/13/19 04:20: Sodium Level 148H, Potassium Level 3.8, Chloride Level 114H, Carbon Dioxide Level 25, Anion Gap 9, Blood Urea Nitrogen 34H, Creatinine 1.9H, Estimat Glomerular Filtration Rate 35.0, Glucose Level 121H, Calcium Level 8.4L 10/13/19 09:35: Arterial Blood pH 7.373, Arterial Blood Partial Pressure CO2 40.7, Arterial Blood Partial Pressure O2 62.7L, Arterial Blood HCO3 23.2, Arterial Blood Oxygen Saturation 91.5L, Arterial Blood Base Excess -1.9, Hal Test Positive Height (Feet): 5 Height (Inches): 11.00 Weight (Pounds): 145 General Appearance: lethargic, moderate distress Cardiovascular: regularly irregular Respiratory/Chest: rhonchi - bilaterally Abdomen: soft Extremities: trace edema Neurologic: motor weakness Jose Gant MD Oct 13, 2019 20:03
[2019-10-13] MEDS: Dyna-Hex 2% Top Sol 2oz TOPIC SCH (20:07)
--- NOTE | 2019-10-13 22:00 | NUR ---
NURSE NOTES: Patient converted to sinus rhythm @ 2023 w/ heart rate currently at 78bpm. Cardizem continues to run at 15ml/hr. Remains on venture mask @ 50% @ 99% O2 saturation. Patient repositioned and looks comfortable. Will keep monitoring.
[2019-10-14] VITALS (89 sets, daily range): BP systolic 68–157; BP diastolic 49–108
--- NOTE | 2019-10-14 | NUR ---
NURSE NOTES: Converting in and out of SR and A-Fib; consistent A-Fib on monitor around 2300 to current. Continues to run Cardizem @ 15ml/hr.
[2019-10-14] MEDS: dilTIAZem Premix 125mg/125ml 125 ML IVPB SCH (00:39)
--- NOTE | 2019-10-14 02:00 | NUR ---
NURSE NOTES: Patient remains in a-fib with cardizem continuing at 15ml/hr. No changes in condition.
--- NOTE | 2019-10-14 04:00 | NUR ---
NURSE NOTES: Bed bath given, linens changes, turned and repositioned. Patient awake and alert but non-verbal. Still in a-fib; cardizem at the same rate of 15ml/hr. No residual from NGT; increased feeding to 30ml/hr.
[2019-10-14] MEDS: Potassium Chloride 10 MEQ in D5W 1000ml 1,000 ML IV SCH ×2 (05:29→20:34)
[2019-10-14] MEDS ORDERED: NS 275ml ONE (06:00)
--- NOTE | 2019-10-14 06:00 | NUR ---
NURSE NOTES: Patient became bradycardic, attempted titrating down but patient heart rate was seen to drop to the low 50s. Cardizem drip is on hold since 539. Heart rate seen fluctuating between 65-75. Will monitor.
--- NOTE | 2019-10-14 07:26 | NUR ---
NURSE NOTES: Spoke with Dr. Sen (covering for Dr. Porras) informed him about the bradycardia and cardizem drip being hold- patient is also now on tube feeding and able to receive meds PO (ngt). Orders to d/c the cardizem dip and start cardizem PO 30mg Q6. Orders are in.
--- NOTE | 2019-10-14 07:29 | NUR ---
HAND-OFF: Report given to MIRANDA Young.
--- NOTE | 2019-10-14 07:30 | NUR ---
NURSE NOTES: Received Pt and report from MIRANDA Marion. Patient is asleep but awakes to voice and touch; eyes opened and tracking. Venturi mask @ 50%- O2Sat:96% on the monitor. Right nare NGT placed and is patent and flushing well. Feeding of Vital AF running at 40ml/hr-will increase to goal of 60ml/hr as tolerated. Mathis in place and draining to urometer. Left femoral TLC running D5 w/10meq KCL @ 75ml/hr. BL Soft Wrist restraints in place for safety and to prevent pulling tubing. ROM and skin assessed. Bed locked in lowest position with bed alarm on. Will continue plan of care.
--- NOTE | 2019-10-14 08:04 | NUR ---
RD ASSESSMENT & RECOMMENDATIONS SEE CARE ACTIVITY FOR COMPLETE ASSESSMENT DAILY ESTIMATED NEEDS: Needs based on Respiratory, underweight 57.3 30-35 kcals/kg 2943-1058 total kcals 1.25-1.5 g protein/kg 72-86 g total protein 25-30 mL/kg 1608-6413 total fluid mLs NUTRITION DIAGNOSIS: Altered nutrition related lab values r/t clinical status, renal failure as evidenced by elev BUN (62->46 trending down), elev Creat (2.1 trending down), elev Na (148). CURRENT TF: Vital 1.2 @60 ENTERAL NUTRITION RECOMMENDATIONS: As medically able, rec Glucerna 1.2 goal of 60ml/hr x24 hrs to provide 1440ml, 1728 kcal, 86g pro, 1159ml free H2O -> S/p NGT placement, as medically able start Glucerna 1.2 @20ml/hr for 6 hrs. Advance as tolerated 10ml/hr q4-6 hrs to goal. - Flush per MD/ HOB over 30 degrees. - Pt currently on bipap-> feed if cleared by pulmonology. ADDITIONAL RECOMMENDATIONS: 1) Obtain a CALIBRATED WEIGHT as able Pt w/ underweight BMI 2) Poor po intake-> consider non oral feeds for ICU status-> now w/ NGT 3) SAXOPHONE PLAYER eval for H/o CVA-> now w/ NGT tube 4) With tube feeds add MURIEL BID for skin integrity 5) rec IVF if NPO for hydration -> Increase water flushes vai NGT
[2019-10-14 08:11] LABS: ANION GAP 9 mmol/L (5-15); BLOOD UREA NITROGEN 28 mg/dL (7-18); CALCIUM 8.4 MG/DL (8.5-10.1); CARBON DIOXIDE 24 MMOL/L (21-32); CHLORIDE 112 MMOL/L (98-107); CREATININE 1.6 MG/DL (0.55-1.30); POTASSIUM 3.9 MMOL/L (3.5-5.1); SODIUM 144 MMOL/L (136-145)
--- NOTE | 2019-10-14 08:15 | Progress Note ---
DATE: 10/13/2019 SUBJECTIVE: Patient remains in rapid atrial fibrillation at times. He remains on diltiazem drip. Respiratory parameters remained tenuous. BiPAP support has been required. PHYSICAL EXAMINATION: VITAL SIGNS: Blood pressure 129/76, heart rate 73, respirations 19, afebrile. LUNGS: Poor breath sounds on the right. Moderate rhonchi. CARDIAC: Irregularly irregular rhythm. Normal S1, S2. ABDOMEN: Soft. EXTREMITIES: Trace edema. DIAGNOSTIC AND LABORATORY DATA: Chest x-ray reveals opacification of the right lung field. COVID-19 swabs negative x2. ABG 7.37, 40, 63. Sodium 148, potassium 3.8, bicarb 25, BUN 34, creatinine 1.9. IMPRESSION: 1. Obstructive pneumonia, 2. Respiratory failure. 3. Dehydration. 4. Hypernatremia. 5. Hyperchloremia. 6. Paroxysmal atrial fibrillation with rapid ventricular response. 7. Acute myocardial ischemia. 8. Acute on chronic diastolic congestive heart failure. 9. Severe protein-calorie malnutrition. 10. Remains critical and guarded. PLAN: 1. Continue IV diltiazem. 2. Cannot transition to oral regimen until off BiPAP. Unable to tolerate feeding by NG tube. 3. Respiratory hygiene. Possibility for bronchoscopy to be discussed. 4. Antimicrobials. 5. DVT prophylaxis. 6. Consideration for full anticoagulation to follow once acute respiratory pathology has been stabilized. 7. Free water replacement initiated. Anselmo Porras M.D. DR: SACHA JOB#: [id number] CC:
[2019-10-14] MEDS: Cefepime HCl 1 GM in NS 55 ML IVPB SCH (08:24)
[2019-10-14] MEDS: Aspirin Baby 81mg ORAL SCH (08:25)
[2019-10-14] MEDS: Heparin 5000 units/ml inj SUBQ SCH ×2 (08:25→20:35)
--- NOTE | 2019-10-14 09:19 | Critical Care Progress Note ---
Assessment/Plan Assessment/Plan Impression: negative COVID-19 x2 Pneumonia Chronic Kidney Disease, has shunt left upper arm with ARF Dehydration Hypotension Dementia Congestive Heart Failure Atrial Fibrillation Diabetes Hypertension Dysphagia Hyperlipidemia COPD hypernatremia sinus tachycardia acute respiratory failure/ tachypnea Plan IV Antibiotics IVF as per renal Pressors as needed PICC line Renal and Cardiology follow up dc isolation ? Monitor labs close follow up monitor vitals; currently off BIPAP; check ABG with tachypnea on diltiazem drip medications/laboratory data/nursing notes/ICU care reviewed in detail note reviewed and edited care discussed with RN and RT ICU time spent >40 minutes Critical Care - Subjective ROS Limited/Unobtainable: Yes Condition: critical EKG Rhythm: Sinus Rhythm I&O: Intake and Output 10/13/19 10/14/19 19:00 07:00 Intake Total 1226.25 ml 1316.91 ml Output Total 465 ml 565 ml Balance 761.25 ml 751.91 ml IV Total 1216.25 ml 1026.91 ml Tube Feeding 10 ml 260 ml Other 30 ml Output Urine Total 465 ml 565 ml # Bowel Movements 1 2 Critical Care - Objective Last 24 Hour Vital Signs Date Time Temp Pulse Resp B/P (MAP) Pulse Ox O2 Delivery O2 Flow Rate FiO2 10/14/19 08:30 77 34 116/72 (87) 95 10/14/19 08:00 97.1 78 35 115/90 (98) 95 10/14/19 08:00 Venturi Mask 10/14/19 08:00 50 10/14/19 07:04 89 34 93 Venturi Mask 14.0 55 10/14/19 07:04 93 Venturi Mask 14.0 55 10/14/19 07:00 75 33 123/70 (87) 95 10/14/19 07:00 75 33 123/70 (87) 95 10/14/19 06:59 84 33 94 Venturi Mask 14.0 55 10/14/19 06:45 78 29 118/78 (91) 96 10/14/19 06:30 71 33 117/71 (86) 97 10/14/19 06:15 64 28 100/58 (72) 99 10/14/19 06:00 66 32 116/64 (81) 95 10/14/19 05:45 64 28 106/70 (82) 98 6/5/20 05:30 69 34 112/65 (81) 98 10/14/19 05:15 70 32 120/66 (84) 95 10/14/19 05:00 63 29 96/63 (74) 96 10/14/19 04:45 61 29 104/65 (78) 96 20 04:20 73 24 113/68 (83) 93 10/14/19 04:00 50 10/14/19 04:00 96.8 77 31 118/58 (78) 92 10/14/19 04:00 Venturi Mask 10/14/19 03:45 76 27 101/65 (77) 96 10/14/19 03:32 70 10/14/19 03:30 74 30 106/70 (82) 94 10/14/19 03:23 95 20 94 Venturi Mask 14.0 55 10/14/19 03:23 98 20 95 Venturi Mask 14.0 55 10/14/19 03:15 73 31 99/63 (75) 96 10/14/19 03:00 74 25 110/51 (70) 100 10/14/19 02:45 78 26 99/69 (79) 97 10/14/19 02:30 73 27 107/68 (81) 99 10/14/19 02:15 71 29 102/75 (84) 98 10/14/19 02:00 76 33 103/69 (80) 100 10/14/19 01:45 88 31 104/76 (85) 99 10/14/19 01:30 85 23 103/67 (79) 99 10/14/19 01:15 85 32 108/76 (87) 99 10/14/19 01:00 89 34 110/77 (88) 99 10/14/19 00:45 73 26 108/69 (82) 99 10/14/19 00:30 76 29 112/69 (83) 100 10/14/19 00:15 82 32 109/68 (82) 97 10/14/19 00:00 Venturi Mask 10/14/19 00:00 97.1 96 32 110/77 (88) 99 10/13/19 23:48 98 20 92 Venturi Mask 14.0 55 10/13/19 23:48 94 20 94 Venturi Mask 14.0 55 10/13/19 23:45 105 33 118/79 (92) 89 20 23:33 90 6/20 23:30 94 34 118/65 (82) 95 6/20 23:15 94 33 112/72 (85) 93 6/20 23:00 89 33 113/74 (87) 92 6/20 22:45 87 31 123/74 (90) 94 6/20 22:30 82 29 126/89 (101) 98 620 22:15 85 33 124/81 (95) 97 620 22:00 78 27 127/73 (91) 98 6/20 21:45 79 25 126/74 (91) 99 6/20 21:30 79 24 120/80 (93) 99 6//20 21:15 78 29 123/72 (89) 99 6/20 21:00 78 25 124/71 (88) 99 620 20:45 85 31 129/76 (93) 99 620 20:30 80 24 137/81 (99) 98 620 20:28 95 Venturi Mask 14.0 55 20 20:15 105 40 122/72 (89) 96 620 20:00 Venturi Mask 20 20:00 96.9 101 33 119/76 (90) 94 620 20:00 50 6/20 19:45 107 32 117/71 (86) 94 620 19:35 110 20 96 Venturi Mask 14.0 55 10/13/19 19:30 105 20 95 Venturi Mask 14.0 55 20 19:30 117 28 118/61 (80) 94 620 19:23 102 6/20 19:15 108 40 119/76 (90) 95 620 19:00 111 30 124/84 (97) 95 6//20 18:30 110 34 116/75 (89) 96 6/20 18:00 106 33 127/83 (98) 96 6/20 17:30 113 31 105/75 (85) 96 6/20 17:00 97.3 113 31 110/65 (80) 95 6/20 16:30 112 33 114/86 (95) 95 10/13/19 16:00 107 32 109/70 (83) 95 10/13/19 16:00 102 10/13/19 16:00 Bi-pap 10/13/19 16:00 50 10/13/19 15:45 125 29 94 Venturi Mask 12.0 50 10/13/19 15:45 Venturi Mask 12.0 50 10/13/19 15:30 111 34 117/74 (88) 95 10/13/19 15:00 105 34 126/67 (86) 86 10/13/19 14:30 110 35 115/72 (86) 93 10/13/19 14:00 107 28 125/91 (102) 95 10/13/19 13:30 102 24 112/78 (89) 94 10/13/19 13:00 110 32 126/71 (89) 93 10/13/19 12:30 97.3 96 28 109/58 (75) 94 10/13/19 12:15 95 36 128/73 (91) 94 10/13/19 12:00 91 26 114/71 (85) 95 10/13/19 12:00 Bi-pap 10/13/19 11:50 82 10/13/19 11:45 101 29 130/73 (92) 90 10/13/19 11:30 91 31 140/81 (100) 92 10/13/19 11:15 83 24 124/78 (93) 95 10/13/19 11:00 91 37 142/92 (109) 92 10/13/19 10:30 89 30 128/84 (99) 94 10/13/19 10:00 91 32 134/76 (95) 93 10/13/19 09:30 93 30 150/83 (105) 92 Labs: Labs Test 10/11/19 14:37 10/12/19 04:00 10/12/19 07:00 10/13/19 04:20 Arterial Blood pH 7.246 (7.350-7.450) 7.425 (7.350-7.450) Arterial Blood Partial Pressure CO2 44.5 mmHg (35.0-45.0) 35.5 mmHg (35.0-45.0) Arterial Blood Partial Pressure O2 65.1 mmHg (75.0-100.0) 63.5 mmHg (75.0-100.0) Arterial Blood HCO3 18.9 mmol/L (22.0-26.0) 22.8 mmol/L (22.0-26.0) Arterial Blood Oxygen Saturation 91.8 % (95-100) 93.3 % (95-100) Arterial Blood Base Excess -8.1 (-2-2) -1.2 (-2-2) Hal Test Positive Positive Sodium Level 150 MMOL/L (136-145) 148 MMOL/L (136-145) Potassium Level 4.0 MMOL/L (3.5-5.1) 3.8 MMOL/L (3.5-5.1) Chloride Level 116 MMOL/L (98-107) 114 MMOL/L (98-107) Carbon Dioxide Level 27 MMOL/L (21-32) 25 MMOL/L (21-32) Anion Gap 7 mmol/L (5-15) 9 mmol/L (5-15) Blood Urea Nitrogen 46 mg/dL (7-18) 34 mg/dL (7-18) Creatinine 2.1 MG/DL (0.55-1.30) 1.9 MG/DL (0.55-1.30) Estimat Glomerular Filtration Rate 31.2 mL/min (>60) 35.0 mL/min (>60) Glucose Level 171 MG/DL (74-106) 121 MG/DL (74-106) Calcium Level 7.9 MG/DL (8.5-10.1) 8.4 MG/DL (8.5-10.1) Test 10/13/19 09:35 10/14/19 05:09 Arterial Blood pH 7.373 (7.350-7.450) Arterial Blood Partial Pressure CO2 40.7 mmHg (35.0-45.0) Arterial Blood Partial Pressure O2 62.7 mmHg (75.0-100.0) Arterial Blood HCO3 23.2 mmol/L (22.0-26.0) Arterial Blood Oxygen Saturation 91.5 % (95-100) Arterial Blood Base Excess -1.9 (-2-2) Hal Test Positive Sodium Level 144 MMOL/L (136-145) Potassium Level 3.9 MMOL/L (3.5-5.1) Chloride Level 112 MMOL/L (98-107) Carbon Dioxide Level 24 MMOL/L (21-32) Anion Gap 9 mmol/L (5-15) Blood Urea Nitrogen 28 mg/dL (7-18) Creatinine 1.6 MG/DL (0.55-1.30) Estimat Glomerular Filtration Rate 42.7 mL/min (>60) Glucose Level 145 MG/DL (74-106) Calcium Level 8.4 MG/DL (8.5-10.1) Objective: deferred due to COVID+ Camilo Bill MD Oct 14, 2019 09:19
--- NOTE | 2019-10-14 10:26 | NUR ---
NURSE NOTES: Pt was in respiratory distress and became bradycardic (in the 30's). Upon assessment, No pulse felt. Code Blue called at 1010. Code conducted by ER doctor. Multiple rounds of CPR done with medication administration (See code blue sheet) and Pt orally intubated with ETT 8.0, 23cm at the lip line. Vent settings AC 18, TV 600, FiO2 100%, PEEP 5. ROSC achieved. Pt HR 125 at 10:26
--- NOTE | 2019-10-14 10:26 | NUR ---
RESPIRATORY NOTE: Code Blue: Pt has bradycardiac (15-20bpm) evolving into asystole. CPR performed by me and another RN, and pt was bagging by another RT via ambu bag 15L 100%. Pt was intubated with ETT 8.0 @23cm lip line secured by anchor fast, bruce chest rise, CO2 detector has color changed, bile rhonchi breath sound heard upon auscultation. Pt has ROSC at 1026, placed pt on vent with the settings: AC [id number]- peep [address] Schroeder. Alarms are set and audible, vent is plugged into the red outlet, ambu bag at bedside. ABG in 1 hour. Will continue to monitor.
--- NOTE | 2019-10-14 10:38 | General Progress Note ---
Assessment/Plan Assessment/Plan: 1. History of diabetes. 2. Hypertension. 3. Chronic kidney disease. 4. COPD. 5. CHF. 6. Dementia. 7. AMS 8. Dysphagia 9. Righ sided pna npo NGT in place code blue just called for him will hold feeding fu pulm abx per ID Subjective ROS Limited/Unobtainable: No Allergies: Coded Allergies: No Known Allergies (Unverified , 07/23/18) Objective Last 24 Hour Vital Signs Date Time Temp Pulse Resp B/P (MAP) Pulse Ox O2 Delivery O2 Flow Rate FiO2 10/14/19 09:51 85 40 96 60 10/14/19 08:30 77 34 116/72 (87) 95 10/14/19 08:00 97.1 78 35 115/90 (98) 95 10/14/19 08:00 Venturi Mask 10/14/19 08:00 50 10/14/19 07:04 89 34 93 Venturi Mask 14.0 55 10/14/19 07:04 93 Venturi Mask 14.0 55 10/14/19 07:00 75 33 123/70 (87) 95 10/14/19 07:00 75 33 123/70 (87) 95 10/14/19 06:59 84 33 94 Venturi Mask 14.0 55 10/14/19 06:45 78 29 118/78 (91) 96 10/14/19 06:30 71 33 117/71 (86) 97 10/14/19 06:15 64 28 100/58 (72) 99 10/14/19 06:00 66 32 116/64 (81) 95 10/14/19 05:45 64 28 106/70 (82) 98 10/14/19 05:30 69 34 112/65 (81) 98 10/14/19 05:15 70 32 120/66 (84) 95 10/14/19 05:00 63 29 96/63 (74) 96 10/14/19 04:45 61 29 104/65 (78) 96 10/14/19 04:20 73 24 113/68 (83) 93 10/14/19 04:00 50 10/14/19 04:00 96.8 77 31 118/58 (78) 92 10/14/19 04:00 Venturi Mask 10/14/19 03:45 76 27 101/65 (77) 96 10/14/19 03:32 70 6 03:30 74 30 106/70 (82) 94 10/14/19 03:23 95 20 94 Venturi Mask 14.0 55 10/14/19 03:23 98 20 95 Venturi Mask 14.0 55 10/14/19 03:15 73 31 99/63 (75) 96 10/14/19 03:00 74 25 110/51 (70) 100 10/14/19 02:45 78 26 99/69 (79) 97 10/14/19 02:30 73 27 107/68 (81) 99 10/14/19 02:15 71 29 102/75 (84) 98 10/14/19 02:00 76 33 103/69 (80) 100 10/14/19 01:45 88 31 104/76 (85) 99 10/14/19 01:30 85 23 103/67 (79) 99 10/14/19 01:15 85 32 108/76 (87) 99 10/14/19 01:00 89 34 110/77 (88) 99 10/14/19 00:45 73 26 108/69 (82) 99 10/14/19 00:30 76 29 112/69 (83) 100 10/14/19 00:15 82 32 109/68 (82) 97 10/14/19 00:00 Venturi Mask 10/14/19 00:00 97.1 96 32 110/77 (88) 99 10/13/19 23:48 98 20 92 Venturi Mask 14.0 55 10/13/19 23:48 94 20 94 Venturi Mask 14.0 55 10/13/19 23:45 105 33 118/79 (92) 89 10/13/19 23:33 90 10/13/19 23:30 94 34 118/65 (82) 95 10/13/19 23:15 94 33 112/72 (85) 93 10/13/19 23:00 89 33 113/74 (87) 92 10/13/19 22:45 87 31 123/74 (90) 94 10/13/19 22:30 82 29 126/89 (101) 98 10/13/19 22:15 85 33 124/81 (95) 97 10/13/19 22:00 78 27 127/73 (91) 98 10/13/19 21:45 79 25 126/74 (91) 99 10/13/19 21:30 79 24 120/80 (93) 99 10/13/19 21:15 78 29 123/72 (89) 99 10/13/19 21:00 78 25 124/71 (88) 99 20 20:45 85 31 129/76 (93) 99 20 20:30 80 24 137/81 (99) 98 10/13/19 20:28 95 Venturi Mask 14.0 55 10/13/19 20:15 105 40 122/72 (89) 96 10/13/19 20:00 Venturi Mask 10/13/19 20:00 96.9 101 33 119/76 (90) 94 10/13/19 20:00 50 10/13/19 19:45 107 32 117/71 (86) 94 10/13/19 19:35 110 20 96 Venturi Mask 14.0 55 10/13/19 19:30 105 20 95 Venturi Mask 14.0 55 10/13/19 19:30 117 28 118/61 (80) 94 10/13/19 19:23 102 10/13/19 19:15 108 40 119/76 (90) 95 10/13/19 19:00 111 30 124/84 (97) 95 10/13/19 18:30 110 34 116/75 (89) 96 10/13/19 18:00 106 33 127/83 (98) 96 10/13/19 17:30 113 31 105/75 (85) 96 10/13/19 17:00 97.3 113 31 110/65 (80) 95 10/13/19 16:30 112 33 114/86 (95) 95 10/13/19 16:00 107 32 109/70 (83) 95 10/13/19 16:00 102 10/13/19 16:00 Bi-pap 10/13/19 16:00 50 10/13/19 15:45 125 29 94 Venturi Mask 12.0 50 10/13/19 15:45 Venturi Mask 12.0 50 10/13/19 15:30 111 34 117/74 (88) 95 10/13/19 15:00 105 34 126/67 (86) 86 10/13/19 14:30 110 35 115/72 (86) 93 10/13/19 14:00 107 28 125/91 (102) 95 10/13/19 13:30 102 24 112/78 (89) 94 10/13/19 13:00 110 32 126/71 (89) 93 10/13/19 12:30 97.3 96 28 109/58 (75) 94 10/13/19 12:15 95 36 128/73 (91) 94 10/13/19 12:00 91 26 114/71 (85) 95 10/13/19 12:00 Bi-pap 10/13/19 11:50 82 10/13/19 11:45 101 29 130/73 (92) 90 10/13/19 11:30 91 31 140/81 (100) 92 10/13/19 11:15 83 24 124/78 (93) 95 10/13/19 11:00 91 37 142/92 (109) 92 Intake and Output 10/13/19 10/14/19 19:00 07:00 Intake Total 1226.25 ml 1316.91 ml Output Total 465 ml 565 ml Balance 761.25 ml 751.91 ml IV Total 1216.25 ml 1026.91 ml Tube Feeding 10 ml 260 ml Other 30 ml Output Urine Total 465 ml 565 ml # Bowel Movements 1 2 Laboratory Tests 10/14/19 05:09: Sodium Level 144, Potassium Level 3.9, Chloride Level 112H, Carbon Dioxide Level 24, Anion Gap 9, Blood Urea Nitrogen 28H, Creatinine 1.6H, Estimat Glomerular Filtration Rate 42.7, Glucose Level 145H, Calcium Level 8.4L 10/14/19 09:23: Arterial Blood pH 7.232*L, Arterial Blood Partial Pressure CO2 54.4H, Arterial Blood Partial Pressure O2 71.6L, Arterial Blood HCO3 22.4, Arterial Blood Oxygen Saturation 92.6L, Arterial Blood Base Excess -5.5L, Hal Test Positive Height (Feet): 5 Height (Inches): 11.00 Weight (Pounds): 145 General Appearance: severe distress EENT: normal ENT inspection Neck: supple Cardiovascular: tachycardia Respiratory/Chest: decreased breath sounds Abdomen: soft, hypoactive bowel sounds Extremities: non-tender Chaitanya Beverly MD Oct 14, 2019 10:38
--- NOTE | 2019-10-14 11:00 | NUR ---
NURSE NOTES: Dr Porras and Dr Bill notified of Code blue. Will start on Levophed as pt's B/P is low in the 80's
[2019-10-14] MEDS ORDERED: Norepinephrine 4mg/NS Premix 250 ML IV SCH (11:15)
--- NOTE | 2019-10-14 11:16 | Infectious Diseases Prog Note ---
Assessment/Plan Assessment/Plan antibiotics : cefepime, flagyl A 1. pneumonia COVID 19 negative x 2 2. respiratory failure 3. renal failure improving 4. diabetes mellitus 5. hypertension 6. CHF 7. COPD 8. dementia P 1. d/c cefepime, flagyl 2. start vancomycin iv, zosyn 3. sputum culture 4. will follow up cultures Subjective ROS Limited/Unobtainable: Yes Allergies: Coded Allergies: No Known Allergies (Unverified , 07/23/18) Objective Vital Signs Last 24 Hour Vital Signs Date Time Temp Pulse Resp B/P (MAP) Pulse Ox O2 Delivery O2 Flow Rate FiO2 10/14/19 09:51 85 40 96 60 10/14/19 08:30 77 34 116/72 (87) 95 10/14/19 08:00 97.1 78 35 115/90 (98) 95 10/14/19 08:00 Venturi Mask 10/14/19 08:00 50 10/14/19 07:04 89 34 93 Venturi Mask 14.0 55 10/14/19 07:04 93 Venturi Mask 14.0 55 10/14/19 07:00 75 33 123/70 (87) 95 10/14/19 07:00 75 33 123/70 (87) 95 10/14/19 06:59 84 33 94 Venturi Mask 14.0 55 10/14/19 06:45 78 29 118/78 (91) 96 10/14/19 06:30 71 33 117/71 (86) 97 10/14/19 06:15 64 28 100/58 (72) 99 10/14/19 06:00 66 32 116/64 (81) 95 10/14/19 05:45 64 28 106/70 (82) 98 10/14/19 05:30 69 34 112/65 (81) 98 10/14/19 05:15 70 32 120/66 (84) 95 10/14/19 05:00 63 29 96/63 (74) 96 10/14/19 04:45 61 29 104/65 (78) 96 10/14/19 04:20 73 24 113/68 (83) 93 10/14/19 04:00 50 10/14/19 04:00 96.8 77 31 118/58 (78) 92 10/14/19 04:00 Venturi Mask 10/14/19 03:45 76 27 101/65 (77) 96 10/14/19 03:32 70 6 03:30 74 30 106/70 (82) 94 10/14/19 03:23 95 20 94 Venturi Mask 14.0 55 10/14/19 03:23 98 20 95 Venturi Mask 14.0 55 10/14/19 03:15 73 31 99/63 (75) 96 10/14/19 03:00 74 25 110/51 (70) 100 10/14/19 02:45 78 26 99/69 (79) 97 10/14/19 02:30 73 27 107/68 (81) 99 10/14/19 02:15 71 29 102/75 (84) 98 10/14/19 02:00 76 33 103/69 (80) 100 10/14/19 01:45 88 31 104/76 (85) 99 10/14/19 01:30 85 23 103/67 (79) 99 10/14/19 01:15 85 32 108/76 (87) 99 10/14/19 01:00 89 34 110/77 (88) 99 10/14/19 00:45 73 26 108/69 (82) 99 10/14/19 00:30 76 29 112/69 (83) 100 10/14/19 00:15 82 32 109/68 (82) 97 10/14/19 00:00 Venturi Mask 10/14/19 00:00 97.1 96 32 110/77 (88) 99 10/13/19 23:48 98 20 92 Venturi Mask 14.0 55 10/13/19 23:48 94 20 94 Venturi Mask 14.0 55 10/13/19 23:45 105 33 118/79 (92) 89 10/13/19 23:33 90 6 23:30 94 34 118/65 (82) 95 10/13/19 23:15 94 33 112/72 (85) 93 10/13/19 23:00 89 33 113/74 (87) 92 620 22:45 87 31 123/74 (90) 94 10/13/19 22:30 82 29 126/89 (101) 98 10/13/19 22:15 85 33 124/81 (95) 97 6/4/20 22:00 78 27 127/73 (91) 98 20 21:45 79 25 126/74 (91) 99 20 21:30 79 24 120/80 (93) 99 20 21:15 78 29 123/72 (89) 99 20 21:00 78 25 124/71 (88) 99 20 20:45 85 31 129/76 (93) 99 20 20:30 80 24 137/81 (99) 98 20 20:28 95 Venturi Mask 14.0 55 10/13/19 20:15 105 40 122/72 (89) 96 20 20:00 Venturi Mask 10/13/19 20:00 96.9 101 33 119/76 (90) 94 10/13/19 20:00 50 10/13/19 19:45 107 32 117/71 (86) 94 10/13/19 19:35 110 20 96 Venturi Mask 14.0 55 10/13/19 19:30 105 20 95 Venturi Mask 14.0 55 10/13/19 19:30 117 28 118/61 (80) 94 10/13/19 19:23 102 10/13/19 19:15 108 40 119/76 (90) 95 10/13/19 19:00 111 30 124/84 (97) 95 10/13/19 18:30 110 34 116/75 (89) 96 10/13/19 18:00 106 33 127/83 (98) 96 10/13/19 17:30 113 31 105/75 (85) 96 10/13/19 17:00 97.3 113 31 110/65 (80) 95 10/13/19 16:30 112 33 114/86 (95) 95 10/13/19 16:00 107 32 109/70 (83) 95 10/13/19 16:00 102 10/13/19 16:00 Bi-pap 10/13/19 16:00 50 10/13/19 15:45 125 29 94 Venturi Mask 12.0 50 10/13/19 15:45 Venturi Mask 12.0 50 10/13/19 15:30 111 34 117/74 (88) 95 10/13/19 15:00 105 34 126/67 (86) 86 10/13/19 14:30 110 35 115/72 (86) 93 10/13/19 14:00 107 28 125/91 (102) 95 10/13/19 13:30 102 24 112/78 (89) 94 10/13/19 13:00 110 32 126/71 (89) 93 10/13/19 12:30 97.3 96 28 109/58 (75) 94 10/13/19 12:15 95 36 128/73 (91) 94 10/13/19 12:00 91 26 114/71 (85) 95 10/13/19 12:00 Bi-pap 10/13/19 11:50 82 10/13/19 11:45 101 29 130/73 (92) 90 10/13/19 11:30 91 31 140/81 (100) 92 10/13/19 11:15 83 24 124/78 (93) 95 Height (Feet): 5 Height (Inches): 11.00 Weight (Pounds): 145 HEENT: other - intubated Laboratory Tests Test 10/14/19 05:09 10/14/19 09:23 Sodium Level 144 MMOL/L (136-145) Potassium Level 3.9 MMOL/L (3.5-5.1) Chloride Level 112 MMOL/L (98-107) H Carbon Dioxide Level 24 MMOL/L (21-32) Anion Gap 9 mmol/L (5-15) Blood Urea Nitrogen 28 mg/dL (7-18) H Creatinine 1.6 MG/DL (0.55-1.30) H Estimat Glomerular Filtration Rate 42.7 mL/min (>60) Glucose Level 145 MG/DL (74-106) H Calcium Level 8.4 MG/DL (8.5-10.1) L Arterial Blood pH 7.232 (7.350-7.450) Arterial Blood Partial Pressure CO2 54.4 mmHg (35.0-45.0) H Arterial Blood Partial Pressure O2 71.6 mmHg (75.0-100.0) L Arterial Blood HCO3 22.4 mmol/L (22.0-26.0) Arterial Blood Oxygen Saturation 92.6 % (95-100) L Arterial Blood Base Excess -5.5 (-2-2) L Hal Test Positive Current Medications Medications (Trade) Dose Ordered Sig/Clementine Route PRN Reason Start Time Stop Time Status Last Admin Dose Admin Acetaminophen (Tylenol) 650 mg Q4H PRN ORAL Mild Pain (Pain Scale 1-3) 10/09/19 05:45 11/08/19 05:44 Acetaminophen (Tylenol) 650 mg Q4H PRN ORAL fever 10/09/19 05:45 11/08/19 05:44 Albuterol Sulfate (Proventil MDI) 2 puff Q4H PRN INH Shortness of Breath 10/09/19 12:45 01/07/20 12:44 Aspirin (ASA) 81 mg DAILY ORAL 10/09/19 09:00 11/23/19 08:59 10/14/19 08:25 Cefepime HCl 1 gm/ Sodium Chloride 55 ml @ 110 mls/hr DAILY IVPB 10/13/19 09:00 10/16/19 23:59 10/14/19 08:24 Chlorhexidine Gluconate (Flaca-Hex 2%) 1 applic DAILY@2000 TOPIC 10/09/19 20:00 01/07/20 19:59 10/13/19 20:07 Dextrose (Dextrose 50%) 25 ml Q30M PRN IV Hypoglycemia 10/09/19 05:45 01/07/20 05:44 Dextrose (Dextrose 50%) 50 ml Q30M PRN IV Hypoglycemia 10/09/19 05:45 01/07/20 05:44 Diltiazem HCl (Cardizem) 30 mg EVERY 6 HOURS ORAL 10/14/19 12:00 11/13/19 11:59 Haloperidol Lactate 5 mg/ Dextrose 56 ml @ 224 mls/hr Q6HR PRN IVPB Agitation 10/09/19 21:30 11/23/19 21:29 10/11/19 04:35 Heparin Sodium (Porcine) (Heparin 5000 units/ml) 5,000 units EVERY 12 HOURS SUBQ 10/09/19 09:00 11/23/19 08:59 10/14/19 08:25 Metronidazole 100 ml @ 100 mls/hr Q8H IVPB 10/09/19 08:00 10/16/19 07:59 10/14/19 08:24 Norepinephrine Bitartrate 250 ml @ 0 mls/hr Q24H IV 10/09/19 12:45 01/07/20 12:44 Norepinephrine Bitartrate 250 ml @ 0 mls/hr Q24H IV 10/14/19 11:15 01/12/20 11:14 UNV Potassium Chloride 10 meq/ Dextrose 1,005 ml @ 75 mls/hr [id number] IV 10/10/19 22:00 11/09/19 21:59 10/14/19 05:29 Pravastatin Sodium (Pravachol) 20 mg BEDTIME ORAL 10/09/19 21:00 11/08/19 20:59 10/13/19 20:07 Arlin Sorensen MD Oct 14, 2019 11:16
[2019-10-14] MEDS: Norepinephrine 4mg/NS Premix 250 ML IV SCH (11:26)
[2019-10-14] MEDS: dilTIAZem HCl 30mg tab ORAL SCH ×3 (11:37→23:34)
[2019-10-14] MEDS ORDERED: Vancomycin 750mg/D5W 275ml IVPB SCH ×2 (12:00)
--- NOTE | 2019-10-14 12:00 | NUR ---
NURSE NOTES: B/P increasing with pt on Levophed. No distress noted at this time.
[2019-10-14] MEDS: Piperacillin/Tazobactam 3.375 GM in NS 110 ML IVPB SCH ×2 (13:15→21:23)
[2019-10-14] MEDS ORDERED: Sodium Bicarbonate 50ml Carp IV SCH (13:30)
--- NOTE | 2019-10-14 13:45 | NUR ---
NURSE NOTES: Ventilator settings changed and 2 amps Sodium Bicarb given, as ordered by Dr Bill
--- NOTE | 2019-10-14 13:46 | Emergency Room Report ---
History of Present Illness General Chief Complaint: Dyspnea/Respdistress Source: Medical Record, PMD Present Illness Allergies: Coded Allergies: No Known Allergies (Unverified , 07/23/18) COVID-19 Screening Contact w/high risk pt: Yes Recent Travel to affected area: No Experienced COVID-19 symptoms?: Yes COVID-19 symptoms experienced: Shortness of Breath COVID-19 Testing performed [employer] PROFESSOR: No COVID-19 Screening: Negative COVID-19 Nursing Documentation-PMH Past Medical History: No History, Except For Hx Cardiac Problems: Yes - dysphagia, cognitive communication deficit, hyperlipidemia Hx Hypertension: Yes Hx COPD: Yes Hx Diabetes: Yes Hx Cancer: No Hx Gastrointestinal Problems: No Hx Dialysis: Yes - shunt left upper arm Hx Neurological Problems: No Physical Exam Vital Signs Date Time Temp Pulse Resp B/P (MAP) Pulse Ox O2 Delivery O2 Flow Rate FiO2 10/10/19 07:00 76 20 99/54 (69) 100 10/10/19 07:10 Non-Rebreather 15.0 100 10/10/19 08:00 98.1 Procedures Critical Care Time Critical Care Time 40 minutes for multiple re-evaluations findings concerning and critical for cardiopulmonary arrest and possible not including any procedural time CPR/Code Blue CPR/Code Blue Narrative I was called upstairs by nursing staff for CODE BLUE upon arrival the patient is undergoing ACLS protocol Full covid-19 precautions are taken and appropriate PAPR is donned Code continues patient required airway intubation please refer to the note for that Patient has had previous right-sided complete opacity of the lung side Refer to the medications for full specifics however patient was given epinephrine sodium bicarbonate We did obtain palpable pulses Patient has airway appropriately intubated Palpable pulses with blood pressure 150 systolic is obtained and care is handed back to the primary thread dresser Intubation Intubation : Consent: Emergent Intubation Method: orotracheal Tube Size (cm): 8.5 Medications: Etomidate, Succinylcholine Breath Sounds after Intubation: equal Intubation Complications: no complications Attempts: One Patient Tolerated: Well Complications: None Medical Decision Making Diagnostic Impression: Primary Impression: Suspected COVID-19 virus infection Additional Impressions: Acute renal failure Pneumonia Dehydration Last Vital Signs Date Time Temp Pulse Resp B/P (MAP) Pulse Ox O2 Delivery O2 Flow Rate FiO2 10/14/19 13:33 92 24 80 10/14/19 12:00 Mechanical Ventilator 10/14/19 11:45 116/89 (98) 100 10/14/19 08:00 97.1 10/14/19 07:04 14.0 Disposition: ADMITTED INPATIENT Condition: Serious Referrals: Camilo Bill MD (PCP) Jing Schroeder 5, 2020 13:46
--- NOTE | 2019-10-14 13:50 | NUR ---
NURSE NOTES: NGT advanced to 65cm and secured as suggested by radiologist. Will reorder KUB
--- NOTE | 2019-10-14 13:57 | Diagnostic Imaging Report ---
Indication: Endotracheal tube placement. Status post CODE BLUE. Technique: One view of the chest Comparison: none Findings: There is an endotracheal tube in place, tip projecting approximately 7 cm above the rashid. There are overlying defibrillator paddles. There is a very large right pleural effusion, this is slightly smaller than on the prior study. There is also probably scarring of right lung atelectasis. Left perihilar infiltrate and diffuse interstitial disease are unchanged. Nasogastric tube is is again demonstrated, tip of which projects in the distal esophagus. Impression: Satisfactory endotracheal intubation. High position of orogastric tube. Advancement recommended. ICU charge nurse Maria D notified of this finding at the time of interpretation Slightly improved aeration of the right lung but still extensive opacification of right hemithorax is presumably due to combination of parenchymal atelectasis and pleural fluid. Stable left lung interstitial and airspace infiltrates
--- NOTE | 2019-10-14 14:07 | NUR ---
CASE MANAGEMENT: REVIEW 10/14/19 SI: S/P CODE BLUE SEPSIS . ACUTE RENAL FAILURE . A-FIB . COVID-19 NEGATIVE X2 LEFT FEMORAL CENTRAL VENOUS CATHETER INSERTION 10/08 97.4 95 18 129/101 100% MECHANICAL VENT FiO2 100 CL-112 BUN/CREAT 28/1.6 BG 145 ABG: pH 7.143 pCO2 64.2 pO2 129.3 HCO3 21.5 IS:IV NS BICARBONATE X1 IV LEVOPHED IV VANCOMYCIN QD IV ZOSYN TID IV KCL/D5@75ML/HR PRAVACHOL PO QHS MARTIR-HEX 2% TP QD HEPARIN SQ BID IV HALDOL Q6HR/PRN XRAY Chest 1v:Endotracheal tube placement. Status post CODE BLUE-Satisfactory endotracheal intubation. \: INTENSIVE CARE UNIT DCP: PATIENT IS FROM [facility] PLAN: UNABLE TO TOLERATE FEEDING BY NG TUBE CONT RESPIRATORY CARE
--- NOTE | 2019-10-14 15:06 | Surgery Progress Note ---
Surgery Progress Note Subjective Procedure Performed left femoral central venous catheter insertion Additional Comments worse on vent support on pressors labs noted prognosis guared Objective Last 24 Hour Vital Signs Date Time Temp Pulse Resp B/P (MAP) Pulse Ox O2 Delivery O2 Flow Rate FiO2 10/14/19 14:00 93 24 129/54 (79) 100 10/14/19 13:45 92 18 105/79 (88) 99 10/14/19 13:33 92 24 80 10/14/19 13:30 94 25 111/81 (91) 99 10/14/19 13:15 93 20 107/77 (87) 100 10/14/19 13:00 92 18 113/71 (85) 100 10/14/19 12:45 94 18 98/72 (81) 100 10/14/19 12:30 99 17 132/80 (97) 100 10/14/19 12:15 96 15 129/101 (110) 100 10/14/19 12:00 Mechanical Ventilator 10/14/19 12:00 97.4 95 18 119/80 (93) 100 10/14/19 12:00 100 10/14/19 11:45 92 13 116/89 (98) 100 10/14/19 11:30 88 11 69/49 (56) 100 10/14/19 11:28 88 17 68/54 (59) 100 10/14/19 11:26 72/54 10/14/19 11:16 Mechanical Ventilator 10/14/19 11:16 Mechanical Ventilator 10/14/19 11:15 91 18 72/54 (60) 97 10/14/19 11:00 95 18 80/58 (65) 100 10/14/19 10:45 103 17 87/66 (73) 100 10/14/19 10:30 101 18 100 10/14/19 10:30 121 24 140/87 (104) 84 10/14/19 10:26 87 19 157/99 (118) 75 10/14/19 10:22 100 10/14/19 10:15 30 17 149/68 (95) 78 10/14/19 10:00 65 31 129/82 (98) 96 10/14/19 09:51 85 40 96 60 10/14/19 09:30 77 33 114/67 (83) 96 10/14/19 09:00 76 34 116/63 (80) 96 6/5/20 08:30 77 34 116/72 (87) 95 620 08:00 97.1 78 35 115/90 (98) 95 6 08:00 Venturi Mask 620 08:00 50 6/20 07:04 89 34 93 Venturi Mask 14.0 55 620 07:04 93 Venturi Mask 14.0 55 620 07:00 75 33 123/70 (87) 95 620 07:00 75 33 123/70 (87) 95 6/20 06:59 84 33 94 Venturi Mask 14.0 55 620 06:45 78 29 118/78 (91) 96 6 06:30 71 33 117/71 (86) 97 6/09/27 06:15 64 28 100/58 (72) 99 6 06:00 66 32 116/64 (81) 95 6 05:45 64 28 106/70 (82) 98 6 05:30 69 34 112/65 (81) 98 6/20 05:15 70 32 120/66 (84) 95 620 05:00 63 29 96/63 (74) 96 6 04:45 61 29 104/65 (78) 96 6 04:20 73 24 113/68 (83) 93 6/09/27 04:00 50 6 04:00 96.8 77 31 118/58 (78) 92 6 04:00 Venturi Mask 10/14/19 03:45 76 27 101/65 (77) 96 6/20 03:32 70 6/20 03:30 74 30 106/70 (82) 94 6/20 03:23 95 20 94 Venturi Mask 14.0 55 620 03:23 98 20 95 Venturi Mask 14.0 55 620 03:15 73 31 99/63 (75) 96 6/20 03:00 74 25 110/51 (70) 100 6/20 02:45 78 26 99/69 (79) 97 6/20 02:30 73 27 107/68 (81) 99 6/20 02:15 71 29 102/75 (84) 98 620 02:00 76 33 103/69 (80) 100 6 01:45 88 31 104/76 (85) 99 10/14/19 01:30 85 23 103/67 (79) 99 20 01:15 85 32 108/76 (87) 99 20 01:00 89 34 110/77 (88) 99 20 00:45 73 26 108/69 (82) 99 20 00:30 76 29 112/69 (83) 100 10/14/19 00:15 82 32 109/68 (82) 97 10/14/19 00:00 Venturi Mask 10/14/19 00:00 97.1 96 32 110/77 (88) 99 10/13/19 23:48 98 20 92 Venturi Mask 14.0 55 10/13/19 23:48 94 20 94 Venturi Mask 14.0 55 10/13/19 23:45 105 33 118/79 (92) 89 620 23:33 90 6 23:30 94 34 118/65 (82) 95 6/08/28 23:15 94 33 112/72 (85) 93 6 23:00 89 33 113/74 (87) 92 10/13/19 22:45 87 31 123/74 (90) 94 6 22:30 82 29 126/89 (101) 98 10/13/19 22:15 85 33 124/81 (95) 97 20 22:00 78 27 127/73 (91) 98 6/20 21:45 79 25 126/74 (91) 99 20 21:30 79 24 120/80 (93) 99 620 21:15 78 29 123/72 (89) 99 620 21:00 78 25 124/71 (88) 99 620 20:45 85 31 129/76 (93) 99 20 20:30 80 24 137/81 (99) 98 620 20:28 95 Venturi Mask 14.0 55 620 20:15 105 40 122/72 (89) 96 6/20 20:00 Venturi Mask 10/13/19 20:00 96.9 101 33 119/76 (90) 94 10/13/19 20:00 50 10/13/19 19:45 107 32 117/71 (86) 94 10/13/19 19:35 110 20 96 Venturi Mask 14.0 55 10/13/19 19:30 105 20 95 Venturi Mask 14.0 55 10/13/19 19:30 117 28 118/61 (80) 94 10/13/19 19:23 102 10/13/19 19:15 108 40 119/76 (90) 95 10/13/19 19:00 111 30 124/84 (97) 95 10/13/19 18:30 110 34 116/75 (89) 96 10/13/19 18:00 106 33 127/83 (98) 96 10/13/19 17:30 113 31 105/75 (85) 96 10/13/19 17:00 97.3 113 31 110/65 (80) 95 10/13/19 16:30 112 33 114/86 (95) 95 10/13/19 16:00 107 32 109/70 (83) 95 10/13/19 16:00 102 10/13/19 16:00 Bi-pap 10/13/19 16:00 50 10/13/19 15:45 125 29 94 Venturi Mask 12.0 50 10/13/19 15:45 Venturi Mask 12.0 50 10/13/19 15:30 111 34 117/74 (88) 95 I&O Intake and Output 10/13/19 10/14/19 19:00 07:00 Intake Total 1226.25 ml 1316.91 ml Output Total 465 ml 565 ml Balance 761.25 ml 751.91 ml IV Total 1216.25 ml 1026.91 ml Tube Feeding 10 ml 260 ml Other 30 ml Output Urine Total 465 ml 565 ml # Bowel Movements 1 2 Dressing: other Wound: other Drains: other Cardiovascular: RSR Respiratory: decreased breath sounds Abdomen: soft, present bowel sounds Extremities: no cyanosis Laboratory Tests Test 10/14/19 05:09 10/14/19 09:23 10/14/19 11:50 Sodium Level 144 MMOL/L (136-145) Potassium Level 3.9 MMOL/L (3.5-5.1) Chloride Level 112 MMOL/L (98-107) H Carbon Dioxide Level 24 MMOL/L (21-32) Anion Gap 9 mmol/L (5-15) Blood Urea Nitrogen 28 mg/dL (7-18) H Creatinine 1.6 MG/DL (0.55-1.30) H Estimat Glomerular Filtration Rate 42.7 mL/min (>60) Glucose Level 145 MG/DL (74-106) H Calcium Level 8.4 MG/DL (8.5-10.1) L Arterial Blood pH 7.232 (7.350-7.450) 7.143 (7.350-7.450) Arterial Blood Partial Pressure CO2 54.4 mmHg (35.0-45.0) H 64.2 mmHg (35.0-45.0) *H Arterial Blood Partial Pressure O2 71.6 mmHg (75.0-100.0) L 129.3 mmHg (75.0-100.0) H Arterial Blood HCO3 22.4 mmol/L (22.0-26.0) 21.5 mmol/L (22.0-26.0) L Arterial Blood Oxygen Saturation 92.6 % (95-100) L 97.6 % (95-100) Arterial Blood Base Excess -5.5 (-2-2) L -8.2 (-2-2) L Hal Test Positive Positive Plan Problems: (1) Hypotension Assessment & Plan: 74-year-old male hypotensive unknown etiology's potentially septic COVID eval Needs pressors urgently transfer to the intensive care unit Need central venous access for pressors meds fluids Emergency procedure performed at the bedside Left femoral central venous catheter inserted without complication see note Okay for pressors okay to use We will follow with recommendations and monitor. Thank you for allowing participate in patient care There is a nasogastric tube in place. Tip projects at the level of the distal esophagus. There is complete opacification of the right hemithorax. This is a new finding. There appears to be abrupt cut off of the right mainstem bronchus. The bowel gas pattern is unremarkable High position of nasogastric tube. Advancement recommended. Complete opacification of the right hemithorax. Probably due to complete atelectasis of the right lung, could also indicate a component of pleural fluid. (2) Dehydration Assessment & Plan: DAILY ESTIMATED NEEDS: Needs based on Respiratory, underweight 57.3 30-35 kcals/kg 7349-0977 total kcals 1-1.5 g protein/kg 57-86 g total protein 25-30 mL/kg 9910-7678 total fluid mLs NUTRITION DIAGNOSIS: Altered nutrition related lab values r/t clinical status, renal failure as evidenced by elev BUN (62 trending down), elev Creat (2.1 trending down), elev Na (150). CURRENT DIET:SIDRA ms w/ NTL PO DIET RECOMMENDATIONS: LOW NA + NEPRO TID / Texture per LEGAL CASHIER ENTERAL NUTRITION RECOMMENDATIONS: -Consult RD if part of POC w/ continued poor po intake. ADDITIONAL RECOMMENDATIONS: 1) Obtain a CALIBRATED WEIGHT as able Pt w/ underweight BMI 2) Poor po intake-> consider non oral feeds for ICU status and poor po 3) LEGAL CASHIER eval for H/o CVA-> diet texture per LEGAL CASHIER 4) rec WC eval for sacral wound, add MURIEL BID for skin integrity . (3) Acute renal failure (4) Pneumonia (5) Acute metabolic encephalopathy (6) Suspected COVID-19 virus infection Gallo Kingston Oct 14, 2019 15:06
--- NOTE | 2019-10-14 15:10 | NUR ---
DISCONTINUE ESCROW PROCESSOR INTERVENTION PATIENT W/ RESPIRATORY DISTRESS REQUIRING CODE BLUE AND RESULTING IN ORAL INTUBATION, THEREFORE, DISCONTINUE ESCROW PROCESSOR INTERVENTION AT THIS TIME. PATIENT WOULD BENEFIT FROM ESCROW PROCESSOR BEDSIDE SWALLOW EVALUATION S/P EXTUBATION TO DETERMINE SWALLOW SAFETY AND APPROPRIATE DIET TEXTURE. PLEASE RE-REFER PATIENT TO ESCROW PROCESSOR S/P EXTUBATION AND WHEN MEDICALLY APPROPRIATE FOR PO TRIALS. THANK YOU FOR THIS REFERRAL. ESCROW PROCESSOR [id number]
--- NOTE | 2019-10-14 15:30 | NUR ---
NURSE NOTES: No distress noted at this time. Pt resting with eyes closed, arousable to touch. Pt remains on Levophed 4mcg/min
--- NOTE | 2019-10-14 16:45 | Diagnostic Imaging Report ---
Indication: Post nasogastric tube advancement Technique: Supine view of the abdomen Comparison: Chest radiograph of earlier the same day, abdomen radiograph of 10/13/2019 Findings: Interim advancement of orogastric tube since chest radiograph of earlier the same day where it was shown to be malpositioned. Tip now projecting in good position at the level gastric body. The bowel gas pattern is unremarkable. There is a left groin central venous catheter. There are extensive vascular calcifications. There is lumbar scoliotic deformity. Overlying defibrillator paddles are noted. There is a Mathis catheter. Impression: Improved and now satisfactory position of orogastric tube Other findings as noted
--- NOTE | 2019-10-14 17:00 | NUR ---
NURSE NOTES: Pt fully cleaned and linens changed. Oral care done. Levophed decreased to 2mcg/min to maintain SBP >90
--- NOTE | 2019-10-14 19:10 | NUR ---
HAND-OFF: Report given to MIRANDA Marion.
--- NOTE | 2019-10-14 19:11 | NUR ---
NURSE NOTES: Received patient from MIRANDA Young. Will continue plan of care.
--- NOTE | 2019-10-14 19:52 | Nephrology Progress Note ---
Assessment/Plan Problem List: (1) Hypernatremia (2) CHF (congestive heart failure) (3) Dehydration (4) Acute renal failure (5) Pneumonia (6) Suspected COVID-19 virus infection (7) Hypotension (8) HCAP (healthcare-associated pneumonia) (9) CKD (chronic kidney disease) stage 3, GFR 30-59 ml/min Plan hypotonic fluids, pulm care, empiric atb ordered high risk Subjective ROS Limited/Unobtainable: Yes Objective Objective Last 24 Hour Vital Signs Date Time Temp Pulse Resp B/P (MAP) Pulse Ox O2 Delivery O2 Flow Rate FiO2 10/14/19 19:00 78 24 125/71 (89) 100 10/14/19 18:45 79 24 123/71 (88) 100 10/14/19 18:30 79 24 123/108 (113) 100 10/14/19 18:15 79 24 120/72 (88) 100 10/14/19 18:00 81 24 115/72 (86) 100 10/14/19 17:45 81 24 114/71 (85) 100 10/14/19 17:30 81 24 115/72 (86) 100 10/14/19 17:15 83 24 108/73 (85) 100 10/14/19 17:03 86 121/77 10/14/19 17:00 85 24 122/74 (90) 100 10/14/19 16:45 87 24 121/77 (92) 100 10/14/19 16:30 92 24 124/76 (92) 100 10/14/19 16:15 85 24 130/77 (94) 100 10/14/19 16:00 98.1 85 24 130/80 (97) 100 10/14/19 16:00 80 10/14/19 16:00 83 10/14/19 16:00 Mechanical Ventilator 10/14/19 15:45 85 24 123/80 (94) 100 10/14/19 15:30 87 24 124/95 (105) 100 10/14/19 15:15 87 24 125/78 (94) 100 10/14/19 15:00 Mechanical Ventilator 10/14/19 15:00 Mechanical Ventilator 10/14/19 15:00 99 19 122/83 (96) 97 10/14/19 15:00 97 24 80 10/14/19 14:45 90 23 129/85 (100) 100 10/14/19 14:30 90 23 127/88 (101) 100 10/14/19 14:00 93 24 129/54 (79) 100 10/14/19 13:45 92 18 105/79 (88) 99 10/14/19 13:33 92 24 80 10/14/19 13:30 94 25 111/81 (91) 99 10/14/19 13:15 93 20 107/77 (87) 100 10/14/19 13:00 92 18 113/71 (85) 100 10/14/19 12:45 94 18 98/72 (81) 100 10/14/19 12:30 99 17 132/80 (97) 100 10/14/19 12:15 96 15 129/101 (110) 100 10/14/19 12:00 Mechanical Ventilator 10/14/19 12:00 98 10/14/19 12:00 97.4 95 18 119/80 (93) 100 10/14/19 12:00 100 10/14/19 11:45 92 13 116/89 (98) 100 10/14/19 11:30 88 11 69/49 (56) 100 10/14/19 11:28 88 17 68/54 (59) 100 10/14/19 11:26 72/54 10/14/19 11:16 Mechanical Ventilator 10/14/19 11:16 Mechanical Ventilator 10/14/19 11:15 91 18 72/54 (60) 97 10/14/19 11:00 95 18 80/58 (65) 100 10/14/19 10:45 103 17 87/66 (73) 100 10/14/19 10:30 101 18 100 10/14/19 10:30 121 24 140/87 (104) 84 10/14/19 10:26 87 19 157/99 (118) 75 10/14/19 10:22 100 10/14/19 10:15 30 17 149/68 (95) 78 10/14/19 10:00 65 31 129/82 (98) 96 10/14/19 09:51 85 40 96 60 10/14/19 09:30 77 33 114/67 (83) 96 10/14/19 09:00 76 34 116/63 (80) 96 10/14/19 08:30 77 34 116/72 (87) 95 08:00 97.1 78 35 115/90 (98) 95 6 08:00 78 6/09/27 08:00 Venturi Mask 6/20 08:00 50 6 07:04 89 34 93 Venturi Mask 14.0 55 620 07:04 93 Venturi Mask 14.0 55 620 07:00 75 33 123/70 (87) 95 620 07:00 75 33 123/70 (87) 95 620 06:59 84 33 94 Venturi Mask 14.0 55 6 06:45 78 29 118/78 (91) 96 6 06:30 71 33 117/71 (86) 97 6 06:15 64 28 100/58 (72) 99 6 06:00 66 32 116/64 (81) 95 620 05:45 64 28 106/70 (82) 98 6 05:30 69 34 112/65 (81) 98 10/14/19 05:15 70 32 120/66 (84) 95 6 05:00 63 29 96/63 (74) 96 10/14/19 04:45 61 29 104/65 (78) 96 6 04:20 73 24 113/68 (83) 93 620 04:00 50 6 04:00 96.8 77 31 118/58 (78) 92 6 04:00 Venturi Mask 10/14/19 03:45 76 27 101/65 (77) 96 620 03:32 70 6 03:30 74 30 106/70 (82) 94 6/20 03:23 95 20 94 Venturi Mask 14.0 55 6 03:23 98 20 95 Venturi Mask 14.0 55 620 03:15 73 31 99/63 (75) 96 620 03:00 74 25 110/51 (70) 100 6/20 02:45 78 26 99/69 (79) 97 620 02:30 73 27 107/68 (81) 99 620 02:15 71 29 102/75 (84) 98 10/14/19 02:00 76 33 103/69 (80) 100 10/14/19 01:45 88 31 104/76 (85) 99 10/14/19 01:30 85 23 103/67 (79) 99 20 01:15 85 32 108/76 (87) 99 20 01:00 89 34 110/77 (88) 99 10/14/19 00:45 73 26 108/69 (82) 99 10/14/19 00:30 76 29 112/69 (83) 100 10/14/19 00:15 82 32 109/68 (82) 97 10/14/19 00:00 Venturi Mask 10/14/19 00:00 97.1 96 32 110/77 (88) 99 10/13/19 23:48 98 20 92 Venturi Mask 14.0 55 10/13/19 23:48 94 20 94 Venturi Mask 14.0 55 10/13/19 23:45 105 33 118/79 (92) 89 10/13/19 23:33 90 10/13/19 23:30 94 34 118/65 (82) 95 10/13/19 23:15 94 33 112/72 (85) 93 10/13/19 23:00 89 33 113/74 (87) 92 10/13/19 22:45 87 31 123/74 (90) 94 10/13/19 22:30 82 29 126/89 (101) 98 10/13/19 22:15 85 33 124/81 (95) 97 10/13/19 22:00 78 27 127/73 (91) 98 20 21:45 79 25 126/74 (91) 99 20 21:30 79 24 120/80 (93) 99 20 21:15 78 29 123/72 (89) 99 20 21:00 78 25 124/71 (88) 99 10/13/19 20:45 85 31 129/76 (93) 99 20 20:30 80 24 137/81 (99) 98 620 20:28 95 Venturi Mask 14.0 55 20 20:15 105 40 122/72 (89) 96 10/13/19 20:00 Venturi Mask 10/13/19 20:00 96.9 101 33 119/76 (90) 94 10/13/19 20:00 50 Intake and Output 10/13/19 10/14/19 19:00 07:00 Intake Total 1226.25 ml 1316.91 ml Output Total 465 ml 565 ml Balance 761.25 ml 751.91 ml IV Total 1216.25 ml 1026.91 ml Tube Feeding 10 ml 260 ml Other 30 ml Output Urine Total 465 ml 565 ml # Bowel Movements 1 2 Laboratory Tests 10/14/19 05:09: Sodium Level 144, Potassium Level 3.9, Chloride Level 112H, Carbon Dioxide Level 24, Anion Gap 9, Blood Urea Nitrogen 28H, Creatinine 1.6H, Estimat Glomerular Filtration Rate 42.7, Glucose Level 145H, Calcium Level 8.4L 10/14/19 09:23: Arterial Blood pH 7.232*L, Arterial Blood Partial Pressure CO2 54.4H, Arterial Blood Partial Pressure O2 71.6L, Arterial Blood HCO3 22.4, Arterial Blood Oxygen Saturation 92.6L, Arterial Blood Base Excess -5.5L, Hal Test Positive 10/14/19 11:50: Arterial Blood pH 7.143*L, Arterial Blood Partial Pressure CO2 64.2*H, Arterial Blood Partial Pressure O2 129.3H, Arterial Blood HCO3 21.5L, Arterial Blood Oxygen Saturation 97.6, Arterial Blood Base Excess -8.2L, Hal Test Positive 10/14/19 15:00: Arterial Blood pH 7.372, Arterial Blood Partial Pressure CO2 45.7H, Arterial Blood Partial Pressure O2 91.4, Arterial Blood HCO3 25.9, Arterial Blood Oxygen Saturation 96.9, Arterial Blood Base Excess 0.4, Hal Test Positive Height (Feet): 5 Height (Inches): 11.00 Weight (Pounds): 145 General Appearance: lethargic, other - intubated Cardiovascular: regularly irregular Respiratory/Chest: crackles/rales Extremities: no edema Neurologic: unresponsive Jose Gant MD Oct 14, 2019 19:52
--- NOTE | 2019-10-14 20:00 | NUR ---
NURSE NOTES: Patient is now intubated w/ 8.0 @ 23cm to the lipline to vent settings of AC:24, TV:600, FiO2:80%, PEEP:5, O2 saturation:100%. Patient is asleep but awakes to stimuli. NGT in place at 65cm; feeding is on hold and will start again as tolerated. Received patient on levophed @ 2mcgs/min but has been held since 1929. BP:107/66, HR:80, RESP:24, Temp:99.3F axillary. SPLIT LEATHER MOSSER restraints in place to prevent from pulling lines and tubes; ROM and skin assessed. Mathis in place and draining. Bed low locked and alarm is on.
[2019-10-14] MEDS: Dyna-Hex 2% Top Sol 2oz TOPIC SCH (20:35)
--- NOTE | 2019-10-14 22:00 | NUR ---
NURSE NOTES: Levo remains off; BP:107/66, HR:73, O2:100%. Patient is sleeping, no changes in condition.
--- NOTE | 2019-10-14 23:45 | NUR ---
NURSE NOTES: Updates given to Dr. Porras. Informed him that patient is off levophed since 1930, BP stabilizing. In and out of SR and a-fib.
[2019-10-14] MEDS: Amiodarone 200mg tab NG SCH (23:55)
[2019-10-15] VITALS (48 sets, daily range): BP systolic 102–127; BP diastolic 59–76
--- NOTE | 2019-10-15 02:00 | NUR ---
NURSE NOTES: No changes in patient condition. BP:113/68, HR:73
--- NOTE | 2019-10-15 04:00 | NUR ---
NURSE NOTES: Bed bath given, linens changed, suctioning provided, turn and repositioned. BP:125/67, HR:68. Patient is awake and alert. Safety measures in place.
--- NOTE | 2019-10-15 05:00 | Progress Note ---
DATE: 10/14/2019 CARDIOLOGY PROGRESS NOTE SUBJECTIVE: The patient's condition remains critical. Prognosis guarded. The patient remains in the intensive care unit. A Code Blue was called. He has been intubated and is placed on mechanical ventilation. Blood pressure is tenuous and pressors were started. PHYSICAL EXAMINATION: VITAL SIGNS: Blood pressure 124/73, heart rate 80, respiratory rate 24, temperature 99.3. GENERAL: Orally intubated. Mechanically ventilated. LUNGS: Bilateral breath sounds with rhonchi and rales, right greater than left. CARDIAC: Regular rhythm and rate. Normal S1, S2. ABDOMEN: Soft. EXTREMITIES: Trace edema. LABORATORY DATA: ABG prior to Code Blue 7.14, 64, 129. IMPRESSION: 1. Paroxysmal atrial fibrillation. 2. Acute respiratory acidosis. 3. s/p Respiratory arrest with bradycardia and code blue. 4. Sepsis with shock. Critical care 52 mins. PLAN: Transition from IV to oral diltiazem. Ventilator support. Antimicrobials. Taper off pressors. DVT prophylaxis. Nutrition by OG-tube. Reassess volume status and cardiorenal parameters. Diuresis to be assessed on a daily basis. Antiarrhythmic therapy with amiodarone to maintain sinus rhythm. Anselmo Porras M.D. DR: JORGE JOB#: [id number] CC: ENOC
[2019-10-15] MEDS: Piperacillin/Tazobactam 3.375 GM in NS 110 ML IVPB SCH ×3 (05:31→21:47)
--- NOTE | 2019-10-15 06:00 | NUR ---
NURSE NOTES: Patient suctioned and repositioned. Left femoral TLC dressing soiled and been changed. BP:118/65, HR:68
--- NOTE | 2019-10-15 07:14 | NUR ---
HAND-OFF: Report given to Risa Benz RN.
--- NOTE | 2019-10-15 07:15 | NUR ---
NURSE NOTES: Report received from MIRANDA Marion. Pt is sleeping in bed. Easily arousable to tactile stimuli. Lethargic. Can wake up and be impulsive at times. Continued bilateral soft wrist restraints. SR on awake overnight monitor. ETT 8.0/23cm at lip line. AC 24, TV 600, FiO2 60%, P 5. RR 16, O2 sat 100%. Left NGT in place receiving Vital AF 1.2 at 10cc/hr. No residual noted. Mathis in place draining to gravity. LUCITA AV shunt for HD noted. Bruits and thrills heard. Left femoral TLC patent and asymptomatic. D5W with 10 meq KCL is running at 75cc/hr. Bed in lowest position. Side rails up x3. Will resume plan of care.
[2019-10-15 07:40] LABS: ANION GAP 9 mmol/L (5-15); BLOOD UREA NITROGEN 31 mg/dL (7-18); CALCIUM 8.1 MG/DL (8.5-10.1); CARBON DIOXIDE 26 MMOL/L (21-32); CHLORIDE 110 MMOL/L (98-107); CREATININE 2.1 MG/DL (0.55-1.30); POTASSIUM 3.7 MMOL/L (3.5-5.1); SODIUM 145 MMOL/L (136-145)
--- NOTE | 2019-10-15 08:11 | Critical Care Progress Note ---
Assessment/Plan Assessment/Plan Impression: negative COVID-19 x2 Pneumonia Chronic Kidney Disease, has shunt left upper arm with ARF Dehydration Hypotension Dementia Congestive Heart Failure Atrial Fibrillation Diabetes Hypertension Dysphagia Hyperlipidemia COPD hypernatremia sinus tachycardia acute respiratory failure/ tachypnea lung collapse with effusion Plan IV Antibiotics IVF as per renal Pressors as needed PICC line Renal and Cardiology follow up vent support Monitor labs close follow up monitor vitals; heart rate control medications/laboratory data/nursing notes/ICU care reviewed in detail note reviewed and edited care discussed with RN and RT ICU time spent >40 minutes Critical Care - Subjective Interval Events: s/p code and intubation care noted imaging with mild improvement ROS Limited/Unobtainable: Yes Condition: critical EKG Rhythm: Sinus Rhythm I&O: Intake and Output 10/14/19 10/15/19 19:00 07:00 Intake Total 1628.625 ml 1017.09 ml Output Total 110 ml 300 ml Balance 1518.625 ml 717.09 ml IV Total 1388.625 ml 937.09 ml Tube Feeding 120 ml 50 ml Other 120 ml 30 ml Output Urine Total 110 ml 300 ml # Bowel Movements 2 Critical Care - Objective ET-Tube: 8.0 ET Position: 23 Last 24 Hour Vital Signs Date Time Temp Pulse Resp B/P (MAP) Pulse Ox O2 Delivery O2 Flow Rate FiO2 10/15/19 07:00 70 24 119/67 (84) 100 10/15/19 06:45 68 24 115/66 (82) 100 10/15/19 06:30 72 24 121/69 (86) 100 10/15/19 06:15 70 24 115/66 (82) 100 10/15/19 06:00 69 24 118/65 (82) 100 10/15/19 05:45 68 24 118/66 (83) 100 10/15/19 05:30 68 24 111/66 (81) 100 10/15/19 05:15 68 24 106/66 (79) 100 10/15/19 05:00 68 24 113/66 (82) 100 10/15/19 04:45 70 24 113/64 (80) 100 10/15/19 04:30 69 24 111/68 (82) 100 10/15/19 04:15 72 24 125/67 (86) 100 10/15/19 04:00 Mechanical Ventilator 10/15/19 04:00 60 10/15/19 04:00 98.4 83 26 106/70 (82) 100 10/15/19 03:45 70 24 107/71 (83) 100 10/15/19 03:30 80 24 123/67 (85) 100 10/15/19 03:29 82 23 100 Mechanical Ventilator 60 10/15/19 03:23 78 19 100 Mechanical Ventilator 60 10/15/19 03:22 74 24 60 10/15/19 03:15 74 24 114/72 (86) 100 10/15/19 03:08 72 10/15/19 03:00 73 24 114/68 (83) 100 10/15/19 02:45 71 24 113/66 (82) 100 10/15/19 02:30 75 24 114/68 (83) 100 10/15/19 02:15 74 24 117/67 (84) 100 10/15/19 02:00 76 24 111/71 (84) 100 10/15/19 01:45 78 24 113/68 (83) 100 10/15/19 01:30 78 24 116/67 (83) 100 10/15/19 01:15 76 24 110/67 (81) 100 10/15/19 01:00 77 24 106/70 (82) 100 10/15/19 00:45 74 24 106/64 (78) 100 10/15/19 00:30 74 24 110/66 (81) 100 10/15/19 00:15 73 24 107/65 (79) 100 10/15/19 00:00 Mechanical Ventilator 10/15/19 00:00 98.9 74 24 109/66 (80) 100 10/14/19 23:59 77 10/14/19 23:45 74 24 108/69 (82) 100 10/14/19 23:34 77 110/63 10/14/19 23:30 73 24 110/63 (79) 100 10/14/19 23:15 78 24 108/66 (80) 100 10/14/19 23:00 78 24 103/67 (79) 100 10/14/19 22:51 85 22 100 Mechanical Ventilator 60 10/14/19 22:46 81 24 100 Mechanical Ventilator 60 10/14/19 22:45 81 19 109/66 (80) 100 10/14/19 22:41 78 24 60 6/5/20 22:30 75 18 99/66 (77) 100 620 22:15 77 24 108/65 (79) 100 10/14/19 22:00 78 24 107/66 (80) 100 10/14/19 21:45 85 24 106/64 (78) 100 10/14/19 21:30 84 24 104/62 (76) 100 20 21:15 83 24 108/62 (77) 100 10/14/19 21:00 83 24 98/77 (84) 100 20 20:45 85 24 100/63 (75) 100 10/14/19 20:30 82 6/09/27 20:30 77 24 100/62 (75) 100 10/14/19 20:15 83 24 98/64 (75) 100 10/14/19 20:00 Mechanical Ventilator 10/14/19 20:00 99.3 78 24 107/66 (80) 100 10/14/19 20:00 80 10/14/19 19:57 86 24 80 10/14/19 19:53 Mechanical Ventilator 10/14/19 19:53 Mechanical Ventilator 10/14/19 19:45 77 24 107/67 (80) 100 10/14/19 19:30 80 24 123/72 (89) 100 10/14/19 19:15 80 24 124/73 (90) 100 10/14/19 19:00 78 24 125/71 (89) 100 10/14/19 18:45 79 24 123/71 (88) 100 10/14/19 18:30 79 24 123/108 (113) 100 10/14/19 18:15 79 24 120/72 (88) 100 10/14/19 18:00 81 24 115/72 (86) 100 10/14/19 17:45 81 24 114/71 (85) 100 10/14/19 17:30 81 24 115/72 (86) 100 10/14/19 17:15 83 24 108/73 (85) 100 6 17:03 86 121/77 6 17:00 85 24 122/74 (90) 100 10/14/19 16:45 87 24 121/77 (92) 100 10/14/19 16:30 92 24 124/76 (92) 100 10/14/19 16:15 85 24 130/77 (94) 100 10/14/19 16:00 98.1 85 24 130/80 (97) 100 10/14/19 16:00 80 10/14/19 16:00 83 10/14/19 16:00 Mechanical Ventilator 10/14/19 15:45 85 24 123/80 (94) 100 10/14/19 15:30 87 24 124/95 (105) 100 10/14/19 15:15 87 24 125/78 (94) 100 10/14/19 15:00 Mechanical Ventilator 10/14/19 15:00 Mechanical Ventilator 10/14/19 15:00 99 19 122/83 (96) 97 10/14/19 15:00 97 24 80 10/14/19 14:45 90 23 129/85 (100) 100 10/14/19 14:30 90 23 127/88 (101) 100 10/14/19 14:00 93 24 129/54 (79) 100 10/14/19 13:45 92 18 105/79 (88) 99 10/14/19 13:33 92 24 80 10/14/19 13:30 94 25 111/81 (91) 99 10/14/19 13:15 93 20 107/77 (87) 100 10/14/19 13:00 92 18 113/71 (85) 100 10/14/19 12:45 94 18 98/72 (81) 100 10/14/19 12:30 99 17 132/80 (97) 100 10/14/19 12:15 96 15 129/101 (110) 100 10/14/19 12:00 Mechanical Ventilator 10/14/19 12:00 98 10/14/19 12:00 97.4 95 18 119/80 (93) 100 10/14/19 12:00 100 10/14/19 11:45 92 13 116/89 (98) 100 10/14/19 11:30 88 11 69/49 (56) 100 10/14/19 11:28 88 17 68/54 (59) 100 10/14/19 11:26 72/54 10/14/19 11:16 Mechanical Ventilator 10/14/19 11:16 Mechanical Ventilator 10/14/19 11:15 91 18 72/54 (60) 97 10/14/19 11:00 95 18 80/58 (65) 100 10/14/19 10:45 103 17 87/66 (73) 100 10/14/19 10:30 101 18 100 10/14/19 10:30 121 24 140/87 (104) 84 10/14/19 10:26 87 19 157/99 (118) 75 10/14/19 10:22 100 10/14/19 10:15 30 17 149/68 (95) 78 10/14/19 10:00 65 31 129/82 (98) 96 10/14/19 09:51 85 40 96 60 10/14/19 09:30 77 33 114/67 (83) 96 10/14/19 09:00 76 34 116/63 (80) 96 10/14/19 08:30 77 34 116/72 (87) 95 Labs: Laboratory Tests Test 10/14/19 09:23 10/14/19 11:50 10/14/19 15:00 10/15/19 04:00 Arterial Blood pH 7.232 (7.350-7.450) 7.143 (7.350-7.450) 7.372 (7.350-7.450) Arterial Blood Partial Pressure CO2 54.4 mmHg (35.0-45.0) H 64.2 mmHg (35.0-45.0) *H 45.7 mmHg (35.0-45.0) H Arterial Blood Partial Pressure O2 71.6 mmHg (75.0-100.0) L 129.3 mmHg (75.0-100.0) H 91.4 mmHg (75.0-100.0) Arterial Blood HCO3 22.4 mmol/L (22.0-26.0) 21.5 mmol/L (22.0-26.0) L 25.9 mmol/L (22.0-26.0) Arterial Blood Oxygen Saturation 92.6 % (95-100) L 97.6 % (95-100) 96.9 % (95-100) Arterial Blood Base Excess -5.5 (-2-2) L -8.2 (-2-2) L 0.4 (-2-2) Hal Test Positive Positive Positive Sodium Level 145 MMOL/L (136-145) Potassium Level 3.7 MMOL/L (3.5-5.1) Chloride Level 110 MMOL/L (98-107) H Carbon Dioxide Level 26 MMOL/L (21-32) Anion Gap 9 mmol/L (5-15) Blood Urea Nitrogen 31 mg/dL (7-18) H Creatinine 2.1 MG/DL (0.55-1.30) H Estimat Glomerular Filtration Rate 31.2 mL/min (>60) Glucose Level 85 MG/DL (74-106) Calcium Level 8.1 MG/DL (8.5-10.1) L Objective: orally intubated reduced BS right some rhonchi RRR NGT in place no CCE obtunded Camilo Bill MD Oct 15, 2019 08:11
[2019-10-15] MEDS: Potassium Chloride 10 MEQ in D5W 1000ml 1,000 ML IV SCH ×2 (08:15→22:07)
[2019-10-15] MEDS: Amiodarone 200mg tab NG SCH ×2 (08:15→20:58)
[2019-10-15] MEDS: Aspirin Baby 81mg ORAL SCH (08:16)
[2019-10-15] MEDS: Heparin 5000 units/ml inj SUBQ SCH ×2 (08:16→20:59)
--- NOTE | 2019-10-15 09:00 | NUR ---
NURSE NOTES: Dr Bill here to see the patient. Updated him with pt's current condition, including ABG result. No new orders.
--- NOTE | 2019-10-15 09:36 | NUR ---
RADIOLOGY DEPT., CHEST X-RAY DONE.-P.DYE
--- NOTE | 2019-10-15 09:44 | Diagnostic Imaging Report ---
EXAM: XR Chest, 1 View CLINICAL HISTORY: Shortness of breath TECHNIQUE: Frontal view of the chest. COMPARISON: Chest x-rays dated 10/14/19 and 10/08/19 FINDINGS: Lungs: Improved aeration in the right lung base with persistent subsegmental atelectasis versus infiltrate. Persistent increased interstitial markings bilaterally and subtle groundglass opacities in bilateral lungs. Pleural space: Small layering right pleural effusion, which appears improved compared to the prior exam. Heart: Unremarkable. No cardiomegaly. Mediastinum: Unremarkable. Bones/joints: Unremarkable. Tubes, lines and devices: Endotracheal tube tip 4.5cm above the rashid. Telemetry leads overlie the thorax. IMPRESSION: 1. Small layering right pleural effusion, improved compared to the prior exam. 2. Improved aeration in the right lung base with persistent subsegmental atelectasis versus infiltrate. 3. Persistent increased interstitial markings bilaterally and subtle groundglass opacities in bilateral lungs.
--- NOTE | 2019-10-15 10:46 | Infectious Diseases Prog Note ---
Assessment/Plan Assessment/Plan antibiotics : vancomycin iv, zosyn A 1. pneumonia COVID 19 negative x 2 2. respiratory failure 3. renal failure 4. diabetes mellitus 5. hypertension 6. CHF 7. COPD 8. dementia P 1. continue zosyn 2. d/c iv vancomycin 3. will follow up cultures Subjective ROS Limited/Unobtainable: Yes Allergies: Coded Allergies: No Known Allergies (Unverified , 07/23/18) Objective Vital Signs Last 24 Hour Vital Signs Date Time Temp Pulse Resp B/P (MAP) Pulse Ox O2 Delivery O2 Flow Rate FiO2 10/15/19 09:00 67 20 120/63 (82) 100 10/15/19 08:30 69 24 119/66 (83) 100 10/15/19 08:00 98.6 70 24 112/66 (81) 100 10/15/19 08:00 60 10/15/19 08:00 Mechanical Ventilator 10/15/19 07:39 67 24 60 10/15/19 07:30 72 24 121/65 (83) 100 10/15/19 07:00 70 24 119/67 (84) 100 10/15/19 06:45 68 24 115/66 (82) 100 10/15/19 06:30 72 24 121/69 (86) 100 10/15/19 06:15 70 24 115/66 (82) 100 10/15/19 06:00 69 24 118/65 (82) 100 10/15/19 05:45 68 24 118/66 (83) 100 10/15/19 05:30 68 24 111/66 (81) 100 10/15/19 05:15 68 24 106/66 (79) 100 10/15/19 05:00 68 24 113/66 (82) 100 10/15/19 04:45 70 24 113/64 (80) 100 10/15/19 04:30 69 24 111/68 (82) 100 10/15/19 04:15 72 24 125/67 (86) 100 10/15/19 04:00 Mechanical Ventilator 10/15/19 04:00 60 10/15/19 04:00 98.4 83 26 106/70 (82) 100 10/15/19 03:45 70 24 107/71 (83) 100 10/15/19 03:30 80 24 123/67 (85) 100 10/15/19 03:29 82 23 100 Mechanical Ventilator 60 10/15/19 03:23 78 19 100 Mechanical Ventilator 60 10/15/19 03:22 74 24 60 10/15/19 03:15 74 24 114/72 (86) 100 10/15/19 03:08 72 10/15/19 03:00 73 24 114/68 (83) 100 10/15/19 02:45 71 24 113/66 (82) 100 10/15/19 02:30 75 24 114/68 (83) 100 10/15/19 02:15 74 24 117/67 (84) 100 10/15/19 02:00 76 24 111/71 (84) 100 10/15/19 01:45 78 24 113/68 (83) 100 10/15/19 01:30 78 24 116/67 (83) 100 10/15/19 01:15 76 24 110/67 (81) 100 10/15/19 01:00 77 24 106/70 (82) 100 10/15/19 00:45 74 24 106/64 (78) 100 10/15/19 00:30 74 24 110/66 (81) 100 10/15/19 00:15 73 24 107/65 (79) 100 10/15/19 00:00 Mechanical Ventilator 10/15/19 00:00 98.9 74 24 109/66 (80) 100 10/14/19 23:59 77 10/14/19 23:45 74 24 108/69 (82) 100 10/14/19 23:34 77 110/63 10/14/19 23:30 73 24 110/63 (79) 100 10/14/19 23:15 78 24 108/66 (80) 100 10/14/19 23:00 78 24 103/67 (79) 100 10/14/19 22:51 85 22 100 Mechanical Ventilator 60 10/14/19 22:46 81 24 100 Mechanical Ventilator 60 10/14/19 22:45 81 19 109/66 (80) 100 10/14/19 22:41 78 24 60 10/14/19 22:30 75 18 99/66 (77) 100 10/14/19 22:15 77 24 108/65 (79) 100 10/14/19 22:00 78 24 107/66 (80) 100 10/14/19 21:45 85 24 106/64 (78) 100 10/14/19 21:30 84 24 104/62 (76) 100 10/14/19 21:15 83 24 108/62 (77) 100 10/14/19 21:00 83 24 98/77 (84) 100 10/14/19 20:45 85 24 100/63 (75) 100 10/14/19 20:30 82 10/14/19 20:30 77 24 100/62 (75) 100 10/14/19 20:15 83 24 98/64 (75) 100 10/14/19 20:00 Mechanical Ventilator 10/14/19 20:00 99.3 78 24 107/66 (80) 100 10/14/19 20:00 80 10/14/19 19:57 86 24 80 10/14/19 19:53 Mechanical Ventilator 10/14/19 19:53 Mechanical Ventilator 10/14/19 19:45 77 24 107/67 (80) 100 10/14/19 19:30 80 24 123/72 (89) 100 10/14/19 19:15 80 24 124/73 (90) 100 10/14/19 19:00 78 24 125/71 (89) 100 10/14/19 18:45 79 24 123/71 (88) 100 10/14/19 18:30 79 24 123/108 (113) 100 10/14/19 18:15 79 24 120/72 (88) 100 10/14/19 18:00 81 24 115/72 (86) 100 10/14/19 17:45 81 24 114/71 (85) 100 10/14/19 17:30 81 24 115/72 (86) 100 10/14/19 17:15 83 24 108/73 (85) 100 10/14/19 17:03 86 121/77 10/14/19 17:00 85 24 122/74 (90) 100 10/14/19 16:45 87 24 121/77 (92) 100 10/14/19 16:30 92 24 124/76 (92) 100 10/14/19 16:15 85 24 130/77 (94) 100 10/14/19 16:00 98.1 85 24 130/80 (97) 100 10/14/19 16:00 80 10/14/19 16:00 83 10/14/19 16:00 Mechanical Ventilator 10/14/19 15:45 85 24 123/80 (94) 100 10/14/19 15:30 87 24 124/95 (105) 100 10/14/19 15:15 87 24 125/78 (94) 100 10/14/19 15:00 Mechanical Ventilator 10/14/19 15:00 Mechanical Ventilator 10/14/19 15:00 99 19 122/83 (96) 97 10/14/19 15:00 97 24 80 10/14/19 14:45 90 23 129/85 (100) 100 10/14/19 14:30 90 23 127/88 (101) 100 10/14/19 14:00 93 24 129/54 (79) 100 10/14/19 13:45 92 18 105/79 (88) 99 10/14/19 13:33 92 24 80 10/14/19 13:30 94 25 111/81 (91) 99 10/14/19 13:15 93 20 107/77 (87) 100 10/14/19 13:00 92 18 113/71 (85) 100 10/14/19 12:45 94 18 98/72 (81) 100 10/14/19 12:30 99 17 132/80 (97) 100 10/14/19 12:15 96 15 129/101 (110) 100 10/14/19 12:00 Mechanical Ventilator 10/14/19 12:00 98 10/14/19 12:00 97.4 95 18 119/80 (93) 100 10/14/19 12:00 100 10/14/19 11:45 92 13 116/89 (98) 100 10/14/19 11:30 88 11 69/49 (56) 100 10/14/19 11:28 88 17 68/54 (59) 100 10/14/19 11:26 72/54 10/14/19 11:16 Mechanical Ventilator 10/14/19 11:16 Mechanical Ventilator 10/14/19 11:15 91 18 72/54 (60) 97 10/14/19 11:00 95 18 80/58 (65) 100 10/14/19 10:45 103 17 87/66 (73) 100 Height (Feet): 5 Height (Inches): 11.00 Weight (Pounds): 145 HEENT: other - intubated Laboratory Tests Test 10/14/19 11:50 10/14/19 15:00 10/15/19 04:00 10/15/19 08:13 Arterial Blood pH 7.143 (7.350-7.450) 7.372 (7.350-7.450) 7.518 (7.350-7.450) Arterial Blood Partial Pressure CO2 64.2 mmHg (35.0-45.0) *H 45.7 mmHg (35.0-45.0) H 27.9 mmHg (35.0-45.0) L Arterial Blood Partial Pressure O2 129.3 mmHg (75.0-100.0) H 91.4 mmHg (75.0-100.0) 85.2 mmHg (75.0-100.0) Arterial Blood HCO3 21.5 mmol/L (22.0-26.0) L 25.9 mmol/L (22.0-26.0) 22.2 mmol/L (22.0-26.0) Arterial Blood Oxygen Saturation 97.6 % (95-100) 96.9 % (95-100) 96.7 % (95-100) Arterial Blood Base Excess -8.2 (-2-2) L 0.4 (-2-2) 0.2 (-2-2) Hal Test Positive Positive Positive Sodium Level 145 MMOL/L (136-145) Potassium Level 3.7 MMOL/L (3.5-5.1) Chloride Level 110 MMOL/L (98-107) H Carbon Dioxide Level 26 MMOL/L (21-32) Anion Gap 9 mmol/L (5-15) Blood Urea Nitrogen 31 mg/dL (7-18) H Creatinine 2.1 MG/DL (0.55-1.30) H Estimat Glomerular Filtration Rate 31.2 mL/min (>60) Glucose Level 85 MG/DL (74-106) Calcium Level 8.1 MG/DL (8.5-10.1) L Current Medications Medications (Trade) Dose Ordered Sig/Clementine Route PRN Reason Start Time Stop Time Status Last Admin Dose Admin Acetaminophen (Tylenol) 650 mg Q4H PRN ORAL Mild Pain (Pain Scale 1-3) 10/09/19 05:45 11/08/19 05:44 Acetaminophen (Tylenol) 650 mg Q4H PRN ORAL fever 10/09/19 05:45 11/08/19 05:44 Albuterol Sulfate (Proventil MDI) 2 puff Q4H PRN INH Shortness of Breath 10/09/19 12:45 01/07/20 12:44 Amiodarone HCl (Cordarone) 200 mg EVERY 12 HOURS NG 10/14/19 23:45 01/12/20 23:44 10/15/19 08:15 Aspirin (ASA) 81 mg DAILY ORAL 10/09/19 09:00 11/23/19 08:59 10/15/19 08:16 Chlorhexidine Gluconate (Flaca-Hex 2%) 1 applic DAILY@2000 TOPIC 10/09/19 20:00 01/07/20 19:59 10/14/19 20:35 Dextrose (Dextrose 50%) 25 ml Q30M PRN IV Hypoglycemia 10/09/19 05:45 01/07/20 05:44 Dextrose (Dextrose 50%) 50 ml Q30M PRN IV Hypoglycemia 10/09/19 05:45 01/07/20 05:44 Haloperidol Lactate 5 mg/ Dextrose 56 ml @ 224 mls/hr Q6HR PRN IVPB Agitation 10/09/19 21:30 11/23/19 21:29 10/11/19 04:35 Heparin Sodium (Porcine) (Heparin 5000 units/ml) 5,000 units EVERY 12 HOURS SUBQ 10/09/19 09:00 11/23/19 08:59 10/15/19 08:16 Piperacillin Sod/ Tazobactam Sod 3.375 gm/Sodium Chloride 110 ml @ 27.5 mls/hr EVERY 8 HOURS IVPB 10/14/19 14:00 10/19/19 13:59 10/15/19 05:31 Potassium Chloride 10 meq/ Dextrose 1,005 ml @ 75 mls/hr [id number] IV 10/10/19 22:00 11/09/19 21:59 10/15/19 08:15 Pravastatin Sodium (Pravachol) 20 mg BEDTIME ORAL 10/09/19 21:00 11/08/19 20:59 10/14/19 20:34 Vancomycin HCl (Vanco pharmacy to dose) 1 ea DAILY PRN MISC Per rx protocol 10/14/19 11:15 11/13/19 11:14 Vancomycin HCl 750 mg/Dextrose 275 ml @ 183.333 mls/hr Q24H IVPB 10/14/19 12:00 10/19/19 11:59 10/14/19 13:16 Arlin Sorensen MD Oct 15, 2019 10:46
--- NOTE | 2019-10-15 11:30 | NUR ---
NURSE NOTES: Cleaned pt for moderate amount of soft loose brown BM. Turned and repositioned patient. VSS. Will continue to monitor.
--- NOTE | 2019-10-15 12:41 | NUR ---
NURSE NOTES: Patient desaturated to 90-91% after repositioning. FiO2 increased to 100% by RT. Will closely monitor patient.
--- NOTE | 2019-10-15 14:12 | Surgery Progress Note ---
Surgery Progress Note Subjective Procedure Performed left femoral central venous catheter insertion Symptoms: improved Objective Last 24 Hour Vital Signs Date Time Temp Pulse Resp B/P (MAP) Pulse Ox O2 Delivery O2 Flow Rate FiO2 10/15/19 13:00 62 24 112/73 (86) 100 10/15/19 12:40 100 10/15/19 12:00 Mechanical Ventilator 10/15/19 12:00 60 10/15/19 12:00 72 24 104/66 (79) 93 10/15/19 11:37 77 24 80 10/15/19 11:19 65 10/15/19 11:00 67 24 115/62 (79) 100 10/15/19 10:30 69 18 118/62 (80) 100 10/15/19 10:00 70 24 112/65 (81) 100 10/15/19 09:00 67 20 120/63 (82) 100 10/15/19 08:30 69 24 119/66 (83) 100 10/15/19 08:01 71 10/15/19 08:00 98.6 70 24 112/66 (81) 100 10/15/19 08:00 60 10/15/19 08:00 Mechanical Ventilator 10/15/19 07:39 67 24 60 10/15/19 07:30 72 24 121/65 (83) 100 10/15/19 07:00 70 24 119/67 (84) 100 10/15/19 06:45 68 24 115/66 (82) 100 10/15/19 06:30 72 24 121/69 (86) 100 10/15/19 06:15 70 24 115/66 (82) 100 10/15/19 06:00 69 24 118/65 (82) 100 10/15/19 05:45 68 24 118/66 (83) 100 10/15/19 05:30 68 24 111/66 (81) 100 10/15/19 05:15 68 24 106/66 (79) 100 10/15/19 05:00 68 24 113/66 (82) 100 10/15/19 04:45 70 24 113/64 (80) 100 10/15/19 04:30 69 24 111/68 (82) 100 10/15/19 04:15 72 24 125/67 (86) 100 10/15/19 04:00 Mechanical Ventilator 10/15/19 04:00 60 10/15/19 04:00 98.4 83 26 106/70 (82) 100 10/15/19 03:45 70 24 107/71 (83) 100 10/15/19 03:30 80 24 123/67 (85) 100 10/15/19 03:29 82 23 100 Mechanical Ventilator 60 10/15/19 03:23 78 19 100 Mechanical Ventilator 60 10/15/19 03:22 74 24 60 10/15/19 03:15 74 24 114/72 (86) 100 10/15/19 03:08 72 10/15/19 03:00 73 24 114/68 (83) 100 10/15/19 02:45 71 24 113/66 (82) 100 10/15/19 02:30 75 24 114/68 (83) 100 10/15/19 02:15 74 24 117/67 (84) 100 10/15/19 02:00 76 24 111/71 (84) 100 10/15/19 01:45 78 24 113/68 (83) 100 10/15/19 01:30 78 24 116/67 (83) 100 10/15/19 01:15 76 24 110/67 (81) 100 10/15/19 01:00 77 24 106/70 (82) 100 10/15/19 00:45 74 24 106/64 (78) 100 10/15/19 00:30 74 24 110/66 (81) 100 10/15/19 00:15 73 24 107/65 (79) 100 10/15/19 00:00 Mechanical Ventilator 10/15/19 00:00 98.9 74 24 109/66 (80) 100 10/14/19 23:59 77 10/14/19 23:45 74 24 108/69 (82) 100 10/14/19 23:34 77 110/63 10/14/19 23:30 73 24 110/63 (79) 100 10/14/19 23:15 78 24 108/66 (80) 100 10/14/19 23:00 78 24 103/67 (79) 100 10/14/19 22:51 85 22 100 Mechanical Ventilator 60 10/14/19 22:46 81 24 100 Mechanical Ventilator 60 10/14/19 22:45 81 19 109/66 (80) 100 10/14/19 22:41 78 24 60 10/14/19 22:30 75 18 99/66 (77) 100 6 22:15 77 24 108/65 (79) 100 10/14/19 22:00 78 24 107/66 (80) 100 10/14/19 21:45 85 24 106/64 (78) 100 10/14/19 21:30 84 24 104/62 (76) 100 10/14/19 21:15 83 24 108/62 (77) 100 10/14/19 21:00 83 24 98/77 (84) 100 20 20:45 85 24 100/63 (75) 100 10/14/19 20:30 82 10/14/19 20:30 77 24 100/62 (75) 100 10/14/19 20:15 83 24 98/64 (75) 100 10/14/19 20:00 Mechanical Ventilator 10/14/19 20:00 99.3 78 24 107/66 (80) 100 10/14/19 20:00 80 10/14/19 19:57 86 24 80 10/14/19 19:53 Mechanical Ventilator 10/14/19 19:53 Mechanical Ventilator 10/14/19 19:45 77 24 107/67 (80) 100 10/14/19 19:30 80 24 123/72 (89) 100 10/14/19 19:15 80 24 124/73 (90) 100 10/14/19 19:00 78 24 125/71 (89) 100 10/14/19 18:45 79 24 123/71 (88) 100 10/14/19 18:30 79 24 123/108 (113) 100 10/14/19 18:15 79 24 120/72 (88) 100 10/14/19 18:00 81 24 115/72 (86) 100 10/14/19 17:45 81 24 114/71 (85) 100 10/14/19 17:30 81 24 115/72 (86) 100 10/14/19 17:15 83 24 108/73 (85) 100 10/14/19 17:03 86 121/77 10/14/19 17:00 85 24 122/74 (90) 100 10/14/19 16:45 87 24 121/77 (92) 100 10/14/19 16:30 92 24 124/76 (92) 100 10/14/19 16:15 85 24 130/77 (94) 100 10/14/19 16:00 98.1 85 24 130/80 (97) 100 10/14/19 16:00 80 10/14/19 16:00 83 10/14/19 16:00 Mechanical Ventilator 10/14/19 15:45 85 24 123/80 (94) 100 10/14/19 15:30 87 24 124/95 (105) 100 10/14/19 15:15 87 24 125/78 (94) 100 10/14/19 15:00 Mechanical Ventilator 10/14/19 15:00 Mechanical Ventilator 10/14/19 15:00 99 19 122/83 (96) 97 10/14/19 15:00 97 24 80 10/14/19 14:45 90 23 129/85 (100) 100 10/14/19 14:30 90 23 127/88 (101) 100 I&O Intake and Output 10/14/19 10/15/19 19:00 07:00 Intake Total 1628.625 ml 1017.09 ml Output Total 110 ml 300 ml Balance 1518.625 ml 717.09 ml IV Total 1388.625 ml 937.09 ml Tube Feeding 120 ml 50 ml Other 120 ml 30 ml Output Urine Total 110 ml 300 ml # Bowel Movements 2 Dressing: other Wound: other Drains: other Cardiovascular: RSR Respiratory: decreased breath sounds Abdomen: soft, present bowel sounds Extremities: no cyanosis Laboratory Tests Test 10/14/19 15:00 10/15/19 04:00 10/15/19 08:13 Arterial Blood pH 7.372 (7.350-7.450) 7.518 (7.350-7.450) Arterial Blood Partial Pressure CO2 45.7 mmHg (35.0-45.0) H 27.9 mmHg (35.0-45.0) L Arterial Blood Partial Pressure O2 91.4 mmHg (75.0-100.0) 85.2 mmHg (75.0-100.0) Arterial Blood HCO3 25.9 mmol/L (22.0-26.0) 22.2 mmol/L (22.0-26.0) Arterial Blood Oxygen Saturation 96.9 % (95-100) 96.7 % (95-100) Arterial Blood Base Excess 0.4 (-2-2) 0.2 (-2-2) Hal Test Positive Positive Sodium Level 145 MMOL/L (136-145) Potassium Level 3.7 MMOL/L (3.5-5.1) Chloride Level 110 MMOL/L (98-107) H Carbon Dioxide Level 26 MMOL/L (21-32) Anion Gap 9 mmol/L (5-15) Blood Urea Nitrogen 31 mg/dL (7-18) H Creatinine 2.1 MG/DL (0.55-1.30) H Estimat Glomerular Filtration Rate 31.2 mL/min (>60) Glucose Level 85 MG/DL (74-106) Calcium Level 8.1 MG/DL (8.5-10.1) L Plan Problems: (1) Hypotension Assessment & Plan: 74-year-old male hypotensive unknown etiology's potentially septic COVID eval Needs pressors urgently transfer to the intensive care unit Need central venous access for pressors meds fluids Emergency procedure performed at the bedside Left femoral central venous catheter inserted without complication see note Okay for pressors okay to use We will follow with recommendations and monitor. Thank you for allowing participate in patient care There is a nasogastric tube in place. Tip projects at the level of the distal esophagus. There is complete opacification of the right hemithorax. This is a new finding. There appears to be abrupt cut off of the right mainstem bronchus. The bowel gas pattern is unremarkable High position of nasogastric tube. Advancement recommended. Complete opacification of the right hemithorax. Probably due to complete atelectasis of the right lung, could also indicate a component of pleural fluid. (2) Dehydration Assessment & Plan: DAILY ESTIMATED NEEDS: Needs based on Respiratory, underweight 57.3 30-35 kcals/kg 3095-9934 total kcals 1-1.5 g protein/kg 57-86 g total protein 25-30 mL/kg 0439-9175 total fluid mLs NUTRITION DIAGNOSIS: Altered nutrition related lab values r/t clinical status, renal failure as evidenced by elev BUN (62 trending down), elev Creat (2.1 trending down), elev Na (150). CURRENT DIET:SIDRA ms w/ NTL PO DIET RECOMMENDATIONS: LOW NA + NEPRO TID / Texture per FOLLOW UP MANAGER ENTERAL NUTRITION RECOMMENDATIONS: -Consult RD if part of POC w/ continued poor po intake. ADDITIONAL RECOMMENDATIONS: 1) Obtain a CALIBRATED WEIGHT as able Pt w/ underweight BMI 2) Poor po intake-> consider non oral feeds for ICU status and poor po 3) FOLLOW UP MANAGER eval for H/o CVA-> diet texture per FOLLOW UP MANAGER 4) rec WC eval for sacral wound, add MURIEL BID for skin integrity . (3) Acute renal failure (4) Pneumonia (5) Acute metabolic encephalopathy (6) Suspected COVID-19 virus infection Gallo Kingston Oct 15, 2019 14:11
--- NOTE | 2019-10-15 14:50 | NUR ---
NURSE NOTES: Wound pictures taken and uploaded. Dressing done as ordered. Turned and repositioned pt. Pt is still on FiO2 100%. O2 sat 100%. Will continue to monitor.
--- NOTE | 2019-10-15 16:05 | NUR ---
NURSE NOTES: Dr Porras here to see the patient. K-DUR 20meq given via NGT as per Dr Porras's order. Will continue to monitor.
--- NOTE | 2019-10-15 16:19 | NUR ---
CASE MANAGEMENT:REVIEW SI: S/P CODE BLUE AC MET ENCEPHALOPATHY. PNA. SEPSIS . ACUTE RENAL FAILURE . A-FIB . S/P LEFT FEMORAL CATH INSERTION 97.3 72 24 104/66 93% MECH VENT/ETT AC 24 TV 600 PEEP 5 FIO2 @ 80% BUN 31 CR 2.1 CA 8.1 IS: K-DUR NG ONCE AMIODARONE NG Q12 HR ZOSYN IV Q8 HR KCL/D5 @ 75 ML/HR PRAVACHOL NG HS NG QD VANCOMYCIN IV Q24 HR ICU STATUS DCP: PATIENT IS FROM [facility]
--- NOTE | 2019-10-15 17:00 | NUR ---
NURSE NOTES: Feeding held since NGT is slightly pulled out. Will order STAT KUB to confirm placement.
--- NOTE | 2019-10-15 18:26 | NUR ---
NURSE NOTES: Mild twitching noted around neck and mouth area on and off. Order for Ativan received, noted, and carried out. Seizure precaution started. Will closely monitor patient.
--- NOTE | 2019-10-15 18:33 | Diagnostic Imaging Report ---
EXAM: XR Abdomen, 2 Views CLINICAL HISTORY: NGT TECHNIQUE: Frontal view of the abdomen/pelvis with upright view of the abdomen. COMPARISON: 10/11/2019 FINDINGS: Lower thorax: Elevation of the right hemidiaphragm with obscuration of the costophrenic angle. Right basilar airspace consolidation and linear airspace opacities. Intraperitoneal space: No free air. Gastrointestinal tract: Unremarkable. No dilation. Bones/joints: Diffuse degenerative changes of the visualized spine are noted with scoliotic curvature of the thoracolumbar spine. Vasculature: Significant atherosclerotic vascular disease is demonstrated. Tubes, lines and devices: Enteric tube is noted with tip overlying the left upper quadrant the abdomen. The side port is near the gastroesophageal junction. IMPRESSION: 1. Enteric tube with side-port below the level of the diaphragm, likely near the gastroesophageal junction. 2. Right basilar airspace disease, linear airspace opacities, and pleural effusion and/or atelectasis. This is not significant changes compared to prior imaging. 3. Severe atherosclerotic vascular disease.
--- NOTE | 2019-10-15 19:20 | NUR ---
HAND-OFF: Report given to MIRANDA Cartwright.
--- NOTE | 2019-10-15 19:30 | NUR ---
NURSE NOTES: Received report from MIRANDA Kamara. Pt is Flat affected and lethargic and able to open the eye spontaneously. Pt has ETT #8.0 orally intubated 23cm at lip line. Vent dependent and setting with Ac:24, T:600, P:5, FiO2 60% and SaO2 99% noted. Noted moderated amount foamy secretion. Given endotracheal and oral suction. Provided oral care. On environmental monitoring technician with SR and HR 63's. Pt has rectal tube and Mathis cath and patent and in placed. Pt has Lt. upper arm AV shunt and present of bruit and thrills. Noted swelling on whole body and especially both arm and hand. Dressing is clean and dry on wound area and dressing is clean and dry. On P-200 mattress for wound management. Pt has Lt. femoral TLC patent and dressing is clean and dry and on running with D5w 10mEqKCl @ 75cc/hr. Pt has NGT on Lt. nares at 65cm. Advanced 5cm more and double check for placement with other nurse Tania. No fever. Pt has bilateral soft wrist restraint. Checked comfort and placement. Placed fall and seizure precaution. Will continue to care plan.
[2019-10-15] MEDS: Dyna-Hex 2% Top Sol 2oz TOPIC SCH (19:59)
--- NOTE | 2019-10-15 20:00 | NUR ---
NURSE NOTES: Checked NGT placement. No residual noted. Resumed NGT feeding with Vital AF @ 10cc/hr. Will continue to monitor any change of condition.
--- NOTE | 2019-10-15 21:45 | General Progress Note ---
Assessment/Plan Assessment/Plan: Assessment/Plan: 1. History of diabetes. 2. Hypertension. 3. Chronic kidney disease. 4. COPD. 5. CHF. 6. Dementia. 7. AMS 8. Dysphagia 9. Righ sided pna Recommendations TF Elevate HOB monitor residual q 4 hours pulmonary toilet abx Subjective Allergies: Coded Allergies: No Known Allergies (Unverified , 07/23/18) Subjective Above noted seen in ICU NGT has been replaced Objective Last 24 Hour Vital Signs Date Time Temp Pulse Resp B/P (MAP) Pulse Ox O2 Delivery O2 Flow Rate FiO2 10/15/19 21:00 68 19 103/66 (78) 99 10/15/19 20:00 Mechanical Ventilator 10/15/19 20:00 60 10/15/19 20:00 64 10/15/19 20:00 98.3 67 22 127/66 (86) 99 10/15/19 19:18 72 24 100 Mechanical Ventilator 60 10/15/19 19:15 69 24 60 10/15/19 19:10 69 24 100 Mechanical Ventilator 60 10/15/19 19:00 63 0 102/61 (75) 99 10/15/19 18:00 98.0 68 24 115/59 (77) 100 10/15/19 17:00 65 24 102/61 (75) 100 10/15/19 16:00 65 24 121/64 (83) 100 10/15/19 16:00 Mechanical Ventilator 10/15/19 15:20 64 10/15/19 15:10 65 24 100 10/15/19 15:00 Mechanical Ventilator 10/15/19 15:00 Mechanical Ventilator 10/15/19 15:00 65 24 109/66 (80) 100 10/15/19 14:00 63 23 124/76 (92) 100 10/15/19 13:00 62 24 112/73 (86) 100 10/15/19 12:41 100 10/15/19 12:40 100 10/15/19 12:00 Mechanical Ventilator 10/15/19 12:00 60 10/15/19 12:00 97.3 72 24 104/66 (79) 93 10/15/19 11:39 78 25 100 Mechanical Ventilator 60 10/15/19 11:37 77 24 100 Mechanical Ventilator 60 10/15/19 11:37 77 24 80 10/15/19 11:19 65 10/15/19 11:00 67 24 115/62 (79) 100 10/15/19 10:30 69 18 118/62 (80) 100 10/15/19 10:00 70 24 112/65 (81) 100 10/15/19 09:00 67 20 120/63 (82) 100 10/15/19 08:30 69 24 119/66 (83) 100 10/15/19 08:01 71 10/15/19 08:00 98.6 70 24 112/66 (81) 100 10/15/19 08:00 60 10/15/19 08:00 Mechanical Ventilator 10/15/19 07:45 68 24 100 Mechanical Ventilator 60 10/15/19 07:40 67 24 100 Mechanical Ventilator 60 10/15/19 07:39 67 24 60 10/15/19 07:30 72 24 121/65 (83) 100 10/15/19 07:00 70 24 119/67 (84) 100 10/15/19 06:45 68 24 115/66 (82) 100 10/15/19 06:30 72 24 121/69 (86) 100 10/15/19 06:15 70 24 115/66 (82) 100 10/15/19 06:00 69 24 118/65 (82) 100 10/15/19 05:45 68 24 118/66 (83) 100 10/15/19 05:30 68 24 111/66 (81) 100 10/15/19 05:15 68 24 106/66 (79) 100 10/15/19 05:00 68 24 113/66 (82) 100 10/15/19 04:45 70 24 113/64 (80) 100 10/15/19 04:30 69 24 111/68 (82) 100 10/15/19 04:15 72 24 125/67 (86) 100 10/15/19 04:00 Mechanical Ventilator 10/15/19 04:00 60 10/15/19 04:00 98.4 83 26 106/70 (82) 100 10/15/19 03:45 70 24 107/71 (83) 100 10/15/19 03:30 80 24 123/67 (85) 100 10/15/19 03:29 82 23 100 Mechanical Ventilator 60 10/15/19 03:23 78 19 100 Mechanical Ventilator 60 10/15/19 03:22 74 24 60 6/6/20 03:15 74 24 114/72 (86) 100 10/15/19 03:08 72 10/15/19 03:00 73 24 114/68 (83) 100 10/15/19 02:45 71 24 113/66 (82) 100 10/15/19 02:30 75 24 114/68 (83) 100 10/15/19 02:15 74 24 117/67 (84) 100 10/15/19 02:00 76 24 111/71 (84) 100 10/15/19 01:45 78 24 113/68 (83) 100 10/15/19 01:30 78 24 116/67 (83) 100 10/15/19 01:15 76 24 110/67 (81) 100 10/15/19 01:00 77 24 106/70 (82) 100 10/15/19 00:45 74 24 106/64 (78) 100 10/15/19 00:30 74 24 110/66 (81) 100 10/15/19 00:15 73 24 107/65 (79) 100 10/15/19 00:00 Mechanical Ventilator 10/15/19 00:00 98.9 74 24 109/66 (80) 100 10/14/19 23:59 77 10/14/19 23:45 74 24 108/69 (82) 100 10/14/19 23:34 77 110/63 10/14/19 23:30 73 24 110/63 (79) 100 10/14/19 23:15 78 24 108/66 (80) 100 10/14/19 23:00 78 24 103/67 (79) 100 10/14/19 22:51 85 22 100 Mechanical Ventilator 60 10/14/19 22:46 81 24 100 Mechanical Ventilator 60 10/14/19 22:45 81 19 109/66 (80) 100 10/14/19 22:41 78 24 60 10/14/19 22:30 75 18 99/66 (77) 100 10/14/19 22:15 77 24 108/65 (79) 100 10/14/19 22:00 78 24 107/66 (80) 100 10/14/19 21:45 85 24 106/64 (78) 100 Intake and Output 10/14/19 10/15/19 19:00 07:00 Intake Total 1628.625 ml 1017.09 ml Output Total 110 ml 300 ml Balance 1518.625 ml 717.09 ml IV Total 1388.625 ml 937.09 ml Tube Feeding 120 ml 50 ml Other 120 ml 30 ml Output Urine Total 110 ml 300 ml # Bowel Movements 2 Laboratory Tests 10/15/19 04:00: Sodium Level 145, Potassium Level 3.7, Chloride Level 110H, Carbon Dioxide Level 26, Anion Gap 9, Blood Urea Nitrogen 31H, Creatinine 2.1H, Estimat Glomerular Filtration Rate 31.2, Glucose Level 85, Calcium Level 8.1L 10/15/19 08:13: Arterial Blood pH 7.518H, Arterial Blood Partial Pressure CO2 27.9L, Arterial Blood Partial Pressure O2 85.2, Arterial Blood HCO3 22.2, Arterial Blood Oxygen Saturation 96.7, Arterial Blood Base Excess 0.2, Hal Test Positive Height (Feet): 5 Height (Inches): 11.00 Weight (Pounds): 153 Objective Debilitated WM NCAT supple coarse ronchi Abd soft no edema Lexx Khan MD Oct 15, 2019 21:45
--- NOTE | 2019-10-15 21:54 | Nephrology Progress Note ---
Assessment/Plan Problem List: (1) Hypernatremia (2) CHF (congestive heart failure) (3) Dehydration (4) Acute renal failure (5) Pneumonia (6) Suspected COVID-19 virus infection (7) Hypotension (8) HCAP (healthcare-associated pneumonia) (9) CKD (chronic kidney disease) stage 3, GFR 30-59 ml/min Plan hypotonic fluids, pulm care, empiric atb ordered high risk Subjective ROS Limited/Unobtainable: Yes Objective Objective Last 24 Hour Vital Signs Date Time Temp Pulse Resp B/P (MAP) Pulse Ox O2 Delivery O2 Flow Rate FiO2 10/15/19 21:00 68 19 103/66 (78) 99 10/15/19 20:00 Mechanical Ventilator 10/15/19 20:00 60 10/15/19 20:00 64 10/15/19 20:00 98.3 67 22 127/66 (86) 99 10/15/19 19:18 72 24 100 Mechanical Ventilator 60 10/15/19 19:15 69 24 60 10/15/19 19:10 69 24 100 Mechanical Ventilator 60 10/15/19 19:00 63 0 102/61 (75) 99 10/15/19 18:00 98.0 68 24 115/59 (77) 100 10/15/19 17:00 65 24 102/61 (75) 100 10/15/19 16:00 65 24 121/64 (83) 100 10/15/19 16:00 Mechanical Ventilator 10/15/19 15:20 64 10/15/19 15:10 65 24 100 10/15/19 15:00 Mechanical Ventilator 10/15/19 15:00 Mechanical Ventilator 10/15/19 15:00 65 24 109/66 (80) 100 10/15/19 14:00 63 23 124/76 (92) 100 10/15/19 13:00 62 24 112/73 (86) 100 10/15/19 12:41 100 10/15/19 12:40 100 10/15/19 12:00 Mechanical Ventilator 10/15/19 12:00 60 10/15/19 12:00 97.3 72 24 104/66 (79) 93 10/15/19 11:39 78 25 100 Mechanical Ventilator 60 10/15/19 11:37 77 24 100 Mechanical Ventilator 60 10/15/19 11:37 77 24 80 10/15/19 11:19 65 10/15/19 11:00 67 24 115/62 (79) 100 10/15/19 10:30 69 18 118/62 (80) 100 10/15/19 10:00 70 24 112/65 (81) 100 10/15/19 09:00 67 20 120/63 (82) 100 10/15/19 08:30 69 24 119/66 (83) 100 10/15/19 08:01 71 10/15/19 08:00 98.6 70 24 112/66 (81) 100 10/15/19 08:00 60 10/15/19 08:00 Mechanical Ventilator 10/15/19 07:45 68 24 100 Mechanical Ventilator 60 10/15/19 07:40 67 24 100 Mechanical Ventilator 60 10/15/19 07:39 67 24 60 10/15/19 07:30 72 24 121/65 (83) 100 10/15/19 07:00 70 24 119/67 (84) 100 10/15/19 06:45 68 24 115/66 (82) 100 10/15/19 06:30 72 24 121/69 (86) 100 10/15/19 06:15 70 24 115/66 (82) 100 10/15/19 06:00 69 24 118/65 (82) 100 10/15/19 05:45 68 24 118/66 (83) 100 10/15/19 05:30 68 24 111/66 (81) 100 10/15/19 05:15 68 24 106/66 (79) 100 10/15/19 05:00 68 24 113/66 (82) 100 10/15/19 04:45 70 24 113/64 (80) 100 10/15/19 04:30 69 24 111/68 (82) 100 10/15/19 04:15 72 24 125/67 (86) 100 10/15/19 04:00 Mechanical Ventilator 10/15/19 04:00 60 10/15/19 04:00 98.4 83 26 106/70 (82) 100 10/15/19 03:45 70 24 107/71 (83) 100 10/15/19 03:30 80 24 123/67 (85) 100 10/15/19 03:29 82 23 100 Mechanical Ventilator 60 10/15/19 03:23 78 19 100 Mechanical Ventilator 60 10/15/19 03:22 74 24 60 10/15/19 03:15 74 24 114/72 (86) 100 10/15/19 03:08 72 10/15/19 03:00 73 24 114/68 (83) 100 10/15/19 02:45 71 24 113/66 (82) 100 10/15/19 02:30 75 24 114/68 (83) 100 10/15/19 02:15 74 24 117/67 (84) 100 10/15/19 02:00 76 24 111/71 (84) 100 10/15/19 01:45 78 24 113/68 (83) 100 10/15/19 01:30 78 24 116/67 (83) 100 10/15/19 01:15 76 24 110/67 (81) 100 10/15/19 01:00 77 24 106/70 (82) 100 10/15/19 00:45 74 24 106/64 (78) 100 10/15/19 00:30 74 24 110/66 (81) 100 10/15/19 00:15 73 24 107/65 (79) 100 10/15/19 00:00 Mechanical Ventilator 10/15/19 00:00 98.9 74 24 109/66 (80) 100 10/14/19 23:59 77 10/14/19 23:45 74 24 108/69 (82) 100 10/14/19 23:34 77 110/63 10/14/19 23:30 73 24 110/63 (79) 100 10/14/19 23:15 78 24 108/66 (80) 100 10/14/19 23:00 78 24 103/67 (79) 100 10/14/19 22:51 85 22 100 Mechanical Ventilator 60 10/14/19 22:46 81 24 100 Mechanical Ventilator 60 10/14/19 22:45 81 19 109/66 (80) 100 10/14/19 22:41 78 24 60 10/14/19 22:30 75 18 99/66 (77) 100 10/14/19 22:15 77 24 108/65 (79) 100 10/14/19 22:00 78 24 107/66 (80) 100 Intake and Output 10/14/19 10/15/19 19:00 07:00 Intake Total 1628.625 ml 1017.09 ml Output Total 110 ml 300 ml Balance 1518.625 ml 717.09 ml IV Total 1388.625 ml 937.09 ml Tube Feeding 120 ml 50 ml Other 120 ml 30 ml Output Urine Total 110 ml 300 ml # Bowel Movements 2 Laboratory Tests 10/15/19 04:00: Sodium Level 145, Potassium Level 3.7, Chloride Level 110H, Carbon Dioxide Level 26, Anion Gap 9, Blood Urea Nitrogen 31H, Creatinine 2.1H, Estimat Glomerular Filtration Rate 31.2, Glucose Level 85, Calcium Level 8.1L 10/15/19 08:13: Arterial Blood pH 7.518H, Arterial Blood Partial Pressure CO2 27.9L, Arterial Blood Partial Pressure O2 85.2, Arterial Blood HCO3 22.2, Arterial Blood Oxygen Saturation 96.7, Arterial Blood Base Excess 0.2, Hal Test Positive Height (Feet): 5 Height (Inches): 11.00 Weight (Pounds): 153 General Appearance: lethargic, mild distress, alert oriented x3, other - intubated Cardiovascular: regular rhythm Respiratory/Chest: rhonchi - bilaterally Extremities: no edema Neurologic: unresponsive Jose Gant MD Oct 15, 2019 21:54
--- NOTE | 2019-10-15 22:00 | NUR ---
NURSE NOTES: Noted SaO2 99% with current Vent setting. Still noted moderated amount secretion. Suction and oral care was done. BP is stable. Turn and reposition. On running with NGT feeding with Vital AF @ 10cc/hr and no residual noted. Will continue to monitor any change of condition.
[2019-10-16] VITALS (26 sets, daily range): BP systolic 99–138; BP diastolic 54–97
--- NOTE | 2019-10-16 | NUR ---
NURSE NOTES: Pt is sleeping on the bed. No fever. SaO2 99-100% noted with current Vent setting. BP is 111/63mmHg. Suction and oral care was done. Turn and reposition. Placed fall and seizure precaution. Will continue to care plan.
--- NOTE | 2019-10-16 02:00 | NUR ---
NURSE NOTES: Pt is resting on the bed and no sign of acute distress noted. Tolerated well with current Vent setting and Tube feeding. Turn and reposition. Suction and oral care was done. Will continue to monitor any change of condition.
--- NOTE | 2019-10-16 03:10 | NUR ---
HAND-OFF: Report given to MIRANDA Mario. Pt is resting on the bed and tolerated well with current Vent setting and no sign of acute distress noted.
--- NOTE | 2019-10-16 03:20 | NUR ---
NURSE NOTES: Received report from Chay JEAN.
--- NOTE | 2019-10-16 03:30 | NUR ---
NURSE NOTES: Pt in bed . Easily arousable to tactile stimuli. Lethargic. Can wake up and be impulsive at times. Continued bilateral soft wrist restraints. SR on nurse monitoring. ETT 8.0/23cm at lip line. AC 24, TV 600, FiO2 60%, P 5. RR 16, O2 sat 100%. Left NGT in place receiving Vital AF 1.2 at 20cc/hr. No residual noted. Mathis in place draining to gravity. LUCITA AV shunt for HD noted. Bruits and thrills heard. Left femoral TLC patent and asymptomatic. D5W with 10 meq KCL is running at 75cc/hr. Contact isolation maintained and observed. Will resume plan of care.
--- NOTE | 2019-10-16 04:30 | NUR ---
bed bath given tolerated well
--- NOTE | 2019-10-16 05:15 | Progress Note ---
DATE: 10/15/2019 CARDIOLOGY PROGRESS NOTE SUBJECTIVE: The patient remains in the intensive care unit on full ventilator support. Orally intubated. Mechanically ventilated. The patient's blood pressure parameters are stabilized and pressors have been discontinued. The patient's heart rate remains stable in sinus rhythm. PHYSICAL EXAMINATION: VITAL SIGNS: Blood pressure 105/64, heart rate 65, respirations 24, afebrile. HEENT: Thin secretions from endotracheal tube. LUNGS: Bilateral breath sounds. Rhonchi and rales, right greater than left. CARDIAC: Regular rhythm and rate. Normal S1, S2 with no new murmur. ABDOMEN: Soft. EXTREMITIES: There is no edema. LABORATORY DATA: Sodium 145, potassium 3.7, bicarb 26, BUN 31, creatinine 2.1. ABG 7.52, 28, 85. IMPRESSION: 1. Status post Code Blue due to respiratory arrest. 2. Acute respiratory acidosis. 3. Respiratory failure. 4. Paroxysmal atrial fibrillation. 5. Healthcare-associated pneumonia. 6. Paroxysmal atrial fibrillation. PLAN: 1. Ventilator support. 2. Antimicrobials. 3. Respiratory hygiene. 4. Follow up chest radiograph. 5. Follow up laboratory studies including troponin level. 6. Avoid resumption of pressors. 7. Continue amiodarone to maintain sinus rhythm at maintenance dosing. Anselmo Porras M.D. DR: SACHA JOB#: [id number] CC:
[2019-10-16 06:02] LABS: ANION GAP 9 mmol/L (5-15); BLOOD UREA NITROGEN 36 mg/dL (7-18); CALCIUM 7.7 MG/DL (8.5-10.1); CARBON DIOXIDE 25 MMOL/L (21-32); CHLORIDE 106 MMOL/L (98-107); CREATININE 2.4 MG/DL (0.55-1.30); POTASSIUM 3.6 MMOL/L (3.5-5.1); SODIUM 140 MMOL/L (136-145)
[2019-10-16] MEDS: Piperacillin/Tazobactam 3.375 GM in NS 110 ML IVPB SCH ×3 (06:16→21:59)
--- NOTE | 2019-10-16 07:06 | NUR ---
HAND-OFF: Report given to Amisha JEAN.
--- NOTE | 2019-10-16 07:07 | NUR ---
NURSE NOTES: Report received from MIRANDA Mario. Pt is sleeping in bed. Easily arousable to tactile stimuli. Lethargic. Can wake up and be impulsive at times. Continued bilateral soft wrist restraints. SR on monitoring tech. ETT 8.0/23cm at lip line. AC 24, TV 600, FiO2 60%, P 5. RR 24, O2 sat 100%. Left NGT in place receiving Vital AF 1.2 at 20cc/hr. No residual noted. Mathis in place draining to gravity. LUCITA AV shunt for HD noted. Bruits and thrills heard. Left femoral TLC patent and asymptomatic. D5W with 10 meq KCL is running at 75cc/hr. Bed in lowest position. Side rails up x3. Will resume plan of care.
[2019-10-16 07:25] LABS: BASOPHILS % (AUTO) 0.5 % (0.0-2.0); EOSINOPHILS % (AUTO) 0.1 % (0.0-3.0); HEMATOCRIT 32.7 % (42.0-52.0); HEMOGLOBIN 11.2 G/DL (14.2-18.0); LYMPHOCYTES % (AUTO) 7.5 % (20.0-45.0); MEAN CORPUSCULAR VOLUME 81 FL (80-99); NEUTROPHILS % (AUTO) 82.9 % (45.0-75.0); PLATELET COUNT 191 K/UL (150-450); RED BLOOD COUNT 4.02 M/UL (4.70-6.10); RED CELL DISTRIBUTION WIDTH 12.9 % (11.6-14.8); WHITE BLOOD COUNT 13.5 K/UL (4.8-10.8)
--- NOTE | 2019-10-16 08:13 | NUR ---
RD ASSESSMENT & RECOMMENDATIONS SEE CARE ACTIVITY FOR COMPLETE ASSESSMENT DAILY ESTIMATED NEEDS: Needs based on Respiratory, critical care, underweight 57.3 28-35 kcals/kg 2900-9928 total kcals 1.25-2 g protein/kg 72-115 g total protein 25-30 mL/kg 7478-4489 total fluid mLs NUTRITION DIAGNOSIS: Altered nutrition related lab values r/t clinical status, renal failure as evidenced by elev BUN (62->46 trending down), elev Creat (2.1 trending down), elev Na (148). CURRENT TF: Vital 1.2 @60 ENTERAL NUTRITION RECOMMENDATIONS: Maintain Vital AF 1.2 goal of 60ml/hr x24 hrs for critical care to provide 1440ml, 1728 kcal, 108g pro, 1168ml free H2O - Maintain current goal rate, advance slowly as tolerated - Flush per MD/ HOB over 30 degrees. ADDITIONAL RECOMMENDATIONS: 1) Obtain a CALIBRATED WEIGHT as able Pt w/ underweight BMI 2) Poor po intake-> consider non oral feeds for ICU status-> now w/ NGT 3) [employer]END[employer] eval for H/o CVA-> now intubated w/ NGT tube 4) With tube feeds add MURIEL BID for skin integrity 5) rec IVF if NPO for hydration -> Increase water flushes via NGT
[2019-10-16] MEDS: Aspirin Baby 81mg ORAL SCH (08:20)
[2019-10-16] MEDS: Amiodarone 200mg tab NG SCH (08:21)
[2019-10-16] MEDS: Heparin 5000 units/ml inj SUBQ SCH ×2 (08:22→20:54)
[2019-10-16] MEDS: LORazepam Inj 2mg/ml 1ml IV PRN (08:35)
--- NOTE | 2019-10-16 08:35 | NUR ---
NURSE NOTES: Ativan 1mg given for twitching around neck and mouth area. Addendum: 10/16/19 at 1531 by MONICA CORREA RN RN NURSE NOTES: PRN IV Ativan 1mg given for twitching around neck and mouth area.
--- NOTE | 2019-10-16 09:10 | Critical Care Progress Note ---
Assessment/Plan Assessment/Plan Impression: negative COVID-19 x2 Pneumonia Chronic Kidney Disease, has shunt left upper arm with ARF Dehydration Hypotension Dementia Congestive Heart Failure Atrial Fibrillation Diabetes Hypertension Dysphagia Hyperlipidemia COPD hypernatremia sinus tachycardia acute respiratory failure/ improved lung collapse with effusion better Plan IV Antibiotics IVF as per renal Pressors as needed PICC line Renal and Cardiology follow up vent support- reduce AC rate and taper oxygen Monitor labs close follow up monitor vitals; pulse rate better medications/laboratory data/nursing notes/ICU care reviewed in detail note reviewed and edited care discussed with RN and RT ICU time spent >40 minutes Critical Care - Subjective Interval Events: improved acid base improved oxygenation imaging better right lung ICU care noted ROS Limited/Unobtainable: Yes Condition: critical EKG Rhythm: Sinus Rhythm Residuals: minimal Tube Feeding Tolerated: yes I&O: Intake and Output 10/15/19 10/16/19 19:00 07:00 Intake Total 1322.5 ml 1161.0 ml Output Total 160 ml 315 ml Balance 1162.5 ml 846.0 ml IV Total 1092.5 ml 1001.0 ml Tube Feeding 180 ml 160 ml Other 50 ml Output Urine Total 145 ml 315 ml Stool Total 15 ml # Bowel Movements 1 100 Critical Care - Objective ET-Tube: 8.0 ET Position: 23 Last 24 Hour Vital Signs Date Time Temp Pulse Resp B/P (MAP) Pulse Ox O2 Delivery O2 Flow Rate FiO2 10/16/19 09:00 67 17 121/69 (86) 99 10/16/19 08:00 60 10/16/19 08:00 98.0 64 24 115/67 (83) 99 10/16/19 07:00 63 24 109/87 (94) 100 10/16/19 06:00 63 24 115/64 (81) 98 10/16/19 05:45 65 23 111/65 (80) 95 10/16/19 05:30 68 25 114/69 (84) 97 10/16/19 05:00 63 23 115/70 (85) 100 10/16/19 04:30 70 23 127/75 (92) 100 10/16/19 04:03 97.9 128 26 108/56 (73) 93 10/16/19 04:00 65 10/16/19 04:00 Mechanical Ventilator 10/16/19 04:00 60 10/16/19 03:26 69 24 98 Mechanical Ventilator 60 10/16/19 03:23 68 24 96 Mechanical Ventilator 60 10/16/19 03:22 69 24 60 10/16/19 03:00 68 21 117/97 (104) 97 10/16/19 02:00 69 21 100/71 (81) 98 10/16/19 01:00 64 24 119/97 (104) 99 10/16/19 00:00 68 10/16/19 00:00 Mechanical Ventilator 10/16/19 00:00 60 10/16/19 00:00 97.9 65 24 111/63 (79) 99 10/15/19 23:42 68 24 99 Mechanical Ventilator 60 10/15/19 23:37 65 24 98 Mechanical Ventilator 60 10/15/19 23:37 65 24 60 10/15/19 23:00 65 24 105/64 (78) 99 10/15/19 22:00 64 24 104/63 (77) 99 10/15/19 21:00 68 19 103/66 (78) 99 10/15/19 20:00 Mechanical Ventilator 10/15/19 20:00 60 10/15/19 20:00 64 10/15/19 20:00 98.3 67 22 127/66 (86) 99 10/15/19 19:18 72 24 100 Mechanical Ventilator 60 10/15/19 19:15 69 24 60 10/15/19 19:10 69 24 100 Mechanical Ventilator 60 10/15/19 19:00 63 0 102/61 (75) 99 10/15/19 18:00 98.0 68 24 115/59 (77) 100 10/15/19 17:00 65 24 102/61 (75) 100 10/15/19 16:00 65 24 121/64 (83) 100 10/15/19 16:00 Mechanical Ventilator 10/15/19 15:20 64 10/15/19 15:10 65 24 100 10/15/19 15:00 Mechanical Ventilator 10/15/19 15:00 Mechanical Ventilator 10/15/19 15:00 65 24 109/66 (80) 100 10/15/19 14:00 63 23 124/76 (92) 100 10/15/19 13:00 62 24 112/73 (86) 100 10/15/19 12:41 100 10/15/19 12:40 100 10/15/19 12:00 Mechanical Ventilator 10/15/19 12:00 60 10/15/19 12:00 97.3 72 24 104/66 (79) 93 10/15/19 11:39 78 25 100 Mechanical Ventilator 60 10/15/19 11:37 77 24 100 Mechanical Ventilator 60 10/15/19 11:37 77 24 80 10/15/19 11:19 65 10/15/19 11:00 67 24 115/62 (79) 100 10/15/19 10:30 69 18 118/62 (80) 100 10/15/19 10:00 70 24 112/65 (81) 100 Labs: Laboratory Tests Test 10/16/19 04:45 White Blood Count 13.5 K/UL (4.8-10.8) H Red Blood Count 4.02 M/UL (4.70-6.10) L Hemoglobin 11.2 G/DL (14.2-18.0) L Hematocrit 32.7 % (42.0-52.0) L Mean Corpuscular Volume 81 FL (80-99) Mean Corpuscular Hemoglobin 27.9 PG (27.0-31.0) Mean Corpuscular Hemoglobin Concent 34.3 G/DL (32.0-36.0) Red Cell Distribution Width 12.9 % (11.6-14.8) Platelet Count 191 K/UL (150-450) Mean Platelet Volume 7.5 FL (6.5-10.1) Neutrophils (%) (Auto) 82.9 % (45.0-75.0) H Lymphocytes (%) (Auto) 7.5 % (20.0-45.0) L Monocytes (%) (Auto) 9.0 % (1.0-10.0) Eosinophils (%) (Auto) 0.1 % (0.0-3.0) Basophils (%) (Auto) 0.5 % (0.0-2.0) Sodium Level 140 MMOL/L (136-145) Potassium Level 3.6 MMOL/L (3.5-5.1) Chloride Level 106 MMOL/L (98-107) Carbon Dioxide Level 25 MMOL/L (21-32) Anion Gap 9 mmol/L (5-15) Blood Urea Nitrogen 36 mg/dL (7-18) H Creatinine 2.4 MG/DL (0.55-1.30) H Estimat Glomerular Filtration Rate 26.7 mL/min (>60) Glucose Level 124 MG/DL (74-106) H Calcium Level 7.7 MG/DL (8.5-10.1) L Objective: orally intubated improved BS right some rhonchi but better RRR without MRG NGT in place NABS nontender no CCE obtunded reviewed and edited Micro: Microbiology Date/Time Source Procedure Growth Status 10/14/19 13:20 Sputum Gram Stain - Final Complete 10/14/19 13:20 Sputum Sputum Culture - Final NORMAL UPPER RESPIRATORY ALBERTO PRESENT Complete Camilo Bill MD Oct 16, 2019 09:10
--- NOTE | 2019-10-16 10:10 | NUR ---
NURSE NOTES: Notified Dr Bill regarding an episode of muscle twitching and Ativan was given. Order for Keppra 500mg TID received, noted, and carried out.
[2019-10-16] MEDS: levETIRAcetam 500mg/NS100ml 100 ML IVPB SCH ×2 (11:31→20:51)
[2019-10-16] MEDS: Potassium Chloride 10 MEQ in D5W 1000ml 1,000 ML IV SCH ×2 (11:31→13:43)
--- NOTE | 2019-10-16 11:36 | Infectious Diseases Prog Note ---
Assessment/Plan Assessment/Plan A 1. pneumonia COVID19 negative x 2 2. Hypoxic respiratory failure 3. Acute renal failure 4. diabetes mellitus 5. hypertension 6. CHF 7. COPD 8. dementia P 1. continue Zosyn 2. sputum culture: negative Subjective ROS Limited/Unobtainable: Yes Constitutional: Denies: fever Allergies: Coded Allergies: No Known Allergies (Unverified , 07/23/18) Objective Vital Signs Last 24 Hour Vital Signs Date Time Temp Pulse Resp B/P (MAP) Pulse Ox O2 Delivery O2 Flow Rate FiO2 10/16/19 10:00 66 20 130/71 (90) 100 10/16/19 09:14 60 10/16/19 09:00 67 17 121/69 (86) 99 10/16/19 08:00 60 10/16/19 08:00 Mechanical Ventilator 10/16/19 08:00 98.0 64 24 115/67 (83) 99 10/16/19 07:59 63 10/16/19 07:19 62 24 100 Mechanical Ventilator 60 10/16/19 07:16 64 24 100 Mechanical Ventilator 60 10/16/19 07:16 62 24 60 10/16/19 07:00 63 24 109/87 (94) 100 10/16/19 06:00 63 24 115/64 (81) 98 10/16/19 05:45 65 23 111/65 (80) 95 10/16/19 05:30 68 25 114/69 (84) 97 10/16/19 05:00 63 23 115/70 (85) 100 10/16/19 04:30 70 23 127/75 (92) 100 10/16/19 04:03 97.9 128 26 108/56 (73) 93 10/16/19 04:00 65 10/16/19 04:00 Mechanical Ventilator 10/16/19 04:00 60 10/16/19 03:26 69 24 98 Mechanical Ventilator 60 10/16/19 03:23 68 24 96 Mechanical Ventilator 60 10/16/19 03:22 69 24 60 10/16/19 03:00 68 21 117/97 (104) 97 10/16/19 02:00 69 21 100/71 (81) 98 10/16/19 01:00 64 24 119/97 (104) 99 10/16/19 00:00 68 10/16/19 00:00 Mechanical Ventilator 10/16/19 00:00 60 10/16/19 00:00 97.9 65 24 111/63 (79) 99 10/15/19 23:42 68 24 99 Mechanical Ventilator 60 10/15/19 23:37 65 24 98 Mechanical Ventilator 60 10/15/19 23:37 65 24 60 10/15/19 23:00 65 24 105/64 (78) 99 10/15/19 22:00 64 24 104/63 (77) 99 10/15/19 21:00 68 19 103/66 (78) 99 10/15/19 20:00 Mechanical Ventilator 10/15/19 20:00 60 10/15/19 20:00 64 10/15/19 20:00 98.3 67 22 127/66 (86) 99 10/15/19 19:18 72 24 100 Mechanical Ventilator 60 10/15/19 19:15 69 24 60 10/15/19 19:10 69 24 100 Mechanical Ventilator 60 10/15/19 19:00 63 0 102/61 (75) 99 10/15/19 18:00 98.0 68 24 115/59 (77) 100 10/15/19 17:00 65 24 102/61 (75) 100 10/15/19 16:00 65 24 121/64 (83) 100 10/15/19 16:00 Mechanical Ventilator 10/15/19 15:20 64 10/15/19 15:10 65 24 100 10/15/19 15:00 Mechanical Ventilator 10/15/19 15:00 Mechanical Ventilator 10/15/19 15:00 65 24 109/66 (80) 100 10/15/19 14:00 63 23 124/76 (92) 100 10/15/19 13:00 62 24 112/73 (86) 100 10/15/19 12:41 100 10/15/19 12:40 100 10/15/19 12:00 Mechanical Ventilator 10/15/19 12:00 60 10/15/19 12:00 97.3 72 24 104/66 (79) 93 10/15/19 11:39 78 25 100 Mechanical Ventilator 60 10/15/19 11:37 77 24 100 Mechanical Ventilator 60 10/15/19 11:37 77 24 80 Height (Feet): 5 Height (Inches): 11.00 Weight (Pounds): 145 HEENT: other - left subconjuntival hemorrhage Respiratory/Chest: lungs clear, other - on ventilator Cardiovascular: normal rate Abdomen: soft, non tender, other - NG & rectal tubes Extremities: other - edema of hands Skin: ulcers, other - early stage Neurologic/Psychiatric: other - opens eyes Microbiology Date/Time Source Procedure Growth Status 10/14/19 13:20 Sputum Gram Stain - Final Complete 10/14/19 13:20 Sputum Sputum Culture - Final NORMAL UPPER RESPIRATORY ALBERTO PRESENT Complete Laboratory Tests Test 10/16/19 04:45 White Blood Count 13.5 K/UL (4.8-10.8) H Red Blood Count 4.02 M/UL (4.70-6.10) L Hemoglobin 11.2 G/DL (14.2-18.0) L Hematocrit 32.7 % (42.0-52.0) L Mean Corpuscular Volume 81 FL (80-99) Mean Corpuscular Hemoglobin 27.9 PG (27.0-31.0) Mean Corpuscular Hemoglobin Concent 34.3 G/DL (32.0-36.0) Red Cell Distribution Width 12.9 % (11.6-14.8) Platelet Count 191 K/UL (150-450) Mean Platelet Volume 7.5 FL (6.5-10.1) Neutrophils (%) (Auto) 82.9 % (45.0-75.0) H Lymphocytes (%) (Auto) 7.5 % (20.0-45.0) L Monocytes (%) (Auto) 9.0 % (1.0-10.0) Eosinophils (%) (Auto) 0.1 % (0.0-3.0) Basophils (%) (Auto) 0.5 % (0.0-2.0) Sodium Level 140 MMOL/L (136-145) Potassium Level 3.6 MMOL/L (3.5-5.1) Chloride Level 106 MMOL/L (98-107) Carbon Dioxide Level 25 MMOL/L (21-32) Anion Gap 9 mmol/L (5-15) Blood Urea Nitrogen 36 mg/dL (7-18) H Creatinine 2.4 MG/DL (0.55-1.30) H Estimat Glomerular Filtration Rate 26.7 mL/min (>60) Glucose Level 124 MG/DL (74-106) H Calcium Level 7.7 MG/DL (8.5-10.1) L Current Medications Medications (Trade) Dose Ordered Sig/Clementine Route PRN Reason Start Time Stop Time Status Last Admin Dose Admin Acetaminophen (Tylenol) 650 mg Q4H PRN ORAL Mild Pain (Pain Scale 1-3) 10/09/19 05:45 11/08/19 05:44 Acetaminophen (Tylenol) 650 mg Q4H PRN ORAL fever 10/09/19 05:45 11/08/19 05:44 Albuterol Sulfate (Proventil MDI) 2 puff Q4H PRN INH Shortness of Breath 10/09/19 12:45 01/07/20 12:44 Amiodarone HCl (Cordarone) 200 mg DAILY NG 10/16/19 09:00 01/14/20 08:59 10/16/19 08:21 Aspirin (ASA) 81 mg DAILY ORAL 10/09/19 09:00 11/23/19 08:59 10/16/19 08:20 Chlorhexidine Gluconate (Flaca-Hex 2%) 1 applic DAILY@2000 TOPIC 10/09/19 20:00 01/07/20 19:59 10/15/19 19:59 Dextrose (Dextrose 50%) 25 ml Q30M PRN IV Hypoglycemia 10/09/19 05:45 01/07/20 05:44 Dextrose (Dextrose 50%) 50 ml Q30M PRN IV Hypoglycemia 10/09/19 05:45 01/07/20 05:44 Haloperidol Lactate 5 mg/ Dextrose 56 ml @ 224 mls/hr Q6HR PRN IVPB Agitation 10/09/19 21:30 11/23/19 21:29 10/11/19 04:35 Heparin Sodium (Porcine) (Heparin 5000 units/ml) 5,000 units EVERY 12 HOURS SUBQ 10/09/19 09:00 11/23/19 08:59 10/16/19 08:22 Levetiracetam 100 ml @ 400 mls/hr Q8H IVPB 10/16/19 12:00 01/14/20 11:59 Lorazepam (Ativan 2mg/ml 1ml) 1 mg Q2H PRN IV For Seizures 10/15/19 18:30 10/22/19 18:29 10/16/19 08:35 Piperacillin Sod/ Tazobactam Sod 3.375 gm/Sodium Chloride 110 ml @ 27.5 mls/hr EVERY 8 HOURS IVPB 10/14/19 14:00 10/19/19 13:59 10/16/19 06:16 Potassium Chloride 10 meq/ Dextrose 1,005 ml @ 75 mls/hr [id number] IV 10/10/19 22:00 11/09/19 21:59 10/15/19 22:07 Pravastatin Sodium (Pravachol) 20 mg BEDTIME ORAL 10/09/19 21:00 11/08/19 20:59 10/15/19 20:58 Migel Adams MD Oct 16, 2019 11:36
--- NOTE | 2019-10-16 12:24 | NUR ---
NURSE NOTES: Inserted new peripheral IVs inserted. Patient tolerated well. Feeding is running at 20cc/hr. Will continue to monitor.
--- NOTE | 2019-10-16 13:35 | Nephrology Progress Note ---
Assessment/Plan Problem List: (1) Hypernatremia (2) CHF (congestive heart failure) (3) Dehydration (4) Acute renal failure (5) Pneumonia (6) Suspected COVID-19 virus infection (7) Hypotension (8) HCAP (healthcare-associated pneumonia) (9) CKD (chronic kidney disease) stage 3, GFR 30-59 ml/min Plan hypotonic fluids, pulm care, empiric atb ordered high risk worsening creatinine despine + fluid bal, reduce iv to 50 ml/hr Subjective ROS Limited/Unobtainable: Yes Objective Objective Last 24 Hour Vital Signs Date Time Temp Pulse Resp B/P (MAP) Pulse Ox O2 Delivery O2 Flow Rate FiO2 10/16/19 12:30 59 10/16/19 12:00 Mechanical Ventilator 10/16/19 12:00 98.1 64 17 127/70 (89) 100 10/16/19 11:00 65 15 138/84 (102) 99 10/16/19 10:00 66 20 130/71 (90) 100 10/16/19 09:14 60 10/16/19 09:00 67 17 121/69 (86) 99 10/16/19 08:00 60 10/16/19 08:00 Mechanical Ventilator 10/16/19 08:00 98.0 64 24 115/67 (83) 99 10/16/19 07:59 63 10/16/19 07:19 62 24 100 Mechanical Ventilator 60 10/16/19 07:16 64 24 100 Mechanical Ventilator 60 10/16/19 07:16 62 24 60 10/16/19 07:00 63 24 109/87 (94) 100 10/16/19 06:00 63 24 115/64 (81) 98 10/16/19 05:45 65 23 111/65 (80) 95 10/16/19 05:30 68 25 114/69 (84) 97 10/16/19 05:00 63 23 115/70 (85) 100 10/16/19 04:30 70 23 127/75 (92) 100 10/16/19 04:03 97.9 128 26 108/56 (73) 93 10/16/19 04:00 65 10/16/19 04:00 Mechanical Ventilator 10/16/19 04:00 60 10/16/19 03:26 69 24 98 Mechanical Ventilator 60 10/16/19 03:23 68 24 96 Mechanical Ventilator 60 10/16/19 03:22 69 24 60 10/16/19 03:00 68 21 117/97 (104) 97 10/16/19 02:00 69 21 100/71 (81) 98 10/16/19 01:00 64 24 119/97 (104) 99 10/16/19 00:00 68 10/16/19 00:00 Mechanical Ventilator 10/16/19 00:00 60 10/16/19 00:00 97.9 65 24 111/63 (79) 99 10/15/19 23:42 68 24 99 Mechanical Ventilator 60 10/15/19 23:37 65 24 98 Mechanical Ventilator 60 10/15/19 23:37 65 24 60 10/15/19 23:00 65 24 105/64 (78) 99 10/15/19 22:00 64 24 104/63 (77) 99 10/15/19 21:00 68 19 103/66 (78) 99 10/15/19 20:00 Mechanical Ventilator 10/15/19 20:00 60 10/15/19 20:00 64 10/15/19 20:00 98.3 67 22 127/66 (86) 99 10/15/19 19:18 72 24 100 Mechanical Ventilator 60 10/15/19 19:15 69 24 60 10/15/19 19:10 69 24 100 Mechanical Ventilator 60 10/15/19 19:00 63 0 102/61 (75) 99 10/15/19 18:00 98.0 68 24 115/59 (77) 100 10/15/19 17:00 65 24 102/61 (75) 100 10/15/19 16:00 65 24 121/64 (83) 100 10/15/19 16:00 Mechanical Ventilator 10/15/19 15:20 64 10/15/19 15:10 65 24 100 10/15/19 15:00 Mechanical Ventilator 10/15/19 15:00 Mechanical Ventilator 10/15/19 15:00 65 24 109/66 (80) 100 10/15/19 14:00 63 23 124/76 (92) 100 Intake and Output 10/15/19 10/16/19 19:00 07:00 Intake Total 1322.5 ml 1161.0 ml Output Total 160 ml 315 ml Balance 1162.5 ml 846.0 ml IV Total 1092.5 ml 1001.0 ml Tube Feeding 180 ml 160 ml Other 50 ml Output Urine Total 145 ml 315 ml Stool Total 15 ml # Bowel Movements 1 100 Laboratory Tests 10/16/19 04:45: White Blood Count 13.5H, Red Blood Count 4.02L, Hemoglobin 11.2L, Hematocrit 32.7L, Mean Corpuscular Volume 81, Mean Corpuscular Hemoglobin 27.9, Mean Corpuscular Hemoglobin Concent 34.3, Red Cell Distribution Width 12.9, Platelet Count 191, Mean Platelet Volume 7.5, Neutrophils (%) (Auto) 82.9H, Lymphocytes ( %) (Auto) 7.5L, Monocytes (%) (Auto) 9.0, Eosinophils (%) (Auto) 0.1, Basophils (%) (Auto) 0.5, Sodium Level 140, Potassium Level 3.6, Chloride Level 106, Carbon Dioxide Level 25, Anion Gap 9, Blood Urea Nitrogen 36H, Creatinine 2.4H, Estimat Glomerular Filtration Rate 26.7, Glucose Level 124H, Calcium Level 7.7L Height (Feet): 5 Height (Inches): 11.00 Weight (Pounds): 145 General Appearance: lethargic, other - on vent Cardiovascular: regular rhythm Respiratory/Chest: rhonchi - bilaterally Abdomen: non tender Extremities: trace edema Neurologic: unresponsive Jose Gant MD Oct 16, 2019 13:35
[2019-10-16] MEDS ORDERED: levETIRAcetam 500mg/NS100ml 100 ML IVPB SCH (14:00)
--- NOTE | 2019-10-16 14:21 | NUR ---
NURSE NOTES: No muscle twitching noted. Dr Gant here to see the patient. Updated him with patient's condition. Orders are already in the system and carried out.
--- NOTE | 2019-10-16 15:15 | NUR ---
NURSE NOTES: Dr Porras here to see the patient. Updated him with pt's current condition including the episode of muscle twitching earlier and lucio 55-59. Awaiting new orders.
--- NOTE | 2019-10-16 15:59 | General Progress Note ---
Assessment/Plan Assessment/Plan: Assessment/Plan: 1. History of diabetes. 2. Hypertension. 3. Chronic kidney disease. 4. COPD. 5. CHF. 6. Dementia. 7. AMS 8. Dysphagia 9. Right sided PNA Recommendations TF Elevate HOB monitor residual q 4 hours pulmonary toilet abx Subjective Allergies: Coded Allergies: No Known Allergies (Unverified , 07/23/18) Subjective Above noted seen in ICU Feeding tube in tolerating TF Objective Last 24 Hour Vital Signs Date Time Temp Pulse Resp B/P (MAP) Pulse Ox O2 Delivery O2 Flow Rate FiO2 10/16/19 15:00 58 16 117/65 (82) 100 10/16/19 14:00 59 18 136/68 (90) 100 10/16/19 13:00 60 18 136/67 (90) 100 10/16/19 12:30 59 10/16/19 12:00 Mechanical Ventilator 10/16/19 12:00 98.1 64 17 127/70 (89) 100 10/16/19 11:00 65 15 138/84 (102) 99 10/16/19 10:00 66 20 130/71 (90) 100 10/16/19 09:14 60 10/16/19 09:00 67 17 121/69 (86) 99 10/16/19 08:00 60 10/16/19 08:00 Mechanical Ventilator 10/16/19 08:00 98.0 64 24 115/67 (83) 99 10/16/19 07:59 63 10/16/19 07:19 62 24 100 Mechanical Ventilator 60 10/16/19 07:16 64 24 100 Mechanical Ventilator 60 10/16/19 07:16 62 24 60 10/16/19 07:00 63 24 109/87 (94) 100 10/16/19 06:00 63 24 115/64 (81) 98 10/16/19 05:45 65 23 111/65 (80) 95 10/16/19 05:30 68 25 114/69 (84) 97 10/16/19 05:00 63 23 115/70 (85) 100 10/16/19 04:30 70 23 127/75 (92) 100 10/16/19 04:03 97.9 128 26 108/56 (73) 93 10/16/19 04:00 65 10/16/19 04:00 Mechanical Ventilator 10/16/19 04:00 60 10/16/19 03:26 69 24 98 Mechanical Ventilator 60 10/16/19 03:23 68 24 96 Mechanical Ventilator 60 10/16/19 03:22 69 24 60 10/16/19 03:00 68 21 117/97 (104) 97 10/16/19 02:00 69 21 100/71 (81) 98 10/16/19 01:00 64 24 119/97 (104) 99 10/16/19 00:00 68 10/16/19 00:00 Mechanical Ventilator 10/16/19 00:00 60 10/16/19 00:00 97.9 65 24 111/63 (79) 99 10/15/19 23:42 68 24 99 Mechanical Ventilator 60 10/15/19 23:37 65 24 98 Mechanical Ventilator 60 10/15/19 23:37 65 24 60 10/15/19 23:00 65 24 105/64 (78) 99 10/15/19 22:00 64 24 104/63 (77) 99 10/15/19 21:00 68 19 103/66 (78) 99 10/15/19 20:00 Mechanical Ventilator 10/15/19 20:00 60 10/15/19 20:00 64 10/15/19 20:00 98.3 67 22 127/66 (86) 99 10/15/19 19:18 72 24 100 Mechanical Ventilator 60 10/15/19 19:15 69 24 60 10/15/19 19:10 69 24 100 Mechanical Ventilator 60 10/15/19 19:00 63 0 102/61 (75) 99 10/15/19 18:00 98.0 68 24 115/59 (77) 100 10/15/19 17:00 65 24 102/61 (75) 100 10/15/19 16:00 65 24 121/64 (83) 100 10/15/19 16:00 Mechanical Ventilator Intake and Output 10/15/19 10/16/19 19:00 07:00 Intake Total 1322.5 ml 1161.0 ml Output Total 160 ml 315 ml Balance 1162.5 ml 846.0 ml IV Total 1092.5 ml 1001.0 ml Tube Feeding 180 ml 160 ml Other 50 ml Output Urine Total 145 ml 315 ml Stool Total 15 ml # Bowel Movements 1 100 Laboratory Tests 10/16/19 04:45: White Blood Count 13.5H, Red Blood Count 4.02L, Hemoglobin 11.2L, Hematocrit 32.7L, Mean Corpuscular Volume 81, Mean Corpuscular Hemoglobin 27.9, Mean Corpuscular Hemoglobin Concent 34.3, Red Cell Distribution Width 12.9, Platelet Count 191, Mean Platelet Volume 7.5, Neutrophils (%) (Auto) 82.9H, Lymphocytes ( %) (Auto) 7.5L, Monocytes (%) (Auto) 9.0, Eosinophils (%) (Auto) 0.1, Basophils (%) (Auto) 0.5, Sodium Level 140, Potassium Level 3.6, Chloride Level 106, Carbon Dioxide Level 25, Anion Gap 9, Blood Urea Nitrogen 36H, Creatinine 2.4H, Estimat Glomerular Filtration Rate 26.7, Glucose Level 124H, Calcium Level 7.7L Height (Feet): 5 Height (Inches): 11.00 Weight (Pounds): 145 Objective Debilitated WM NCAT , (+) feeding tube supple coarse ronchi Abd soft no edema Lexx Khan MD Oct 16, 2019 15:59
--- NOTE | 2019-10-16 17:52 | Surgery Progress Note ---
Surgery Progress Note Subjective Procedure Performed left femoral central venous catheter insertion Additional Comments 1. Enteric tube with side-port below the level of the diaphragm, likely near the gastroesophageal junction. 2. Right basilar airspace disease, linear airspace opacities, and pleural effusion and/or atelectasis. This is not significant changes compared to prior imaging. 3. Severe atherosclerotic vascular disease. Objective Last 24 Hour Vital Signs Date Time Temp Pulse Resp B/P (MAP) Pulse Ox O2 Delivery O2 Flow Rate FiO2 10/16/19 17:00 57 18 126/64 (84) 98 10/16/19 16:00 58 10/16/19 16:00 60 10/16/19 16:00 59 17 125/64 (84) 100 10/16/19 16:00 58 16 117/65 (82) 100 10/16/19 16:00 Mechanical Ventilator 10/16/19 15:34 58 24 100 Mechanical Ventilator 60 10/16/19 15:30 64 24 100 Mechanical Ventilator 60 10/16/19 15:30 58 18 60 10/16/19 15:00 58 16 117/65 (82) 100 10/16/19 14:00 59 18 136/68 (90) 100 10/16/19 13:00 60 18 136/67 (90) 100 10/16/19 12:30 59 10/16/19 12:00 60 10/16/19 12:00 Mechanical Ventilator 10/16/19 12:00 98.1 64 17 127/70 (89) 100 10/16/19 11:23 68 24 100 Mechanical Ventilator 60 10/16/19 11:19 62 18 60 10/16/19 11:19 64 24 100 Mechanical Ventilator 60 10/16/19 11:00 65 15 138/84 (102) 99 10/16/19 10:00 66 20 130/71 (90) 100 10/16/19 09:14 60 10/16/19 09:00 67 17 121/69 (86) 99 10/16/19 08:00 60 10/16/19 08:00 Mechanical Ventilator 10/16/19 08:00 98.0 64 24 115/67 (83) 99 10/16/19 07:59 63 10/16/19 07:19 62 24 100 Mechanical Ventilator 60 10/16/19 07:16 64 24 100 Mechanical Ventilator 60 10/16/19 07:16 62 24 60 10/16/19 07:00 63 24 109/87 (94) 100 10/16/19 06:00 63 24 115/64 (81) 98 10/16/19 05:45 65 23 111/65 (80) 95 10/16/19 05:30 68 25 114/69 (84) 97 10/16/19 05:00 63 23 115/70 (85) 100 10/16/19 04:30 70 23 127/75 (92) 100 10/16/19 04:03 97.9 128 26 108/56 (73) 93 10/16/19 04:00 65 10/16/19 04:00 Mechanical Ventilator 10/16/19 04:00 60 10/16/19 03:26 69 24 98 Mechanical Ventilator 60 10/16/19 03:23 68 24 96 Mechanical Ventilator 60 10/16/19 03:22 69 24 60 10/16/19 03:00 68 21 117/97 (104) 97 10/16/19 02:00 69 21 100/71 (81) 98 10/16/19 01:00 64 24 119/97 (104) 99 10/16/19 00:00 68 10/16/19 00:00 Mechanical Ventilator 10/16/19 00:00 60 10/16/19 00:00 97.9 65 24 111/63 (79) 99 10/15/19 23:42 68 24 99 Mechanical Ventilator 60 10/15/19 23:37 65 24 98 Mechanical Ventilator 60 10/15/19 23:37 65 24 60 10/15/19 23:00 65 24 105/64 (78) 99 10/15/19 22:00 64 24 104/63 (77) 99 10/15/19 21:00 68 19 103/66 (78) 99 10/15/19 20:00 Mechanical Ventilator 10/15/19 20:00 60 10/15/19 20:00 64 10/15/19 20:00 98.3 67 22 127/66 (86) 99 10/15/19 19:18 72 24 100 Mechanical Ventilator 60 10/15/19 19:15 69 24 60 10/15/19 19:10 69 24 100 Mechanical Ventilator 60 10/15/19 19:00 63 0 102/61 (75) 99 10/15/19 18:00 98.0 68 24 115/59 (77) 100 I&O Intake and Output 10/15/19 10/16/19 19:00 07:00 Intake Total 1322.5 ml 1161.0 ml Output Total 160 ml 315 ml Balance 1162.5 ml 846.0 ml IV Total 1092.5 ml 1001.0 ml Tube Feeding 180 ml 160 ml Other 50 ml Output Urine Total 145 ml 315 ml Stool Total 15 ml # Bowel Movements 1 100 Dressing: other Wound: other Drains: other Cardiovascular: RSR Respiratory: decreased breath sounds Abdomen: soft, present bowel sounds Extremities: no cyanosis Laboratory Tests Test 10/16/19 04:45 White Blood Count 13.5 K/UL (4.8-10.8) H Red Blood Count 4.02 M/UL (4.70-6.10) L Hemoglobin 11.2 G/DL (14.2-18.0) L Hematocrit 32.7 % (42.0-52.0) L Mean Corpuscular Volume 81 FL (80-99) Mean Corpuscular Hemoglobin 27.9 PG (27.0-31.0) Mean Corpuscular Hemoglobin Concent 34.3 G/DL (32.0-36.0) Red Cell Distribution Width 12.9 % (11.6-14.8) Platelet Count 191 K/UL (150-450) Mean Platelet Volume 7.5 FL (6.5-10.1) Neutrophils (%) (Auto) 82.9 % (45.0-75.0) H Lymphocytes (%) (Auto) 7.5 % (20.0-45.0) L Monocytes (%) (Auto) 9.0 % (1.0-10.0) Eosinophils (%) (Auto) 0.1 % (0.0-3.0) Basophils (%) (Auto) 0.5 % (0.0-2.0) Sodium Level 140 MMOL/L (136-145) Potassium Level 3.6 MMOL/L (3.5-5.1) Chloride Level 106 MMOL/L (98-107) Carbon Dioxide Level 25 MMOL/L (21-32) Anion Gap 9 mmol/L (5-15) Blood Urea Nitrogen 36 mg/dL (7-18) H Creatinine 2.4 MG/DL (0.55-1.30) H Estimat Glomerular Filtration Rate 26.7 mL/min (>60) Glucose Level 124 MG/DL (74-106) H Calcium Level 7.7 MG/DL (8.5-10.1) L Plan Problems: (1) Hypotension Assessment & Plan: 74-year-old male hypotensive unknown etiology's potentially septic COVID eval Needs pressors urgently transfer to the intensive care unit Need central venous access for pressors meds fluids Emergency procedure performed at the bedside Left femoral central venous catheter inserted without complication see note Okay for pressors okay to use We will follow with recommendations and monitor. Thank you for allowing participate in patient care There is a nasogastric tube in place. Tip projects at the level of the distal esophagus. There is complete opacification of the right hemithorax. This is a new finding. There appears to be abrupt cut off of the right mainstem bronchus. The bowel gas pattern is unremarkable High position of nasogastric tube. Advancement recommended. Complete opacification of the right hemithorax. Probably due to complete atelectasis of the right lung, could also indicate a component of pleural fluid. (2) Dehydration Assessment & Plan: DAILY ESTIMATED NEEDS: Needs based on Respiratory, underweight 57.3 30-35 kcals/kg 2709-1132 total kcals 1-1.5 g protein/kg 57-86 g total protein 25-30 mL/kg 6025-5583 total fluid mLs NUTRITION DIAGNOSIS: Altered nutrition related lab values r/t clinical status, renal failure as evidenced by elev BUN (62 trending down), elev Creat (2.1 trending down), elev Na (150). CURRENT DIET:SIDRA ms w/ NTL PO DIET RECOMMENDATIONS: LOW NA + NEPRO TID / Texture per WAREHOUSING TECHNICIAN ENTERAL NUTRITION RECOMMENDATIONS: -Consult RD if part of POC w/ continued poor po intake. ADDITIONAL RECOMMENDATIONS: 1) Obtain a CALIBRATED WEIGHT as able Pt w/ underweight BMI 2) Poor po intake-> consider non oral feeds for ICU status and poor po 3) WAREHOUSING TECHNICIAN eval for H/o CVA-> diet texture per WAREHOUSING TECHNICIAN 4) rec WC eval for sacral wound, add MURIEL BID for skin integrity . (3) Acute renal failure (4) Pneumonia (5) Acute metabolic encephalopathy (6) Suspected COVID-19 virus infection Gallo Kingston Oct 16, 2019 17:52
--- NOTE | 2019-10-16 18:15 | NUR ---
NURSE NOTES: Cleaned pt for small amount of loose BM. Rectal tube removed since the balloon came out and stool is not loose enough to be collected via rectal tube. Addendum: 10/16/19 at 1817 by MOINCA CORREA RN RN NURSE NOTES: Cleaned pt for small amount of loose BM. Rectal tube removed since the balloon came out and stool is not loose enough to be collected via rectal tube. Sinus lucio 57-58. No muscle twitching activity noted.
--- NOTE | 2019-10-16 19:34 | NUR ---
HAND-OFF: Report given to MIRANDA Soni.
--- NOTE | 2019-10-16 20:00 | NUR ---
NURSE NOTES: RECEIVED REPORT FROM DIONISIO RN PT ORALLY INTUBATED -VENT O2 SAT 99% NO ACUTE RESP RESP DISTRESS NOTED TOLERATING TUBE FEEDING NORESIDUAL REPOSITION AND SUCTION
[2019-10-16] MEDS: Dyna-Hex 2% Top Sol 2oz TOPIC SCH (20:51)
[2019-10-17] VITALS (26 sets, daily range): BP systolic 95–124; BP diastolic 57–76
--- NOTE | 2019-10-17 02:45 | Progress Note ---
DATE: 10/16/2019 CARDIOLOGY PROGRESS NOTE SUBJECTIVE: The patient remains on ventilator support. The patient remains on pressors. Condition remains critical. Prognosis guarded. PHYSICAL EXAMINATION: VITAL SIGNS: Afebrile, blood pressure 121/69, pulse 67, respirations 17. HEENT: Orally intubated. LUNGS: Bilateral breath sounds with rhonchi bilaterally. CARDIAC: Regular rhythm and rate. Normal S1, S2 with a 1/6 systolic murmur at apex. ABDOMEN: Soft. EXTREMITIES: Trace edema. IMPRESSION: 1. Respiratory failure. 2. Sepsis with shock. 3. Hypoxia. 4. Paroxysmal atrial fibrillation. 5. Dehydration, hypernatremia. 6. Acute on chronic diastolic congestive heart failure. PLAN: 1. Amiodarone for arrhythmia suppression. 2. Ventilator support. 3. Respiratory hygiene. 4. Antimicrobials. 5. COVID-19 precautions. 6. Reassess for diuresis. 7. Follow up chest radiograph and trending of natriuretic peptide assay to assist with care. Anselmo Porras M.D. DR: PUSHPA JOB#: [id number] CC:
[2019-10-17] MEDS: levETIRAcetam 500mg/NS100ml 100 ML IVPB SCH ×3 (04:00→20:26)
--- NOTE | 2019-10-17 04:00 | NUR ---
NURSE NOTES COMPLETE BED BATH ORAL CARE AND BACK CARE DONE REPOSITION AND SUCTION
[2019-10-17 04:58] LABS: HEMATOCRIT 32.3 % (42.0-52.0); HEMOGLOBIN 11.1 G/DL (14.2-18.0); LYMPHOCYTES % (AUTO) 7.2 % (20.0-45.0); MEAN CORPUSCULAR VOLUME 81 FL (80-99); MONOCYTES % (AUTO) 8.1 % (1.0-10.0); NEUTROPHILS % (AUTO) 83.7 % (45.0-75.0); PLATELET COUNT 181 K/UL (150-450); RED BLOOD COUNT 3.98 M/UL (4.70-6.10); RED CELL DISTRIBUTION WIDTH 12.9 % (11.6-14.8)
[2019-10-17 05:10] LABS: ANION GAP 9 mmol/L (5-15); BLOOD UREA NITROGEN 41 mg/dL (7-18); CALCIUM 7.9 MG/DL (8.5-10.1); CARBON DIOXIDE 25 MMOL/L (21-32); CHLORIDE 105 MMOL/L (98-107); CREATININE 2.1 MG/DL (0.55-1.30); POTASSIUM 3.5 MMOL/L (3.5-5.1); SODIUM 139 MMOL/L (136-145)
[2019-10-17] MEDS: Piperacillin/Tazobactam 3.375 GM in NS 110 ML IVPB SCH ×3 (05:41→21:00)
--- NOTE | 2019-10-17 06:37 | General Progress Note ---
Assessment/Plan Assessment/Plan: 1. History of diabetes. 2. Hypertension. 3. Chronic kidney disease. 4. COPD. 5. CHF. 6. Dementia. 7. AMS 8. Dysphagia 9. Righ sided pna NGT running still intubated may need Trach and PEG fu pulm abx per ID Subjective ROS Limited/Unobtainable: No Allergies: Coded Allergies: No Known Allergies (Unverified , 07/23/18) Objective Last 24 Hour Vital Signs Date Time Temp Pulse Resp B/P (MAP) Pulse Ox O2 Delivery O2 Flow Rate FiO2 10/17/19 04:00 60 10/17/19 04:00 98.4 63 6 107/65 (79) 100 10/17/19 04:00 Mechanical Ventilator 10/17/19 04:00 64 10/17/19 03:35 66 20 100 Mechanical Ventilator 60 10/17/19 03:30 65 20 100 Mechanical Ventilator 60 10/17/19 03:30 65 20 60 10/17/19 03:00 70 9 122/65 (84) 97 10/17/19 02:00 66 31 111/65 (80) 99 10/17/19 01:00 64 5 124/75 (91) 100 10/17/19 00:00 60 10/17/19 00:00 62 10/17/19 00:00 98.8 62 19 117/67 (84) 98 10/17/19 00:00 Mechanical Ventilator 10/16/19 23:00 78 24 100 Mechanical Ventilator 60 10/16/19 23:00 73 24 100 Mechanical Ventilator 60 10/16/19 23:00 68 4 115/63 (80) 98 10/16/19 23:00 77 19 60 10/16/19 21:00 58 18 120/67 (84) 100 10/16/19 20:00 58 10/16/19 20:00 60 10/16/19 20:00 Mechanical Ventilator 10/16/19 20:00 98.5 59 18 122/65 (84) 100 10/16/19 19:25 58 19 60 10/16/19 19:00 Mechanical Ventilator 60 10/16/19 19:00 59 18 106/69 (81) 99 10/16/19 19:00 Mechanical Ventilator 10/16/19 18:00 97.9 64 23 99/54 (69) 93 10/16/19 17:00 57 18 126/64 (84) 98 10/16/19 16:00 58 10/16/19 16:00 60 10/16/19 16:00 59 17 125/64 (84) 100 10/16/19 16:00 58 16 117/65 (82) 100 10/16/19 16:00 Mechanical Ventilator 10/16/19 15:34 58 24 100 Mechanical Ventilator 60 10/16/19 15:30 64 24 100 Mechanical Ventilator 60 10/16/19 15:30 58 18 60 10/16/19 15:00 58 16 117/65 (82) 100 10/16/19 14:00 59 18 136/68 (90) 100 10/16/19 13:00 60 18 136/67 (90) 100 10/16/19 12:30 59 10/16/19 12:00 60 10/16/19 12:00 Mechanical Ventilator 10/16/19 12:00 98.1 64 17 127/70 (89) 100 10/16/19 11:23 68 24 100 Mechanical Ventilator 60 10/16/19 11:19 62 18 60 10/16/19 11:19 64 24 100 Mechanical Ventilator 60 10/16/19 11:00 65 15 138/84 (102) 99 10/16/19 10:00 66 20 130/71 (90) 100 10/16/19 09:14 60 10/16/19 09:00 67 17 121/69 (86) 99 10/16/19 08:00 60 10/16/19 08:00 Mechanical Ventilator 10/16/19 08:00 98.0 64 24 115/67 (83) 99 10/16/19 07:59 63 10/16/19 07:19 62 24 100 Mechanical Ventilator 60 10/16/19 07:16 64 24 100 Mechanical Ventilator 60 10/16/19 07:16 62 24 60 10/16/19 07:00 63 24 109/87 (94) 100 Intake and Output 10/16/19 10/17/19 19:00 07:00 Intake Total 1421.0 ml 1250.0 ml Output Total 280 ml 50 ml Balance 1141.0 ml 1200.0 ml Free Water 30 ml 150 ml IV Total 1071.0 ml 710.0 ml Tube Feeding 270 ml 390 ml Other 50 ml Output Urine Total 280 ml 50 ml # Bowel Movements 1 Laboratory Tests 10/17/19 04:00: White Blood Count 12.0H, Red Blood Count 3.98L, Hemoglobin 11.1L, Hematocrit 32.3L, Mean Corpuscular Volume 81, Mean Corpuscular Hemoglobin 27.8, Mean Corpuscular Hemoglobin Concent 34.3, Red Cell Distribution Width 12.9, Platelet Count 181, Mean Platelet Volume 7.6, Neutrophils (%) (Auto) 83.7H, Lymphocytes ( %) (Auto) 7.2L, Monocytes (%) (Auto) 8.1, Eosinophils (%) (Auto) 0.0, Basophils (%) (Auto) 1.0, Sodium Level 139, Potassium Level 3.5, Chloride Level 105, Carbon Dioxide Level 25, Anion Gap 9, Blood Urea Nitrogen 41H, Creatinine 2.1H, Estimat Glomerular Filtration Rate 31.2, Glucose Level 117H, Calcium Level 7.9L , Magnesium Level 1.7L, Pro-B-Type Natriuretic Peptide 7192H Height (Feet): 5 Height (Inches): 11.00 Weight (Pounds): 145 General Appearance: alert EENT: normal ENT inspection Neck: supple Cardiovascular: normal rate Respiratory/Chest: decreased breath sounds Abdomen: normal bowel sounds, non tender, soft Extremities: non-tender Chaitanya Beverly MD Oct 17, 2019 06:37
--- NOTE | 2019-10-17 07:39 | NUR ---
HAND-OFF: Report given to letty bello using sbar .
--- NOTE | 2019-10-17 07:55 | NUR ---
NURSE NOTES: Report received from MIRANDA Rolon. Pt is lying comfortably in semi fowlers with no signs of distress. Pt is non-verbal and lethargic, reacts to painful stimuli. Pt does not follow commands. Respirations even and unlabored on mechanical ventilator. ETT 8, 23 cm @ the lip line. O2 saturation of 98% with vent settings of AC 18, VT 600, FiO2 60% and peep of 5. Pt SR on the monitor @ 67 bpm. Left femoral TLC running fluids @ prescribed raate. Pt has pressure wounds dressed in optifoam. Head of bed @ 30 degrees. NGT noted and patent, running feeding @ prescribed rate. Mathis in place and patent, draining urine at foot of bed. Bilateral wrist restraints noted for pt's safety. Edema noted on bilateral arms with no skin breakdown. Pulses present. Bed at lowest position, brakes engaged, siderails x3, bed alarm on, and call light within reach. Pt in stable condition at this time; will continue to monitor.
[2019-10-17] MEDS: Aspirin Baby 81mg ORAL SCH (08:14)
[2019-10-17] MEDS: Amiodarone 200mg tab NG SCH (08:14)
[2019-10-17] MEDS: Heparin 5000 units/ml inj SUBQ SCH ×2 (08:15→20:59)
--- NOTE | 2019-10-17 08:24 | Critical Care Progress Note ---
Assessment/Plan Assessment/Plan Impression: negative COVID-19 x2 Pneumonia Chronic Kidney Disease, has shunt left upper arm with ARF Dehydration Hypotension Dementia Congestive Heart Failure Atrial Fibrillation Diabetes Hypertension Dysphagia Hyperlipidemia COPD hypernatremia sinus tachycardia acute respiratory failure/ improved lung collapse with effusion better Plan IV Antibiotics IVF as per renal monitor hemodynamics PICC line Renal and Cardiology follow up vent support- monitor acid base Monitor labs close follow up monitor vitals; nutrition medications/laboratory data/nursing notes/ICU care reviewed in detail note reviewed and edited care discussed with RN and RT ICU time spent >40 minutes Critical Care - Subjective Interval Events: care reviewed on vent poor LOC ROS Limited/Unobtainable: Yes Condition: critical EKG Rhythm: Sinus Rhythm I&O: Intake and Output 10/16/19 10/17/19 19:00 07:00 Intake Total 1421.0 ml 1370.0 ml Output Total 280 ml 75 ml Balance 1141.0 ml 1295.0 ml Free Water 30 ml 150 ml IV Total 1071.0 ml 710.0 ml Tube Feeding 270 ml 510 ml Other 50 ml Output Urine Total 280 ml 75 ml # Bowel Movements 1 3 Critical Care - Objective ET-Tube: 8.0 ET Position: 23 Last 24 Hour Vital Signs Date Time Temp Pulse Resp B/P (MAP) Pulse Ox O2 Delivery O2 Flow Rate FiO2 10/17/19 07:00 67 21 113/67 (82) 99 10/17/19 06:00 64 24 107/64 (78) 99 10/17/19 05:00 63 22 104/61 (75) 100 10/17/19 04:00 60 10/17/19 04:00 98.4 63 6 107/65 (79) 100 10/17/19 04:00 Mechanical Ventilator 10/17/19 04:00 64 10/17/19 03:35 66 20 100 Mechanical Ventilator 60 10/17/19 03:30 65 20 100 Mechanical Ventilator 60 10/17/19 03:30 65 20 60 10/17/19 03:00 70 9 122/65 (84) 97 10/17/19 02:00 66 31 111/65 (80) 99 10/17/19 01:00 64 5 124/75 (91) 100 10/17/19 00:00 60 10/17/19 00:00 62 10/17/19 00:00 98.8 62 19 117/67 (84) 98 10/17/19 00:00 Mechanical Ventilator 10/16/19 23:00 78 24 100 Mechanical Ventilator 60 10/16/19 23:00 73 24 100 Mechanical Ventilator 60 10/16/19 23:00 68 4 115/63 (80) 98 10/16/19 23:00 77 19 60 10/16/19 21:00 58 18 120/67 (84) 100 10/16/19 20:00 58 10/16/19 20:00 60 10/16/19 20:00 Mechanical Ventilator 10/16/19 20:00 98.5 59 18 122/65 (84) 100 10/16/19 19:25 58 19 60 10/16/19 19:00 Mechanical Ventilator 60 10/16/19 19:00 59 18 106/69 (81) 99 10/16/19 19:00 Mechanical Ventilator 10/16/19 18:00 97.9 64 23 99/54 (69) 93 10/16/19 17:00 57 18 126/64 (84) 98 10/16/19 16:00 58 10/16/19 16:00 60 10/16/19 16:00 59 17 125/64 (84) 100 10/16/19 16:00 58 16 117/65 (82) 100 10/16/19 16:00 Mechanical Ventilator 10/16/19 15:34 58 24 100 Mechanical Ventilator 60 10/16/19 15:30 64 24 100 Mechanical Ventilator 60 10/16/19 15:30 58 18 60 10/16/19 15:00 58 16 117/65 (82) 100 10/16/19 14:00 59 18 136/68 (90) 100 10/16/19 13:00 60 18 136/67 (90) 100 10/16/19 12:30 59 10/16/19 12:00 60 10/16/19 12:00 Mechanical Ventilator 10/16/19 12:00 98.1 64 17 127/70 (89) 100 10/16/19 11:23 68 24 100 Mechanical Ventilator 60 10/16/19 11:19 62 18 60 10/16/19 11:19 64 24 100 Mechanical Ventilator 60 10/16/19 11:00 65 15 138/84 (102) 99 10/16/19 10:00 66 20 130/71 (90) 100 10/16/19 09:14 60 10/16/19 09:00 67 17 121/69 (86) 99 Labs: Laboratory Tests Test 10/17/19 04:00 White Blood Count 12.0 K/UL (4.8-10.8) H Red Blood Count 3.98 M/UL (4.70-6.10) L Hemoglobin 11.1 G/DL (14.2-18.0) L Hematocrit 32.3 % (42.0-52.0) L Mean Corpuscular Volume 81 FL (80-99) Mean Corpuscular Hemoglobin 27.8 PG (27.0-31.0) Mean Corpuscular Hemoglobin Concent 34.3 G/DL (32.0-36.0) Red Cell Distribution Width 12.9 % (11.6-14.8) Platelet Count 181 K/UL (150-450) Mean Platelet Volume 7.6 FL (6.5-10.1) Neutrophils (%) (Auto) 83.7 % (45.0-75.0) H Lymphocytes (%) (Auto) 7.2 % (20.0-45.0) L Monocytes (%) (Auto) 8.1 % (1.0-10.0) Eosinophils (%) (Auto) 0.0 % (0.0-3.0) Basophils (%) (Auto) 1.0 % (0.0-2.0) Sodium Level 139 MMOL/L (136-145) Potassium Level 3.5 MMOL/L (3.5-5.1) Chloride Level 105 MMOL/L (98-107) Carbon Dioxide Level 25 MMOL/L (21-32) Anion Gap 9 mmol/L (5-15) Blood Urea Nitrogen 41 mg/dL (7-18) H Creatinine 2.1 MG/DL (0.55-1.30) H Estimat Glomerular Filtration Rate 31.2 mL/min (>60) Glucose Level 117 MG/DL (74-106) H Calcium Level 7.9 MG/DL (8.5-10.1) L Magnesium Level 1.7 MG/DL (1.8-2.4) L Pro-B-Type Natriuretic Peptide 7192 pg/mL (0-125) H Objective: orally intubated improved BS right some rhonchi but better RRR without MRG NGT in place NABS nontender no CCE obtunded reviewed and edited Micro: Microbiology Date/Time Source Procedure Growth Status 10/14/19 13:20 Sputum Gram Stain - Final Complete 10/14/19 13:20 Sputum Sputum Culture - Final NORMAL UPPER RESPIRATORY ALBERTO PRESENT Complete Camilo Bill MD Oct 17, 2019 08:24
[2019-10-17] MEDS: Potassium Chloride 10 MEQ in D5W 1000ml 1,000 ML IV SCH (09:06)
--- NOTE | 2019-10-17 09:45 | NUR ---
NURSE NOTES: Dr. Bill @ bedside to assess patient.
--- NOTE | 2019-10-17 11:03 | Infectious Diseases Prog Note ---
Assessment/Plan Assessment/Plan antibiotics : zosyn A 1. pneumonia COVID 19 negative x 2 2. respiratory failure 3. renal failure improving 4. diabetes mellitus 5. hypertension 6. CHF 7. COPD 8. dementia P 1. continue zosyn 2. will follow up cultures Subjective ROS Limited/Unobtainable: Yes Allergies: Coded Allergies: No Known Allergies (Unverified , 07/23/18) Objective Vital Signs Last 24 Hour Vital Signs Date Time Temp Pulse Resp B/P (MAP) Pulse Ox O2 Delivery O2 Flow Rate FiO2 10/17/19 10:00 64 22 124/70 (88) 95 10/17/19 09:00 65 21 109/68 (82) 100 10/17/19 08:30 66 22 105/71 (82) 98 10/17/19 08:00 Mechanical Ventilator 10/17/19 08:00 67 10/17/19 08:00 98.6 64 21 102/62 (75) 100 10/17/19 08:00 60 10/17/19 07:20 65 18 100 Mechanical Ventilator 60 10/17/19 07:15 65 18 100 Mechanical Ventilator 60 10/17/19 07:15 65 18 60 10/17/19 07:00 67 21 113/67 (82) 99 10/17/19 06:00 64 24 107/64 (78) 99 10/17/19 05:00 63 22 104/61 (75) 100 10/17/19 04:00 60 10/17/19 04:00 98.4 63 6 107/65 (79) 100 10/17/19 04:00 Mechanical Ventilator 10/17/19 04:00 64 10/17/19 03:35 66 20 100 Mechanical Ventilator 60 10/17/19 03:30 65 20 100 Mechanical Ventilator 60 10/17/19 03:30 65 20 60 10/17/19 03:00 70 9 122/65 (84) 97 10/17/19 02:00 66 31 111/65 (80) 99 10/17/19 01:00 64 5 124/75 (91) 100 10/17/19 00:00 60 10/17/19 00:00 62 10/17/19 00:00 98.8 62 19 117/67 (84) 98 10/17/19 00:00 Mechanical Ventilator 10/16/19 23:00 78 24 100 Mechanical Ventilator 60 10/16/19 23:00 73 24 100 Mechanical Ventilator 60 10/16/19 23:00 68 4 115/63 (80) 98 10/16/19 23:00 77 19 60 10/16/19 21:00 58 18 120/67 (84) 100 10/16/19 20:00 58 10/16/19 20:00 60 10/16/19 20:00 Mechanical Ventilator 10/16/19 20:00 98.5 59 18 122/65 (84) 100 10/16/19 19:25 58 19 60 10/16/19 19:00 Mechanical Ventilator 60 10/16/19 19:00 59 18 106/69 (81) 99 10/16/19 19:00 Mechanical Ventilator 10/16/19 18:00 97.9 64 23 99/54 (69) 93 10/16/19 17:00 57 18 126/64 (84) 98 10/16/19 16:00 58 10/16/19 16:00 60 10/16/19 16:00 59 17 125/64 (84) 100 10/16/19 16:00 58 16 117/65 (82) 100 10/16/19 16:00 Mechanical Ventilator 10/16/19 15:34 58 24 100 Mechanical Ventilator 60 10/16/19 15:30 64 24 100 Mechanical Ventilator 60 10/16/19 15:30 58 18 60 10/16/19 15:00 58 16 117/65 (82) 100 10/16/19 14:00 59 18 136/68 (90) 100 10/16/19 13:00 60 18 136/67 (90) 100 10/16/19 12:30 59 10/16/19 12:00 60 10/16/19 12:00 Mechanical Ventilator 10/16/19 12:00 98.1 64 17 127/70 (89) 100 10/16/19 11:23 68 24 100 Mechanical Ventilator 60 10/16/19 11:19 62 18 60 10/16/19 11:19 64 24 100 Mechanical Ventilator 60 Height (Feet): 5 Height (Inches): 11.00 Weight (Pounds): 150 HEENT: other - intubated Respiratory/Chest: lungs clear Cardiovascular: normal rate, regular rhythm, no gallop/murmur Extremities: other - + edema Microbiology Date/Time Source Procedure Growth Status 10/14/19 13:20 Sputum Gram Stain - Final Complete 10/14/19 13:20 Sputum Sputum Culture - Final NORMAL UPPER RESPIRATORY ALBERTO PRESENT Complete Laboratory Tests Test 10/17/19 04:00 White Blood Count 12.0 K/UL (4.8-10.8) H Red Blood Count 3.98 M/UL (4.70-6.10) L Hemoglobin 11.1 G/DL (14.2-18.0) L Hematocrit 32.3 % (42.0-52.0) L Mean Corpuscular Volume 81 FL (80-99) Mean Corpuscular Hemoglobin 27.8 PG (27.0-31.0) Mean Corpuscular Hemoglobin Concent 34.3 G/DL (32.0-36.0) Red Cell Distribution Width 12.9 % (11.6-14.8) Platelet Count 181 K/UL (150-450) Mean Platelet Volume 7.6 FL (6.5-10.1) Neutrophils (%) (Auto) 83.7 % (45.0-75.0) H Lymphocytes (%) (Auto) 7.2 % (20.0-45.0) L Monocytes (%) (Auto) 8.1 % (1.0-10.0) Eosinophils (%) (Auto) 0.0 % (0.0-3.0) Basophils (%) (Auto) 1.0 % (0.0-2.0) Sodium Level 139 MMOL/L (136-145) Potassium Level 3.5 MMOL/L (3.5-5.1) Chloride Level 105 MMOL/L (98-107) Carbon Dioxide Level 25 MMOL/L (21-32) Anion Gap 9 mmol/L (5-15) Blood Urea Nitrogen 41 mg/dL (7-18) H Creatinine 2.1 MG/DL (0.55-1.30) H Estimat Glomerular Filtration Rate 31.2 mL/min (>60) Glucose Level 117 MG/DL (74-106) H Calcium Level 7.9 MG/DL (8.5-10.1) L Magnesium Level 1.7 MG/DL (1.8-2.4) L Pro-B-Type Natriuretic Peptide 7192 pg/mL (0-125) H Current Medications Medications (Trade) Dose Ordered Sig/Clementine Route PRN Reason Start Time Stop Time Status Last Admin Dose Admin Acetaminophen (Tylenol) 650 mg Q4H PRN ORAL Mild Pain (Pain Scale 1-3) 10/09/19 05:45 11/08/19 05:44 Acetaminophen (Tylenol) 650 mg Q4H PRN ORAL fever 10/09/19 05:45 11/08/19 05:44 Albuterol Sulfate (Proventil MDI) 2 puff Q4H PRN INH Shortness of Breath 10/09/19 12:45 01/07/20 12:44 Amiodarone HCl (Cordarone) 200 mg DAILY NG 10/16/19 09:00 01/14/20 08:59 10/17/19 08:14 Aspirin (ASA) 81 mg DAILY ORAL 10/09/19 09:00 11/23/19 08:59 10/17/19 08:14 Chlorhexidine Gluconate (Flaca-Hex 2%) 1 applic DAILY@2000 TOPIC 10/09/19 20:00 01/07/20 19:59 10/16/19 20:51 Dextrose (Dextrose 50%) 25 ml Q30M PRN IV Hypoglycemia 10/09/19 05:45 01/07/20 05:44 Dextrose (Dextrose 50%) 50 ml Q30M PRN IV Hypoglycemia 10/09/19 05:45 01/07/20 05:44 Haloperidol Lactate 5 mg/ Dextrose 56 ml @ 224 mls/hr Q6HR PRN IVPB Agitation 10/09/19 21:30 11/23/19 21:29 10/11/19 04:35 Heparin Sodium (Porcine) (Heparin 5000 units/ml) 5,000 units EVERY 12 HOURS SUBQ 10/09/19 09:00 11/23/19 08:59 10/17/19 08:15 Levetiracetam 100 ml @ 400 mls/hr Q8H IVPB 10/16/19 12:00 01/14/20 11:59 10/17/19 04:00 Lorazepam (Ativan 2mg/ml 1ml) 1 mg Q2H PRN IV For Seizures 10/15/19 18:30 10/22/19 18:29 10/16/19 08:35 Magnesium Sulfate 100 ml @ 100 mls/hr Q1H IVPB 10/17/19 11:30 10/17/19 13:29 Piperacillin Sod/ Tazobactam Sod 3.375 gm/Sodium Chloride 110 ml @ 27.5 mls/hr EVERY 8 HOURS IVPB 10/14/19 14:00 10/19/19 13:59 10/17/19 05:41 Potassium Chloride 10 meq/ Dextrose 1,005 ml @ 50 mls/hr Q20H6M IV 10/16/19 13:37 11/15/19 13:36 10/17/19 09:06 Pravastatin Sodium (Pravachol) 20 mg BEDTIME ORAL 10/09/19 21:00 11/08/19 20:59 10/16/19 20:52 Arlin Sorensen MD Oct 17, 2019 11:03
--- NOTE | 2019-10-17 11:32 | NUR ---
NURSE NOTES: Pt in stable condition. Respirations loy diazd unlabored on 60 % FIO2 mech vent. Pt repositioned and oral care done.
--- NOTE | 2019-10-17 13:37 | Surgery Progress Note ---
Surgery Progress Note Subjective Procedure Performed left femoral central venous catheter insertion Additional Comments wbc 12k h/h stable tf at 50 60% and peep 5 Objective Last 24 Hour Vital Signs Date Time Temp Pulse Resp B/P (MAP) Pulse Ox O2 Delivery O2 Flow Rate FiO2 10/17/19 13:00 66 21 95/58 (70) 98 10/17/19 12:00 97.9 67 25 108/65 (79) 100 10/17/19 12:00 66 10/17/19 12:00 60 10/17/19 12:00 Mechanical Ventilator 10/17/19 11:20 66 18 100 Mechanical Ventilator 60 10/17/19 11:20 66 18 100 Mechanical Ventilator 60 10/17/19 11:20 66 19 60 10/17/19 11:00 66 20 103/63 (76) 100 10/17/19 10:00 64 22 124/70 (88) 95 10/17/19 09:00 65 21 109/68 (82) 100 10/17/19 08:30 66 22 105/71 (82) 98 10/17/19 08:00 Mechanical Ventilator 10/17/19 08:00 67 10/17/19 08:00 98.6 64 21 102/62 (75) 100 10/17/19 08:00 60 10/17/19 07:20 65 18 100 Mechanical Ventilator 60 10/17/19 07:15 65 18 100 Mechanical Ventilator 60 10/17/19 07:15 65 18 60 10/17/19 07:00 67 21 113/67 (82) 99 10/17/19 06:00 64 24 107/64 (78) 99 10/17/19 05:00 63 22 104/61 (75) 100 10/17/19 04:00 60 10/17/19 04:00 98.4 63 6 107/65 (79) 100 10/17/19 04:00 Mechanical Ventilator 10/17/19 04:00 64 10/17/19 03:35 66 20 100 Mechanical Ventilator 60 10/17/19 03:30 65 20 100 Mechanical Ventilator 60 10/17/19 03:30 65 20 60 10/17/19 03:00 70 9 122/65 (84) 97 10/17/19 02:00 66 31 111/65 (80) 99 10/17/19 01:00 64 5 124/75 (91) 100 10/17/19 00:00 60 10/17/19 00:00 62 10/17/19 00:00 98.8 62 19 117/67 (84) 98 10/17/19 00:00 Mechanical Ventilator 10/16/19 23:00 78 24 100 Mechanical Ventilator 60 10/16/19 23:00 73 24 100 Mechanical Ventilator 60 10/16/19 23:00 68 4 115/63 (80) 98 10/16/19 23:00 77 19 60 10/16/19 21:00 58 18 120/67 (84) 100 10/16/19 20:00 58 10/16/19 20:00 60 10/16/19 20:00 Mechanical Ventilator 10/16/19 20:00 98.5 59 18 122/65 (84) 100 10/16/19 19:25 58 19 60 10/16/19 19:00 Mechanical Ventilator 60 10/16/19 19:00 59 18 106/69 (81) 99 10/16/19 19:00 Mechanical Ventilator 10/16/19 18:00 97.9 64 23 99/54 (69) 93 10/16/19 17:00 57 18 126/64 (84) 98 10/16/19 16:00 58 10/16/19 16:00 60 10/16/19 16:00 59 17 125/64 (84) 100 10/16/19 16:00 58 16 117/65 (82) 100 10/16/19 16:00 Mechanical Ventilator 10/16/19 15:34 58 24 100 Mechanical Ventilator 60 10/16/19 15:30 64 24 100 Mechanical Ventilator 60 10/16/19 15:30 58 18 60 10/16/19 15:00 58 16 117/65 (82) 100 10/16/19 14:00 59 18 136/68 (90) 100 I&O Intake and Output 10/16/19 10/17/19 19:00 07:00 Intake Total 1421.0 ml 1370.0 ml Output Total 280 ml 75 ml Balance 1141.0 ml 1295.0 ml Free Water 30 ml 150 ml IV Total 1071.0 ml 710.0 ml Tube Feeding 270 ml 510 ml Other 50 ml Output Urine Total 280 ml 75 ml # Bowel Movements 1 3 Dressing: other Wound: other Drains: other Cardiovascular: RSR Respiratory: decreased breath sounds Abdomen: soft, non-tender, present bowel sounds Extremities: no cyanosis Laboratory Tests Test 10/17/19 04:00 White Blood Count 12.0 K/UL (4.8-10.8) H Red Blood Count 3.98 M/UL (4.70-6.10) L Hemoglobin 11.1 G/DL (14.2-18.0) L Hematocrit 32.3 % (42.0-52.0) L Mean Corpuscular Volume 81 FL (80-99) Mean Corpuscular Hemoglobin 27.8 PG (27.0-31.0) Mean Corpuscular Hemoglobin Concent 34.3 G/DL (32.0-36.0) Red Cell Distribution Width 12.9 % (11.6-14.8) Platelet Count 181 K/UL (150-450) Mean Platelet Volume 7.6 FL (6.5-10.1) Neutrophils (%) (Auto) 83.7 % (45.0-75.0) H Lymphocytes (%) (Auto) 7.2 % (20.0-45.0) L Monocytes (%) (Auto) 8.1 % (1.0-10.0) Eosinophils (%) (Auto) 0.0 % (0.0-3.0) Basophils (%) (Auto) 1.0 % (0.0-2.0) Sodium Level 139 MMOL/L (136-145) Potassium Level 3.5 MMOL/L (3.5-5.1) Chloride Level 105 MMOL/L (98-107) Carbon Dioxide Level 25 MMOL/L (21-32) Anion Gap 9 mmol/L (5-15) Blood Urea Nitrogen 41 mg/dL (7-18) H Creatinine 2.1 MG/DL (0.55-1.30) H Estimat Glomerular Filtration Rate 31.2 mL/min (>60) Glucose Level 117 MG/DL (74-106) H Calcium Level 7.9 MG/DL (8.5-10.1) L Magnesium Level 1.7 MG/DL (1.8-2.4) L Pro-B-Type Natriuretic Peptide 7192 pg/mL (0-125) H Plan Problems: (1) Hypotension Assessment & Plan: 74-year-old male hypotensive unknown etiology's potentially septic COVID eval Needs pressors urgently transfer to the intensive care unit Need central venous access for pressors meds fluids Emergency procedure performed at the bedside Left femoral central venous catheter inserted without complication see note Okay for pressors okay to use We will follow with recommendations and monitor. Thank you for allowing participate in patient care There is a nasogastric tube in place. Tip projects at the level of the distal esophagus. There is complete opacification of the right hemithorax. This is a new finding. There appears to be abrupt cut off of the right mainstem bronchus. The bowel gas pattern is unremarkable High position of nasogastric tube. Advancement recommended. Complete opacification of the right hemithorax. Probably due to complete atelectasis of the right lung, could also indicate a component of pleural fluid. (2) Dehydration Assessment & Plan: DAILY ESTIMATED NEEDS: Needs based on Respiratory, underweight 57.3 30-35 kcals/kg 5235-6671 total kcals 1-1.5 g protein/kg 57-86 g total protein 25-30 mL/kg 4850-6669 total fluid mLs NUTRITION DIAGNOSIS: Altered nutrition related lab values r/t clinical status, renal failure as evidenced by elev BUN (62 trending down), elev Creat (2.1 trending down), elev Na (150). CURRENT DIET:SIDRA ms w/ NTL PO DIET RECOMMENDATIONS: LOW NA + NEPRO TID / Texture per ADMINISTRATIVE SERVICES DIRECTOR ENTERAL NUTRITION RECOMMENDATIONS: -Consult RD if part of POC w/ continued poor po intake. ADDITIONAL RECOMMENDATIONS: 1) Obtain a CALIBRATED WEIGHT as able Pt w/ underweight BMI 2) Poor po intake-> consider non oral feeds for ICU status and poor po 3) ADMINISTRATIVE SERVICES DIRECTOR eval for H/o CVA-> diet texture per ADMINISTRATIVE SERVICES DIRECTOR 4) rec WC eval for sacral wound, add MURIEL BID for skin integrity . (3) Acute renal failure (4) Pneumonia (5) Acute metabolic encephalopathy (6) Suspected COVID-19 virus infection Gallo Kingston Oct 17, 2019 13:37
--- NOTE | 2019-10-17 13:40 | NUR ---
NURSE NOTES: pt repositioned and oral care done. Pt in stable condition. 95% saturation on mech vent. No acute distress noted.
--- NOTE | 2019-10-17 15:23 | NUR ---
CASE MANAGEMENT: REVIEW SI: SEPSIS . RENAL FAILURE . A-FIB . DM . INTUBATED LEFT FEMORAL CENTRAL VENOUS CATHETER INSERTION 10/08 T 97.9 HR 67 RR 25 BP 95/58 SAT 95% MECH VENT FIO2 60 WBC 12.0 BUN 41 CR 2.1 BNP 7192 IS: KCl 10MEQ D5W @ 50ML/HR ZOSYN IV Q8HR KEPPRA IV Q8HR AMIODARONE NGT QD ASA 81MG NGT QD ICU STATUS DCP: PATIENT IS FROM [facility]
--- NOTE | 2019-10-17 15:34 | NUR ---
NURSE NOTES: Pt had normal bowel movement. Pt cleaned, linen changed, patient repositioned and oral care done.
--- NOTE | 2019-10-17 17:22 | NUR ---
NURSE NOTES: Per Dr. Bill, pt off pressers, femoral line inserted 10/08 can be discontinued.
--- NOTE | 2019-10-17 18:02 | NUR ---
NURSE NOTES: Pt had bowel movement. Pt cleaned, linen changed and oral care done. Central line discontinued and pressure dressing applied.
--- NOTE | 2019-10-17 19:06 | NUR ---
HAND-OFF: Report given to MIRANDA Rolon. Pt in stable condition; plan of care endorsed.
--- NOTE | 2019-10-17 19:39 | NUR ---
NURSE NOTES: received report from pérez rn pt orally intubated -vent o2 sat 99% no acute resp distress reposition and suction toleting tube feeding no residual iv infusing well site good
--- NOTE | 2019-10-17 20:21 | Nephrology Progress Note ---
Assessment/Plan Problem List: (1) Hypernatremia (2) CHF (congestive heart failure) (3) Dehydration (4) Acute renal failure (5) Pneumonia (6) Suspected COVID-19 virus infection (7) Hypotension (8) HCAP (healthcare-associated pneumonia) (9) CKD (chronic kidney disease) stage 3, GFR 30-59 ml/min Plan hypotonic fluids, pulm care, empiric atb ordered high risk worsening creatinine despine + fluid bal, reduce iv to 50 ml/hr Subjective ROS Limited/Unobtainable: Yes Objective Objective Last 24 Hour Vital Signs Date Time Temp Pulse Resp B/P (MAP) Pulse Ox O2 Delivery O2 Flow Rate FiO2 10/17/19 19:26 68 19 100 Mechanical Ventilator 60 10/17/19 19:25 65 19 60 10/17/19 19:24 68 19 100 Mechanical Ventilator 60 10/17/19 18:00 72 21 111/65 (80) 98 10/17/19 17:00 72 19 107/63 (78) 96 10/17/19 16:03 73 10/17/19 16:00 Mechanical Ventilator 10/17/19 16:00 60 10/17/19 16:00 97.4 10/17/19 16:00 71 17 103/76 (85) 100 10/17/19 15:30 67 17 100/59 (73) 100 10/17/19 15:20 71 18 100 Mechanical Ventilator 60 10/17/19 15:15 71 18 60 10/17/19 15:15 71 18 100 Mechanical Ventilator 60 10/17/19 15:00 75 16 95/59 (71) 99 10/17/19 14:00 70 22 107/62 (77) 100 10/17/19 13:00 66 21 95/58 (70) 98 10/17/19 12:00 97.9 67 25 108/65 (79) 100 10/17/19 12:00 66 10/17/19 12:00 60 10/17/19 12:00 Mechanical Ventilator 10/17/19 11:20 66 18 100 Mechanical Ventilator 60 10/17/19 11:20 66 18 100 Mechanical Ventilator 60 10/17/19 11:20 66 19 60 10/17/19 11:00 66 20 103/63 (76) 100 10/17/19 10:00 64 22 124/70 (88) 95 10/17/19 09:00 65 21 109/68 (82) 100 10/17/19 08:30 66 22 105/71 (82) 98 10/17/19 08:00 Mechanical Ventilator 10/17/19 08:00 67 10/17/19 08:00 98.6 64 21 102/62 (75) 100 10/17/19 08:00 60 10/17/19 07:20 65 18 100 Mechanical Ventilator 60 10/17/19 07:15 65 18 100 Mechanical Ventilator 60 10/17/19 07:15 65 18 60 10/17/19 07:00 67 21 113/67 (82) 99 10/17/19 06:00 64 24 107/64 (78) 99 10/17/19 05:00 63 22 104/61 (75) 100 10/17/19 04:00 60 10/17/19 04:00 98.4 63 6 107/65 (79) 100 10/17/19 04:00 Mechanical Ventilator 10/17/19 04:00 64 10/17/19 03:35 66 20 100 Mechanical Ventilator 60 10/17/19 03:30 65 20 100 Mechanical Ventilator 60 10/17/19 03:30 65 20 60 10/17/19 03:00 70 9 122/65 (84) 97 10/17/19 02:00 66 31 111/65 (80) 99 10/17/19 01:00 64 5 124/75 (91) 100 10/17/19 00:00 60 10/17/19 00:00 62 10/17/19 00:00 98.8 62 19 117/67 (84) 98 10/17/19 00:00 Mechanical Ventilator 10/16/19 23:00 78 24 100 Mechanical Ventilator 60 10/16/19 23:00 73 24 100 Mechanical Ventilator 60 10/16/19 23:00 68 4 115/63 (80) 98 10/16/19 23:00 77 19 60 10/16/19 21:00 58 18 120/67 (84) 100 Intake and Output 10/16/19 10/17/19 19:00 07:00 Intake Total 1421.0 ml 1420.0 ml Output Total 280 ml 75 ml Balance 1141.0 ml 1345.0 ml Free Water 30 ml 150 ml IV Total 1071.0 ml 760.0 ml Tube Feeding 270 ml 510 ml Other 50 ml Output Urine Total 280 ml 75 ml # Bowel Movements 1 3 Laboratory Tests 10/17/19 04:00: White Blood Count 12.0H, Red Blood Count 3.98L, Hemoglobin 11.1L, Hematocrit 32.3L, Mean Corpuscular Volume 81, Mean Corpuscular Hemoglobin 27.8, Mean Corpuscular Hemoglobin Concent 34.3, Red Cell Distribution Width 12.9, Platelet Count 181, Mean Platelet Volume 7.6, Neutrophils (%) (Auto) 83.7H, Lymphocytes ( %) (Auto) 7.2L, Monocytes (%) (Auto) 8.1, Eosinophils (%) (Auto) 0.0, Basophils (%) (Auto) 1.0, Sodium Level 139, Potassium Level 3.5, Chloride Level 105, Carbon Dioxide Level 25, Anion Gap 9, Blood Urea Nitrogen 41H, Creatinine 2.1H, Estimat Glomerular Filtration Rate 31.2, Glucose Level 117H, Calcium Level 7.9L , Magnesium Level 1.7L, Pro-B-Type Natriuretic Peptide 7192H Height (Feet): 5 Height (Inches): 11.00 Weight (Pounds): 150 General Appearance: lethargic, other - on vent Cardiovascular: regular rhythm Respiratory/Chest: crackles/rales Abdomen: non tender Extremities: trace edema, no edema Neurologic: unresponsive Jose Gant MD Oct 17, 2019 20:21
[2019-10-17] MEDS: Dyna-Hex 2% Top Sol 2oz TOPIC SCH (20:27)
--- NOTE | 2019-10-17 22:00 | NUR ---
NURSE NOTES: reposition and suction
[2019-10-18] VITALS (28 sets, daily range): BP systolic 82–113; BP diastolic 52–68
--- NOTE | 2019-10-18 | NUR ---
NURSE NOTES: condition unchange
--- NOTE | 2019-10-18 02:00 | NUR ---
NURSE NOTES: complete bed bath done oral care and back care done
--- NOTE | 2019-10-18 02:30 | Progress Note ---
DATE: 10/17/2019 CARDIOLOGY PROGRESS NOTE SUBJECTIVE: Patient's condition remains critical. Prognosis guarded. He is in the intensive care unit. He continues on full ventilator support. Heart rates remained controlled on amiodarone with no recurring rapid atrial fibrillation. PHYSICAL EXAMINATION: HEENT: Thin secretions. LUNGS: Bilateral rhonchi. CARDIAC: Regular rhythm and rate. Normal S1, S2. ABDOMEN: Soft. EXTREMITIES: Trace dependent edema. LABORATORY DATA: White count 12, hemoglobin 11. Sodium 139, potassium 3.5, magnesium 1.7, bicarb 25, BUN 41, creatinine 2.1. Pro natriuretic peptide 7100. IMPRESSION: 1. Respiratory failure. 2. Healthcare-associated pneumonia. 3. Paroxysmal atrial fibrillation. 4. Acute on chronic renal failure. 5. Hypomagnesemia. 6. Acute on chronic diastolic congestive heart failure. 7. Acute respiratory acidosis, recovered with ventilation. 8. Remains critical and guarded. PLAN: 1. Ventilator support with weaning. 2. Antimicrobials. 3. Hypotonic IV fluids. 4. No diuresis for now. 5. Maintenance dose amiodarone. 6. Central venous access. 7. Nutrition by feeding tube. 8. DVT prophylaxis. Anselmo Porras M.D. DR: SACHA JOB#: [id number] CC:
--- NOTE | 2019-10-18 04:00 | NUR ---
rNURSE NOTES: reposition and suction
[2019-10-18] MEDS: Potassium Chloride 10 MEQ in D5W 1000ml 1,000 ML IV SCH (04:35)
[2019-10-18] MEDS: levETIRAcetam 500mg/NS100ml 100 ML IVPB SCH ×3 (04:35→20:00)
[2019-10-18 04:52] LABS: BASOPHILS % (AUTO) 0.8 % (0.0-2.0); EOSINOPHILS % (AUTO) 0.1 % (0.0-3.0); HEMATOCRIT 32.1 % (42.0-52.0); HEMOGLOBIN 10.9 G/DL (14.2-18.0); LYMPHOCYTES % (AUTO) 6.6 % (20.0-45.0); MEAN CORPUSCULAR VOLUME 81 FL (80-99); MONOCYTES % (AUTO) 9.7 % (1.0-10.0); NEUTROPHILS % (AUTO) 82.9 % (45.0-75.0); PLATELET COUNT 174 K/UL (150-450); RED BLOOD COUNT 3.94 M/UL (4.70-6.10); RED CELL DISTRIBUTION WIDTH 13.5 % (11.6-14.8); WHITE BLOOD COUNT 12.4 K/UL (4.8-10.8)
[2019-10-18 05:20] LABS: ANION GAP 10 mmol/L (5-15); BLOOD UREA NITROGEN 48 mg/dL (7-18); CALCIUM 7.4 MG/DL (8.5-10.1); CARBON DIOXIDE 22 MMOL/L (21-32); CHLORIDE 103 MMOL/L (98-107); CREATININE 2.2 MG/DL (0.55-1.30); POTASSIUM 3.8 MMOL/L (3.5-5.1); SODIUM 135 MMOL/L (136-145)
[2019-10-18] MEDS: Piperacillin/Tazobactam 3.375 GM in NS 110 ML IVPB SCH ×3 (05:56→22:00)
--- NOTE | 2019-10-18 06:00 | NUR ---
NURSE NOTES: dr ceron call in with order made
--- NOTE | 2019-10-18 06:43 | General Progress Note ---
Assessment/Plan Assessment/Plan: 1. History of diabetes. 2. Hypertension. 3. Chronic kidney disease. 4. COPD. 5. CHF. 6. Dementia. 7. AMS 8. Dysphagia 9. Righ sided pna 10. diarrhea NGT running still intubated may need Trach and PEG fu pulm abx per ID add Imodium for diarrhea Subjective ROS Limited/Unobtainable: No Allergies: Coded Allergies: No Known Allergies (Unverified , 07/23/18) Objective Last 24 Hour Vital Signs Date Time Temp Pulse Resp B/P (MAP) Pulse Ox O2 Delivery O2 Flow Rate FiO2 10/18/19 06:00 70 24 93/60 (71) 97 10/18/19 05:00 69 24 90/53 (65) 100 10/18/19 04:00 68 10/18/19 04:00 60 10/18/19 04:00 Mechanical Ventilator 10/18/19 04:00 60 10/18/19 04:00 98.9 72 21 88/62 (71) 100 10/18/19 03:57 73 20 100 Mechanical Ventilator 60 10/18/19 03:57 63 19 100 Mechanical Ventilator 60 10/18/19 03:57 73 20 60 10/18/19 03:00 69 25 83/53 (63) 100 10/18/19 02:00 71 24 91/58 (69) 100 10/18/19 01:00 71 21 91/57 (68) 97 10/18/19 01:00 71 21 91/57 (68) 97 10/18/19 00:45 75 26 91/57 (68) 98 10/18/19 00:30 87 27 88/55 (66) 99 10/18/19 00:15 75 18 91/59 (70) 99 10/18/19 00:00 74 19 91/57 (68) 100 10/18/19 00:00 Mechanical Ventilator 10/18/19 00:00 98.6 74 19 91/57 (68) 100 10/18/19 00:00 64 10/18/19 00:00 60 10/17/19 23:18 63 19 100 Mechanical Ventilator 60 10/17/19 23:18 64 18 100 Mechanical Ventilator 60 10/17/19 23:18 63 18 60 10/17/19 23:00 67 19 97/57 (70) 99 10/17/19 22:00 68 18 97/61 (73) 100 10/17/19 21:00 65 18 98/61 (73) 100 10/17/19 20:00 Mechanical Ventilator 10/17/19 20:00 60 10/17/19 20:00 98.5 62 18 111/64 (80) 100 10/17/19 20:00 68 10/17/19 19:26 68 19 100 Mechanical Ventilator 60 10/17/19 19:25 65 19 60 10/17/19 19:24 68 19 100 Mechanical Ventilator 60 10/17/19 19:00 72 11 107/65 (79) 100 10/17/19 18:00 72 21 111/65 (80) 98 10/17/19 17:00 72 19 107/63 (78) 96 10/17/19 16:03 73 10/17/19 16:00 Mechanical Ventilator 10/17/19 16:00 60 10/17/19 16:00 97.4 10/17/19 16:00 71 17 103/76 (85) 100 10/17/19 15:30 67 17 100/59 (73) 100 10/17/19 15:20 71 18 100 Mechanical Ventilator 60 10/17/19 15:15 71 18 60 10/17/19 15:15 71 18 100 Mechanical Ventilator 60 10/17/19 15:00 75 16 95/59 (71) 99 10/17/19 14:00 70 22 107/62 (77) 100 10/17/19 13:00 66 21 95/58 (70) 98 10/17/19 12:00 97.9 67 25 108/65 (79) 100 10/17/19 12:00 66 10/17/19 12:00 60 10/17/19 12:00 Mechanical Ventilator 10/17/19 11:20 66 18 100 Mechanical Ventilator 60 10/17/19 11:20 66 18 100 Mechanical Ventilator 60 10/17/19 11:20 66 19 60 10/17/19 11:00 66 20 103/63 (76) 100 10/17/19 10:00 64 22 124/70 (88) 95 10/17/19 09:00 65 21 109/68 (82) 100 10/17/19 08:30 66 22 105/71 (82) 98 10/17/19 08:00 Mechanical Ventilator 10/17/19 08:00 67 10/17/19 08:00 98.6 64 21 102/62 (75) 100 10/17/19 08:00 60 10/17/19 07:20 65 18 100 Mechanical Ventilator 60 10/17/19 07:15 65 18 100 Mechanical Ventilator 60 10/17/19 07:15 65 18 60 10/17/19 07:00 67 21 113/67 (82) 99 Intake and Output 10/17/19 10/18/19 19:00 07:00 Intake Total 1360 ml 1520.0 ml Output Total 370 ml 210 ml Balance 990 ml 1310.0 ml Free Water 60 ml 100 ml IV Total 700 ml 760.0 ml Tube Feeding 600 ml 660 ml Output Urine Total 370 ml 210 ml # Bowel Movements 2 Laboratory Tests 10/18/19 03:46: White Blood Count 12.4H, Red Blood Count 3.94L, Hemoglobin 10.9L, Hematocrit 32.1L, Mean Corpuscular Volume 81, Mean Corpuscular Hemoglobin 27.7, Mean Corpuscular Hemoglobin Concent 34.0, Red Cell Distribution Width 13.5, Platelet Count 174, Mean Platelet Volume 8.2, Neutrophils (%) (Auto) 82.9H, Lymphocytes ( %) (Auto) 6.6L, Monocytes (%) (Auto) 9.7, Eosinophils (%) (Auto) 0.1, Basophils (%) (Auto) 0.8, Sodium Level 135L, Potassium Level 3.8, Chloride Level 103, Carbon Dioxide Level 22, Anion Gap 10, Blood Urea Nitrogen 48H, Creatinine 2.2H , Estimat Glomerular Filtration Rate 29.6, Glucose Level 121H, Calcium Level 7.4L Height (Feet): 5 Height (Inches): 11.00 Weight (Pounds): 143 General Appearance: no apparent distress EENT: normal ENT inspection Neck: supple Cardiovascular: normal rate Respiratory/Chest: decreased breath sounds Abdomen: normal bowel sounds, non tender, soft Extremities: non-tender Chaitanya Beverly MD Oct 18, 2019 06:43
--- NOTE | 2019-10-18 07:02 | NUR ---
HAND-OFF: Report given to pérez using sbar.
--- NOTE | 2019-10-18 07:41 | NUR ---
NURSE NOTES: Report received from MIRANDA Rolon. Pt is lying comfortably in semi-fowlers with no signs of distress. Pt is non-verbal and lethargic, reacts to painful stimuli. Pt does not follow commands. Respirations even and unlabored on mechanical ventilator. ETT 8, 23 cm @ the lip line. O2 saturation of 97% with vent settings of AC 18, VT 600, FiO2 60% and peep of 5. Pt SR on the monitor @ 72 bpm. Right AC running fluids @ prescribed rate. Pt has pressure wounds dressed in optifoam. Bilateral arms weeping, pads placed underneath. Head of bed @ 30 degrees. NGT noted and patent, running feeding @ prescribed rate. Mathis in place and patent, draining urine at foot of bed. Bilateral wrist restraints noted for pt's safety. Edema noted on bilateral arms with no skin breakdown. Pulses present. Bed at lowest position, brakes engaged, siderails x3, bed alarm on, and call light within reach. Pt in stable condition at this time; will continue to monitor.
[2019-10-18] MEDS: Amiodarone 200mg tab NG SCH (08:31)
[2019-10-18] MEDS: Aspirin Baby 81mg ORAL SCH (08:31)
[2019-10-18] MEDS: Heparin 5000 units/ml inj SUBQ SCH ×2 (08:31→21:00)
--- NOTE | 2019-10-18 08:34 | NUR ---
NURSE NOTES: Upon further inspection of arms, pt's right arm more edematous and weeping than the left. Two right IVs seem to be infiltrated and fluids are draining from arm wound. Fluids stopped. Dr. Bill @ bedside to assess patient. aware and said to order central line if IV access cannot be found. Dr. Bill also aware of BP in the 90s systolic. Dr. Kingston contacted and said he will be in the hospital in a few hours to insert. Will attempt IV access until central line inserted.
--- NOTE | 2019-10-18 08:58 | Critical Care Progress Note ---
Assessment/Plan Assessment/Plan Impression: negative COVID-19 x2 Pneumonia Chronic Kidney Disease, has shunt left upper arm with ARF Dehydration Hypotension Dementia Congestive Heart Failure Atrial Fibrillation Diabetes Hypertension Dysphagia Hyperlipidemia COPD hypernatremia sinus tachycardia acute respiratory failure/ improved lung collapse with effusion better Plan IV Antibiotics PICC line or central line needed Renal and Cardiology follow up vent support- off Monitor labs close follow up monitor vitals; nutrition CPT not safe for lower level of care medications/laboratory data/nursing notes/ICU care reviewed in detail note reviewed and edited care discussed with RN and RT ICU time spent >40 minutes Critical Care - Subjective Interval Events: off vent poor IV access arms weeping ROS Limited/Unobtainable: Yes Condition: critical EKG Rhythm: Sinus Rhythm Residuals: minimal Tube Feeding Tolerated: yes I&O: Intake and Output 10/17/19 10/18/19 19:00 07:00 Intake Total 1360 ml 1520.0 ml Output Total 370 ml 210 ml Balance 990 ml 1310.0 ml Free Water 60 ml 100 ml IV Total 700 ml 760.0 ml Tube Feeding 600 ml 660 ml Output Urine Total 370 ml 210 ml # Bowel Movements 2 Critical Care - Objective ET-Tube: 8.0 ET Position: 23 Last 24 Hour Vital Signs Date Time Temp Pulse Resp B/P (MAP) Pulse Ox O2 Delivery O2 Flow Rate FiO2 10/18/19 07:00 72 16 92/61 (71) 100 10/18/19 06:44 71 18 60 10/18/19 06:00 70 24 93/60 (71) 97 10/18/19 05:00 69 24 90/53 (65) 100 10/18/19 04:00 68 10/18/19 04:00 60 10/18/19 04:00 Mechanical Ventilator 10/18/19 04:00 60 10/18/19 04:00 98.9 72 21 88/62 (71) 100 10/18/19 03:57 73 20 100 Mechanical Ventilator 60 10/18/19 03:57 63 19 100 Mechanical Ventilator 60 10/18/19 03:57 73 20 60 10/18/19 03:00 69 25 83/53 (63) 100 10/18/19 02:00 71 24 91/58 (69) 100 10/18/19 01:00 71 21 91/57 (68) 97 10/18/19 01:00 71 21 91/57 (68) 97 10/18/19 00:45 75 26 91/57 (68) 98 10/18/19 00:30 87 27 88/55 (66) 99 10/18/19 00:15 75 18 91/59 (70) 99 10/18/19 00:00 74 19 91/57 (68) 100 10/18/19 00:00 Mechanical Ventilator 10/18/19 00:00 98.6 74 19 91/57 (68) 100 10/18/19 00:00 64 10/18/19 00:00 60 10/17/19 23:18 63 19 100 Mechanical Ventilator 60 10/17/19 23:18 64 18 100 Mechanical Ventilator 60 10/17/19 23:18 63 18 60 10/17/19 23:00 67 19 97/57 (70) 99 10/17/19 22:00 68 18 97/61 (73) 100 10/17/19 21:00 65 18 98/61 (73) 100 10/17/19 20:00 Mechanical Ventilator 10/17/19 20:00 60 10/17/19 20:00 98.5 62 18 111/64 (80) 100 10/17/19 20:00 68 10/17/19 19:26 68 19 100 Mechanical Ventilator 60 10/17/19 19:25 65 19 60 10/17/19 19:24 68 19 100 Mechanical Ventilator 60 10/17/19 19:00 72 11 107/65 (79) 100 10/17/19 18:00 72 21 111/65 (80) 98 10/17/19 17:00 72 19 107/63 (78) 96 10/17/19 16:03 73 10/17/19 16:00 Mechanical Ventilator 10/17/19 16:00 60 10/17/19 16:00 97.4 10/17/19 16:00 71 17 103/76 (85) 100 10/17/19 15:30 67 17 100/59 (73) 100 10/17/19 15:20 71 18 100 Mechanical Ventilator 60 10/17/19 15:15 71 18 60 10/17/19 15:15 71 18 100 Mechanical Ventilator 60 10/17/19 15:00 75 16 95/59 (71) 99 10/17/19 14:00 70 22 107/62 (77) 100 10/17/19 13:00 66 21 95/58 (70) 98 10/17/19 12:00 97.9 67 25 108/65 (79) 100 10/17/19 12:00 66 10/17/19 12:00 60 10/17/19 12:00 Mechanical Ventilator 10/17/19 11:20 66 18 100 Mechanical Ventilator 60 10/17/19 11:20 66 18 100 Mechanical Ventilator 60 10/17/19 11:20 66 19 60 10/17/19 11:00 66 20 103/63 (76) 100 10/17/19 10:00 64 22 124/70 (88) 95 10/17/19 09:00 65 21 109/68 (82) 100 Labs: Laboratory Tests Test 10/18/19 03:46 White Blood Count 12.4 K/UL (4.8-10.8) H Red Blood Count 3.94 M/UL (4.70-6.10) L Hemoglobin 10.9 G/DL (14.2-18.0) L Hematocrit 32.1 % (42.0-52.0) L Mean Corpuscular Volume 81 FL (80-99) Mean Corpuscular Hemoglobin 27.7 PG (27.0-31.0) Mean Corpuscular Hemoglobin Concent 34.0 G/DL (32.0-36.0) Red Cell Distribution Width 13.5 % (11.6-14.8) Platelet Count 174 K/UL (150-450) Mean Platelet Volume 8.2 FL (6.5-10.1) Neutrophils (%) (Auto) 82.9 % (45.0-75.0) H Lymphocytes (%) (Auto) 6.6 % (20.0-45.0) L Monocytes (%) (Auto) 9.7 % (1.0-10.0) Eosinophils (%) (Auto) 0.1 % (0.0-3.0) Basophils (%) (Auto) 0.8 % (0.0-2.0) Sodium Level 135 MMOL/L (136-145) L Potassium Level 3.8 MMOL/L (3.5-5.1) Chloride Level 103 MMOL/L (98-107) Carbon Dioxide Level 22 MMOL/L (21-32) Anion Gap 10 mmol/L (5-15) Blood Urea Nitrogen 48 mg/dL (7-18) H Creatinine 2.2 MG/DL (0.55-1.30) H Estimat Glomerular Filtration Rate 29.6 mL/min (>60) Glucose Level 121 MG/DL (74-106) H Calcium Level 7.4 MG/DL (8.5-10.1) L Objective: off vent stable BS right some rhonchi but better RRR without MRG NGT in place NABS nontender no CCE obtunded reviewed and edited Camilo Bill MD Oct 18, 2019 08:58
--- NOTE | 2019-10-18 09:53 | NUR ---
NURSE NOTES: right upper arm 20 g inserted. Right AC and wrist IVs removed. Fluids restarted. BP 93/67 and holding.
--- NOTE | 2019-10-18 11:30 | Infectious Diseases Prog Note ---
Assessment/Plan Assessment/Plan antibiotics : zosyn A 1. pneumonia COVID 19 negative x 2 2. respiratory failure resolved 3. renal failure improving 4. diabetes mellitus 5. hypertension 6. CHF 7. COPD 8. dementia P 1. continue zosyn 1 more day 2. will follow up cultures Subjective ROS Limited/Unobtainable: Yes Allergies: Coded Allergies: No Known Allergies (Unverified , 07/23/18) Objective Vital Signs Last 24 Hour Vital Signs Date Time Temp Pulse Resp B/P (MAP) Pulse Ox O2 Delivery O2 Flow Rate FiO2 10/18/19 11:15 67 18 50 10/18/19 11:00 67 0 99/60 (73) 99 10/18/19 10:00 74 17 98/60 (73) 98 10/18/19 09:00 71 22 94/61 (72) 98 10/18/19 08:00 Mechanical Ventilator 10/18/19 08:00 60 10/18/19 08:00 98.4 70 20 96/55 (69) 98 10/18/19 07:00 72 16 92/61 (71) 100 10/18/19 06:44 71 18 60 10/18/19 06:00 70 24 93/60 (71) 97 10/18/19 05:00 69 24 90/53 (65) 100 10/18/19 04:00 68 10/18/19 04:00 60 10/18/19 04:00 Mechanical Ventilator 10/18/19 04:00 60 10/18/19 04:00 98.9 72 21 88/62 (71) 100 10/18/19 03:57 73 20 100 Mechanical Ventilator 60 10/18/19 03:57 63 19 100 Mechanical Ventilator 60 10/18/19 03:57 73 20 60 10/18/19 03:00 69 25 83/53 (63) 100 10/18/19 02:00 71 24 91/58 (69) 100 10/18/19 01:00 71 21 91/57 (68) 97 10/18/19 01:00 71 21 91/57 (68) 97 10/18/19 00:45 75 26 91/57 (68) 98 10/18/19 00:30 87 27 88/55 (66) 99 10/18/19 00:15 75 18 91/59 (70) 99 10/18/19 00:00 74 19 91/57 (68) 100 10/18/19 00:00 Mechanical Ventilator 10/18/19 00:00 98.6 74 19 91/57 (68) 100 10/18/19 00:00 64 10/18/19 00:00 60 10/17/19 23:18 63 19 100 Mechanical Ventilator 60 10/17/19 23:18 64 18 100 Mechanical Ventilator 60 10/17/19 23:18 63 18 60 10/17/19 23:00 67 19 97/57 (70) 99 10/17/19 22:00 68 18 97/61 (73) 100 10/17/19 21:00 65 18 98/61 (73) 100 10/17/19 20:00 Mechanical Ventilator 10/17/19 20:00 60 10/17/19 20:00 98.5 62 18 111/64 (80) 100 10/17/19 20:00 68 10/17/19 19:26 68 19 100 Mechanical Ventilator 60 10/17/19 19:25 65 19 60 10/17/19 19:24 68 19 100 Mechanical Ventilator 60 10/17/19 19:00 72 11 107/65 (79) 100 10/17/19 18:00 72 21 111/65 (80) 98 10/17/19 17:00 72 19 107/63 (78) 96 10/17/19 16:03 73 10/17/19 16:00 Mechanical Ventilator 10/17/19 16:00 60 10/17/19 16:00 97.4 10/17/19 16:00 71 17 103/76 (85) 100 10/17/19 15:30 67 17 100/59 (73) 100 10/17/19 15:20 71 18 100 Mechanical Ventilator 60 10/17/19 15:15 71 18 60 10/17/19 15:15 71 18 100 Mechanical Ventilator 60 10/17/19 15:00 75 16 95/59 (71) 99 10/17/19 14:00 70 22 107/62 (77) 100 10/17/19 13:00 66 21 95/58 (70) 98 10/17/19 12:00 97.9 67 25 108/65 (79) 100 10/17/19 12:00 66 10/17/19 12:00 60 10/17/19 12:00 Mechanical Ventilator Height (Feet): 5 Height (Inches): 11.00 Weight (Pounds): 143 HEENT: other - intubated Respiratory/Chest: lungs clear Cardiovascular: normal rate, regular rhythm, no gallop/murmur Abdomen: soft, non tender Extremities: other - + edema Laboratory Tests Test 10/18/19 03:46 White Blood Count 12.4 K/UL (4.8-10.8) H Red Blood Count 3.94 M/UL (4.70-6.10) L Hemoglobin 10.9 G/DL (14.2-18.0) L Hematocrit 32.1 % (42.0-52.0) L Mean Corpuscular Volume 81 FL (80-99) Mean Corpuscular Hemoglobin 27.7 PG (27.0-31.0) Mean Corpuscular Hemoglobin Concent 34.0 G/DL (32.0-36.0) Red Cell Distribution Width 13.5 % (11.6-14.8) Platelet Count 174 K/UL (150-450) Mean Platelet Volume 8.2 FL (6.5-10.1) Neutrophils (%) (Auto) 82.9 % (45.0-75.0) H Lymphocytes (%) (Auto) 6.6 % (20.0-45.0) L Monocytes (%) (Auto) 9.7 % (1.0-10.0) Eosinophils (%) (Auto) 0.1 % (0.0-3.0) Basophils (%) (Auto) 0.8 % (0.0-2.0) Sodium Level 135 MMOL/L (136-145) L Potassium Level 3.8 MMOL/L (3.5-5.1) Chloride Level 103 MMOL/L (98-107) Carbon Dioxide Level 22 MMOL/L (21-32) Anion Gap 10 mmol/L (5-15) Blood Urea Nitrogen 48 mg/dL (7-18) H Creatinine 2.2 MG/DL (0.55-1.30) H Estimat Glomerular Filtration Rate 29.6 mL/min (>60) Glucose Level 121 MG/DL (74-106) H Calcium Level 7.4 MG/DL (8.5-10.1) L Current Medications Medications (Trade) Dose Ordered Sig/Clementine Route PRN Reason Start Time Stop Time Status Last Admin Dose Admin Acetaminophen (Tylenol) 650 mg Q4H PRN ORAL Mild Pain (Pain Scale 1-3) 10/09/19 05:45 11/08/19 05:44 Acetaminophen (Tylenol) 650 mg Q4H PRN ORAL fever 10/09/19 05:45 11/08/19 05:44 Albuterol Sulfate (Proventil MDI) 2 puff Q4H PRN INH Shortness of Breath 10/09/19 12:45 01/07/20 12:44 Amiodarone HCl (Cordarone) 200 mg DAILY NG 10/16/19 09:00 01/14/20 08:59 10/18/19 08:31 Aspirin (ASA) 81 mg DAILY ORAL 10/09/19 09:00 11/23/19 08:59 10/18/19 08:31 Chlorhexidine Gluconate (Flaca-Hex 2%) 1 applic DAILY@2000 TOPIC 10/09/19 20:00 01/07/20 19:59 10/17/19 20:27 Dextrose (Dextrose 50%) 25 ml Q30M PRN IV Hypoglycemia 10/09/19 05:45 01/07/20 05:44 Dextrose (Dextrose 50%) 50 ml Q30M PRN IV Hypoglycemia 10/09/19 05:45 01/07/20 05:44 Haloperidol Lactate 5 mg/ Dextrose 56 ml @ 224 mls/hr Q6HR PRN IVPB Agitation 10/09/19 21:30 11/23/19 21:29 10/11/19 04:35 Heparin Sodium (Porcine) (Heparin 5000 units/ml) 5,000 units EVERY 12 HOURS SUBQ 10/09/19 09:00 11/23/19 08:59 10/17/19 20:59 Levetiracetam 100 ml @ 400 mls/hr Q8H IVPB 10/16/19 12:00 01/14/20 11:59 10/18/19 04:35 Loperamide HCl (Imodium) 2 mg Q6H PRN NG Diarrhea 10/18/19 06:45 11/17/19 06:44 Lorazepam (Ativan 2mg/ml 1ml) 1 mg Q2H PRN IV For Seizures 10/15/19 18:30 10/22/19 18:29 10/16/19 08:35 Piperacillin Sod/ Tazobactam Sod 3.375 gm/Sodium Chloride 110 ml @ 27.5 mls/hr EVERY 8 HOURS IVPB 10/14/19 14:00 10/19/19 13:59 10/18/19 05:56 Potassium Chloride 10 meq/ Dextrose 1,005 ml @ 50 mls/hr Q20H6M IV 10/16/19 13:37 11/15/19 13:36 10/18/19 04:35 Pravastatin Sodium (Pravachol) 20 mg BEDTIME ORAL 10/09/19 21:00 11/08/19 20:59 10/17/19 20:57 Arlin Sorensen MD Oct 18, 2019 11:30
--- NOTE | 2019-10-18 14:48 | NUR ---
NURSE NOTES: Right arm began to weep again from the open wound. IV fluids stopped until central line inserted. Linen changed. Pt repositioned and cleaned. Rectal tube inserted successfully.
--- NOTE | 2019-10-18 15:20 | NUR ---
NURSE NOTES: Dr. Kingston @ bedside to insert central line
--- NOTE | 2019-10-18 15:33 | Surgery Progress Note ---
Surgery Progress Note Subjective Procedure Performed left femoral central venous catheter insertion Additional Comments hypotensive sbp in 80's left sub line placed central Objective Last 24 Hour Vital Signs Date Time Temp Pulse Resp B/P (MAP) Pulse Ox O2 Delivery O2 Flow Rate FiO2 10/18/19 15:00 64 18 82/52 (62) 98 10/18/19 14:00 66 18 100/61 (74) 99 10/18/19 13:00 69 18 96/56 (69) 99 10/18/19 12:00 98.3 67 23 91/56 (68) 98 10/18/19 12:00 50 10/18/19 12:00 Mechanical Ventilator 10/18/19 12:00 68 10/18/19 11:59 68 10/18/19 11:15 67 18 50 10/18/19 11:00 67 20 99/60 (73) 99 10/18/19 10:00 74 17 98/60 (73) 98 10/18/19 09:00 71 22 94/61 (72) 98 10/18/19 08:00 Mechanical Ventilator 10/18/19 08:00 60 10/18/19 08:00 98.4 70 20 96/55 (69) 98 10/18/19 08:00 71 10/18/19 07:00 72 16 92/61 (71) 100 10/18/19 06:44 71 18 60 10/18/19 06:00 70 24 93/60 (71) 97 10/18/19 05:00 69 24 90/53 (65) 100 10/18/19 04:00 68 10/18/19 04:00 60 10/18/19 04:00 Mechanical Ventilator 10/18/19 04:00 60 10/18/19 04:00 98.9 72 21 88/62 (71) 100 10/18/19 03:57 73 20 100 Mechanical Ventilator 60 10/18/19 03:57 63 19 100 Mechanical Ventilator 60 10/18/19 03:57 73 20 60 10/18/19 03:00 69 25 83/53 (63) 100 10/18/19 02:00 71 24 91/58 (69) 100 10/18/19 01:00 71 21 91/57 (68) 97 10/18/19 01:00 71 21 91/57 (68) 97 10/18/19 00:45 75 26 91/57 (68) 98 10/18/19 00:30 87 27 88/55 (66) 99 10/18/19 00:15 75 18 91/59 (70) 99 10/18/19 00:00 74 19 91/57 (68) 100 10/18/19 00:00 Mechanical Ventilator 10/18/19 00:00 98.6 74 19 91/57 (68) 100 10/18/19 00:00 64 10/18/19 00:00 60 10/17/19 23:18 63 19 100 Mechanical Ventilator 60 10/17/19 23:18 64 18 100 Mechanical Ventilator 60 10/17/19 23:18 63 18 60 10/17/19 23:00 67 19 97/57 (70) 99 10/17/19 22:00 68 18 97/61 (73) 100 10/17/19 21:00 65 18 98/61 (73) 100 10/17/19 20:00 Mechanical Ventilator 10/17/19 20:00 60 10/17/19 20:00 98.5 62 18 111/64 (80) 100 10/17/19 20:00 68 10/17/19 19:26 68 19 100 Mechanical Ventilator 60 10/17/19 19:25 65 19 60 10/17/19 19:24 68 19 100 Mechanical Ventilator 60 10/17/19 19:00 72 11 107/65 (79) 100 10/17/19 18:00 72 21 111/65 (80) 98 10/17/19 17:00 72 19 107/63 (78) 96 10/17/19 16:03 73 10/17/19 16:00 Mechanical Ventilator 10/17/19 16:00 60 10/17/19 16:00 97.4 10/17/19 16:00 71 17 103/76 (85) 100 I&O Intake and Output 10/17/19 10/18/19 19:00 07:00 Intake Total 1360 ml 1520.0 ml Output Total 370 ml 210 ml Balance 990 ml 1310.0 ml Free Water 60 ml 100 ml IV Total 700 ml 760.0 ml Tube Feeding 600 ml 660 ml Output Urine Total 370 ml 210 ml # Bowel Movements 2 Dressing: other Wound: other Drains: other Cardiovascular: RSR Respiratory: decreased breath sounds Abdomen: soft, non-tender, present bowel sounds Extremities: no cyanosis Laboratory Tests Test 10/18/19 03:46 White Blood Count 12.4 K/UL (4.8-10.8) H Red Blood Count 3.94 M/UL (4.70-6.10) L Hemoglobin 10.9 G/DL (14.2-18.0) L Hematocrit 32.1 % (42.0-52.0) L Mean Corpuscular Volume 81 FL (80-99) Mean Corpuscular Hemoglobin 27.7 PG (27.0-31.0) Mean Corpuscular Hemoglobin Concent 34.0 G/DL (32.0-36.0) Red Cell Distribution Width 13.5 % (11.6-14.8) Platelet Count 174 K/UL (150-450) Mean Platelet Volume 8.2 FL (6.5-10.1) Neutrophils (%) (Auto) 82.9 % (45.0-75.0) H Lymphocytes (%) (Auto) 6.6 % (20.0-45.0) L Monocytes (%) (Auto) 9.7 % (1.0-10.0) Eosinophils (%) (Auto) 0.1 % (0.0-3.0) Basophils (%) (Auto) 0.8 % (0.0-2.0) Sodium Level 135 MMOL/L (136-145) L Potassium Level 3.8 MMOL/L (3.5-5.1) Chloride Level 103 MMOL/L (98-107) Carbon Dioxide Level 22 MMOL/L (21-32) Anion Gap 10 mmol/L (5-15) Blood Urea Nitrogen 48 mg/dL (7-18) H Creatinine 2.2 MG/DL (0.55-1.30) H Estimat Glomerular Filtration Rate 29.6 mL/min (>60) Glucose Level 121 MG/DL (74-106) H Calcium Level 7.4 MG/DL (8.5-10.1) L Plan Problems: (1) Hypotension Assessment & Plan: 74-year-old male hypotensive unknown etiology's potentially septic COVID eval Needs pressors urgently transfer to the intensive care unit Need central venous access for pressors meds fluids Emergency procedure performed at the bedside Left femoral central venous catheter inserted without complication see note Okay for pressors okay to use We will follow with recommendations and monitor. Thank you for allowing participate in patient care There is a nasogastric tube in place. Tip projects at the level of the distal esophagus. There is complete opacification of the right hemithorax. This is a new finding. There appears to be abrupt cut off of the right mainstem bronchus. The bowel gas pattern is unremarkable High position of nasogastric tube. Advancement recommended. Complete opacification of the right hemithorax. Probably due to complete atelectasis of the right lung, could also indicate a component of pleural fluid. left groin line out was stable now hypotensive needs pressors again left subclavian placed (2) Dehydration Assessment & Plan: DAILY ESTIMATED NEEDS: Needs based on Respiratory, underweight 57.3 30-35 kcals/kg 9264-0411 total kcals 1-1.5 g protein/kg 57-86 g total protein 25-30 mL/kg 7928-8292 total fluid mLs NUTRITION DIAGNOSIS: Altered nutrition related lab values r/t clinical status, renal failure as evidenced by elev BUN (62 trending down), elev Creat (2.1 trending down), elev Na (150). CURRENT DIET:SIDRA ms w/ NTL PO DIET RECOMMENDATIONS: LOW NA + NEPRO TID / Texture per SHOE STOCK ASSOCIATE ENTERAL NUTRITION RECOMMENDATIONS: -Consult RD if part of POC w/ continued poor po intake. ADDITIONAL RECOMMENDATIONS: 1) Obtain a CALIBRATED WEIGHT as able Pt w/ underweight BMI 2) Poor po intake-> consider non oral feeds for ICU status and poor po 3) SHOE STOCK ASSOCIATE eval for H/o CVA-> diet texture per SHOE STOCK ASSOCIATE 4) rec WC eval for sacral wound, add MURIEL BID for skin integrity . (3) Acute renal failure (4) Pneumonia (5) Acute metabolic encephalopathy (6) Suspected COVID-19 virus infection Gallo Kingston Oct 18, 2019 15:33
--- NOTE | 2019-10-18 15:35 | Operative Note - PDOC ---
Operative Note Operative Note Pre-op Diagnosis: sepsis hypotension Procedure: left subclavian central venous catheter insertion Post-op Diagnosis: same as pre-op Surgeon: michael kingston md Anesthesia: local Specimen: none Complications: none Condition: unstable Estimated Blood Loss: minimal Drains: none Implant(s) used?: No Indications for Procedure icu septic hypotensive sbp 80s Description of Procedure needs pressors. made comfortable in supine trend position. left chest wall prepped and draped. left subclavian access on second attempt. good venous flow noted. guidewire placed and needle removed. skin incision made around wire, dilator used and triple lumen catheter placed over wire without complication. guidewire removed and discarded. line sutured in place. dressings applied. all three ports flushed and aspired well. cxr ordered Michael Kingston Oct 18, 2019 15:35
--- NOTE | 2019-10-18 15:41 | NUR ---
NURSE NOTES: Left subclavian inserted by Dr. Kingston. cxr @ bedside
--- NOTE | 2019-10-18 16:07 | NUR ---
NURSE NOTES: Per Dr. Kingston, central line properly placed per cxr. He said to start levophed for pt's dropping blood pressure. On cxr, left pneumothorax noted. Dr. Kingston inserted chest tube. Second cxr showed improvement. Per Dr. Kingston, chest tube might be in place for a few days. Pt in stable condition, tolerated procedures. Levophed started @ 6 mcg/min. Addendum: 10/18/19 at 1915 by Zoë Miller RN THORAVENT inserted and attached to collection chamber.
--- NOTE | 2019-10-18 16:53 | Diagnostic Imaging Report ---
Indication: Post line placement Technique: One view of the chest Comparison: 10/15/2019 Findings: Interim placement left subclavian central venous catheter, tip which projects at the level of the innominate venous confluence. Interim development of a left pneumothorax, estimated 40-50%. There is increased pleural fluid on the right. Stable satisfactory positions of endotracheal and orogastric tubes. Impression: 40-50% left pneumothorax, status post left subclavian central venous catheter placement. ICU charge nurse Shira is aware Increased right pleural effusion
--- NOTE | 2019-10-18 16:58 | NUR ---
CASE MANAGEMENT: REVIEW 10/18/19 SI: LEFT PNEUMOTHORAX . SEPSIS . RENAL FAILURE . A-FIB . DM . INTUBATED LEFT SUBCLAVIAN CENTRAL VENOUS CATHETER 98.3 67 23 91/56 98% MECH VENT FIO2 50 WBC 12.4 BUN 48 CR 2.2 CA+ 7.4 IS:LEVOPHED Q24HR TITRATED IV KCl/D5W @50ML/HR IV ZOSYN TID IV KEPPRA TID AMIODARONE NGT QD IV ATIVAN Q2HR/PRN IV HALDOL Q6HR/PRN ASA PO QD CHEST X-RAY- 40-50% left pneumothorax, \:ICU STATUS DCP: PATIENT IS FROM [facility] PLAN: IV WEEPING CENTRAL LINE PLACED TRACH + PEG PLACEMENT ADD LEVOPHED FOR LOW BP
--- NOTE | 2019-10-18 17:02 | NUR ---
NURSE NOTES: Pt had bowel movement. Pt cleaned, repositioned, linen changed and rectal tube inserted per MD order. Respirations even and unlabored. Pt in stable condition. Vitals stable as documented.
--- NOTE | 2019-10-18 17:17 | Operative Note - PDOC ---
Operative Note Operative Note Pre-op Diagnosis: sepsis hypotension Left pneumothorax Procedure: left tube thoracostomy Post-op Diagnosis: same as pre-op Surgeon: michael kingston md Anesthesia: local Specimen: none Complications: none Condition: unstable Estimated Blood Loss: minimal Drains: none Implant(s) used?: No Indications for Procedure 74-year-old male septic hypotensive currently on pressors no central access systolic pressures in the 80s maps below 60 a left subclavian central venous catheter was inserted and it invariant left iatrogenic pneumothorax identified on chest x-ray post procedure. Patient on vent support with positive pressure and left tube thoracostomy urgently indicated recommended in place at the bedside. Description of Procedure Patient was made comfortable the bedside in the supine position. Left chest wall was prepped draped in the same surgical fashion. A Thora vent tube thoracostomy was obtained anatomic landmarks identified and in the intercostal space a Thora vent was slowly inserted after small skin incision was made and dissected down towards the rib margin after local was infiltrated. Once aspiration of air noted in the pneumothorax pleural space the catheter was advanced over the needle guide until placed appropriately. Thora vent taped in place and placed to suction. Post procedure x-ray performed and pneumothorax resolved. Michael Kingston Oct 18, 2019 17:17
--- NOTE | 2019-10-18 19:11 | NUR ---
HAND-OFF: Report given to MIRANDA Rolon. Pt in stable condition; plan of care endorsed.
[2019-10-18] MEDS: Dyna-Hex 2% Top Sol 2oz TOPIC SCH (20:00)
--- NOTE | 2019-10-18 20:12 | NUR ---
NURSE NOTES: received report from jacek rn oral intubated -vent o2 sat 99% chest tube -suction no leik dressing dry and intact on levo drip 6mcg tolerating tube feeding no residual
--- NOTE | 2019-10-18 21:18 | Nephrology Progress Note ---
Assessment/Plan Problem List: (1) Hypernatremia (2) CHF (congestive heart failure) (3) Dehydration (4) Acute renal failure (5) Pneumonia (6) Suspected COVID-19 virus infection (7) Hypotension (8) HCAP (healthcare-associated pneumonia) (9) CKD (chronic kidney disease) stage 3, GFR 30-59 ml/min Plan hypotonic fluids, pulm care, empiric atb ordered high risk worsening creatinine despine + fluid bal, reduce iv to 50 ml/hr Subjective ROS Limited/Unobtainable: Yes Objective Objective Last 24 Hour Vital Signs Date Time Temp Pulse Resp B/P (MAP) Pulse Ox O2 Delivery O2 Flow Rate FiO2 10/18/19 19:58 73 20 40 10/18/19 19:00 72 20 103/60 (74) 98 10/18/19 19:00 103/60 10/18/19 18:00 20 108/67 (81) 99 10/18/19 18:00 105/64 10/18/19 17:00 109/68 10/18/19 17:00 73 16 109/68 (82) 99 10/18/19 16:30 40 10/18/19 16:29 40 10/18/19 16:07 82/41 10/18/19 16:00 65 10/18/19 16:00 98.2 70 25 93/52 (66) 97 10/18/19 16:00 Mechanical Ventilator 10/18/19 16:00 50 10/18/19 15:21 66 18 50 10/18/19 15:00 64 18 82/52 (62) 98 10/18/19 14:00 66 18 100/61 (74) 99 10/18/19 13:00 69 18 96/56 (69) 99 10/18/19 12:00 98.3 67 23 91/56 (68) 98 10/18/19 12:00 50 10/18/19 12:00 Mechanical Ventilator 10/18/19 12:00 68 10/18/19 11:59 68 10/18/19 11:15 67 18 50 10/18/19 11:00 67 20 99/60 (73) 99 10/18/19 10:00 74 17 98/60 (73) 98 10/18/19 09:00 71 22 94/61 (72) 98 10/18/19 08:00 Mechanical Ventilator 10/18/19 08:00 60 10/18/19 08:00 98.4 70 20 96/55 (69) 98 10/18/19 08:00 71 10/18/19 07:00 72 16 92/61 (71) 100 10/18/19 06:44 71 18 60 10/18/19 06:00 70 24 93/60 (71) 97 10/18/19 05:00 69 24 90/53 (65) 100 10/18/19 04:00 68 10/18/19 04:00 60 10/18/19 04:00 Mechanical Ventilator 10/18/19 04:00 60 10/18/19 04:00 98.9 72 21 88/62 (71) 100 10/18/19 03:57 73 20 100 Mechanical Ventilator 60 10/18/19 03:57 63 19 100 Mechanical Ventilator 60 10/18/19 03:57 73 20 60 10/18/19 03:00 69 25 83/53 (63) 100 10/18/19 02:00 71 24 91/58 (69) 100 10/18/19 01:00 71 21 91/57 (68) 97 10/18/19 01:00 71 21 91/57 (68) 97 10/18/19 00:45 75 26 91/57 (68) 98 10/18/19 00:30 87 27 88/55 (66) 99 10/18/19 00:15 75 18 91/59 (70) 99 10/18/19 00:00 74 19 91/57 (68) 100 10/18/19 00:00 Mechanical Ventilator 10/18/19 00:00 98.6 74 19 91/57 (68) 100 10/18/19 00:00 64 10/18/19 00:00 60 10/17/19 23:18 63 19 100 Mechanical Ventilator 60 10/17/19 23:18 64 18 100 Mechanical Ventilator 60 10/17/19 23:18 63 18 60 10/17/19 23:00 67 19 97/57 (70) 99 10/17/19 22:00 68 18 97/61 (73) 100 Intake and Output 10/17/19 10/18/19 19:00 07:00 Intake Total 1360 ml 1520.0 ml Output Total 370 ml 210 ml Balance 990 ml 1310.0 ml Free Water 60 ml 100 ml IV Total 700 ml 760.0 ml Tube Feeding 600 ml 660 ml Output Urine Total 370 ml 210 ml # Bowel Movements 2 Laboratory Tests 10/18/19 03:46: White Blood Count 12.4H, Red Blood Count 3.94L, Hemoglobin 10.9L, Hematocrit 32.1L, Mean Corpuscular Volume 81, Mean Corpuscular Hemoglobin 27.7, Mean Corpuscular Hemoglobin Concent 34.0, Red Cell Distribution Width 13.5, Platelet Count 174, Mean Platelet Volume 8.2, Neutrophils (%) (Auto) 82.9H, Lymphocytes ( %) (Auto) 6.6L, Monocytes (%) (Auto) 9.7, Eosinophils (%) (Auto) 0.1, Basophils (%) (Auto) 0.8, Sodium Level 135L, Potassium Level 3.8, Chloride Level 103, Carbon Dioxide Level 22, Anion Gap 10, Blood Urea Nitrogen 48H, Creatinine 2.2H , Estimat Glomerular Filtration Rate 29.6, Glucose Level 121H, Calcium Level 7.4L Height (Feet): 5 Height (Inches): 11.00 Weight (Pounds): 143 General Appearance: lethargic, other - on vent Cardiovascular: regular rhythm Respiratory/Chest: rhonchi - bilaterally Abdomen: non tender Extremities: trace edema Neurologic: unresponsive Jose Gant MD Oct 18, 2019 21:18
--- NOTE | 2019-10-18 22:00 | NUR ---
NURSE NOTES: reposition and suction chest tube to suction and suction sat 98%
[2019-10-19] VITALS (33 sets, daily range): BP systolic 64–155; BP diastolic 42–82
--- NOTE | 2019-10-19 | NUR ---
NURSE NOTES: tolerating tube feeding
[2019-10-19] MEDS: Potassium Chloride 10 MEQ in D5W 1000ml 1,000 ML IV SCH ×2 (01:55→22:16)
[2019-10-19] MEDS: levETIRAcetam 500mg/NS100ml 100 ML IVPB SCH ×3 (03:12→20:22)
--- NOTE | 2019-10-19 04:00 | NUR ---
NURSE NOTES: complete bed done back care done
[2019-10-19 04:42] LABS: HEMOGLOBIN 10.7 G/DL (14.2-18.0); MEAN CORPUSCULAR VOLUME 81 FL (80-99); PLATELET COUNT 216 K/UL (150-450); RED BLOOD COUNT 3.81 M/UL (4.70-6.10); WHITE BLOOD COUNT 18.8 K/UL (4.8-10.8)
--- NOTE | 2019-10-19 05:00 | NUR ---
NURSE NOTES: chest tube out rr 30-40 02 sat 70- 80 % dr hope was notify want er md to to insert tro-vevnt to insert dr skinner and insert dany vent chest x-ray done
[2019-10-19 05:06] LABS: ANION GAP 13 mmol/L (5-15); BLOOD UREA NITROGEN 60 mg/dL (7-18); CALCIUM 7.7 MG/DL (8.5-10.1); CARBON DIOXIDE 20 MMOL/L (21-32); CHLORIDE 101 MMOL/L (98-107); CREATININE 2.5 MG/DL (0.55-1.30); SODIUM 134 MMOL/L (136-145)
--- NOTE | 2019-10-19 05:30 | Progress Note ---
DATE: 10/18/2019 CARDIOLOGY PROGRESS NOTE SUBJECTIVE: The patient remains on ventilator support. Orally intubated. Mechanically ventilated. The patient is status post chest tube placement. There was iatrogenic pneumothorax noted on the left side following chest tube placement. OBJECTIVE: LUNGS: Bilateral breath sounds. Rhonchi. CARDIAC: Regular rhythm and rate. Normal S1 and S2. ABDOMEN: Soft. EXTREMITIES: 2+ dependent edema. LABORATORY DATA: White count 12.4 and hemoglobin 10.9. Sodium 135, potassium 3.8, bicarb 22, BUN 48, and creatinine 2.2. IMPRESSION: 1. Respiratory failure, status post thoracotomy on the left with chest tube. 2. Healthcare associated pneumonia. 3. Paroxysmal atrial fibrillation. 4. Sepsis with shock. 5. Poor peripheral access. 6. Acute on chronic renal failure. 7. Acute on chronic diastolic congestive heart failure. 8. Remaining critical and guarded. PLAN: 1. Ventilator support. 2. Chest tube management. 3. Maintenance dose amiodarone. 4. Nutrition by feeding tube. 5. Monitor volume status and cardiorenal function. 6. Maintenance hydration. Anselmo Porras M.D. DR: ALYSSA JOB#: [id number] CC:
[2019-10-19] MEDS: Piperacillin/Tazobactam 3.375 GM in NS 110 ML IVPB SCH ×3 (06:00→22:14)
--- NOTE | 2019-10-19 06:25 | Emergency Room Report ---
History of Present Illness General Chief Complaint: Dyspnea/Respdistress Source: Medical Record, PMD Present Illness Allergies: Coded Allergies: No Known Allergies (Unverified , 07/23/18) COVID-19 Screening Contact w/high risk pt: Yes Recent Travel to affected area: No Experienced COVID-19 symptoms?: Yes COVID-19 symptoms experienced: Shortness of Breath COVID-19 Testing performed PLANT ANATOMY TEACHER: No COVID-19 Screening: Negative COVID-19 Nursing Documentation-PMH Past Medical History: No History, Except For Hx Cardiac Problems: Yes - dysphagia, cognitive communication deficit, hyperlipidemia Hx Hypertension: Yes Hx COPD: Yes Hx Diabetes: Yes Hx Cancer: No Hx Gastrointestinal Problems: No Hx Dialysis: Yes - shunt left upper arm Hx Neurological Problems: No Physical Exam Vital Signs Date Time Temp Pulse Resp B/P (MAP) Pulse Ox O2 Delivery O2 Flow Rate FiO2 10/15/19 07:00 70 24 119/67 (84) 100 10/15/19 07:39 60 10/15/19 07:40 Mechanical Ventilator 10/15/19 08:00 98.6 Procedures Additional Procedure Procedure Narrative I was contacted after patient began having increased difficulty with respirations. Patient had recently accidentally had Thora vent removed. Patient was noted have increased respiratory difficulty as well as desaturation. Skin was prepped with chlorhexidine. Thoravent was replaced emergently due to likely recurrence of pneumothorax. Patient tolerated this well and pneumothorax was subsequently aspirated. Patient was noted to have improvement in respirations after tube was placed to suction. x-ray is currently pending and will be followed by primary team.. Medical Decision Making Diagnostic Impression: Primary Impression: Suspected COVID-19 virus infection Additional Impressions: Acute renal failure Pneumonia Dehydration Last Vital Signs Date Time Temp Pulse Resp B/P (MAP) Pulse Ox O2 Delivery O2 Flow Rate FiO2 10/19/19 05:00 127 36 102/72 (82) 82 10/19/19 04:00 40 10/19/19 04:00 Mechanical Ventilator 10/19/19 00:00 98.8 Disposition: ADMITTED INPATIENT Condition: Serious Referrals: Camilo Bill MD (PCP) Jonnathan Cardona MD Oct 19, 2019 06:25
--- NOTE | 2019-10-19 06:56 | Diagnostic Imaging Report ---
Clinical history: Shortness of breath. AP view the chest compared to October 18, 2019 demonstrates: There is an endotracheal tube which terminates approximately 9.5 cm above the rashid. This is at the level of the clavicular heads. Stable, left sided central venous catheter terminates in the superior vena cava. Stable, mild pulmonary vascular congestion. Moderate right-sided pleural effusion, which is slightly decreased from October 18, 2019. Small left pleural effusion. Mild emphysematous changes. The heart size is at the upper limits of normal. Tortuous aorta. Degenerative changes and scoliosis of the spine.
--- NOTE | 2019-10-19 07:30 | NUR ---
NURSE NOTES: Report received from MIRANDA Rolon. Around 0715, pt is lying in semi-fowlers with labored, tachypneic breathing. No breath sounds heard bilaterally. RT @ bedside d/t vent alarms of patient not receiving volumes. Per night esther JEANnt was dislodged and replaced by ED MD. Awaiting results of cxr for proper placement. O2 saturation 92% with retractions. RT able to remove bite lock and move tube medially to help with breathing. Pt now able to receive volume and work of breathing has decreased. Per ED MD Dr. Vences, thoravent properly in place. Pt is non-verbal and lethargic, reacts to painful stimuli. Pt does not follow commands. ETT 8, 23 cm @ the lip line. O2 saturation now 97% with vent settings of AC 18, VT 600, FiO2 100% and peep of 5. Pt afib on the monitor now @ 110. Left subclavian running fluids @ prescribed rate and levophed @ 6 mcg/min. Pt has pressure wounds dressed in optifoam. Bilateral arms weeping, pads placed underneath. Head of bed @ 30 degrees. NGT noted and patent, running feeding @ prescribed rate. Mathis in place and patent, draining urine at foot of bed. Bilateral wrist restraints noted for pt's safety. Edema noted on bilateral arms. Pulses present. Bed at lowest position, brakes engaged, siderails x3, bed alarm on, and call light within reach. Pt in stable condition at this time; will continue to monitor.
--- NOTE | 2019-10-19 07:49 | NUR ---
HAND-OFF: Report given conor ortez rn .using sbar :
[2019-10-19] MEDS: Amiodarone 200mg tab NG SCH (08:18)
[2019-10-19] MEDS: Heparin 5000 units/ml inj SUBQ SCH ×2 (08:18→20:22)
[2019-10-19] MEDS: Aspirin Baby 81mg ORAL SCH (08:18)
--- NOTE | 2019-10-19 08:55 | NUR ---
NURSE NOTES: Levophed increased to 20 mcg/min. BP now 100/63. Pt has converted to afib 105. Amiodarone given via NGT.
--- NOTE | 2019-10-19 09:25 | NUR ---
NURSE NOTES: Dr. Bill @ bedside aware of ABG. per MD, change to AC 24 and fio2 to 50%. Vent settings changed and RT made aware
--- NOTE | 2019-10-19 09:38 | NUR ---
RD ASSESSMENT & RECOMMENDATIONS SEE CARE ACTIVITY FOR COMPLETE ASSESSMENT DAILY ESTIMATED NEEDS: Needs based on Respiratory, critical care, underweight 57.3 28-35 kcals/kg 1561-4885 total kcals 1.25-2 g protein/kg 72-115 g total protein 25-30 mL/kg 8829-4693 total fluid mLs NUTRITION DIAGNOSIS: 1) Altered nutrition related lab values r/t clinical status, renal failure as evidenced by elev BUN (60), elev Creat (2.5 trending up). 2) Swallowing difficulty r/t resp status as evidenced by s/p intubation, on pressor support, NGT feeds. CURRENT TF: Vital 1.2 @60 ENTERAL NUTRITION RECOMMENDATIONS: Maintain Vital AF 1.2 goal of 60ml/hr x24 hrs for critical care to provide 1440ml, 1728 kcal, 108g pro, 1168ml free H2O - Maintain current goal rate, advance slowly as tolerated - Flush per MD/ HOB over 30 degrees. If not hemodynamically stable: lower TF to trophic feeds to maintain gut integrity (Currently on NE @20mcg). ADDITIONAL RECOMMENDATIONS: 1) Obtain a CALIBRATED WEIGHT as able Pt w/ underweight BMI 2) Poor po intake-> consider non oral feeds for ICU status-> now w/ NGT 3) BULL CHAIN OPERATOR eval for H/o CVA-> now intubated w/ NGT tube 4) With tube feeds add MURIEL BID for skin integrity 5) rec IVF if NPO for hydration 6) Feed at goal w/ hemodynamic stability
--- NOTE | 2019-10-19 09:51 | Diagnostic Imaging Report ---
Indication: Post tube placement for pneumothorax Technique: One view of the chest Comparison: 14 minutes earlier Findings: Interim placement of a left chest vent catheter. Interim near complete resolution of previously demonstrated left pneumothorax. Large right pleural effusion and right lung volume loss persists. Other tubes and lines are in stable positions. Impression: Near complete resolution of left pneumothorax, status post chest vent catheter placement Otherwise stable findings as described
--- NOTE | 2019-10-19 10:05 | NUR ---
NURSE NOTES: feeding on hold until pt more stable
--- NOTE | 2019-10-19 10:17 | NUR ---
RADIOLOGY DEPT, LATE ENTRY, CHEST X-RAY DONE.-P.DYE
--- NOTE | 2019-10-19 10:45 | General Progress Note ---
Assessment/Plan Assessment/Plan: 1. History of diabetes. 2. Hypertension. 3. Chronic kidney disease. 4. COPD. 5. CHF. 6. Dementia. 7. AMS 8. Dysphagia 9. Righ sided pna 10. diarrhea NGTF dietitian in put appreciated still intubated may need Trach and PEG fu pulm abx per ID add Imodium for diarrhea pneumothorax post picc line now with chest tube Subjective ROS Limited/Unobtainable: No Allergies: Coded Allergies: No Known Allergies (Unverified , 07/23/18) Objective Last 24 Hour Vital Signs Date Time Temp Pulse Resp B/P (MAP) Pulse Ox O2 Delivery O2 Flow Rate FiO2 10/19/19 10:31 109/71 10/19/19 10:00 88 0 106/65 (79) 98 10/19/19 09:24 50 10/19/19 09:00 91 20 102/63 (76) 99 10/19/19 08:55 60 10/19/19 08:30 99 16 88/57 (67) 99 10/19/19 08:00 Mechanical Ventilator Mechanical Ventilator Mechanical Ventilator 10/19/19 08:00 97.9 102 28 64/42 (49) 99 10/19/19 08:00 40 10/19/19 07:27 105 21 100 10/19/19 07:00 111 50 155/78 (103) 95 10/19/19 06:00 104/60 10/19/19 05:00 127 36 102/72 (82) 82 10/19/19 05:00 102/72 10/19/19 04:30 91 21 100/50 (67) 80 10/19/19 04:00 79 18 98/58 (71) 100 10/19/19 04:00 95/40 10/19/19 04:00 77 10/19/19 04:00 40 10/19/19 04:00 Mechanical Ventilator 10/19/19 03:30 84 33 98/58 (71) 99 10/19/19 03:13 77 24 40 10/19/19 03:00 77 10 110/65 (80) 99 10/19/19 03:00 98/58 10/19/19 02:30 83 11 110/65 (80) 99 10/19/19 02:00 79 7 109/61 (77) 99 6/10/20 02:00 79 7 109/61 (77) 99 10/19/19 02:00 110/65 10/19/19 01:30 80 22 107/63 (78) 99 10/19/19 01:30 80 22 99 10/19/19 01:00 107/63 10/19/19 01:00 82 23 107/63 (78) 99 10/19/19 00:30 82 25 99 10/19/19 00:00 98.8 79 24 113/64 (80) 99 10/19/19 00:00 79 10/19/19 00:00 Mechanical Ventilator 10/19/19 00:00 104/68 10/19/19 00:00 40 10/18/19 23:45 77 22 40 10/18/19 23:30 76 12 99 10/18/19 23:00 124/80 10/18/19 23:00 72 10 112/61 (78) 99 10/18/19 22:30 71 3 99 10/18/19 22:00 110/80 10/18/19 22:00 72 8 113/64 (80) 99 10/18/19 21:30 72 0 99 10/18/19 21:00 113/64 10/18/19 21:00 71 6 102/61 (75) 98 10/18/19 20:30 70 7 99 10/18/19 20:00 40 10/18/19 20:00 72 10/18/19 20:00 110/60 10/18/19 20:00 98.4 73 0 104/62 (76) 98 10/18/19 20:00 Mechanical Ventilator 10/18/19 19:58 73 20 40 10/18/19 19:30 73 0 107/60 (76) 99 10/18/19 19:00 72 20 103/60 (74) 98 10/18/19 19:00 103/60 10/18/19 18:00 20 108/67 (81) 99 10/18/19 18:00 105/64 10/18/19 17:00 109/68 10/18/19 17:00 73 16 109/68 (82) 99 10/18/19 16:30 40 10/18/19 16:29 40 10/18/19 16:07 82/41 10/18/19 16:00 65 10/18/19 16:00 98.2 70 25 93/52 (66) 97 10/18/19 16:00 Mechanical Ventilator 10/18/19 16:00 50 10/18/19 15:21 66 18 50 10/18/19 15:00 64 18 82/52 (62) 98 10/18/19 14:00 66 18 100/61 (74) 99 10/18/19 13:00 69 18 96/56 (69) 99 10/18/19 12:00 98.3 67 23 91/56 (68) 98 10/18/19 12:00 50 10/18/19 12:00 Mechanical Ventilator 10/18/19 12:00 68 10/18/19 11:59 68 10/18/19 11:15 67 18 50 10/18/19 11:00 67 20 99/60 (73) 99 Intake and Output 10/18/19 10/19/19 19:00 07:00 Intake Total 1235.0 ml 1857.5 ml Output Total 350 ml 272 ml Balance 885.0 ml 1585.5 ml Free Water 150 ml IV Total 515.0 ml 1107.5 ml Tube Feeding 720 ml 600 ml Output Urine Total 350 ml 272 ml # Bowel Movements 1 3 Laboratory Tests 10/19/19 02:40: White Blood Count 18.8#H, Red Blood Count 3.81L, Hemoglobin 10.7L, Hematocrit 31.0L, Mean Corpuscular Volume 81, Mean Corpuscular Hemoglobin 28.1, Mean Corpuscular Hemoglobin Concent 34.5, Red Cell Distribution Width 14.0, Platelet Count 216, Mean Platelet Volume 8.6, Neutrophils (%) (Auto) , Lymphocytes (%) ( Auto) , Monocytes (%) (Auto) , Eosinophils (%) (Auto) , Basophils (%) (Auto) , Differential Total Cells Counted 100, Neutrophils % (Manual) 89H, Lymphocytes % (Manual) 3L, Monocytes % (Manual) 6, Eosinophils % (Manual) 2, Basophils % ( Manual) 0, Band Neutrophils 0, Platelet Estimate Adequate, Platelet Morphology Normal, Hypochromasia 1+, Anisocytosis 1+, Sodium Level 134L, Potassium Level 4.0, Chloride Level 101, Carbon Dioxide Level 20L, Anion Gap 13, Blood Urea Nitrogen 60H, Creatinine 2.5H, Estimat Glomerular Filtration Rate 25.5, Glucose Level 117H, Calcium Level 7.7L 10/19/19 05:49: Arterial Blood pH 7.119*L, Arterial Blood Partial Pressure CO2 49.0H, Arterial Blood Partial Pressure O2 78.8, Arterial Blood HCO3 15.5*L, Arterial Blood Oxygen Saturation 90.1L, Arterial Blood Base Excess -13.5*L, Hal Test Positive 10/19/19 08:31: Arterial Blood pH 7.222*L, Arterial Blood Partial Pressure CO2 46.1H, Arterial Blood Partial Pressure O2 344.8H, Arterial Blood HCO3 18.5L, Arterial Blood Oxygen Saturation 99.2, Arterial Blood Base Excess -8.8L, Hal Test Positive Height (Feet): 5 Height (Inches): 11.00 Weight (Pounds): 143 General Appearance: lethargic EENT: normal ENT inspection Neck: supple Cardiovascular: tachycardia Respiratory/Chest: decreased breath sounds Extremities: non-tender Chaitanya Beverly MD Oct 19, 2019 10:45
--- NOTE | 2019-10-19 12:12 | Infectious Diseases Prog Note ---
Assessment/Plan Assessment/Plan A 1. pneumonia COVID19 negative x 2 2. Hypoxic respiratory failure 3. Acute renal failure 4. diabetes mellitus 5. hypertension 6. CHF 7. COPD 8. dementia 9. Pneumothorax 10. Emphysema P 1. continue Zosyn 2. sputum culture: negative Subjective ROS Limited/Unobtainable: Yes Constitutional: Denies: fever Respiratory: Reports: other - developed left pneumothorax after left suclavian line placement Cardiovascular: Reports: other - on Levophed Allergies: Coded Allergies: No Known Allergies (Unverified , 07/23/18) Objective Vital Signs Last 24 Hour Vital Signs Date Time Temp Pulse Resp B/P (MAP) Pulse Ox O2 Delivery O2 Flow Rate FiO2 10/19/19 11:00 90 0 124/67 (86) 100 10/19/19 10:54 87 24 50 10/19/19 10:31 109/71 10/19/19 10:00 88 0 106/65 (79) 98 10/19/19 09:24 50 10/19/19 09:00 91 20 102/63 (76) 99 10/19/19 08:55 60 10/19/19 08:30 99 16 88/57 (67) 99 10/19/19 08:00 Mechanical Ventilator Mechanical Ventilator Mechanical Ventilator 10/19/19 08:00 97.9 102 28 64/42 (49) 99 10/19/19 08:00 107 10/19/19 08:00 40 10/19/19 07:27 105 21 100 10/19/19 07:00 111 50 155/78 (103) 95 10/19/19 06:00 104/60 10/19/19 05:00 127 36 102/72 (82) 82 10/19/19 05:00 102/72 10/19/19 04:30 91 21 100/50 (67) 80 10/19/19 04:00 79 18 98/58 (71) 100 10/19/19 04:00 95/40 10/19/19 04:00 77 10/19/19 04:00 40 10/19/19 04:00 Mechanical Ventilator 10/19/19 03:30 84 33 98/58 (71) 99 10/19/19 03:13 77 24 40 10/19/19 03:00 77 10 110/65 (80) 99 6/10/20 03:00 98/58 10/19/19 02:30 83 11 110/65 (80) 99 10/19/19 02:00 79 7 109/61 (77) 99 10/19/19 02:00 79 7 109/61 (77) 99 10/19/19 02:00 110/65 10/19/19 01:30 80 22 107/63 (78) 99 10/19/19 01:30 80 22 99 10/19/19 01:00 107/63 10/19/19 01:00 82 23 107/63 (78) 99 10/19/19 00:30 82 25 99 10/19/19 00:00 98.8 79 24 113/64 (80) 99 10/19/19 00:00 79 10/19/19 00:00 Mechanical Ventilator 10/19/19 00:00 104/68 10/19/19 00:00 40 10/18/19 23:45 77 22 40 10/18/19 23:30 76 12 99 10/18/19 23:00 124/80 10/18/19 23:00 72 10 112/61 (78) 99 10/18/19 22:30 71 3 99 10/18/19 22:00 110/80 10/18/19 22:00 72 8 113/64 (80) 99 10/18/19 21:30 72 0 99 10/18/19 21:00 113/64 10/18/19 21:00 71 6 102/61 (75) 98 10/18/19 20:30 70 7 99 10/18/19 20:00 40 10/18/19 20:00 72 10/18/19 20:00 110/60 10/18/19 20:00 98.4 73 0 104/62 (76) 98 10/18/19 20:00 Mechanical Ventilator 10/18/19 19:58 73 20 40 10/18/19 19:30 73 0 107/60 (76) 99 10/18/19 19:00 72 20 103/60 (74) 98 10/18/19 19:00 103/60 10/18/19 18:00 20 108/67 (81) 99 10/18/19 18:00 105/64 10/18/19 17:00 109/68 10/18/19 17:00 73 16 109/68 (82) 99 10/18/19 16:30 40 10/18/19 16:29 40 10/18/19 16:07 82/41 10/18/19 16:00 65 10/18/19 16:00 98.2 70 25 93/52 (66) 97 10/18/19 16:00 Mechanical Ventilator 10/18/19 16:00 50 10/18/19 15:21 66 18 50 10/18/19 15:00 64 18 82/52 (62) 98 10/18/19 14:00 66 18 100/61 (74) 99 10/18/19 13:00 69 18 96/56 (69) 99 Height (Feet): 5 Height (Inches): 11.00 Weight (Pounds): 143 HEENT: other - orally intubated Respiratory/Chest: decreased breath sounds, other - on ventilator, left thoravent tube Cardiovascular: normal rate, other - left suclavian line Abdomen: soft, non tender Extremities: other - arms edema Laboratory Tests Test 10/19/19 02:40 10/19/19 05:49 10/19/19 08:31 White Blood Count 18.8 K/UL (4.8-10.8) #H Red Blood Count 3.81 M/UL (4.70-6.10) L Hemoglobin 10.7 G/DL (14.2-18.0) L Hematocrit 31.0 % (42.0-52.0) L Mean Corpuscular Volume 81 FL (80-99) Mean Corpuscular Hemoglobin 28.1 PG (27.0-31.0) Mean Corpuscular Hemoglobin Concent 34.5 G/DL (32.0-36.0) Red Cell Distribution Width 14.0 % (11.6-14.8) Platelet Count 216 K/UL (150-450) Mean Platelet Volume 8.6 FL (6.5-10.1) Neutrophils (%) (Auto) % (45.0-75.0) Lymphocytes (%) (Auto) % (20.0-45.0) Monocytes (%) (Auto) % (1.0-10.0) Eosinophils (%) (Auto) % (0.0-3.0) Basophils (%) (Auto) % (0.0-2.0) Differential Total Cells Counted 100 Neutrophils % (Manual) 89 % (45-75) H Lymphocytes % (Manual) 3 % (20-45) L Monocytes % (Manual) 6 % (1-10) Eosinophils % (Manual) 2 % (0-3) Basophils % (Manual) 0 % (0-2) Band Neutrophils 0 % (0-8) Platelet Estimate Adequate Platelet Morphology Normal Hypochromasia 1+ Anisocytosis 1+ Sodium Level 134 MMOL/L (136-145) L Potassium Level 4.0 MMOL/L (3.5-5.1) Chloride Level 101 MMOL/L (98-107) Carbon Dioxide Level 20 MMOL/L (21-32) L Anion Gap 13 mmol/L (5-15) Blood Urea Nitrogen 60 mg/dL (7-18) H Creatinine 2.5 MG/DL (0.55-1.30) H Estimat Glomerular Filtration Rate 25.5 mL/min (>60) Glucose Level 117 MG/DL (74-106) H Calcium Level 7.7 MG/DL (8.5-10.1) L Arterial Blood pH 7.119 (7.350-7.450) 7.222 (7.350-7.450) Arterial Blood Partial Pressure CO2 49.0 mmHg (35.0-45.0) H 46.1 mmHg (35.0-45.0) H Arterial Blood Partial Pressure O2 78.8 mmHg (75.0-100.0) 344.8 mmHg (75.0-100.0) H Arterial Blood HCO3 15.5 mmol/L (22.0-26.0) *L 18.5 mmol/L (22.0-26.0) L Arterial Blood Oxygen Saturation 90.1 % (95-100) L 99.2 % (95-100) Arterial Blood Base Excess -13.5 (-2-2) *L -8.8 (-2-2) L Hal Test Positive Positive Current Medications Medications (Trade) Dose Ordered Sig/Clementine Route PRN Reason Start Time Stop Time Status Last Admin Dose Admin Acetaminophen (Tylenol) 650 mg Q4H PRN ORAL Mild Pain (Pain Scale 1-3) 10/09/19 05:45 11/08/19 05:44 Acetaminophen (Tylenol) 650 mg Q4H PRN ORAL fever 10/09/19 05:45 11/08/19 05:44 Albuterol Sulfate (Proventil MDI) 2 puff Q4H PRN INH Shortness of Breath 10/09/19 12:45 01/07/20 12:44 Amiodarone HCl (Cordarone) 200 mg DAILY NG 10/16/19 09:00 01/14/20 08:59 10/19/19 08:18 Aspirin (ASA) 81 mg DAILY ORAL 10/09/19 09:00 11/23/19 08:59 10/19/19 08:18 Chlorhexidine Gluconate (Flaca-Hex 2%) 1 applic DAILY@2000 TOPIC 10/09/19 20:00 01/07/20 19:59 10/18/19 20:00 Dextrose (Dextrose 50%) 25 ml Q30M PRN IV Hypoglycemia 10/09/19 05:45 01/07/20 05:44 Dextrose (Dextrose 50%) 50 ml Q30M PRN IV Hypoglycemia 10/09/19 05:45 01/07/20 05:44 Haloperidol Lactate 5 mg/ Dextrose 56 ml @ 224 mls/hr Q6HR PRN IVPB Agitation 10/09/19 21:30 11/23/19 21:29 10/11/19 04:35 Heparin Sodium (Porcine) (Heparin 5000 units/ml) 5,000 units EVERY 12 HOURS SUBQ 10/09/19 09:00 11/23/19 08:59 10/18/19 21:00 Levetiracetam 100 ml @ 400 mls/hr Q8H IVPB 10/16/19 12:00 01/14/20 11:59 10/19/19 03:12 Loperamide HCl (Imodium) 2 mg Q4H PRN NG Diarrhea 10/19/19 10:48 11/18/19 10:47 Lorazepam (Ativan 2mg/ml 1ml) 1 mg Q2H PRN IV For Seizures 10/15/19 18:30 10/22/19 18:29 10/16/19 08:35 Norepinephrine Bitartrate 4 mg/ Dextrose 250 ml @ 0 mls/hr Q24H IV 10/18/19 15:48 11/17/19 15:47 10/19/19 10:31 Piperacillin Sod/ Tazobactam Sod 3.375 gm/Sodium Chloride 110 ml @ 27.5 mls/hr EVERY 8 HOURS IVPB 10/14/19 14:00 10/19/19 23:59 10/19/19 06:00 Potassium Chloride 10 meq/ Dextrose 1,005 ml @ 50 mls/hr Q20H6M IV 10/16/19 13:37 11/15/19 13:36 10/19/19 01:55 Pravastatin Sodium (Pravachol) 20 mg BEDTIME ORAL 10/09/19 21:00 11/08/19 20:59 10/18/19 20:59 Migel Adams MD Oct 19, 2019 12:12
--- NOTE | 2019-10-19 13:15 | NUR ---
NURSE NOTES: Dr. Kingston @ bedside to assess pt. MD aware of blood output in pleura vac and out of central line. No new orders given. Gauze placed over central line dressing. Will replace dressing during shift.
[2019-10-19] MEDS: Norepinephrine Bitartrate 8 MG in D5W 500ml 492 ML IV SCH ×2 (14:39→22:15)
--- NOTE | 2019-10-19 14:40 | Surgery Progress Note ---
Surgery Progress Note Subjective Procedure Performed left tube thoracostomy Additional Comments Overnight chest tube dislodged. Emergency new left Thora vent placed by emergency department physician. Discussed care plan with team. Objective Last 24 Hour Vital Signs Date Time Temp Pulse Resp B/P (MAP) Pulse Ox O2 Delivery O2 Flow Rate FiO2 10/19/19 14:00 82 20 131/76 (94) 99 10/19/19 13:00 104 19 120/77 (91) 99 10/19/19 12:00 88 20 125/72 (89) 99 10/19/19 12:00 Mechanical Ventilator Mechanical Ventilator Mechanical Ventilator 10/19/19 12:00 50 10/19/19 11:00 90 20 124/67 (86) 100 10/19/19 10:54 87 24 50 10/19/19 10:31 109/71 10/19/19 10:00 88 20 106/65 (79) 98 10/19/19 09:24 50 10/19/19 09:00 91 20 102/63 (76) 99 10/19/19 08:55 60 10/19/19 08:30 99 16 88/57 (67) 99 10/19/19 08:00 Mechanical Ventilator Mechanical Ventilator Mechanical Ventilator 10/19/19 08:00 97.9 102 28 64/42 (49) 99 10/19/19 08:00 107 10/19/19 08:00 40 10/19/19 07:27 105 21 100 10/19/19 07:00 111 50 155/78 (103) 95 10/19/19 06:00 104/60 10/19/19 05:00 127 36 102/72 (82) 82 10/19/19 05:00 102/72 10/19/19 04:30 91 21 100/50 (67) 80 10/19/19 04:00 79 18 98/58 (71) 100 10/19/19 04:00 95/40 10/19/19 04:00 77 10/19/19 04:00 40 10/19/19 04:00 Mechanical Ventilator 10/19/19 03:30 84 33 98/58 (71) 99 10/19/19 03:13 77 24 40 10/19/19 03:00 77 10 110/65 (80) 99 10/19/19 03:00 98/58 10/19/19 02:30 83 11 110/65 (80) 99 10/19/19 02:00 79 7 109/61 (77) 99 10/19/19 02:00 79 7 109/61 (77) 99 10/19/19 02:00 110/65 10/19/19 01:30 80 22 107/63 (78) 99 10/19/19 01:30 80 22 99 10/19/19 01:00 107/63 10/19/19 01:00 82 23 107/63 (78) 99 10/19/19 00:30 82 25 99 10/19/19 00:00 98.8 79 24 113/64 (80) 99 10/19/19 00:00 79 10/19/19 00:00 Mechanical Ventilator 10/19/19 00:00 104/68 10/19/19 00:00 40 10/18/19 23:45 77 22 40 10/18/19 23:30 76 12 99 10/18/19 23:00 124/80 10/18/19 23:00 72 10 112/61 (78) 99 10/18/19 22:30 71 3 99 10/18/19 22:00 110/80 10/18/19 22:00 72 8 113/64 (80) 99 10/18/19 21:30 72 0 99 10/18/19 21:00 113/64 10/18/19 21:00 71 6 102/61 (75) 98 10/18/19 20:30 70 7 99 10/18/19 20:00 40 10/18/19 20:00 72 10/18/19 20:00 110/60 10/18/19 20:00 98.4 73 0 104/62 (76) 98 10/18/19 20:00 Mechanical Ventilator 10/18/19 19:58 73 20 40 10/18/19 19:30 73 0 107/60 (76) 99 10/18/19 19:00 72 20 103/60 (74) 98 10/18/19 19:00 103/60 10/18/19 18:00 20 108/67 (81) 99 10/18/19 18:00 105/64 10/18/19 17:00 109/68 10/18/19 17:00 73 16 109/68 (82) 99 10/18/19 16:30 40 10/18/19 16:29 40 10/18/19 16:07 82/41 10/18/19 16:00 65 10/18/19 16:00 98.2 70 25 93/52 (66) 97 10/18/19 16:00 Mechanical Ventilator 10/18/19 16:00 50 10/18/19 15:21 66 18 50 10/18/19 15:00 64 18 82/52 (62) 98 I&O Intake and Output 10/18/19 10/19/19 19:00 07:00 Intake Total 1235.0 ml 1857.5 ml Output Total 350 ml 272 ml Balance 885.0 ml 1585.5 ml Free Water 150 ml IV Total 515.0 ml 1107.5 ml Tube Feeding 720 ml 600 ml Output Urine Total 350 ml 272 ml # Bowel Movements 1 3 Dressing: other Wound: other Drains: other Cardiovascular: RSR Respiratory: decreased breath sounds Abdomen: soft, present bowel sounds Extremities: no cyanosis Laboratory Tests Test 10/19/19 02:40 10/19/19 05:49 10/19/19 08:31 White Blood Count 18.8 K/UL (4.8-10.8) #H Red Blood Count 3.81 M/UL (4.70-6.10) L Hemoglobin 10.7 G/DL (14.2-18.0) L Hematocrit 31.0 % (42.0-52.0) L Mean Corpuscular Volume 81 FL (80-99) Mean Corpuscular Hemoglobin 28.1 PG (27.0-31.0) Mean Corpuscular Hemoglobin Concent 34.5 G/DL (32.0-36.0) Red Cell Distribution Width 14.0 % (11.6-14.8) Platelet Count 216 K/UL (150-450) Mean Platelet Volume 8.6 FL (6.5-10.1) Neutrophils (%) (Auto) % (45.0-75.0) Lymphocytes (%) (Auto) % (20.0-45.0) Monocytes (%) (Auto) % (1.0-10.0) Eosinophils (%) (Auto) % (0.0-3.0) Basophils (%) (Auto) % (0.0-2.0) Differential Total Cells Counted 100 Neutrophils % (Manual) 89 % (45-75) H Lymphocytes % (Manual) 3 % (20-45) L Monocytes % (Manual) 6 % (1-10) Eosinophils % (Manual) 2 % (0-3) Basophils % (Manual) 0 % (0-2) Band Neutrophils 0 % (0-8) Platelet Estimate Adequate Platelet Morphology Normal Hypochromasia 1+ Anisocytosis 1+ Sodium Level 134 MMOL/L (136-145) L Potassium Level 4.0 MMOL/L (3.5-5.1) Chloride Level 101 MMOL/L (98-107) Carbon Dioxide Level 20 MMOL/L (21-32) L Anion Gap 13 mmol/L (5-15) Blood Urea Nitrogen 60 mg/dL (7-18) H Creatinine 2.5 MG/DL (0.55-1.30) H Estimat Glomerular Filtration Rate 25.5 mL/min (>60) Glucose Level 117 MG/DL (74-106) H Calcium Level 7.7 MG/DL (8.5-10.1) L Arterial Blood pH 7.119 (7.350-7.450) 7.222 (7.350-7.450) Arterial Blood Partial Pressure CO2 49.0 mmHg (35.0-45.0) H 46.1 mmHg (35.0-45.0) H Arterial Blood Partial Pressure O2 78.8 mmHg (75.0-100.0) 344.8 mmHg (75.0-100.0) H Arterial Blood HCO3 15.5 mmol/L (22.0-26.0) *L 18.5 mmol/L (22.0-26.0) L Arterial Blood Oxygen Saturation 90.1 % (95-100) L 99.2 % (95-100) Arterial Blood Base Excess -13.5 (-2-2) *L -8.8 (-2-2) L Hal Test Positive Positive Plan Problems: (1) Hypotension Assessment & Plan: 74-year-old male hypotensive unknown etiology's potentially septic COVID eval Needs pressors urgently transfer to the intensive care unit Need central venous access for pressors meds fluids Emergency procedure performed at the bedside Left femoral central venous catheter inserted without complication see note Okay for pressors okay to use We will follow with recommendations and monitor. Thank you for allowing participate in patient care There is a nasogastric tube in place. Tip projects at the level of the distal esophagus. There is complete opacification of the right hemithorax. This is a new finding. There appears to be abrupt cut off of the right mainstem bronchus. The bowel gas pattern is unremarkable High position of nasogastric tube. Advancement recommended. Complete opacification of the right hemithorax. Probably due to complete atelectasis of the right lung, could also indicate a component of pleural fluid. left groin line out was stable now hypotensive needs pressors again left subclavian placed Left Thora vent placed chest x-ray noted (2) Dehydration Assessment & Plan: DAILY ESTIMATED NEEDS: Needs based on Respiratory, underweight 57.3 30-35 kcals/kg 3101-1201 total kcals 1-1.5 g protein/kg 57-86 g total protein 25-30 mL/kg 3491-1741 total fluid mLs NUTRITION DIAGNOSIS: Altered nutrition related lab values r/t clinical status, renal failure as evidenced by elev BUN (62 trending down), elev Creat (2.1 trending down), elev Na (150). CURRENT DIET:SIDRA ms w/ NTL PO DIET RECOMMENDATIONS: LOW NA + NEPRO TID / Texture per POWDER CORE TESTER ENTERAL NUTRITION RECOMMENDATIONS: -Consult RD if part of POC w/ continued poor po intake. ADDITIONAL RECOMMENDATIONS: 1) Obtain a CALIBRATED WEIGHT as able Pt w/ underweight BMI 2) Poor po intake-> consider non oral feeds for ICU status and poor po 3) POWDER CORE TESTER eval for H/o CVA-> diet texture per POWDER CORE TESTER 4) rec WC eval for sacral wound, add MURIEL BID for skin integrity . (3) Acute renal failure (4) Pneumonia (5) Acute metabolic encephalopathy (6) Suspected COVID-19 virus infection Gallo Kingston Oct 19, 2019 14:40
--- NOTE | 2019-10-19 14:55 | NUR ---
CASE MANAGEMENT: REVIEW 10/19/19 SI: S/P NEW THORAVENT CATHETER PLACED; NEAR COMPLETE RESOLUTION OF LEFT PNEUMOTHORAX S/P CHEST TUBE DISLODGED LEFT PNEUMOTHORAX . SEPSIS . RENAL FAILURE . A-FIB . DM .PNA LEFT SUBCLAVIAN CENTRAL VENOUS CATHETER . 97.9 102 28 64/42 99% MECH VENT FIO2 40 WBC 18.8 NA+ 134 CO2-20 BUN/CREAT 60/2.5 CA+ 7.7 ABG: pH 7.222 PCO2- 46.1 pO2 344.8 HCO3-18.5 IS:LEVOPHED Q24HR TITRATED IV KCl/D5W @50ML/HR IV ZOSYN TID IV KEPPRA TID AMIODARONE NGT QD IV ATIVAN Q2HR/PRN IV HALDOL Q6HR/PRN ASA PO QD CHEST X-RAY- Shortness of breath-table, mild pulmonary vascular congestion. Moderate right-sided pleural effusion, which is slightly decreased from October 18, 2019. Small left pleural effusion. Mild emphysematous changes. \:ICU STATUS DCP: PATIENT IS FROM [facility] PLAN: NEED PLAN FOR TRACH + PEG PLACEMENT
--- NOTE | 2019-10-19 15:02 | NUR ---
NURSE NOTES: Pt repositioned, cleaned, and oral care done. Pt suctioned.
--- NOTE | 2019-10-19 17:05 | NUR ---
NURSE NOTES: central line dressing changed. Pt cleaned, repositioned, and oral care done.
--- NOTE | 2019-10-19 18:00 | Critical Care Progress Note ---
Assessment/Plan Assessment/Plan Impression: negative COVID-19 x2 Pneumonia Chronic Kidney Disease, has shunt left upper arm with ARF Dehydration Hypotension Dementia Congestive Heart Failure Atrial Fibrillation Diabetes Hypertension Dysphagia Hyperlipidemia COPD hypernatremia sinus tachycardia acute respiratory failure/ improved lung collapse with effusion Plan IV Antibiotics PICC line or central line needed Renal and Cardiology follow up vent support- back on Monitor labs close follow up monitor vitals; nutrition CPT consider tap not safe for lower level of care medications/laboratory data/nursing notes/ICU care reviewed in detail note reviewed and edited care discussed with RN and RT ICU time spent >40 minutes Critical Care - Subjective ROS Limited/Unobtainable: Yes Condition: critical EKG Rhythm: Sinus Rhythm Residuals: minimal Tube Feeding Tolerated: yes I&O: Intake and Output 10/18/19 10/19/19 19:00 07:00 Intake Total 1235.0 ml 1857.5 ml Output Total 350 ml 272 ml Balance 885.0 ml 1585.5 ml Free Water 150 ml IV Total 515.0 ml 1107.5 ml Tube Feeding 720 ml 600 ml Output Urine Total 350 ml 272 ml # Bowel Movements 1 3 Critical Care - Objective ET-Tube: 8.0 ET Position: 23 Last 24 Hour Vital Signs Date Time Temp Pulse Resp B/P (MAP) Pulse Ox O2 Delivery O2 Flow Rate FiO2 10/19/19 17:00 89 20 111/72 (85) 99 10/19/19 16:00 50 10/19/19 16:00 Mechanical Ventilator Mechanical Ventilator Mechanical Ventilator 10/19/19 16:00 98.2 88 20 120/78 (92) 99 10/19/19 15:21 88 24 50 10/19/19 15:00 87 20 138/82 (100) 100 10/19/19 14:39 126/80 10/19/19 14:00 82 20 131/76 (94) 99 10/19/19 13:00 104 19 120/77 (91) 99 10/19/19 12:00 88 20 125/72 (89) 99 10/19/19 12:00 Mechanical Ventilator Mechanical Ventilator Mechanical Ventilator 10/19/19 12:00 98.4 10/19/19 12:00 50 10/19/19 11:00 90 20 124/67 (86) 100 10/19/19 10:54 87 24 50 10/19/19 10:31 109/71 10/19/19 10:00 88 20 106/65 (79) 98 10/19/19 09:24 50 10/19/19 09:00 91 20 102/63 (76) 99 10/19/19 08:55 60 10/19/19 08:30 99 16 88/57 (67) 99 10/19/19 08:00 Mechanical Ventilator Mechanical Ventilator Mechanical Ventilator 10/19/19 08:00 97.9 102 28 64/42 (49) 99 10/19/19 08:00 107 10/19/19 08:00 40 10/19/19 07:27 105 21 100 10/19/19 07:00 111 50 155/78 (103) 95 10/19/19 06:00 104/60 10/19/19 05:00 127 36 102/72 (82) 82 10/19/19 05:00 102/72 10/19/19 04:30 91 21 100/50 (67) 80 10/19/19 04:00 79 18 98/58 (71) 100 10/19/19 04:00 95/40 10/19/19 04:00 77 10/19/19 04:00 40 10/19/19 04:00 Mechanical Ventilator 10/19/19 03:30 84 33 98/58 (71) 99 10/19/19 03:13 77 24 40 10/19/19 03:00 77 10 110/65 (80) 99 10/19/19 03:00 98/58 10/19/19 02:30 83 11 110/65 (80) 99 10/19/19 02:00 79 7 109/61 (77) 99 10/19/19 02:00 79 7 109/61 (77) 99 10/19/19 02:00 110/65 10/19/19 01:30 80 22 107/63 (78) 99 10/19/19 01:30 80 22 99 10/19/19 01:00 107/63 10/19/19 01:00 82 23 107/63 (78) 99 10/19/19 00:30 82 25 99 10/19/19 00:00 98.8 79 24 113/64 (80) 99 10/19/19 00:00 79 10/19/19 00:00 Mechanical Ventilator 10/19/19 00:00 104/68 10/19/19 00:00 40 10/18/19 23:45 77 22 40 10/18/19 23:30 76 12 99 10/18/19 23:00 124/80 10/18/19 23:00 72 10 112/61 (78) 99 10/18/19 22:30 71 3 99 10/18/19 22:00 110/80 10/18/19 22:00 72 8 113/64 (80) 99 10/18/19 21:30 72 0 99 10/18/19 21:00 113/64 10/18/19 21:00 71 6 102/61 (75) 98 10/18/19 20:30 70 7 99 10/18/19 20:00 40 10/18/19 20:00 72 10/18/19 20:00 110/60 10/18/19 20:00 98.4 73 0 104/62 (76) 98 10/18/19 20:00 Mechanical Ventilator 10/18/19 19:58 73 20 40 10/18/19 19:30 73 0 107/60 (76) 99 10/18/19 19:00 72 20 103/60 (74) 98 10/18/19 19:00 103/60 10/18/19 18:00 20 108/67 (81) 99 10/18/19 18:00 105/64 Labs: Labs Test 10/17/19 04:00 10/18/19 03:46 10/19/19 02:40 10/19/19 05:49 White Blood Count 12.0 K/UL (4.8-10.8) 12.4 K/UL (4.8-10.8) 18.8 K/UL (4.8-10.8) Red Blood Count 3.98 M/UL (4.70-6.10) 3.94 M/UL (4.70-6.10) 3.81 M/UL (4.70-6.10) Hemoglobin 11.1 G/DL (14.2-18.0) 10.9 G/DL (14.2-18.0) 10.7 G/DL (14.2-18.0) Hematocrit 32.3 % (42.0-52.0) 32.1 % (42.0-52.0) 31.0 % (42.0-52.0) Mean Corpuscular Volume 81 FL (80-99) 81 FL (80-99) 81 FL (80-99) Mean Corpuscular Hemoglobin 27.8 PG (27.0-31.0) 27.7 PG (27.0-31.0) 28.1 PG (27.0-31.0) Mean Corpuscular Hemoglobin Concent 34.3 G/DL (32.0-36.0) 34.0 G/DL (32.0-36.0) 34.5 G/DL (32.0-36.0) Red Cell Distribution Width 12.9 % (11.6-14.8) 13.5 % (11.6-14.8) 14.0 % (11.6-14.8) Platelet Count 181 K/UL (150-450) 174 K/UL (150-450) 216 K/UL (150-450) Mean Platelet Volume 7.6 FL (6.5-10.1) 8.2 FL (6.5-10.1) 8.6 FL (6.5-10.1) Neutrophils (%) (Auto) 83.7 % (45.0-75.0) 82.9 % (45.0-75.0) % (45.0-75.0) Lymphocytes (%) (Auto) 7.2 % (20.0-45.0) 6.6 % (20.0-45.0) % (20.0-45.0) Monocytes (%) (Auto) 8.1 % (1.0-10.0) 9.7 % (1.0-10.0) % (1.0-10.0) Eosinophils (%) (Auto) 0.0 % (0.0-3.0) 0.1 % (0.0-3.0) % (0.0-3.0) Basophils (%) (Auto) 1.0 % (0.0-2.0) 0.8 % (0.0-2.0) % (0.0-2.0) Sodium Level 139 MMOL/L (136-145) 135 MMOL/L (136-145) 134 MMOL/L (136-145) Potassium Level 3.5 MMOL/L (3.5-5.1) 3.8 MMOL/L (3.5-5.1) 4.0 MMOL/L (3.5-5.1) Chloride Level 105 MMOL/L (98-107) 103 MMOL/L (98-107) 101 MMOL/L (98-107) Carbon Dioxide Level 25 MMOL/L (21-32) 22 MMOL/L (21-32) 20 MMOL/L (21-32) Anion Gap 9 mmol/L (5-15) 10 mmol/L (5-15) 13 mmol/L (5-15) Blood Urea Nitrogen 41 mg/dL (7-18) 48 mg/dL (7-18) 60 mg/dL (7-18) Creatinine 2.1 MG/DL (0.55-1.30) 2.2 MG/DL (0.55-1.30) 2.5 MG/DL (0.55-1.30) Estimat Glomerular Filtration Rate 31.2 mL/min (>60) 29.6 mL/min (>60) 25.5 mL/min (>60) Glucose Level 117 MG/DL (74-106) 121 MG/DL (74-106) 117 MG/DL (74-106) Calcium Level 7.9 MG/DL (8.5-10.1) 7.4 MG/DL (8.5-10.1) 7.7 MG/DL (8.5-10.1) Magnesium Level 1.7 MG/DL (1.8-2.4) Pro-B-Type Natriuretic Peptide 7192 pg/mL (0-125) Differential Total Cells Counted 100 Neutrophils % (Manual) 89 % (45-75) Lymphocytes % (Manual) 3 % (20-45) Monocytes % (Manual) 6 % (1-10) Eosinophils % (Manual) 2 % (0-3) Basophils % (Manual) 0 % (0-2) Band Neutrophils 0 % (0-8) Platelet Estimate Adequate Platelet Morphology Normal Hypochromasia 1+ Anisocytosis 1+ Arterial Blood pH 7.119 (7.350-7.450) Arterial Blood Partial Pressure CO2 49.0 mmHg (35.0-45.0) Arterial Blood Partial Pressure O2 78.8 mmHg (75.0-100.0) Arterial Blood HCO3 15.5 mmol/L (22.0-26.0) Arterial Blood Oxygen Saturation 90.1 % (95-100) Arterial Blood Base Excess -13.5 (-2-2) Hal Test Positive Test 10/19/19 08:31 Arterial Blood pH 7.222 (7.350-7.450) Arterial Blood Partial Pressure CO2 46.1 mmHg (35.0-45.0) Arterial Blood Partial Pressure O2 344.8 mmHg (75.0-100.0) Arterial Blood HCO3 18.5 mmol/L (22.0-26.0) Arterial Blood Oxygen Saturation 99.2 % (95-100) Arterial Blood Base Excess -8.8 (-2-2) Hal Test Positive Objective: back on vent stable BS right some rhonchi but better RRR without MRG NGT in place NABS nontender no CCE obtunded reviewed and edited Camilo Bill MD Oct 19, 2019 18:00
--- NOTE | 2019-10-19 19:22 | NUR ---
HAND-OFF: Report given to MIRANDA Rolon. Pt in stable condition; plan of care endorsed.
--- NOTE | 2019-10-19 19:41 | NUR ---
NURSE NOTES: received report from lester pond rn trach-vent o2 sat 99% off levo to be tranfer to rosmery tolerating tube feeding no residual iv infusing rt ij tlc tko site good dressing dry and intact reposition and suction Addendum: 10/19/19 at 1951 by LEE ANN URIBE RN lenin pt
--- NOTE | 2019-10-19 20:00 | NUR ---
NURSE NOTES: received report from pérez rn pt orrally intubated -vent o2 sat 100% chest tube -suction in placed dressing dry and intact reposition and suction temp 99.6 cont monitor pt
[2019-10-19] MEDS: Dyna-Hex 2% Top Sol 2oz TOPIC SCH (20:22)
--- NOTE | 2019-10-19 20:56 | Nephrology Progress Note ---
Assessment/Plan Problem List: (1) Hypernatremia (2) CHF (congestive heart failure) (3) Dehydration (4) Acute renal failure (5) Pneumonia (6) Suspected COVID-19 virus infection (7) Hypotension (8) HCAP (healthcare-associated pneumonia) (9) CKD (chronic kidney disease) stage 3, GFR 30-59 ml/min Plan hypotonic fluids, pulm care, empiric atb ordered high risk worsening creatinine despine + fluid bal, reduce iv to 50 ml/hr Subjective ROS Limited/Unobtainable: Yes Objective Objective Last 24 Hour Vital Signs Date Time Temp Pulse Resp B/P (MAP) Pulse Ox O2 Delivery O2 Flow Rate FiO2 10/19/19 20:01 94 24 50 10/19/19 19:00 90 0 112/76 (88) 100 10/19/19 19:00 116/78 10/19/19 18:00 88 10 111/74 (86) 100 10/19/19 17:00 121/75 10/19/19 17:00 89 20 111/72 (85) 99 10/19/19 16:00 50 10/19/19 16:00 92 10/19/19 16:00 120/69 10/19/19 16:00 Mechanical Ventilator Mechanical Ventilator Mechanical Ventilator 10/19/19 16:00 98.2 88 20 120/78 (92) 99 10/19/19 15:21 88 24 50 10/19/19 15:00 120/75 10/19/19 15:00 87 20 138/82 (100) 100 10/19/19 14:39 126/80 10/19/19 14:38 130/89 10/19/19 14:00 126/80 10/19/19 14:00 82 20 131/76 (94) 99 10/19/19 13:00 104 19 120/77 (91) 99 10/19/19 13:00 120/77 10/19/19 12:00 88 20 125/72 (89) 99 10/19/19 12:00 Mechanical Ventilator Mechanical Ventilator Mechanical Ventilator 10/19/19 12:00 98.4 10/19/19 12:00 90 10/19/19 12:00 123/71 10/19/19 12:00 50 10/19/19 11:00 90 20 124/67 (86) 100 10/19/19 11:00 118/80 10/19/19 10:54 87 24 50 10/19/19 10:31 109/71 10/19/19 10:30 120/76 10/19/19 10:00 109/71 10/19/19 10:00 88 20 106/65 (79) 98 10/19/19 09:24 50 10/19/19 09:00 108/60 10/19/19 09:00 91 20 102/63 (76) 99 10/19/19 08:55 60 10/19/19 08:30 99 16 88/57 (67) 99 10/19/19 08:30 81/49 10/19/19 08:00 Mechanical Ventilator Mechanical Ventilator Mechanical Ventilator 10/19/19 08:00 97.9 102 28 64/42 (49) 99 10/19/19 08:00 107 10/19/19 08:00 64/39 10/19/19 08:00 40 10/19/19 07:27 105 21 100 10/19/19 07:00 95/65 10/19/19 07:00 111 50 155/78 (103) 95 10/19/19 06:00 104/60 10/19/19 05:00 127 36 102/72 (82) 82 10/19/19 05:00 102/72 10/19/19 04:30 91 21 100/50 (67) 80 10/19/19 04:00 79 18 98/58 (71) 100 10/19/19 04:00 95/40 10/19/19 04:00 77 10/19/19 04:00 40 10/19/19 04:00 Mechanical Ventilator 10/19/19 03:30 84 33 98/58 (71) 99 10/19/19 03:13 77 24 40 10/19/19 03:00 77 10 110/65 (80) 99 10/19/19 03:00 98/58 10/19/19 02:30 83 11 110/65 (80) 99 10/19/19 02:00 79 7 109/61 (77) 99 10/19/19 02:00 79 7 109/61 (77) 99 10/19/19 02:00 110/65 10/19/19 01:30 80 22 107/63 (78) 99 10/19/19 01:30 80 22 99 10/19/19 01:00 107/63 10/19/19 01:00 82 23 107/63 (78) 99 10/19/19 00:30 82 25 99 10/19/19 00:00 98.8 79 24 113/64 (80) 99 10/19/19 00:00 79 10/19/19 00:00 Mechanical Ventilator 10/19/19 00:00 104/68 10/19/19 00:00 40 10/18/19 23:45 77 22 40 10/18/19 23:30 76 12 99 10/18/19 23:00 124/80 10/18/19 23:00 72 10 112/61 (78) 99 10/18/19 22:30 71 3 99 10/18/19 22:00 110/80 10/18/19 22:00 72 8 113/64 (80) 99 10/18/19 21:30 72 0 99 10/18/19 21:00 113/64 10/18/19 21:00 71 6 102/61 (75) 98 Intake and Output 10/18/19 10/19/19 19:00 07:00 Intake Total 1235.0 ml 1930.0 ml Output Total 350 ml 272 ml Balance 885.0 ml 1658.0 ml Free Water 150 ml IV Total 515.0 ml 1180.0 ml Tube Feeding 720 ml 600 ml Output Urine Total 350 ml 272 ml # Bowel Movements 1 3 Laboratory Tests 10/19/19 02:40: White Blood Count 18.8#H, Red Blood Count 3.81L, Hemoglobin 10.7L, Hematocrit 31.0L, Mean Corpuscular Volume 81, Mean Corpuscular Hemoglobin 28.1, Mean Corpuscular Hemoglobin Concent 34.5, Red Cell Distribution Width 14.0, Platelet Count 216, Mean Platelet Volume 8.6, Neutrophils (%) (Auto) , Lymphocytes (%) ( Auto) , Monocytes (%) (Auto) , Eosinophils (%) (Auto) , Basophils (%) (Auto) , Differential Total Cells Counted 100, Neutrophils % (Manual) 89H, Lymphocytes % (Manual) 3L, Monocytes % (Manual) 6, Eosinophils % (Manual) 2, Basophils % ( Manual) 0, Band Neutrophils 0, Platelet Estimate Adequate, Platelet Morphology Normal, Hypochromasia 1+, Anisocytosis 1+, Sodium Level 134L, Potassium Level 4.0, Chloride Level 101, Carbon Dioxide Level 20L, Anion Gap 13, Blood Urea Nitrogen 60H, Creatinine 2.5H, Estimat Glomerular Filtration Rate 25.5, Glucose Level 117H, Calcium Level 7.7L 10/19/19 05:49: Arterial Blood pH 7.119*L, Arterial Blood Partial Pressure CO2 49.0H, Arterial Blood Partial Pressure O2 78.8, Arterial Blood HCO3 15.5*L, Arterial Blood Oxygen Saturation 90.1L, Arterial Blood Base Excess -13.5*L, Hal Test Positive 10/19/19 08:31: Arterial Blood pH 7.222*L, Arterial Blood Partial Pressure CO2 46.1H, Arterial Blood Partial Pressure O2 344.8H, Arterial Blood HCO3 18.5L, Arterial Blood Oxygen Saturation 99.2, Arterial Blood Base Excess -8.8L, Hal Test Positive Height (Feet): 5 Height (Inches): 11.00 Weight (Pounds): 143 General Appearance: lethargic, other - intubated, chest tube Cardiovascular: regular rhythm, regularly irregular Respiratory/Chest: rhonchi - bilaterally Abdomen: non tender Extremities: trace edema Neurologic: unresponsive Jose Gant MD Oct 19, 2019 20:56
--- NOTE | 2019-10-19 22:00 | NUR ---
NURSE NOTES: reposition and suction no acute distress noted
[2019-10-20] VITALS (45 sets, daily range): BP systolic 65–137; BP diastolic 41–83
--- NOTE | 2019-10-20 | NUR ---
NURSE NOTES: coditiom un change
--- NOTE | 2019-10-20 00:30 | Progress Note ---
DATE: 10/19/2019 CARDIOLOGY PROGRESS NOTE SUBJECTIVE: The patient remains in the intensive care unit. He remains on ventilator support. He continues to have a chest tube. Chest tube dislodged yesterday and was replaced overnight. OBJECTIVE: VITAL SIGNS: Blood pressure 131/76, pulse 82, respiratory rate 20. Monitored rhythm sinus and sinus tachycardia. LUNGS: Coarse breath sounds. Rhonchi. HEART: Episodes of atrial fibrillation, short lived. Regular rhythm and rate. Normal S1, S2. ABDOMEN: Soft. EXTREMITIES: No edema. LABORATORY AND DIAGNOSTIC DATA: White count 18, hemoglobin is 10.7. Sodium 134, potassium 4, bicarb 20, BUN 60, creatinine 2.5. ABG 7.22, 46, 344. IMPRESSION: 1. Critical and guarded. 2. Worsening respiratory acidosis. 3. Acute on chronic renal failure. 4. Sepsis. 5. Paroxysmal atrial fibrillation. 6. Acute on chronic diastolic congestive heart failure. 7. Chest tube. PLAN: 1. antimicrobials. 2. Followup repeat cultures. 3. Cautious volume support. 4. Chest tube management. 5. Consideration for drainage of right lung fluid. 6. Continue amiodarone for arrhythmia suppression. Anselmo Porras M.D. DR: Reyna JOB#: [id number] CC:
[2019-10-20] MEDS: levETIRAcetam 500mg/NS100ml 100 ML IVPB SCH ×3 (03:28→20:44)
--- NOTE | 2019-10-20 04:00 | NUR ---
NURSE NOTES: complete bed bath oral care back care done wound care done
[2019-10-20 05:01] LABS: EOSINOPHILS % (AUTO) 0.2 % (0.0-3.0); HEMATOCRIT 27.5 % (42.0-52.0); HEMOGLOBIN 9.6 G/DL (14.2-18.0); LYMPHOCYTES % (AUTO) 6.6 % (20.0-45.0); MEAN CORPUSCULAR VOLUME 82 FL (80-99); MONOCYTES % (AUTO) 7.4 % (1.0-10.0); NEUTROPHILS % (AUTO) 84.9 % (45.0-75.0); PLATELET COUNT 207 K/UL (150-450); RED BLOOD COUNT 3.36 M/UL (4.70-6.10); RED CELL DISTRIBUTION WIDTH 14.4 % (11.6-14.8); WHITE BLOOD COUNT 12.7 K/UL (4.8-10.8)
[2019-10-20 05:05] LABS: INR 1.1 (0.9-1.1)
[2019-10-20] MEDS: Piperacillin/Tazobactam 3.375 GM in NS 110 ML IVPB SCH ×3 (05:27→21:48)
[2019-10-20] MEDS: Norepinephrine Bitartrate 8 MG in D5W 500ml 492 ML IV SCH ×3 (05:29→17:00)
[2019-10-20 05:53] LABS: ALANINE AMINOTRANSFERASE 18 U/L (12-78); ALBUMIN 1.4 G/DL (3.4-5.0); ALBUMIN/GLOBULIN RATIO 0.4 (1.0-2.7); ALKALINE PHOSPHATASE 67 U/L (46-116); ANION GAP 13 mmol/L (5-15); ASPARTATE AMINO TRANSFERASE 29 U/L (15-37); BILIRUBIN,TOTAL 0.4 MG/DL (0.2-1.0); BLOOD UREA NITROGEN 71 mg/dL (7-18); CALCIUM 7.2 MG/DL (8.5-10.1); CARBON DIOXIDE 18 MMOL/L (21-32); CHLORIDE 97 MMOL/L (98-107); SODIUM 128 MMOL/L (136-145)
--- NOTE | 2019-10-20 07:53 | NUR ---
HAND-OFF: Report given to doris bello using sbar .
--- NOTE | 2019-10-20 08:00 | NUR ---
NURSE NOTES: Received change of shift report from Nae JEAN. Pt is has eyes closed, withdraws to pain, does not follow commands. Pt is orally intubated, ETT 7.5 at 24cm left lipline, with vent settings AC24, VT600, Peep 5, FIO2 100%. 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 Temp 98.8F axillary. Pt has left upper/frontal chest tube, insertion site covered with 4x4 gauze dressing, currently saturated with serosanguineous drainage. Pt is on Levophed drip infusing at 20mcg/min via Left subcalvian TLC. Pt also has right upper arm #20G peripheral IV access, patent/intact. Pt is on KCL 10meq in D5W infusing at 50ml/hour. Left nare NGT with feeding Vital AF infusing at 60ml/hour, no residual. Mathis catheter is present draining clear/yellow urine to gravity. Bilateral upper extremities are moderately edematous and weeping. Pt has sacral dressing on wound, dry/intact. Pt is on P200 mattress. HOB at 30 degrees, bed locked, in lowest position, three side rails up. Will continue to monitor pt and follow plan of care per MD orders and protocol.
--- NOTE | 2019-10-20 08:50 | Critical Care Progress Note ---
Assessment/Plan Assessment/Plan Impression: negative COVID-19 x2 Pneumonia Chronic Kidney Disease, has shunt left upper arm with ARF Dehydration Hypotension Dementia Congestive Heart Failure Atrial Fibrillation Diabetes Hypertension Dysphagia Hyperlipidemia COPD hypernatremia sinus tachycardia acute respiratory failure/ improved lung collapse with effusion Plan IV Antibiotics monitor vitals Renal and Cardiology follow up vent support- as is is for now ? trach Monitor labs close follow up monitor vitals; nutrition CPT consider tap and monitor cxr critical medications/laboratory data/nursing notes/ICU care reviewed in detail note reviewed and edited care discussed with RN and RT ICU time spent >40 minutes Critical Care - Subjective Interval Events: care noted on vent in ICU imaging better ROS Limited/Unobtainable: Yes Condition: critical EKG Rhythm: Sinus Rhythm Residuals: minimal Tube Feeding Tolerated: yes I&O: Intake and Output 10/19/19 10/20/19 19:00 07:00 Intake Total 1821.25 ml 2500.0 ml Output Total 360 ml 320 ml Balance 1461.25 ml 2180.0 ml Free Water 60 ml 150 ml IV Total 1341.25 ml 1630.0 ml Tube Feeding 420 ml 720 ml Output Urine Total 360 ml 320 ml # Bowel Movements 2 Critical Care - Objective ET-Tube: 8.0 ET Position: 23 Last 24 Hour Vital Signs Date Time Temp Pulse Resp B/P (MAP) Pulse Ox O2 Delivery O2 Flow Rate FiO2 10/20/19 07:15 85 24 50 10/20/19 07:00 98.2 90 0 105/67 (80) 100 10/20/19 06:30 93 0 107/66 (80) 99 10/20/19 06:00 102/63 10/20/19 06:00 94 23 104/59 (74) 99 10/20/19 05:30 92 0 65/41 (49) 98 10/20/19 05:29 103/64 10/20/19 05:00 89 2 102/65 (77) 99 10/20/19 05:00 106/64 10/20/19 04:30 87 0 101/65 (77) 100 10/20/19 04:00 86 10/20/19 04:00 92 0 99/58 (72) 100 10/20/19 04:00 117/67 10/20/19 04:00 Mechanical Ventilator Mechanical Ventilator Mechanical Ventilator 10/20/19 04:00 50 10/20/19 03:30 91 0 106/72 (83) 100 10/20/19 03:05 86 24 50 10/20/19 03:00 93 0 108/68 (81) 100 10/20/19 03:00 110/69 10/20/19 02:30 88 0 110/75 (87) 99 10/20/19 02:00 109/62 10/20/19 02:00 89 0 103/70 (81) 99 10/20/19 01:30 89 0 112/70 (84) 100 10/20/19 01:00 91 0 110/72 (85) 99 10/20/19 01:00 101/70 10/20/19 00:30 91 0 137/75 (95) 98 10/20/19 00:00 84 0 113/67 (82) 99 10/20/19 00:00 85 10/20/19 00:00 Mechanical Ventilator Mechanical Ventilator Mechanical Ventilator 10/20/19 00:00 104/61 10/20/19 00:00 50 10/19/19 23:30 88 0 113/64 (80) 99 10/19/19 23:00 90 0 113/74 (87) 99 10/19/19 23:00 113/74 10/19/19 22:52 88 24 50 10/19/19 22:30 88 0 112/71 (85) 99 10/19/19 22:15 72/50 10/19/19 22:00 114/72 10/19/19 22:00 83 0 72/47 (55) 100 10/19/19 21:30 88 0 107/66 (80) 100 10/19/19 21:00 107/66 10/19/19 21:00 87 0 114/60 (78) 100 10/19/19 20:30 85 0 98/72 (81) 99 10/19/19 20:01 94 24 50 10/19/19 20:00 Mechanical Ventilator Mechanical Ventilator Mechanical Ventilator 10/19/19 20:00 81 10/19/19 20:00 99.6 91 0 105/63 (77) 100 10/19/19 20:00 50 10/19/19 20:00 108/71 10/19/19 19:30 88 0 106/68 (81) 100 10/19/19 19:00 90 0 112/76 (88) 100 10/19/19 19:00 116/78 10/19/19 18:00 88 10 111/74 (86) 100 10/19/19 17:00 121/75 10/19/19 17:00 89 20 111/72 (85) 99 10/19/19 16:00 50 10/19/19 16:00 92 10/19/19 16:00 120/69 10/19/19 16:00 Mechanical Ventilator Mechanical Ventilator Mechanical Ventilator 10/19/19 16:00 98.2 88 20 120/78 (92) 99 10/19/19 15:21 88 24 50 10/19/19 15:00 120/75 10/19/19 15:00 87 20 138/82 (100) 100 10/19/19 14:39 126/80 10/19/19 14:38 130/89 10/19/19 14:00 126/80 10/19/19 14:00 82 20 131/76 (94) 99 10/19/19 13:00 104 19 120/77 (91) 99 10/19/19 13:00 120/77 10/19/19 12:00 88 20 125/72 (89) 99 10/19/19 12:00 Mechanical Ventilator Mechanical Ventilator Mechanical Ventilator 10/19/19 12:00 98.4 10/19/19 12:00 90 10/19/19 12:00 123/71 10/19/19 12:00 50 10/19/19 11:00 90 20 124/67 (86) 100 10/19/19 11:00 118/80 10/19/19 10:54 87 24 50 10/19/19 10:31 109/71 10/19/19 10:30 120/76 10/19/19 10:00 109/71 10/19/19 10:00 88 20 106/65 (79) 98 10/19/19 09:24 50 10/19/19 09:00 108/60 10/19/19 09:00 91 20 102/63 (76) 99 10/19/19 08:55 60 Labs: Laboratory Tests Test 10/20/19 03:50 White Blood Count 12.7 K/UL (4.8-10.8) H Red Blood Count 3.36 M/UL (4.70-6.10) L Hemoglobin 9.6 G/DL (14.2-18.0) L Hematocrit 27.5 % (42.0-52.0) L Mean Corpuscular Volume 82 FL (80-99) Mean Corpuscular Hemoglobin 28.6 PG (27.0-31.0) Mean Corpuscular Hemoglobin Concent 35.0 G/DL (32.0-36.0) Red Cell Distribution Width 14.4 % (11.6-14.8) Platelet Count 207 K/UL (150-450) Mean Platelet Volume 8.6 FL (6.5-10.1) Neutrophils (%) (Auto) 84.9 % (45.0-75.0) H Lymphocytes (%) (Auto) 6.6 % (20.0-45.0) L Monocytes (%) (Auto) 7.4 % (1.0-10.0) Eosinophils (%) (Auto) 0.2 % (0.0-3.0) Basophils (%) (Auto) 1.0 % (0.0-2.0) Erythrocyte Sedimentation Rate 110 MM/HR (0-20) H Prothrombin Time 12.2 SEC (9.30-11.50) H Prothromb Time International Ratio 1.1 (0.9-1.1) Activated Partial Thromboplast Time 29 SEC (23-33) Sodium Level 128 MMOL/L (136-145) L Potassium Level 4.0 MMOL/L (3.5-5.1) Chloride Level 97 MMOL/L (98-107) L Carbon Dioxide Level 18 MMOL/L (21-32) L Anion Gap 13 mmol/L (5-15) Blood Urea Nitrogen 71 mg/dL (7-18) H Creatinine 3.0 MG/DL (0.55-1.30) H Estimat Glomerular Filtration Rate 20.7 mL/min (>60) Glucose Level 169 MG/DL (74-106) H Lactic Acid Level 1.00 mmol/L (0.4-2.0) Calcium Level 7.2 MG/DL (8.5-10.1) L Total Bilirubin 0.4 MG/DL (0.2-1.0) Aspartate Amino Transf (AST/SGOT) 29 U/L (15-37) Alanine Aminotransferase (ALT/SGPT) 18 U/L (12-78) Alkaline Phosphatase 67 U/L (46-116) C-Reactive Protein, Quantitative 11.2 mg/dL (0.00-0.90) H Total Protein 5.2 G/DL (6.4-8.2) L Albumin 1.4 G/DL (3.4-5.0) L Globulin 3.8 g/dL Albumin/Globulin Ratio 0.4 (1.0-2.7) L Objective: On vent moderate air entry with occ rhonchi RRR without MRG NGT in place NABS nontender no CCE obtunded reviewed and edited Camilo Bill MD Oct 20, 2019 08:50
[2019-10-20] MEDS: Heparin 5000 units/ml inj SUBQ SCH ×2 (09:00→20:45)
[2019-10-20] MEDS: Aspirin Baby 81mg ORAL SCH (09:24)
[2019-10-20] MEDS: Amiodarone 200mg tab NG SCH (09:24)
--- NOTE | 2019-10-20 10:00 | NUR ---
NURSE NOTES: AM meds were administered. Pt was suctioned with moderate to large amounts of whitish/clear secretions, oral care was done. Dr Kingston was contacted regarding pt's left upper chest tube and left sublavian central line, both moderately saturated with bloody drainage. MD saw pt, and placed sutures on central line insertion site to reinforce placement. Central line dressing was changed. Chest tube site dressing was changed by jaime GOMEZ to place gauze on top to reinforce per .
--- NOTE | 2019-10-20 10:19 | Diagnostic Imaging Report ---
Indication: Dyspnea Technique: One view of the chest Comparison: 10/19/2019 Findings: Left chest vent remains. There is stable subcutaneous emphysema which has redistributed slightly. No gross pneumothorax. There is left lung pleural space are clear. Stable satisfactory positions of endotracheal and orogastric tubes. There appears to be slightly improved hazy opacity of the right lung. Left subclavian central venous catheter remains. Impression: Decreased right pleural fluid and possibly parenchymal disease Otherwise stable findings as described
--- NOTE | 2019-10-20 11:00 | Diagnostic Imaging Report ---
Indication: Reason For Exam: F/U Technique: Supine view of the abdomen Comparison: 10/15/2019 Findings: Interim advancement of nasogastric tube, tip now projecting at the level of the gastric antrum in good position. The bowel gas pattern is unremarkable. There is a Mathis catheter. There is lumbar scoliotic deformity and extensive degenerative change. There is extensive vascular calcification noted. Impression: Satisfactory position of nasogastric tube Other findings as noted. No acute process
--- NOTE | 2019-10-20 11:06 | General Progress Note ---
Assessment/Plan Assessment/Plan: 1. History of diabetes. 2. Hypertension. 3. Chronic kidney disease. 4. COPD. 5. CHF. 6. Dementia. 7. AMS 8. Dysphagia 9. Righ sided pna 10. diarrhea NGTF dietitian in put appreciated still intubated may need Trach and PEG fu pulm abx per ID add Imodium for diarrhea pneumothorax post picc line now with chest tube will fu Subjective ROS Limited/Unobtainable: No Allergies: Coded Allergies: No Known Allergies (Unverified , 07/23/18) Objective Last 24 Hour Vital Signs Date Time Temp Pulse Resp B/P (MAP) Pulse Ox O2 Delivery O2 Flow Rate FiO2 10/20/19 10:30 87 0 114/66 (82) 99 10/20/19 10:00 83 0 111/71 (84) 99 10/20/19 09:30 87 0 111/68 (82) 99 10/20/19 09:00 89 0 101/60 (74) 98 10/20/19 08:30 93 0 93/61 (72) 98 10/20/19 08:00 98.9 88 0 109/61 (77) 100 10/20/19 08:00 50 10/20/19 07:15 85 24 50 10/20/19 07:00 98.2 90 0 105/67 (80) 100 10/20/19 06:30 93 0 107/66 (80) 99 10/20/19 06:00 102/63 10/20/19 06:00 94 23 104/59 (74) 99 10/20/19 05:30 92 0 65/41 (49) 98 10/20/19 05:29 103/64 10/20/19 05:00 89 2 102/65 (77) 99 10/20/19 05:00 106/64 10/20/19 04:30 87 0 101/65 (77) 100 10/20/19 04:00 86 10/20/19 04:00 92 0 99/58 (72) 100 10/20/19 04:00 117/67 10/20/19 04:00 Mechanical Ventilator Mechanical Ventilator Mechanical Ventilator 10/20/19 04:00 50 10/20/19 03:30 91 0 106/72 (83) 100 10/20/19 03:05 86 24 50 10/20/19 03:00 93 0 108/68 (81) 100 10/20/19 03:00 110/69 10/20/19 02:30 88 0 110/75 (87) 99 10/20/19 02:00 109/62 10/20/19 02:00 89 0 103/70 (81) 99 10/20/19 01:30 89 0 112/70 (84) 100 10/20/19 01:00 91 0 110/72 (85) 99 10/20/19 01:00 101/70 10/20/19 00:30 91 0 137/75 (95) 98 10/20/19 00:00 84 0 113/67 (82) 99 10/20/19 00:00 85 10/20/19 00:00 Mechanical Ventilator Mechanical Ventilator Mechanical Ventilator 10/20/19 00:00 104/61 10/20/19 00:00 50 10/19/19 23:30 88 0 113/64 (80) 99 10/19/19 23:00 90 0 113/74 (87) 99 10/19/19 23:00 113/74 10/19/19 22:52 88 24 50 10/19/19 22:30 88 0 112/71 (85) 99 10/19/19 22:15 72/50 10/19/19 22:00 114/72 10/19/19 22:00 83 0 72/47 (55) 100 10/19/19 21:30 88 0 107/66 (80) 100 10/19/19 21:00 107/66 10/19/19 21:00 87 0 114/60 (78) 100 10/19/19 20:30 85 0 98/72 (81) 99 10/19/19 20:01 94 24 50 10/19/19 20:00 Mechanical Ventilator Mechanical Ventilator Mechanical Ventilator 10/19/19 20:00 81 10/19/19 20:00 99.6 91 0 105/63 (77) 100 10/19/19 20:00 50 10/19/19 20:00 108/71 10/19/19 19:30 88 0 106/68 (81) 100 10/19/19 19:00 90 0 112/76 (88) 100 10/19/19 19:00 116/78 10/19/19 18:00 88 10 111/74 (86) 100 10/19/19 17:00 121/75 10/19/19 17:00 89 20 111/72 (85) 99 10/19/19 16:00 50 10/19/19 16:00 92 10/19/19 16:00 120/69 10/19/19 16:00 Mechanical Ventilator Mechanical Ventilator Mechanical Ventilator 10/19/19 16:00 98.2 88 20 120/78 (92) 99 10/19/19 15:21 88 24 50 10/19/19 15:00 120/75 10/19/19 15:00 87 20 138/82 (100) 100 10/19/19 14:39 126/80 10/19/19 14:38 130/89 10/19/19 14:00 126/80 10/19/19 14:00 82 20 131/76 (94) 99 10/19/19 13:00 104 19 120/77 (91) 99 10/19/19 13:00 120/77 10/19/19 12:00 88 20 125/72 (89) 99 10/19/19 12:00 Mechanical Ventilator Mechanical Ventilator Mechanical Ventilator 10/19/19 12:00 98.4 10/19/19 12:00 90 10/19/19 12:00 123/71 10/19/19 12:00 50 Intake and Output 10/19/19 10/20/19 19:00 07:00 Intake Total 1821.25 ml 2500.0 ml Output Total 360 ml 320 ml Balance 1461.25 ml 2180.0 ml Free Water 60 ml 150 ml IV Total 1341.25 ml 1630.0 ml Tube Feeding 420 ml 720 ml Output Urine Total 360 ml 320 ml # Bowel Movements 2 Laboratory Tests 10/20/19 03:50: White Blood Count 12.7H, Red Blood Count 3.36L, Hemoglobin 9.6L, Hematocrit 27.5L, Mean Corpuscular Volume 82, Mean Corpuscular Hemoglobin 28.6, Mean Corpuscular Hemoglobin Concent 35.0, Red Cell Distribution Width 14.4, Platelet Count 207, Mean Platelet Volume 8.6, Neutrophils (%) (Auto) 84.9H, Lymphocytes ( %) (Auto) 6.6L, Monocytes (%) (Auto) 7.4, Eosinophils (%) (Auto) 0.2, Basophils (%) (Auto) 1.0, Erythrocyte Sedimentation Rate 110H, Prothrombin Time 12.2H, Prothromb Time International Ratio 1.1, Activated Partial Thromboplast Time 29, Sodium Level 128L, Potassium Level 4.0, Chloride Level 97L, Carbon Dioxide Level 18L, Anion Gap 13, Blood Urea Nitrogen 71H, Creatinine 3.0H, Estimat Glomerular Filtration Rate 20.7, Glucose Level 169H, Lactic Acid Level 1.00, Calcium Level 7.2L, Total Bilirubin 0.4, Aspartate Amino Transf (AST/SGOT) 29, Alanine Aminotransferase (ALT/SGPT) 18, Alkaline Phosphatase 67, C-Reactive Protein, Quantitative 11.2H, Total Protein 5.2L, Albumin 1.4L, Globulin 3.8, Albumin/Globulin Ratio 0.4L Height (Feet): 5 Height (Inches): 11.00 Weight (Pounds): 145 General Appearance: no apparent distress EENT: normal ENT inspection Neck: supple Cardiovascular: normal rate Respiratory/Chest: decreased breath sounds Abdomen: normal bowel sounds, non tender, soft Extremities: non-tender Chaitanya Beverly MD Oct 20, 2019 11:06
--- NOTE | 2019-10-20 12:00 | NUR ---
NURSE NOTES: Levophed is infusing at 20mcg/min to maintain SBP above 90. Pt remains on FIO2 50% to maintain O2Sat above 90%. Pt remains afebrile. Pt continues to have moderate to large amounts of clearish/white secretions. Oral care done.
--- NOTE | 2019-10-20 12:46 | Nephrology Progress Note ---
Assessment/Plan Problem List: (1) Hypernatremia (2) CHF (congestive heart failure) (3) Dehydration (4) Acute renal failure (5) Pneumonia (6) Suspected COVID-19 virus infection (7) Hypotension (8) HCAP (healthcare-associated pneumonia) (9) CKD (chronic kidney disease) stage 3, GFR 30-59 ml/min Plan , pulm care, empiric atb ordered high risk worsening creatinine despine + fluid bal, alb 1.4, spa ordered, grave prognosis Subjective ROS Limited/Unobtainable: Yes Objective Objective Last 24 Hour Vital Signs Date Time Temp Pulse Resp B/P (MAP) Pulse Ox O2 Delivery O2 Flow Rate FiO2 10/20/19 11:15 81 24 50 10/20/19 11:00 87 0 111/72 (85) 99 10/20/19 10:30 87 0 114/66 (82) 99 10/20/19 10:00 83 0 111/71 (84) 99 10/20/19 09:30 87 0 111/68 (82) 99 10/20/19 09:00 89 0 101/60 (74) 98 10/20/19 08:30 93 0 93/61 (72) 98 10/20/19 08:00 91 10/20/19 08:00 Mechanical Ventilator Mechanical Ventilator Mechanical Ventilator 10/20/19 08:00 98.9 88 0 109/61 (77) 100 10/20/19 08:00 50 10/20/19 07:15 85 24 50 10/20/19 07:00 98.2 90 0 105/67 (80) 100 10/20/19 06:30 93 0 107/66 (80) 99 10/20/19 06:00 102/63 10/20/19 06:00 94 23 104/59 (74) 99 10/20/19 05:30 92 0 65/41 (49) 98 10/20/19 05:29 103/64 10/20/19 05:00 89 2 102/65 (77) 99 10/20/19 05:00 106/64 10/20/19 04:30 87 0 101/65 (77) 100 10/20/19 04:00 86 10/20/19 04:00 92 0 99/58 (72) 100 10/20/19 04:00 117/67 10/20/19 04:00 Mechanical Ventilator Mechanical Ventilator Mechanical Ventilator 10/20/19 04:00 50 10/20/19 03:30 91 0 106/72 (83) 100 10/20/19 03:05 86 24 50 10/20/19 03:00 93 0 108/68 (81) 100 10/20/19 03:00 110/69 10/20/19 02:30 88 0 110/75 (87) 99 10/20/19 02:00 109/62 10/20/19 02:00 89 0 103/70 (81) 99 10/20/19 01:30 89 0 112/70 (84) 100 10/20/19 01:00 91 0 110/72 (85) 99 10/20/19 01:00 101/70 10/20/19 00:30 91 0 137/75 (95) 98 10/20/19 00:00 84 0 113/67 (82) 99 10/20/19 00:00 85 10/20/19 00:00 Mechanical Ventilator Mechanical Ventilator Mechanical Ventilator 10/20/19 00:00 104/61 10/20/19 00:00 50 10/19/19 23:30 88 0 113/64 (80) 99 10/19/19 23:00 90 0 113/74 (87) 99 10/19/19 23:00 113/74 10/19/19 22:52 88 24 50 10/19/19 22:30 88 0 112/71 (85) 99 10/19/19 22:15 72/50 10/19/19 22:00 114/72 10/19/19 22:00 83 0 72/47 (55) 100 10/19/19 21:30 88 0 107/66 (80) 100 10/19/19 21:00 107/66 10/19/19 21:00 87 0 114/60 (78) 100 10/19/19 20:30 85 0 98/72 (81) 99 10/19/19 20:01 94 24 50 10/19/19 20:00 Mechanical Ventilator Mechanical Ventilator Mechanical Ventilator 10/19/19 20:00 81 10/19/19 20:00 99.6 91 0 105/63 (77) 100 10/19/19 20:00 50 10/19/19 20:00 108/71 10/19/19 19:30 88 0 106/68 (81) 100 10/19/19 19:00 90 0 112/76 (88) 100 10/19/19 19:00 116/78 10/19/19 18:00 88 10 111/74 (86) 100 10/19/19 17:00 121/75 10/19/19 17:00 89 20 111/72 (85) 99 10/19/19 16:00 50 10/19/19 16:00 92 10/19/19 16:00 120/69 10/19/19 16:00 Mechanical Ventilator Mechanical Ventilator Mechanical Ventilator 10/19/19 16:00 98.2 88 20 120/78 (92) 99 10/19/19 15:21 88 24 50 10/19/19 15:00 120/75 10/19/19 15:00 87 20 138/82 (100) 100 10/19/19 14:39 126/80 10/19/19 14:38 130/89 10/19/19 14:00 126/80 10/19/19 14:00 82 20 131/76 (94) 99 10/19/19 13:00 104 19 120/77 (91) 99 10/19/19 13:00 120/77 Intake and Output 10/19/19 10/20/19 19:00 07:00 Intake Total 1821.25 ml 2500.0 ml Output Total 360 ml 320 ml Balance 1461.25 ml 2180.0 ml Free Water 60 ml 150 ml IV Total 1341.25 ml 1630.0 ml Tube Feeding 420 ml 720 ml Output Urine Total 360 ml 320 ml # Bowel Movements 2 Laboratory Tests 10/20/19 03:50: White Blood Count 12.7H, Red Blood Count 3.36L, Hemoglobin 9.6L, Hematocrit 27.5L, Mean Corpuscular Volume 82, Mean Corpuscular Hemoglobin 28.6, Mean Corpuscular Hemoglobin Concent 35.0, Red Cell Distribution Width 14.4, Platelet Count 207, Mean Platelet Volume 8.6, Neutrophils (%) (Auto) 84.9H, Lymphocytes ( %) (Auto) 6.6L, Monocytes (%) (Auto) 7.4, Eosinophils (%) (Auto) 0.2, Basophils (%) (Auto) 1.0, Erythrocyte Sedimentation Rate 110H, Prothrombin Time 12.2H, Prothromb Time International Ratio 1.1, Activated Partial Thromboplast Time 29, Sodium Level 128L, Potassium Level 4.0, Chloride Level 97L, Carbon Dioxide Level 18L, Anion Gap 13, Blood Urea Nitrogen 71H, Creatinine 3.0H, Estimat Glomerular Filtration Rate 20.7, Glucose Level 169H, Lactic Acid Level 1.00, Calcium Level 7.2L, Total Bilirubin 0.4, Aspartate Amino Transf (AST/SGOT) 29, Alanine Aminotransferase (ALT/SGPT) 18, Alkaline Phosphatase 67, C-Reactive Protein, Quantitative 11.2H, Total Protein 5.2L, Albumin 1.4L, Globulin 3.8, Albumin/Globulin Ratio 0.4L Height (Feet): 5 Height (Inches): 11.00 Weight (Pounds): 145 General Appearance: lethargic, other - on vent Cardiovascular: regular rhythm Respiratory/Chest: rhonchi - bilaterally Abdomen: soft Extremities: moderate edema Neurologic: unresponsive Jose Gant MD Oct 20, 2019 12:46
--- NOTE | 2019-10-20 13:00 | NUR ---
NURSE NOTES: Pt was seen by Dr Gant. aware of lab results including Ob=906. Order noted to DC IV fluid, [id number].
--- NOTE | 2019-10-20 13:27 | Infectious Diseases Prog Note ---
Assessment/Plan Assessment/Plan A 1. pneumonia COVID19 negative x 2 2. Hypoxic respiratory failure 3. Acute renal failure 4. diabetes mellitus 5. hypertension 6. CHF 7. COPD 8. dementia 9. Pneumothorax 10. Emphysema P 1. continue Zosyn 2. sputum culture: negative Subjective ROS Limited/Unobtainable: Yes Constitutional: Denies: fever Cardiovascular: Reports: other - on Levophed 20 george Gastrointestinal/Abdominal: Reports: diarrhea Hematologic: Reports: other - bleeding around central line Allergies: Coded Allergies: No Known Allergies (Unverified , 07/23/18) Objective Vital Signs Last 24 Hour Vital Signs Date Time Temp Pulse Resp B/P (MAP) Pulse Ox O2 Delivery O2 Flow Rate FiO2 10/20/19 11:15 81 24 50 10/20/19 11:00 87 0 111/72 (85) 99 10/20/19 10:30 87 0 114/66 (82) 99 10/20/19 10:00 83 0 111/71 (84) 99 10/20/19 09:30 87 0 111/68 (82) 99 10/20/19 09:00 89 0 101/60 (74) 98 10/20/19 08:30 93 0 93/61 (72) 98 10/20/19 08:00 91 10/20/19 08:00 Mechanical Ventilator Mechanical Ventilator Mechanical Ventilator 10/20/19 08:00 98.9 88 0 109/61 (77) 100 10/20/19 08:00 50 10/20/19 07:15 85 24 50 10/20/19 07:00 98.2 90 0 105/67 (80) 100 10/20/19 06:30 93 0 107/66 (80) 99 10/20/19 06:00 102/63 10/20/19 06:00 94 23 104/59 (74) 99 10/20/19 05:30 92 0 65/41 (49) 98 10/20/19 05:29 103/64 10/20/19 05:00 89 2 102/65 (77) 99 10/20/19 05:00 106/64 10/20/19 04:30 87 0 101/65 (77) 100 10/20/19 04:00 86 10/20/19 04:00 92 0 99/58 (72) 100 10/20/19 04:00 117/67 10/20/19 04:00 Mechanical Ventilator Mechanical Ventilator Mechanical Ventilator 10/20/19 04:00 50 10/20/19 03:30 91 0 106/72 (83) 100 10/20/19 03:05 86 24 50 10/20/19 03:00 93 0 108/68 (81) 100 10/20/19 03:00 110/69 10/20/19 02:30 88 0 110/75 (87) 99 10/20/19 02:00 109/62 10/20/19 02:00 89 0 103/70 (81) 99 10/20/19 01:30 89 0 112/70 (84) 100 10/20/19 01:00 91 0 110/72 (85) 99 10/20/19 01:00 101/70 10/20/19 00:30 91 0 137/75 (95) 98 10/20/19 00:00 84 0 113/67 (82) 99 10/20/19 00:00 85 10/20/19 00:00 Mechanical Ventilator Mechanical Ventilator Mechanical Ventilator 10/20/19 00:00 104/61 10/20/19 00:00 50 10/19/19 23:30 88 0 113/64 (80) 99 10/19/19 23:00 90 0 113/74 (87) 99 10/19/19 23:00 113/74 10/19/19 22:52 88 24 50 10/19/19 22:30 88 0 112/71 (85) 99 10/19/19 22:15 72/50 10/19/19 22:00 114/72 10/19/19 22:00 83 0 72/47 (55) 100 10/19/19 21:30 88 0 107/66 (80) 100 10/19/19 21:00 107/66 10/19/19 21:00 87 0 114/60 (78) 100 10/19/19 20:30 85 0 98/72 (81) 99 10/19/19 20:01 94 24 50 10/19/19 20:00 Mechanical Ventilator Mechanical Ventilator Mechanical Ventilator 10/19/19 20:00 81 10/19/19 20:00 99.6 91 0 105/63 (77) 100 10/19/19 20:00 50 10/19/19 20:00 108/71 10/19/19 19:30 88 0 106/68 (81) 100 10/19/19 19:00 90 0 112/76 (88) 100 10/19/19 19:00 116/78 10/19/19 18:00 88 10 111/74 (86) 100 10/19/19 17:00 121/75 10/19/19 17:00 89 20 111/72 (85) 99 10/19/19 16:00 50 10/19/19 16:00 92 10/19/19 16:00 120/69 10/19/19 16:00 Mechanical Ventilator Mechanical Ventilator Mechanical Ventilator 10/19/19 16:00 98.2 88 20 120/78 (92) 99 10/19/19 15:21 88 24 50 10/19/19 15:00 120/75 10/19/19 15:00 87 20 138/82 (100) 100 10/19/19 14:39 126/80 10/19/19 14:38 130/89 10/19/19 14:00 126/80 10/19/19 14:00 82 20 131/76 (94) 99 Height (Feet): 5 Height (Inches): 11.00 Weight (Pounds): 145 HEENT: mucous membranes moist Respiratory/Chest: decreased breath sounds, other - on ventilator, left chest thoravent Abdomen: soft, non tender Extremities: other - left arm edema Neurologic/Psychiatric: unresponsiveness Laboratory Tests Test 10/20/19 03:50 White Blood Count 12.7 K/UL (4.8-10.8) H Red Blood Count 3.36 M/UL (4.70-6.10) L Hemoglobin 9.6 G/DL (14.2-18.0) L Hematocrit 27.5 % (42.0-52.0) L Mean Corpuscular Volume 82 FL (80-99) Mean Corpuscular Hemoglobin 28.6 PG (27.0-31.0) Mean Corpuscular Hemoglobin Concent 35.0 G/DL (32.0-36.0) Red Cell Distribution Width 14.4 % (11.6-14.8) Platelet Count 207 K/UL (150-450) Mean Platelet Volume 8.6 FL (6.5-10.1) Neutrophils (%) (Auto) 84.9 % (45.0-75.0) H Lymphocytes (%) (Auto) 6.6 % (20.0-45.0) L Monocytes (%) (Auto) 7.4 % (1.0-10.0) Eosinophils (%) (Auto) 0.2 % (0.0-3.0) Basophils (%) (Auto) 1.0 % (0.0-2.0) Erythrocyte Sedimentation Rate 110 MM/HR (0-20) H Prothrombin Time 12.2 SEC (9.30-11.50) H Prothromb Time International Ratio 1.1 (0.9-1.1) Activated Partial Thromboplast Time 29 SEC (23-33) Sodium Level 128 MMOL/L (136-145) L Potassium Level 4.0 MMOL/L (3.5-5.1) Chloride Level 97 MMOL/L (98-107) L Carbon Dioxide Level 18 MMOL/L (21-32) L Anion Gap 13 mmol/L (5-15) Blood Urea Nitrogen 71 mg/dL (7-18) H Creatinine 3.0 MG/DL (0.55-1.30) H Estimat Glomerular Filtration Rate 20.7 mL/min (>60) Glucose Level 169 MG/DL (74-106) H Lactic Acid Level 1.00 mmol/L (0.4-2.0) Calcium Level 7.2 MG/DL (8.5-10.1) L Total Bilirubin 0.4 MG/DL (0.2-1.0) Aspartate Amino Transf (AST/SGOT) 29 U/L (15-37) Alanine Aminotransferase (ALT/SGPT) 18 U/L (12-78) Alkaline Phosphatase 67 U/L (46-116) C-Reactive Protein, Quantitative 11.2 mg/dL (0.00-0.90) H Total Protein 5.2 G/DL (6.4-8.2) L Albumin 1.4 G/DL (3.4-5.0) L Globulin 3.8 g/dL Albumin/Globulin Ratio 0.4 (1.0-2.7) L Current Medications Medications (Trade) Dose Ordered Sig/Clementine Route PRN Reason Start Time Stop Time Status Last Admin Dose Admin Acetaminophen (Tylenol) 650 mg Q4H PRN ORAL Mild Pain (Pain Scale 1-3) 10/09/19 05:45 11/08/19 05:44 Acetaminophen (Tylenol) 650 mg Q4H PRN ORAL fever 10/09/19 05:45 11/08/19 05:44 Albumin Human 100 ml @ 100 mls/hr ONCE IV 10/20/19 13:15 10/20/19 14:15 10/20/19 13:13 Albumin Human 100 ml @ 100 mls/hr Q4HR IVPB 10/20/19 13:00 10/21/19 12:00 UNV Albuterol Sulfate (Proventil MDI) 2 puff Q4H PRN INH Shortness of Breath 10/09/19 12:45 01/07/20 12:44 Amiodarone HCl (Cordarone) 200 mg DAILY NG 10/16/19 09:00 01/14/20 08:59 10/20/19 09:24 Aspirin (ASA) 81 mg DAILY ORAL 10/09/19 09:00 11/23/19 08:59 10/20/19 09:24 Chlorhexidine Gluconate (Flaca-Hex 2%) 1 applic DAILY@2000 TOPIC 10/09/19 20:00 01/07/20 19:59 10/19/19 20:22 Dextrose (Dextrose 50%) 25 ml Q30M PRN IV Hypoglycemia 10/09/19 05:45 01/07/20 05:44 Dextrose (Dextrose 50%) 50 ml Q30M PRN IV Hypoglycemia 10/09/19 05:45 01/07/20 05:44 Haloperidol Lactate 5 mg/ Dextrose 56 ml @ 224 mls/hr Q6HR PRN IVPB Agitation 10/09/19 21:30 11/23/19 21:29 10/11/19 04:35 Heparin Sodium (Porcine) (Heparin 5000 units/ml) 5,000 units EVERY 12 HOURS SUBQ 10/09/19 09:00 11/23/19 08:59 10/18/19 21:00 Levetiracetam 100 ml @ 400 mls/hr Q8H IVPB 10/16/19 12:00 01/14/20 11:59 10/20/19 13:06 Loperamide HCl (Imodium) 2 mg Q4H PRN NG Diarrhea 10/19/19 10:48 11/18/19 10:47 10/19/19 15:08 Lorazepam (Ativan 2mg/ml 1ml) 1 mg Q2H PRN IV For Seizures 10/15/19 18:30 10/22/19 18:29 10/16/19 08:35 Norepinephrine Bitartrate 8 mg/ Dextrose 500 ml @ 0 mls/hr Q24H IV 10/19/19 15:00 11/18/19 14:59 10/20/19 05:29 Piperacillin Sod/ Tazobactam Sod 3.375 gm/Sodium Chloride 110 ml @ 27.5 mls/hr EVERY 8 HOURS IVPB 10/19/19 14:00 10/24/19 23:59 10/20/19 13:07 Pravastatin Sodium (Pravachol) 20 mg BEDTIME ORAL 10/09/19 21:00 11/08/19 20:59 10/19/19 20:22 Migel Adams MD Oct 20, 2019 13:27
--- NOTE | 2019-10-20 14:22 | Surgery Progress Note ---
Surgery Progress Note Subjective Procedure Performed left tube thoracostomy Additional Comments central line oozing. sutures placed dressings changed chest tube okay x ray and labs reviewed Objective Last 24 Hour Vital Signs Date Time Temp Pulse Resp B/P (MAP) Pulse Ox O2 Delivery O2 Flow Rate FiO2 10/20/19 11:15 81 24 50 10/20/19 11:00 87 0 111/72 (85) 99 10/20/19 10:30 87 0 114/66 (82) 99 10/20/19 10:00 83 0 111/71 (84) 99 10/20/19 09:30 87 0 111/68 (82) 99 10/20/19 09:00 89 0 101/60 (74) 98 10/20/19 08:30 93 0 93/61 (72) 98 10/20/19 08:00 91 10/20/19 08:00 Mechanical Ventilator Mechanical Ventilator Mechanical Ventilator 10/20/19 08:00 98.9 88 0 109/61 (77) 100 10/20/19 08:00 50 10/20/19 07:15 85 24 50 10/20/19 07:00 98.2 90 0 105/67 (80) 100 10/20/19 06:30 93 0 107/66 (80) 99 10/20/19 06:00 102/63 10/20/19 06:00 94 23 104/59 (74) 99 10/20/19 05:30 92 0 65/41 (49) 98 10/20/19 05:29 103/64 10/20/19 05:00 89 2 102/65 (77) 99 10/20/19 05:00 106/64 10/20/19 04:30 87 0 101/65 (77) 100 10/20/19 04:00 86 10/20/19 04:00 92 0 99/58 (72) 100 10/20/19 04:00 117/67 10/20/19 04:00 Mechanical Ventilator Mechanical Ventilator Mechanical Ventilator 10/20/19 04:00 50 10/20/19 03:30 91 0 106/72 (83) 100 10/20/19 03:05 86 24 50 10/20/19 03:00 93 0 108/68 (81) 100 10/20/19 03:00 110/69 10/20/19 02:30 88 0 110/75 (87) 99 10/20/19 02:00 109/62 10/20/19 02:00 89 0 103/70 (81) 99 10/20/19 01:30 89 0 112/70 (84) 100 10/20/19 01:00 91 0 110/72 (85) 99 10/20/19 01:00 101/70 10/20/19 00:30 91 0 137/75 (95) 98 10/20/19 00:00 84 0 113/67 (82) 99 10/20/19 00:00 85 10/20/19 00:00 Mechanical Ventilator Mechanical Ventilator Mechanical Ventilator 10/20/19 00:00 104/61 10/20/19 00:00 50 10/19/19 23:30 88 0 113/64 (80) 99 10/19/19 23:00 90 0 113/74 (87) 99 10/19/19 23:00 113/74 10/19/19 22:52 88 24 50 10/19/19 22:30 88 0 112/71 (85) 99 10/19/19 22:15 72/50 10/19/19 22:00 114/72 10/19/19 22:00 83 0 72/47 (55) 100 10/19/19 21:30 88 0 107/66 (80) 100 10/19/19 21:00 107/66 10/19/19 21:00 87 0 114/60 (78) 100 10/19/19 20:30 85 0 98/72 (81) 99 10/19/19 20:01 94 24 50 10/19/19 20:00 Mechanical Ventilator Mechanical Ventilator Mechanical Ventilator 10/19/19 20:00 81 10/19/19 20:00 99.6 91 0 105/63 (77) 100 10/19/19 20:00 50 10/19/19 20:00 108/71 10/19/19 19:30 88 0 106/68 (81) 100 10/19/19 19:00 90 0 112/76 (88) 100 10/19/19 19:00 116/78 10/19/19 18:00 88 10 111/74 (86) 100 10/19/19 17:00 121/75 10/19/19 17:00 89 20 111/72 (85) 99 10/19/19 16:00 50 10/19/19 16:00 92 10/19/19 16:00 120/69 10/19/19 16:00 Mechanical Ventilator Mechanical Ventilator Mechanical Ventilator 10/19/19 16:00 98.2 88 20 120/78 (92) 99 10/19/19 15:21 88 24 50 10/19/19 15:00 120/75 10/19/19 15:00 87 20 138/82 (100) 100 10/19/19 14:39 126/80 10/19/19 14:38 130/89 I&O Intake and Output 10/19/19 10/20/19 19:00 07:00 Intake Total 1821.25 ml 2500.0 ml Output Total 360 ml 320 ml Balance 1461.25 ml 2180.0 ml Free Water 60 ml 150 ml IV Total 1341.25 ml 1630.0 ml Tube Feeding 420 ml 720 ml Output Urine Total 360 ml 320 ml # Bowel Movements 2 Dressing: saturated, other Wound: other Drains: other Cardiovascular: RSR Respiratory: decreased breath sounds Abdomen: soft, non-tender, present bowel sounds Extremities: no cyanosis Laboratory Tests Test 10/20/19 03:50 White Blood Count 12.7 K/UL (4.8-10.8) H Red Blood Count 3.36 M/UL (4.70-6.10) L Hemoglobin 9.6 G/DL (14.2-18.0) L Hematocrit 27.5 % (42.0-52.0) L Mean Corpuscular Volume 82 FL (80-99) Mean Corpuscular Hemoglobin 28.6 PG (27.0-31.0) Mean Corpuscular Hemoglobin Concent 35.0 G/DL (32.0-36.0) Red Cell Distribution Width 14.4 % (11.6-14.8) Platelet Count 207 K/UL (150-450) Mean Platelet Volume 8.6 FL (6.5-10.1) Neutrophils (%) (Auto) 84.9 % (45.0-75.0) H Lymphocytes (%) (Auto) 6.6 % (20.0-45.0) L Monocytes (%) (Auto) 7.4 % (1.0-10.0) Eosinophils (%) (Auto) 0.2 % (0.0-3.0) Basophils (%) (Auto) 1.0 % (0.0-2.0) Erythrocyte Sedimentation Rate 110 MM/HR (0-20) H Prothrombin Time 12.2 SEC (9.30-11.50) H Prothromb Time International Ratio 1.1 (0.9-1.1) Activated Partial Thromboplast Time 29 SEC (23-33) Sodium Level 128 MMOL/L (136-145) L Potassium Level 4.0 MMOL/L (3.5-5.1) Chloride Level 97 MMOL/L (98-107) L Carbon Dioxide Level 18 MMOL/L (21-32) L Anion Gap 13 mmol/L (5-15) Blood Urea Nitrogen 71 mg/dL (7-18) H Creatinine 3.0 MG/DL (0.55-1.30) H Estimat Glomerular Filtration Rate 20.7 mL/min (>60) Glucose Level 169 MG/DL (74-106) H Lactic Acid Level 1.00 mmol/L (0.4-2.0) Calcium Level 7.2 MG/DL (8.5-10.1) L Total Bilirubin 0.4 MG/DL (0.2-1.0) Aspartate Amino Transf (AST/SGOT) 29 U/L (15-37) Alanine Aminotransferase (ALT/SGPT) 18 U/L (12-78) Alkaline Phosphatase 67 U/L (46-116) C-Reactive Protein, Quantitative 11.2 mg/dL (0.00-0.90) H Total Protein 5.2 G/DL (6.4-8.2) L Albumin 1.4 G/DL (3.4-5.0) L Globulin 3.8 g/dL Albumin/Globulin Ratio 0.4 (1.0-2.7) L Plan Problems: (1) Hypotension Assessment & Plan: 74-year-old male hypotensive unknown etiology's potentially septic COVID eval Needs pressors urgently transfer to the intensive care unit Need central venous access for pressors meds fluids Emergency procedure performed at the bedside Left femoral central venous catheter inserted without complication see note Okay for pressors okay to use We will follow with recommendations and monitor. Thank you for allowing participate in patient care There is a nasogastric tube in place. Tip projects at the level of the distal esophagus. There is complete opacification of the right hemithorax. This is a new finding. There appears to be abrupt cut off of the right mainstem bronchus. The bowel gas pattern is unremarkable High position of nasogastric tube. Advancement recommended. Complete opacification of the right hemithorax. Probably due to complete atelectasis of the right lung, could also indicate a component of pleural fluid. Left chest vent remains. There is stable subcutaneous emphysema which has redistributed slightly. No gross pneumothorax. There is left lung pleural space are clear. Stable satisfactory positions of endotracheal and orogastric tubes. There appears to be slightly improved hazy opacity of the right lung. Left subclavian central venous catheter remains. left groin line out was stable now hypotensive needs pressors again left subclavian placed Left Thora vent placed chest x-ray noted (2) Dehydration Assessment & Plan: DAILY ESTIMATED NEEDS: Needs based on Respiratory, underweight 57.3 30-35 kcals/kg 1025-7195 total kcals 1-1.5 g protein/kg 57-86 g total protein 25-30 mL/kg 5166-1847 total fluid mLs NUTRITION DIAGNOSIS: Altered nutrition related lab values r/t clinical status, renal failure as evidenced by elev BUN (62 trending down), elev Creat (2.1 trending down), elev Na (150). CURRENT DIET:SIDRA ms w/ NTL PO DIET RECOMMENDATIONS: LOW NA + NEPRO TID / Texture per SAW SHARPENER ENTERAL NUTRITION RECOMMENDATIONS: -Consult RD if part of POC w/ continued poor po intake. ADDITIONAL RECOMMENDATIONS: 1) Obtain a CALIBRATED WEIGHT as able Pt w/ underweight BMI 2) Poor po intake-> consider non oral feeds for ICU status and poor po 3) SAW SHARPENER eval for H/o CVA-> diet texture per SAW SHARPENER 4) rec WC eval for sacral wound, add MURIEL BID for skin integrity . (3) Acute renal failure (4) Pneumonia (5) Acute metabolic encephalopathy (6) Suspected COVID-19 virus infection Gallo Kingston Oct 20, 2019 14:22
--- NOTE | 2019-10-20 16:28 | NUR ---
CASE MANAGEMENT: REVIEW 10/20/19 SI: S/P NEW THORA VENT CATHETER PLACED; NEAR COMPLETE RESOLUTION OF LEFT PNEUMOTHORAX S/P CHEST TUBE DISLODGED LEFT PNEUMOTHORAX . SEPSIS . RENAL FAILURE . A-FIB . DM .PNA LEFT SUBCLAVIAN CENTRAL VENOUS CATHETER . 98.9 88 16 109/61 100% MECH VENT FIO2 50 NA+ 128 CL-97 BUN/CREAT 71/3.0 BG 169 CA+7.2 C-REC PROT-11.2 PT 12.2 IS:LEVOPHED Q24HR TITRATED IV KCl/D5W @50ML/HR IV ZOSYN TID IV KEPPRA TID AMIODARONE NGT QD IV ATIVAN Q2HR/PRN IV HALDOL Q6HR/PRN ASA PO QD CHEST X-RAY- Satisfactory position of nasogastric tube \:ICU STATUS DCP: PATIENT IS FROM [facility] PLAN: NEED PLAN FOR TRACH + PEG PLACEMENT STABILIZE FOR PROCEDURE CENTRAL LINE OOZING CHEST TUBE IN SATISFACTORY POSITION
--- NOTE | 2019-10-20 17:00 | NUR ---
NURSE NOTES: New bag of Levophed is infusing, previous bag is now empty; Was unable to scan barcode on new bag. Levophed is infusing at 20mcg/min to maintain SBP above 90.
--- NOTE | 2019-10-20 18:00 | NUR ---
NURSE NOTES: Pt was cleaned, gown/bed linens were changed. Pt was suctioned, and oral care was done. VS remain stable while pt is maintained on Levophed at 20mcg/min. Pt remains afebrile. Chest tube insertion site dressing remains dry/intact. Chest tube drainage chamber has drainage output of 30mL with continuous bubbling while pt remains at 100% O2sat.
--- NOTE | 2019-10-20 19:24 | NUR ---
HAND-OFF: Report given to Nae JEAN. Endorsed plan of care. VS remain stable.
[2019-10-20] MEDS: LORazepam Inj 2mg/ml 1ml IV PRN (19:47)
--- NOTE | 2019-10-20 20:00 | NUR ---
NURSE NOTES: received report from doris bello pt hr 108 rr30-40 o2 sat 94% keep on bating his et tube medicated with ativan as order and was relax after medication is given
[2019-10-20] MEDS: Dyna-Hex 2% Top Sol 2oz TOPIC SCH (20:44)
--- NOTE | 2019-10-20 22:00 | NUR ---
NURSE NOTES: reposition and suction no acute resp distress
[2019-10-21] VITALS (21 sets, daily range): BP systolic 75–122; BP diastolic 16–92
--- NOTE | 2019-10-21 | NUR ---
NURSE NOTES: condition un change
[2019-10-21] MEDS: Norepinephrine Bitartrate 8 MG in D5W 500ml 492 ML IV SCH ×2 (00:03→06:04)
--- NOTE | 2019-10-21 02:00 | NUR ---
NURSE NOTES: reposition and suction
--- NOTE | 2019-10-21 04:00 | NUR ---
NURSE NOTES: pt bp 77/46 hr 124 o2 sat levo drip >30mcg/min bp 103/60
[2019-10-21] MEDS: levETIRAcetam 500mg/NS100ml 100 ML IVPB SCH (04:01)
--- NOTE | 2019-10-21 04:30 | Progress Note ---
DATE: 10/20/2019 CARDIOLOGY PROGRESS NOTE SUBJECTIVE: The patient's condition is deteriorating. He remains in the intensive care unit. He continues to have atrial fibrillation. He remains on multiple antimicrobials. Chest tube is in place. Urine output worsening. Renal function deteriorating. He continues on full ventilator support. PHYSICAL EXAMINATION: VITAL SIGNS: Blood pressure 105/67, heart rate 90, respirations 23, afebrile. LUNGS: Rhonchi. Left tube thoracostomy site with oozing around chest tube. ABDOMEN: Distended. CARDIAC: Irregularly irregular rhythm. EXTREMITIES: 1+ edema. LABORATORY DATA: White count 12.7, hemoglobin 9.6. Sodium 128, potassium 4, bicarb 18, BUN 71, creatinine 3. Albumin 1.4. IMPRESSION: 1. Multiorgan system failure. 2. Sepsis with shock. 3. Respiratory failure. 4. Chest tube. PLAN: 1. Discontinue Haldol. 2. Taper off pressors. 3. Continue amiodarone loading for atrial arrhythmias. 4. Presently off antimicrobials. 5. DVT prophylaxis. Anselmo Porras M.D. DR: SACHA JOB#: [id number] CC:
[2019-10-21] MEDS: Piperacillin/Tazobactam 3.375 GM in NS 110 ML IVPB SCH (05:15)
--- NOTE | 2019-10-21 05:59 | NUR ---
NURSE NOTES: Called MD Bill at this time. Patient Hr continues to be elevated, currently 133. SBP in the low 80's. Levophed currently maxed at 30mcg/min. MD ordered to start lilian at this time. Orders read back and confirmed by .
[2019-10-21 06:04] LABS: ANION GAP 18 mmol/L (5-15); BLOOD UREA NITROGEN 88 mg/dL (7-18); CALCIUM 7.6 MG/DL (8.5-10.1); CARBON DIOXIDE 17 MMOL/L (21-32); CHLORIDE 93 MMOL/L (98-107); CREATININE 3.4 MG/DL (0.55-1.30); POTASSIUM 4.7 MMOL/L (3.5-5.1); SODIUM 127 MMOL/L (136-145)
[2019-10-21] MEDS ORDERED: Phenylephrine 50 MG in D5W 245 ML IV PRN (06:15)
--- NOTE | 2019-10-21 07:17 | NUR ---
RESPIRATORY NOTE: Received pt on ETT 8.0@23 cm lip line, secured by anchor fast, bite block in place to prevent tube biting. Pt is on current vent settings: AC 24-600ml-50%-peep 5. Increased FiO2 to 100% due to desat down to 81%, pt is in resp distress.Lavaged and suctioned large amt of thick brown salguero secretions,oral suctioned moderate amt of thick frothy clear white secretions, HME changed, changed vent to ACVC plus, deflated then inflated the cuff but Unable to bring down the Ppeak, Ppeak remains ay 60's. MIRANDA Purcell notified and aware. Awaiting for MD's order. Will continue to monitor pt.
--- NOTE | 2019-10-21 07:38 | NUR ---
HAND-OFF: Report given to doris bello using sbar.
--- NOTE | 2019-10-21 07:39 | NUR ---
NURSE NOTES: Received change of shift report from Nae JEAN. Pt has eyes closed, withdraws to pain, does not follow commands. Pt is orally intubated, ETT 7.5 at 24cm lipline with vent settings AC24, VT600, Peep 5.0, FIO2 100%; O2Sat is fluctuating from 70's to low 90's % while pt is maintained on FIO2 100%. AFib on personnel monitor, HR fluctuating 100-130/minute. Pt is on Levophed drip at 30mcg/min, BP is fluctuating from 80's/40's to 90's/50's. Pt has left upper chest tube, draining to suction per MD order, with only 40ml output in drainage chamber from warehouse hand, while suction chamber has continuous bubbling. Left nare NGT with feeding Vital AF is infusing at 60ml/hour, with residual at 10ml. Feeding is currently being placed on hold, since pt's condition is rapidly declining, to prevent aspiration. Mathis catheter is present draining mildly cloudy/dark yellow urine to gravity. Pt is on P200 mattress. HOB at 30 degrees, bed locked, in lowest position, three side rails up. Will continue to monitor pt, contact MD to report declining status, and follow plan of care per MD orders and protocol.
--- NOTE | 2019-10-21 07:40 | NUR ---
RESPIRATORY NOTE: ABG done and reported to MIRANDA Purcell. Pt is still in resp distress. Awaiting for MD's order. Will continue to monitor pt in the mean time.
--- NOTE | 2019-10-21 08:00 | NUR ---
NURSE NOTES: Dr Bill has been contacted regarding pt's declining status. Awaiting for response from .
--- NOTE | 2019-10-21 08:10 | NUR ---
NURSE NOTES: Orders were received from Dr Bill to start pt on Phenylephrine drip, 2 amps of bicarp, NS at 100ml/hour, change vent settings to AC28, Peep 5, VT600, FIO2 80%. Orders will be processed and followed.
--- NOTE | 2019-10-21 08:18 | NUR ---
NURSE NOTES: Pt desaturated from low 90-80% down to 30% while maintained on FIO2 100%, heart rate/rhythm from AFib 130's fluctuated down to 30 bpm and then to asystole. Code blue was called and immediate CPR was started per protocol/pt's code status.
--- NOTE | 2019-10-21 08:25 | NUR ---
NURSE NOTES: Julee ( R&D Lab Technician) notified Daniela Mclean ( niece)via phone that patient is being coded at this time
[2019-10-21] MEDS ORDERED: NS Irrig 1000ml ONE (08:37)
[2019-10-21] MEDS ORDERED: Tubing IV Secondary IV ONE ×3 (08:37)
[2019-10-21] MEDS ORDERED: Atropine Inj 1mg/10ml Syr ONE ×2 (08:37)
[2019-10-21] MEDS ORDERED: Magnesium Sulfate 2ml Inj ONE ×2 (08:37)
[2019-10-21] MEDS ORDERED: NS 275ml ONE ×4 (08:37)
[2019-10-21] MEDS ORDERED: Sodium Bicarbonate 8.4% 50ml Inj ONE ×2 (08:37)
[2019-10-21] MEDS ORDERED: Amiodarone 150mg/3ml Amp ONE (08:37)
[2019-10-21] MEDS ORDERED: Sterile Water Irrig 1000ml IRRIG ONE ×2 (08:37)
--- NOTE | 2019-10-21 08:37 | Critical Care Progress Note ---
Assessment/Plan Assessment/Plan Impression: negative COVID-19 x2 Pneumonia Chronic Kidney Disease, has shunt left upper arm with ARF Dehydration Hypotension Dementia Congestive Heart Failure Atrial Fibrillation Diabetes Hypertension Dysphagia Hyperlipidemia COPD hypernatremia sinus tachycardia acute respiratory failure/ improved lung collapse with effusion Plan terminal code blue x2 will update family not expected to survive with MOF medications/laboratory data/nursing notes/ICU care reviewed in detail note reviewed and edited care discussed with RN and RT ICU time spent >40 minutes Critical Care - Subjective Interval Events: seen earlier s/p code blue now undergoing code ROS Limited/Unobtainable: Yes Condition: critical I&O: Intake and Output 10/20/19 10/21/19 19:00 07:00 Intake Total 2700.0 ml 1907.5 ml Output Total 540 ml 420 ml Balance 2160.0 ml 1487.5 ml Free Water 120 ml 150 ml IV Total 1860.0 ml 1097.5 ml Tube Feeding 720 ml 660 ml Output Urine Total 540 ml 380 ml Chest Tube Drainage Total 40 ml Critical Care - Objective ET-Tube: 8.0 ET Position: 23 Last 24 Hour Vital Signs Date Time Temp Pulse Resp B/P (MAP) Pulse Ox O2 Delivery O2 Flow Rate FiO2 10/21/19 06:30 127 6 122/88 (99) 92 10/21/19 06:15 124 10 103/16 (45) 94 10/21/19 06:04 85/56 10/21/19 06:00 119 17 119/92 (101) 99 10/21/19 06:00 89/56 10/21/19 05:45 119 4 89/37 (54) 99 10/21/19 05:30 124 18 112/56 (74) 10/21/19 05:00 89/56 10/21/19 05:00 126 20 89/73 (78) 100 10/21/19 04:30 117 11 99/66 (77) 98 10/21/19 04:00 50 10/21/19 04:00 Mechanical Ventilator Mechanical Ventilator Mechanical Ventilator 10/21/19 04:00 77/56 10/21/19 04:00 98.6 104 11 75/55 (62) 100 10/21/19 04:00 115 10/21/19 03:46 100 26 50 10/21/19 03:30 97 0 109/72 (84) 98 10/21/19 03:00 97 7 104/65 (78) 100 10/21/19 03:00 89/58 10/21/19 02:30 95 0 102/68 (79) 100 10/21/19 02:00 98/64 10/21/19 02:00 98 2 98/65 (76) 100 10/21/19 01:30 94 10 95/62 (73) 98 10/21/19 01:00 96 5 100/66 (77) 100 10/21/19 00:30 97 0 95/63 (74) 100 10/21/19 00:03 99/61 10/21/19 00:00 98.6 99 8 99/61 (74) 100 10/21/19 00:00 96 10/21/19 00:00 Mechanical Ventilator Mechanical Ventilator Mechanical Ventilator 10/20/19 23:30 97 8 102/58 (73) 100 10/20/19 23:00 95 13 96/66 (76) 100 10/20/19 22:44 96 24 50 10/20/19 22:30 100 16 101/66 (78) 100 10/20/19 22:00 101 18 99/60 (73) 100 10/20/19 22:00 100/64 10/20/19 21:30 98 17 93/60 (71) 100 10/20/19 21:00 105 2 97/62 (74) 99 10/20/19 21:00 98/64 10/20/19 20:30 105 9 85/54 (64) 98 10/20/19 20:00 85/52 10/20/19 20:00 103 10/20/19 20:00 Mechanical Ventilator Mechanical Ventilator Mechanical Ventilator 10/20/19 20:00 99.0 106 21 85/55 (65) 98 10/20/19 20:00 50 10/20/19 19:30 103 22 118/83 (95) 99 10/20/19 19:24 110 24 50 10/20/19 19:00 92 17 107/65 (79) 100 10/20/19 19:00 105/68 10/20/19 18:00 95/65 10/20/19 18:00 92 18 102/69 (80) 100 10/20/19 17:30 88 6 111/65 (80) 99 10/20/19 17:00 98.9 92 17 107/62 (77) 99 10/20/19 17:00 109/67 10/20/19 17:00 102/69 10/20/19 16:30 86 24 104/60 (75) 99 10/20/19 16:00 Mechanical Ventilator Mechanical Ventilator Mechanical Ventilator 10/20/19 16:00 90 24 110/67 (81) 99 10/20/19 16:00 92 10/20/19 16:00 105/61 10/20/19 16:00 50 10/20/19 15:30 89 24 111/62 (78) 99 10/20/19 15:15 69 24 50 10/20/19 15:00 88 0 106/67 (80) 99 10/20/19 15:00 105/60 10/20/19 14:00 91 24 67/43 (51) 99 10/20/19 14:00 67/43 10/20/19 13:30 90 18 112/61 (78) 99 10/20/19 13:00 88 18 104/72 (83) 99 10/20/19 13:00 104/72 10/20/19 12:30 87 18 107/66 (80) 99 10/20/19 12:00 Mechanical Ventilator Mechanical Ventilator Mechanical Ventilator 10/20/19 12:00 50 10/20/19 12:00 118/68 10/20/19 12:00 94 10/20/19 12:00 87 28 111/68 (82) 99 10/20/19 11:30 86 24 105/52 (69) 99 10/20/19 11:15 81 24 50 10/20/19 11:00 87 0 111/72 (85) 99 10/20/19 11:00 102/69 10/20/19 11:00 102/69 10/20/19 10:30 87 0 114/66 (82) 99 10/20/19 10:00 107/74 10/20/19 10:00 83 0 111/71 (84) 99 10/20/19 09:30 87 0 111/68 (82) 99 10/20/19 09:00 113/69 10/20/19 09:00 89 0 101/60 (74) 98 Camilo Bill MD Oct 21, 2019 08:37
--- NOTE | 2019-10-21 08:38 | NUR ---
NURSE NOTES: CPR was stopped at 0838 and pt pronounced by Dr Aponte at bedside.
--- NOTE | 2019-10-21 08:40 | NUR ---
RESPIRATORY NOTE: Code blue: Pt has bradycardiac evolving into asystole. CPR performed by RN Mono and RT Catarino, and pt was bagging by me via ambu bag 15L 100%. Pt was pronounced at 0840 per ER Doctor Fadi.
--- NOTE | 2019-10-21 08:50 | NUR ---
NURSE NOTES: Dr. Bill notified that patient at 0835. Dr. Oquendo spoke with Dr. Bill during the CODE
--- NOTE | 2019-10-21 08:52 | NUR ---
NURSE NOTES: Per Dr. Bill - he already notified the niece ( Daniela Traylor) regarding patient's
--- NOTE | 2019-10-21 09:25 | NUR ---
NURSE NOTES: [employer] and bulk coolers installer's office were contacted to report pt's status of expiration. Post mortem care was done. Per charge nurse, PATRIZIA/jeniffer and Dr iBll (primary MD) have been informed. Awaiting for family to call back regarding mortuary plans, prior to transferring body to the [facility].
--- NOTE | 2019-10-21 09:55 | Emergency Room Report ---
History of Present Illness General Chief Complaint: Dyspnea/Respdistress Source: Medical Record, PMD Present Illness HPI A CODE BLUE was called overhead to the ICU. I was the emergency medicine physician in the emergency department. I responded to the CODE BLUE called overhead. When I arrived in the ICU, the patient was undergoing CPR and ACLS per protocol. The nurse caring for the patient informed me that this patient had multisystem organ failure with multiple chronic medical problems to include COPD, diabetes, renal failure and was on cardiac pressor medications. The patient had been declining over the night before and then became bradycardic after becoming more more hypoxemic and then suffered PEA arrest. No other history was available to me other than the patient had a normal potassium and a low bicarb, is intubated and has a chest tube in place for a pneumothorax. Allergies: Coded Allergies: No Known Allergies (Unverified , 07/23/18) COVID-19 Screening Contact w/high risk pt: Yes Recent Travel to affected area: No Experienced COVID-19 symptoms?: Yes COVID-19 symptoms experienced: Shortness of Breath COVID-19 Testing performed MENTAL HEALTH TECHNICIAN: No COVID-19 Screening: Negative COVID-19 Nursing Documentation-[facility] Past Medical History: No History, Except For Hx Cardiac Problems: Yes - dysphagia, cognitive communication deficit, hyperlipidemia Hx Hypertension: Yes Hx COPD: Yes Hx Diabetes: Yes Hx Cancer: No Hx Gastrointestinal Problems: No Hx Dialysis: Yes - shunt left upper arm Hx Neurological Problems: No Physical Exam Vital Signs Date Time Temp Pulse Resp B/P (MAP) Pulse Ox O2 Delivery O2 Flow Rate FiO2 10/17/19 07:00 67 21 113/67 (82) 99 10/17/19 07:15 60 10/17/19 07:15 Mechanical Ventilator 10/17/19 08:00 98.6 Medical Decision Making Diagnostic Impression: Primary Impression: Cardiopulmonary arrest ER Course The patient underwent multiple rounds of CPR and ACLS per protocol. See the RN code record sheet. The patient did have V. fib x2 and was defibrillated x2. He was given bicarb, epi x multiple rounds, and amiodarone with ongoing CPR without return of spontaneous circulation. The patient was in a very slow bradycardic PEA and was pulseless. The patient was not responding to resuscitation. I felt that further resuscitation was futile. Resuscitation was stopped and time of was 827. Last Vital Signs Date Time Temp Pulse Resp B/P (MAP) Pulse Ox O2 Delivery O2 Flow Rate FiO2 10/21/19 07:17 128 24 100 10/21/19 06:30 122/88 (99) 92 10/21/19 04:00 Mechanical Ventilator Mechanical Ventilator Mechanical Ventilator 10/21/19 04:00 98.6 Disposition: Condition: Referrals: Camilo Bill MD (PCP) Sivan Aponte DO Oct 21, 2019 09:55
--- NOTE | 2019-10-21 12:20 | NUR ---
NURSE NOTES: Spoke with patient's niece -Daniela Traylor via phone who stated that there's no /mortuary arrangement done and requested to use public mortuary and that she is not coming to see the patient remains
--- NOTE | 2019-10-21 13:10 | NUR ---
NURSE NOTES: [place] [facility] [place]
--- NOTE | 2019-10-22 00:15 | Progress Note ---
CARDIOLOGY PROGRESS NOTE SUBJECTIVE: The patient's condition is critical. Prognosis grave. The case was discussed with Dr. Bill. The patient's family is being contacted. There have been two Code Blue episodes. The patient is hypotensive on pressor support and requiring full ventilator support. OBJECTIVE: VITAL SIGNS: Blood pressure as low as 89/56, heart rate 119, and respiratory rate 18. LUNGS: Bilateral rales and rhonchi. HEENT: Endotracheal tube in place. CARDIAC: Irregularly irregular rhythm. Normal S1 and S2. ABDOMEN: Distended. EXTREMITIES: 1+ edema. IMPRESSION: 1. Multiorgan system failure. 2. Lung collapse with chest tube. 3. Paroxysmal atrial fibrillation. 4. Acute on chronic diastolic congestive heart failure. 5. Metabolic acidosis. 6. Hyponatremia. 7. Acute on chronic renal failure. 8. Respiratory and metabolic acidosis. PLAN: Continue current level of support. Anselmo Porras M.D. DR: ALYSSA JOB#: [id number] CC:
--- NOTE | 2019-10-23 22:52 | Discharge Summary ---
Discharge Summary Discharge Summary _ DATE OF ADMISSION: 10/08/2019 DATE OF DISCHARGE: 10/21/2019 BRIEF SUMMARY: Patient is an unfortunate 74-year-old male, with history of dementia, dysphagia , congestive heart failure, hypertension, diabetes, chronic renal failure, and COPD, was taken to ED via EMS for evaluation of low blood pressure. Upon arrival to ED, he was hypotensive. Blood pressure 82/48, pulse rate 107. He was saturating 94% on nonrebreather mask. While at ED, he was pancultured. He was started empirically on clindamycin and cefepime. Blood work did not show any leukocytosis. Hemoglobin and hematocrit were stable. Creatinine was elevated to 3.1. BUN 95. Troponin negative. proBNP 448. Chest x-ray showed bibasilar airspace opacity. He was then admitted to SDU. The following day, hypotension worsened. Systolic BP was in the 70s. He was transferred to ICU. Surgeon was called for central line placement and a left femoral central venous catheter was inserted. He was started empirically on antibiotics. He was given cefepime and Flagyl. Azithromycin was discontinued. He was eventually started on hydroxychloroquine. He was kept on n.p.o. NG tube was inserted and was eventually started on tube feeding. Aspiration precaution observed. COVID-19 testing was negative x2. Isolation was discontinued. Hydroxychloroquine discontinued. His O2 requirement worsened. Subsequent chest x-ray showed complete opacification of the right hemithorax. He underwent chest ultrasound and showed only trace effusion. Repeat chest ultrasound showed persistent near complete opacification of the right hemithorax. Given findings on recent chest ultrasound, most likely atelectasis, possibly due to endobronchial acute occlusion given lack of visualization of the right mainstem bronchus. Patient went into rapid A. fib. He was given IV diltiazem. He was eventually placed on diltiazem drip. On 10/14/2019, IVONNE FRITZ was called. Patient was emergently intubated. He regained pulses. Blood pressure was tenuous and he was eventually started on IV pressors. Antibiotics were adjusted. Cefepime and Flagyl discontinued. He was given IV vancomycin and Zosyn. Patient eventually converted to sinus rhythm. He was given amiodarone. He was eventually taken off IV pressors. Central line was discontinued. IV vancomycin was discontinued. He was given Zosyn. Sputum culture was negative. Blood culture did not isolate any growth. His condition remained guarded and critical. On 10/18/2019, he was again hypotensive and needed IV pressors. A left subclavian catheter was then inserted. A left iatrogenic pneumothorax was identified on chest x-ray postprocedure. Patient then underwent left tube thoracostomy. He tolerated procedure well. On 10/19/2019, patient was noted to have increased difficulty with respirations. Chest showed was accidentally dislodged.. ED physician was called and Thora vent was replaced emergently. Patient tolerated procedure well and pneumothorax was subsequently aspirated. There was noted improvement in respiration after tube was placed to suction. Chest x-ray showed near complete resolution of left pneumothorax. Patient clinical condition continued to deteriorate. Kidney function was worsening. Patient became bradycardic and hypoxemic. [facility] was called. Resuscitative efforts failed and patient eventually . FINAL DIAGNOSES: Multiorgan system failure Pneumonia with acute respiratory failure Lung collapse with chest tube Paroxysmal atrial fibrillation Acute on chronic diastolic congestive heart failure Metabolic acidosis Hyponatremia Acute on chronic renal failure Diabetes Hypertension Dysphasia Hyperlipidemia COPD DISPOSITION: Patient . I have been assigned to complete a discharge summary on this account, I was not involved with the patient's management.--NAKUL He Jacqueline Robles NP Oct 23, 2019 22:52
== END 2019-10-21 08:38 | disposition expired | DRG 720 ==
LOC: EDBD 21:39 → EMR 22:07 → 2W 22:44 → EDBEDREQ 23:18 → ICU 10-09 13:06
PROC: 06HN33Z Insertion of Infusion Device into Left Femoral Vein, Percutaneous Approach (ICD-10-PCS; 2019-10-09)
PROC: 5A1955Z Respiratory Ventilation, Greater than 96 Consecutive Hours (ICD-10-PCS; 2019-10-14)
PROC: 0BH17EZ Insertion of Endotracheal Airway into Trachea, Via Natural or Artificial Opening (ICD-10-PCS; 2019-10-14)
PROC: 0W9B30Z Drainage of Left Pleural Cavity with Drainage Device, Percutaneous Approach (ICD-10-PCS; principal; 2019-10-18)
PROC: 05H633Z Insertion of Infusion Device into Left Subclavian Vein, Percutaneous Approach (ICD-10-PCS; 2019-10-18)
PROC: 5A12012 Performance of Cardiac Output, Single, Manual (ICD-10-PCS; 2019-10-21)
DX: A41.9 Sepsis, unspecified organism (principal); J18.9 Pneumonia, unspecified organism; N17.9 Acute kidney failure, unspecified; E86.0 Dehydration; E87.0 Hyperosmolality and hypernatremia; G93.41 Metabolic encephalopathy; I13.0 Hypertensive heart and chronic kidney disease with heart failure and stage 1 through stage 4 chronic kidney disease, or unspecified chronic kidney disease; E11.22 Type 2 diabetes mellitus with diabetic chronic kidney disease; R00.0 Tachycardia, unspecified; J90 Pleural effusion, not elsewhere classified; R65.21 Severe sepsis with septic shock; J96.00 Acute respiratory failure, unspecified whether with hypoxia or hypercapnia; J98.11 Atelectasis; J95.811 Postprocedural pneumothorax; I48.0 Paroxysmal atrial fibrillation; I50.33 Acute on chronic diastolic (congestive) heart failure; N18.3 Chronic kidney disease, stage 3 (moderate); E87.1 Hypo-osmolality and hyponatremia; R13.10 Dysphagia, unspecified; E78.5 Hyperlipidemia, unspecified; Z20.828 Contact with and (suspected) exposure to other viral communicable diseases; E43 Unspecified severe protein-calorie malnutrition; Z68.20 Body mass index [BMI] 20.0-20.9, adult; R19.7 Diarrhea, unspecified
CPT/HCPCS: 36415; 36600; 71045; 74018; 76604; 80048; 80053; 81003; 82550; 82803; 82962; 83605; 83690; 83735; 83880; 84443; 84484; 85007; 85025; 85610; 85651; 85730; 86140; 87040; 87070; 87081; 87205; 92950; 93005; 93306; 94002; 94003; 96361; 96365; 96367; 99291; J0171; J2370; J7030; J8499; S0077